=== PATIENT | female | born 1960 | race Caucasian/White ===

== ENCOUNTER 2018-08-29 11:00 | Emergency (ER) | payer MEDICARE, MEDICAID ==
--- NOTE | 2018-08-29 11:44 | CT ---
CT PULMONARY ANGIOGRAM WITH IV CONTRAST AND 3-D POSTPROCESSING: HISTORY:Chest pain, cough FINDINGS: There is good contrast opacification of the pulmonary arterial vasculature without filling defects to suggest pulmonary embolism. The thoracic aorta is without aneurysm. No pleural or pericardial effusions are seen. No pneumothoraces, focal areas of consolidation or lung masses are noted. Emphysematous changes are m ost prominent in the upper lung alex. There is biapical scarring. There are degenerative changes in the spine. There is ascites in the visualized portions of the upper abdominal tomograms, right liver cysts and v arices in the paraesophageal region and in the left upper quadrant. IMPRESSION: No CT evidence of pulmonary embolism.
[2018-08-29] MEDS ORDERED: Nitroglycerin 2% Ointment 1 INCH/1 GM Packet ONE (12:01)
[2018-08-29 12:40] LABS: ALT (SGPT) 107 U/L (8-55); AST (SGOT) 204 U/L (5-34); Alkaline Phosphatase 71 U/L (40-150); Anion Gap 11 mmol/L (10-20); BUN (Urea Nitrogen) 6 mg/dL (9.8-20.1); CK (CPK) 333 U/L (29-168); Calc. Creatinine Clearance 0 mL/min (70-130); Calcium 8.3 mg/dL (7.8-10.44); Carbon Dioxide 22 mmol/L (22-29); Chloride 105 mmol/L (98-107); Estimated GFR-MDRD Greater than 90; Globulin 3.4 g/dL (2.4-3.5); Glucose 105 mg/dL (70-105); Lipase 49 U/L (8-78); Protein, Total 6.4 g/dL (6.0-8.3); Sodium 134 mmol/L (136-145)
[2018-08-29 12:55] LABS: #Basophils 0.1 thou/uL (0.0-0.2); #Monocytes 0.5 thou/uL (0.11-0.59); #Neutrophils 2.8 thou/uL (1.40-6.50); %Basophils 1.3 % (0.0-1.0); %Eosinophils 0.2 % (0.0-10.0); %Lymphocytes 22.4 % (21.0-51.0); %Monocytes 12.6 % (0.0-10.0); %Neutrophils 63.6 % (42.0-75.0); Hemoglobin 15.5 g/dL (12.0-16.0); Mean Corpuscular HGB CONC 34.1 g/dL (32.0-36.0); Mean Corpuscular Hemoglobin 33.9 pg (27.0-31.0); Mean Corpuscular Volume 99.6 fL (78.0-98.0); Mean Platelet Volume 9.2 fL (7.4-10.4); Platelet Count 80 thou/uL (130-400); Red Blood Cell (RBC) Count 4.57 mill/uL (4.20-5.40); White Blood Cell (WBC) Count 4.3 thou/uL (4.8-10.8)
[2018-08-29] MEDS ORDERED: Ketorolac Tromethamine 30 MG/ML VIAL ONE (13:38)
[2018-08-29 14:09] LABS: Troponin I Less than 0.010 ng/mL (< 0.028)
--- NOTE | 2018-08-31 16:21 | EKG ---
Test Reason : Blood Pressure : / mmHG Vent. Rate : 037 BPM Atrial Rate : 037 BPM P-R Int : 170 ms QRS Dur : 058 ms QT Int : 488 ms P-R-T Axes : 057 051 072 degrees QTc Int : 383 ms Marked sinus bradycardia Anteroseptal infarct , age undetermined Abnormal ECG Confirmed by THEODORA ANDERSEN, AFSHAN ([id number]), mapping editor MEGHAN TAYLOR ([id number]) on 08/31/2018 4:21:32 PM Referred By: Confirmed By:AFSHAN YIP MD
== END 2018-08-29 14:20 | disposition home or self-care (01) ==
LOC: ERS 11:00
DX: J44.1 Chronic obstructive pulmonary disease with (acute) exacerbation (principal); R00.1 Bradycardia, unspecified; I10 Essential (primary) hypertension; F17.210 Nicotine dependence, cigarettes, uncomplicated; Z79.899 Other long term (current) drug therapy
CPT/HCPCS: 36415; 71275; 80053; 82550; 83690; 83880; 84484; 85025; 93005; 96361; 96374; J1885

== ENCOUNTER 2019-01-28 17:56 | Inpatient (IN) | payer MEDICARE, MEDICAID ==
[~2019-01-28 17:56] MED LIST: Iopamidol-370 76% 500 ML 1 ML ONE
[2019-01-28 19:59] LABS: #Basophils 0.1 thou/uL (0.0-0.2); #Lymphocytes 1.3 thou/uL (1.20-3.40); #Monocytes 0.8 thou/uL (0.11-0.59); %Basophils 0.9 % (0.0-1.0); %Eosinophils 0.1 % (0.0-10.0); %Lymphocytes 17.7 % (21.0-51.0); %Monocytes 11.4 % (0.0-10.0); %Neutrophils 69.9 % (42.0-75.0); Hemoglobin 12.5 g/dL (12.0-16.0); Mean Corpuscular HGB CONC 33.6 g/dL (32.0-36.0); Mean Corpuscular Hemoglobin 33.1 pg (27.0-31.0); Mean Corpuscular Volume 98.5 fL (78.0-98.0); Mean Platelet Volume 8.3 fL (7.4-10.4); Platelet Count 115 thou/uL (130-400); RBC Distribution Width 13.8 % (11.5-14.5); Red Blood Cell (RBC) Count 3.76 mill/uL (4.20-5.40); White Blood Cell (WBC) Count 7.1 thou/uL (4.8-10.8)
[2019-01-28 20:03] LABS: INR-International Normal Ratio 1.5; PTT 32.5 SEC (22.9-36.1); Prothrombin Time 18.4 SEC (12.0-14.7)
[2019-01-28 20:18] LABS: ALT (SGPT) 35 U/L (8-55); AST (SGOT) 63 U/L (5-34); Albumin 2.3 g/dL (3.5-5.0); Alkaline Phosphatase 66 U/L (40-110); Anion Gap 9 mmol/L (10-20); BUN (Urea Nitrogen) 19 mg/dL (9.8-20.1); Bilirubin, Total 2.5 mg/dL (0.2-1.2); Calc. Creatinine Clearance 0 mL/min (70-130); Calcium 7.9 mg/dL (7.8-10.44); Carbon Dioxide 24 mmol/L (22-29); Chloride 107 mmol/L (98-107); Estimated GFR-MDRD Greater than 90; Globulin 3.8 g/dL (2.4-3.5); Glucose 103 mg/dL (70-105); Lipase 75 U/L (8-78); Protein, Total 6.1 g/dL (6.0-8.3); Sodium 137 mmol/L (136-145)
--- NOTE | 2019-01-28 21:05 | CT ---
CT ABDOMEN AND PELVIS WITH IV CONTRAST: 01/28/19 INDICATION: Cirrhosis. Ascites. Abdominal pain. Comparison made to CT chest with images through upper abdomen 08/29/18. FINDINGS: Lung bases are clear. There is sliding fixed diaphragmatic hernia. 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 Images through the upper abdomen show a small heterogeneous liver with irregular margins consistent w ith diagnosis of cirrhosis. A cystic lesion in the mid liver near the brody hepatis is stable from th e prior exam measuring approximately 2.2 cm. Post cholecystectomy change. Spleen and pancreas unremar kable. Splenic varices. Large volume ascites throughout the abdomen and pelvis. Small bowel loops show mural thickening probably secondary to ascites. Aorta is calcified but normal caliber. Colon also shows mild diffuse mural thickening possibly due to the ascites. Uterus and adnex a unremarkable. IMPRESSION: 1. Large volume ascites in all quadrants. 2. Changes of cirrhosis and portal hypertension as described above. 3. Sliding fixed diaphragmatic hernia. POS: OFF
[2019-01-28] MEDS ORDERED: Magnesium 2 GM/50 ML BAG (IN WATER) ONE (23:37)
[2019-01-28] MEDS ORDERED: Potassium Chloride 40 MEQ in Sodium Chloride 0.9% 250 ML 250 ML IVPB SCH (23:59)
[2019-01-29] MEDS ORDERED: hydrALAZINE 20 MG/ML VIAL SLOW IVP PRN (01:01)
[2019-01-29] MEDS ORDERED: Albumin 25% 25 GM/100 ML BOT IVPB SCH (01:08)
[2019-01-29] MEDS ORDERED: Propranolol 40 MG TAB PO SCH (01:15)
[2019-01-29] MEDS ORDERED: Magnesium 2 GM/50 ML 2 GM in Premix Bag 1 BAG IVPB SCH (01:15)
--- NOTE | 2019-01-29 02:08 | HP ---
PRESENTING COMPLAINT: Weakness and fall. HISTORY OF PRESENT ILLNESS: Ms. Jillian Chaidez is a 58-year-old female with history of hepatitis C, alcoholic liver cirrhosis, who presented today because of progressive weakness and recent fall at home since the last 3 days. The patient has been having continuous weakness. She admits to loose stools. She denies any lactulose use. She does not have home medications. She says she has gone to see a primary care physician to establish care today and was told she looked too weak to go home and was sent to the ED. The patient admits to being at a hospital in [place] 1 week ago where she was treated for similar weakness. She is unable to tell me what else she was treated for or what her home medications are. She states she has had previous paracentesis. She states her last one was over 3 months ago. She admits to worsening abdominal distention with generalized abdominal pain. She denies any nausea or vomiting. She admits to decreased p.o. intake. She denies any dysuria, fever, or chills. In the emergency room, she was noted with low potassium of 3.0 as well as a prolonged QTc interval of 493 on EKG. She denies any chest pain. No shortness of breath. The patient is a very poor historian. The patient states she has not taken any medications since the last 2 weeks after she ran out of her previously prescribed medication. PAST MEDICAL HISTORY: History of hepatitis C, history of alcoholic liver cirrhosis, history of recurrent abdominal ascites. HOME MEDICATIONS: The patient unable to give information about home medications. ALLERGIES: SHE IS ALLERGIC TO CODEINE. FAMILY HISTORY: No history of abdominal cancer or CVA. SOCIAL HISTORY: The patient denies any tobacco use. Admits to previous alcohol use, but none since the last 4 months. Denies any illicit drug use. She states she lives alone and she is fully functional prior to this acute symptoms. REVIEW OF SYSTEMS: All system reviewed x14 negative except as mentioned above as well as positive for myalgia and malaise. PHYSICAL EXAMINATION: CURRENT VITAL SIGNS: Blood pressure of 146/82, pulse of 84, respiratory rate of 20, O2 saturation 100% on room air, temperature afebrile at 98.7. GENERAL: Thin built, chronically ill-looking female, not in any distress. HEENT: Pupils are equal and reactive to light. Slight icterus noted. Dry oral mucosa. NECK: No JVD. No carotid bruit. RESPIRATORY: Good air entry at the bases. No crepitation or wheeze. CARDIOVASCULAR: S1, S2. Not tachycardic. No murmur. GI: Abdomen markedly distended. Mild generalized tenderness on palpation. Extensive ascites as demonstrated by shifting dullness. No area of focal tenderness. No palpable suprapubic fullness or hepatomegaly. BACK: Nontender. No CVA tenderness. EXTREMITIES: No pedal edema. No calf tenderness. NEURO: The patient is alert and conversant. No asterixis. No neurological focal motor deficit. LABORATORY DATA: WBC 7.5, hemoglobin 12, platelet 115, neutrophils 69%. INR 1.5, PTT 32, potassium 3.0, sodium 137, bicarb 24, creatinine 0.6, calcium 7.9, albumin of 2.3, lipase 75. Magnesium 1.6. AST and ALT normal. Total bilirubin of 2.5. CT of the abdomen/pelvis shows extensive ascites demonstrated, also noted changes of cirrhosis, portal hypertension, as well as slightly fixed diaphragmatic hernia. EKG shows normal sinus rhythm with a prolonged QT of 430 and QTc of 493. No U waves noted. IMPRESSION: 1. Alcoholic liver cirrhosis. 2. Symptomatic ascites. 3. Hypomagnesemia. 4. Hypokalemia. 5. Prolonged QT interval due to hypomagnesemia. 6. Weakness. PLAN: We will admit the patient to observation. We will manage the patient for the following. 1. Symptomatic ascites with generalized abdominal pain. We will consult for paracentesis. We will send fluid for cell count and culture. Given elevated blood pressure as well as evidence of portal hypertension on CT, we will start the patient on propranolol. We will also start low-dose lactulose. 2. Hypokalemia. We will replete now. We start gentle hydration. The patient might benefit from p.o. potassium at discharge. 3. Hypomagnesemia. We will replete with 2 g, likely cause of EKG change. Follow repeat EKG in a.m. We will discharge. We will also start the patient on magnesium oxide. 4. DVT prophylaxis, subcutaneous heparin. 5. Advanced directives, the patient is full code. TIME SPENT: Total time spent in review of record, greater than 60 minutes. Job ID: [id number]
[2019-01-29] MEDS: Potassium Chloride 10 MEQ in Dextrose 5%-Lactated Ringers 1,000 ML IV SCH ×2 (02:21→13:01)
[2019-01-29 02:31] VITALS: BMI 19.1
[2019-01-29] MEDS: Heparin 5,000 UNITS/ML VIAL SC SCH ×3 (07:51→20:41)
[2019-01-29 09:23] LABS: #Basophils 0.1 thou/uL (0.0-0.2); #Lymphocytes 1.3 thou/uL (1.20-3.40); #Monocytes 0.8 thou/uL (0.11-0.59); #Neutrophils 4.6 thou/uL (1.40-6.50); %Basophils 0.8 % (0.0-1.0); %Eosinophils 0.2 % (0.0-10.0); %Lymphocytes 19.4 % (21.0-51.0); %Monocytes 12.2 % (0.0-10.0); %Neutrophils 67.4 % (42.0-75.0); Hemoglobin 11.9 g/dL (12.0-16.0); Mean Corpuscular HGB CONC 33.8 g/dL (32.0-36.0); Mean Corpuscular Hemoglobin 33.5 pg (27.0-31.0); Mean Corpuscular Volume 98.9 fL (78.0-98.0); Mean Platelet Volume 8.6 fL (7.4-10.4); Platelet Count 104 thou/uL (130-400); RBC Distribution Width 13.8 % (11.5-14.5); Red Blood Cell (RBC) Count 3.56 mill/uL (4.20-5.40); White Blood Cell (WBC) Count 6.8 thou/uL (4.8-10.8)
[2019-01-29 09:39] LABS: Anion Gap 7 mmol/L (10-20); BUN (Urea Nitrogen) 15 mg/dL (9.8-20.1); Calc. Creatinine Clearance 102 mL/min (70-130); Calcium 7.6 mg/dL (7.8-10.44); Carbon Dioxide 22 mmol/L (22-29); Chloride 110 mmol/L (98-107); Estimated GFR-MDRD Greater than 90; Glucose 121 mg/dL (70-105); Potassium 3.5 mmol/L (3.5-5.1); Sodium 135 mmol/L (136-145)
[2019-01-29] MEDS: Propranolol 40 MG TAB PO SCH ×2 (09:41→20:42)
[2019-01-29] MEDS: Magnesium Oxide 400 MG TAB PO SCH ×2 (09:41→20:42)
[2019-01-29] MEDS: Famotidine 20 MG TAB PO SCH ×2 (09:41→20:42)
[2019-01-29] MEDS: cefTRIAXone\\ROCEPHIN 1 GM in Sodium Chloride 0.9% 100 ML IVPB SCH (10:18)
--- NOTE | 2019-01-29 10:31 | PDOC.HOSPP ---
- Subjective Encounter Date: 01/29/19 Encounter Time: 10:29 Subjective: was seen today in follow-up of cirrhosis, and generalized weakness. She also notes abdominal discomfort. - Objective Vital Signs & Weight: Vital Signs (12 hours) Temp Pulse Ox 01/29/19 08:00 100 01/29/19 07:39 98.2 F 01/29/19 04:00 98.4 F 01/29/19 01:45 98.0 F 100 Weight Weight 133 lb 3 oz Most Recent Monitor Data Heart Rate from ECG 69 NIBP 128/88 NIBP BP-Mean 101 Respiration from ECG 15 SpO2 99 I&O: 01/28/19 01/29/19 01/30/19 06:59 06:59 06:59 Intake Total 930 Balance 930 Result Diagrams: 01/29/19 09:01 01/29/19 09:01 Hospitalist ROS - Medication Medications: Active Medications Generic Name Dose Route Start Last Admin Trade Name Freq PRN Reason Stop Dose Admin Famotidine 20 mg 01/29/19 09:00 01/29/19 09:41 Pepcid PO Not Given BID [facility] Heparin Sodium (Porcine) 5,000 units 01/29/19 09:00 01/29/19 07:51 Heparin SC Not Given TID [facility] Potassium Chloride 10 meq/ 1,005 mls @ 100 mls/hr 01/29/19 01:15 01/29/19 02: 21 Dextrose/Lactated Ringer's IV 1,005 mls .Q10H3M GIOVANNI Administration Ceftriaxone Sodium 1 gm/ 100 mls @ 200 mls/hr 01/29/19 09:00 01/29/19 10:18 Sodium Chloride IVPB 100 mls 0900 GIOVANNI Administration Lactulose 20 gm 01/29/19 09:00 01/29/19 10:18 Lactulose PO 20 gm DAILY GIOVANNI Administration Magnesium Oxide 400 mg 01/29/19 09:00 01/29/19 09:41 Magnesium Oxide PO Not Given BID [facility] Propranolol HCl 40 mg 01/29/19 09:00 01/29/19 09:41 Inderal PO Not Given BID [facility] Sodium Chloride 10 ml 01/29/19 09:00 01/29/19 07:51 Flush - Normal Saline IVF Not Given Q12HR [facility] - Exam Eye: PERRL Heart: RRR, no murmur, no gallops, no rubs, normal peripheral pulses Respiratory: CTAB, no wheezes, no rales, no ronchi, normal chest expansion Gastrointestinal: tender to palpation (+ diffuse tenderness, + fluid wave, and spleen and liver non-palpable) Extremities: no cyanosis, 1+ LE edema (And chronic venous stasis changes) Hosp A/P (1) Weakness generalized Code(s): R53.1 - WEAKNESS Status: Acute (2) Hypokalemia Code(s): E87.6 - HYPOKALEMIA Status: Acute (3) Hypomagnesemia Code(s): E83.42 - HYPOMAGNESEMIA Status: Acute (4) Ascites Code(s): R18.8 - OTHER ASCITES Status: Chronic (5) Liver cirrhosis, alcoholic Code(s): K70.30 - ALCOHOLIC CIRRHOSIS OF LIVER WITHOUT ASCITES Status: Acute (6) Malnutrition of moderate degree Code(s): E44.0 - MODERATE PROTEIN-CALORIE MALNUTRITION Status: Chronic - Plan * Generalized weakness- likely from electrolyte abnormalities, and liver disease * She does not have evidence of encephalopathy at this time- she is oriented, and alertX 3, no asterixis * She has massive ascites however, and will obtain an ultrasound guided paracentesis- and check cell counts * She may need a rn social work consult to see what her needs are at home * Nutrition consult - for malnutrition
--- NOTE | 2019-01-29 15:17 | ULT ---
US Paracentesis with Imaging History: Ascites. Comparison: CT abdomen and pelvis prior day Findings: The exam was performed in the patient's room. The right lower quadrant was prepped and drap ed in normal sterile fashion. Using ultrasound guidance right lower quadrant was accessed with a 5 Swedish catheter after adequate local anesthesia with lidocaine. A total of 3250 mL straw-colored flui d was removed. Patient tolerated the procedure well without complication. Impression: Technically successful ultrasound-guided paracentesis.
[2019-01-29] MEDS ORDERED: FLU VACC QS2019-20(6MOS UP)/PF 60 MCG/0.5 ML SYRINGE IM ONE (21:00)
[2019-01-29] MEDS: Ondansetron PF 4 MG/2 ML Vial IVP PRN (23:11)
--- NOTE | 2019-01-30 03:47 | CON ---
DATE OF CONSULTATION: HISTORY OF PRESENT ILLNESS: Ms. Chaidez is a 58-year-old female with cirrhosis. She is followed by a trauma therapist in [place]. She presented to the [facility] and was transferred here. She really could not tell me why she wanted to be transferred to [place], when she is seen frequently in [place]. In any event, she was transferred here with massive ascites. She subsequently has undergone a large volume paracentesis and is back in her room at this time with no complaints. She says she is feeling better. She admits that she just quit taking her medicine. She said she just did not feel like walking into the room, where she keeps all of her medicines, so she did not take them. She denies running out of her medicine and very quickly told me she just did not take them. PAST MEDICAL HISTORY: Remarkable for, 1. Cirrhosis. She quit drinking in October this year. 2. Hepatitis C. 3. History of frequent large volume paracenteses. MEDICATIONS: It is unclear what medicines she takes at home. ALLERGIES: SHE REPORTS CODEINE ALLERGY. SOCIAL HISTORY: She is a nonsmoker. She has not had a drink since October. REVIEW OF SYSTEMS: Ten-point is otherwise negative. PHYSICAL EXAMINATION: VITAL SIGNS: She is afebrile. Heart rate is 65, respiratory rate is 18, blood pressure 136/87, and oximetry is 99%. HEENT: Pupils are equal. Sclerae are anicteric. NECK: Supple. No lymphadenopathy. LUNGS: Clear. HEART: Regular rhythm. ABDOMEN: Soft and nontender. EXTREMITIES: Without clubbing, cyanosis, or edema. LABORATORY DATA: White count 6.8, hemoglobin 11.9, and platelets 104,000. Sodium 135, potassium 3.5, chloride 110, bicarb 22, BUN 15, and creatinine 0.58. IMPRESSION: 1. Ascites, status post paracentesis. 2. Medical noncompliance. 3. Hepatitis C. 4. Cirrhosis. 5. History of heavy alcohol use, none since October by her history. If her peritoneal fluid cultures are negative, it would not be unreasonable for her to be discharged home. I really do not identify any acute illness at this point. I have encouraged her to pick a trauma therapist and stick with him. If she has medical complications, which she will have in the future related to her liver, she should request transfer to [place], where her trauma therapist is. She is auto-anticoagulated with a pro-time of 18.4. She probably does not need to have subcu heparin on top of that, so I have discontinued that. If she remains stable overnight, it would not be inappropriate to consider discharge tomorrow. Job ID: [id number]
[2019-01-30] MEDS: Potassium Chloride 10 MEQ in Dextrose 5%-Lactated Ringers 1,000 ML IV SCH ×3 (04:02→18:02)
[2019-01-30 04:27] LABS: ALT (SGPT) 27 U/L (8-55); AST (SGOT) 54 U/L (5-34); Albumin 2.1 g/dL (3.5-5.0); Alkaline Phosphatase 54 U/L (40-110); Anion Gap 9 mmol/L (10-20); BUN (Urea Nitrogen) 12 mg/dL (9.8-20.1); Bilirubin, Total 1.7 mg/dL (0.2-1.2); Calc. Creatinine Clearance 104 mL/min (70-130); Calcium 7.4 mg/dL (7.8-10.44); Carbon Dioxide 21 mmol/L (22-29); Chloride 111 mmol/L (98-107); Estimated GFR-MDRD Greater than 90; Globulin 3.2 g/dL (2.4-3.5); Glucose 81 mg/dL (70-105); Potassium 3.2 mmol/L (3.5-5.1); Protein, Total 5.3 g/dL (6.0-8.3); Sodium 138 mmol/L (136-145)
[2019-01-30] MEDS ORDERED: PROVENTIL INHALER 6.7 G (200 INHALATIONS) INH PRN (09:19)
[2019-01-30] MEDS: Magnesium Oxide 400 MG TAB PO SCH ×2 (09:30→20:09)
[2019-01-30] MEDS: Heparin 5,000 UNITS/ML VIAL SC SCH ×3 (09:31→20:09)
[2019-01-30] MEDS: Propranolol 40 MG TAB PO SCH ×2 (09:31→20:09)
[2019-01-30] MEDS: Famotidine 20 MG TAB PO SCH ×2 (09:31→20:09)
[2019-01-30] MEDS: cefTRIAXone\\ROCEPHIN 1 GM in Sodium Chloride 0.9% 100 ML IVPB SCH (09:32)
--- NOTE | 2019-01-30 11:23 | PDOC.HOSPP ---
- Subjective Encounter Date: 01/30/19 Encounter Time: 11:22 Subjective: Ms. Chaidez was seen today in follow-up of cirrhosis, and abdominal pain, generalized weakness. - Objective Vital Signs & Weight: Vital Signs (12 hours) Temp Pulse Ox 01/30/19 08:16 98.8 F 01/30/19 08:00 100 01/30/19 03:57 98.7 F 01/29/19 23:41 98.8 F Weight Admit Weight 133 lb 3 oz Weight 133 lb 3 oz Most Recent Monitor Data Heart Rate from ECG 60 NIBP 113/77 NIBP BP-Mean 89 Respiration from ECG 17 SpO2 100 I&O: 01/29/19 01/30/19 01/31/19 06:59 06:59 06:59 Intake Total 930 1796 Output Total 200 Balance 930 1596 Result Diagrams: 01/29/19 09:01 01/30/19 03:46 Hospitalist ROS - Medication Medications: Active Medications Generic Name Dose Route Start Last Admin Trade Name Freq PRN Reason Stop Dose Admin Famotidine 20 mg 01/29/19 09:00 01/30/19 09:31 Pepcid PO 20 mg BID GIOVANNI Administration Heparin Sodium (Porcine) 5,000 units 01/29/19 09:00 01/30/19 09:31 Heparin SC 5,000 units TID GIOVANNI Administration Potassium Chloride 10 meq/ 1,005 mls @ 100 mls/hr 01/29/19 01:15 01/30/19 09: 30 Dextrose/Lactated Ringer's IV 1,005 mls .Q10H3M GIOVANNI Administration Magnesium Oxide 400 mg 01/29/19 09:00 01/30/19 09:30 Magnesium Oxide PO 400 mg BID GIOVANNI Administration Ondansetron HCl 4 mg 01/29/19 01:01 01/29/19 23:11 Zofran IVP 4 mg Q6H PRN Administration Nausea/Vomiting Propranolol HCl 40 mg 01/29/19 09:00 01/30/19 09:31 Inderal PO Not Given BID [facility]ANNI Sodium Chloride 10 ml 01/29/19 09:00 01/30/19 09:31 Flush - Normal Saline IVF 10 ml Q12HR GIOVANNI Administration - Exam Eye: PERRL Heart: RRR, no murmur, no gallops, no rubs, normal peripheral pulses Respiratory: CTAB, no wheezes, no rales, no ronchi, normal chest expansion Gastrointestinal: normal bowel sounds (+ fluid wave, distended, and diffuse of) , no hepatomegaly, distended Extremities: no cyanosis, no clubbing, 1+ LE edema Psychiatric: normal affect, normal behavior, A&O x 3 Hosp A/P (1) Weakness generalized Code(s): R53.1 - WEAKNESS Status: Acute (2) Hypokalemia Code(s): E87.6 - HYPOKALEMIA Status: Acute (3) Hypomagnesemia Code(s): E83.42 - HYPOMAGNESEMIA Status: Acute (4) Ascites Code(s): R18.8 - OTHER ASCITES Status: Chronic (5) Liver cirrhosis, alcoholic Code(s): K70.30 - ALCOHOLIC CIRRHOSIS OF LIVER WITHOUT ASCITES Status: Acute (6) Malnutrition of moderate degree Code(s): E44.0 - MODERATE PROTEIN-CALORIE MALNUTRITION Status: Chronic - Plan * Generalized weakness- continue PT/OT * Patient had the paracentesis- however the sample was not * She has massive ascites however, and will obtain an ultrasound guided paracentesis- and check cell counts were unfortunately not sent- for cell count and differential- since she had some abdominal pain will treat empirically for SBP. * Cdiff antigen positive and toxin negative- her stool lactoferrin was positive , and she had diarrhea despite being off Lactulose for over 7 days- will treat with a 10 day course of oral Vancomycin * She feels too weak to go home- will consult Case management for nursing home placemen
[2019-01-30] MEDS: Vancomycin HCl 25 MG/ML Oral PO SCH ×3 (13:17→23:32)
[2019-01-30] MEDS: Ciprofloxacin 500 MG TAB PO SCH (20:08)
[2019-01-30] MEDS: Lactulose 10 GM/15 ML Oral Solution PO SCH (21:17)
--- NOTE | 2019-01-30 21:19 | PRG ---
DATE OF SERVICE: 01/30/2019 SUBJECTIVE: Mr. Chaidez has no complaints. She says she feels weak. She does not want to go home. She says she can no longer take care of herself. OBJECTIVE: VITAL SIGNS: She is afebrile. Heart rate is in the 60s, respiratory rate 17, oximetry is 96% on room air, blood pressure 116/71 this evening. Intake and output are positive 1596. IMPRESSION: Ascites with requirement for frequent paracentesis. She should be probably fluid restricted at this point. She can transfer out of the intermediate care unit. She needs to be placed somewhere. She says she is willing to go anywhere besides home. We will sign off on transfer. Job ID: [id number]
[2019-01-31] MEDS: Potassium Chloride 10 MEQ in Dextrose 5%-Lactated Ringers 1,000 ML IV SCH ×2 (01:08→09:36)
[2019-01-31] MEDS: Ciprofloxacin 500 MG TAB PO SCH ×2 (05:02→21:11)
[2019-01-31] MEDS: Vancomycin HCl 25 MG/ML Oral PO SCH ×4 (05:02→23:00)
[2019-01-31 08:31] LABS: #Basophils 0.1 thou/uL (0.0-0.2); #Lymphocytes 1.7 thou/uL (1.20-3.40); #Monocytes 0.8 thou/uL (0.11-0.59); #Neutrophils 4.3 thou/uL (1.40-6.50); %Basophils 0.9 % (0.0-1.0); %Eosinophils 0.5 % (0.0-10.0); %Lymphocytes 24.3 % (21.0-51.0); %Monocytes 11.4 % (0.0-10.0); %Neutrophils 62.9 % (42.0-75.0); Hemoglobin 12.4 g/dL (12.0-16.0); Mean Corpuscular HGB CONC 32.9 g/dL (32.0-36.0); Mean Corpuscular Hemoglobin 33.3 pg (27.0-31.0); Mean Platelet Volume 8.3 fL (7.4-10.4); Platelet Count 98 thou/uL (130-400); RBC Distribution Width 13.7 % (11.5-14.5); Red Blood Cell (RBC) Count 3.72 mill/uL (4.20-5.40); White Blood Cell (WBC) Count 6.8 thou/uL (4.8-10.8)
[2019-01-31 08:37] LABS: ALT (SGPT) 31 U/L (8-55); AST (SGOT) 62 U/L (5-34); Alkaline Phosphatase 52 U/L (40-110); Anion Gap 6 mmol/L (10-20); BUN (Urea Nitrogen) 9 mg/dL (9.8-20.1); Bilirubin, Total 1.9 mg/dL (0.2-1.2); Calc. Creatinine Clearance 108 mL/min (70-130); Calcium 7.5 mg/dL (7.8-10.44); Carbon Dioxide 21 mmol/L (22-29); Chloride 111 mmol/L (98-107); Estimated GFR-MDRD Greater than 90; Globulin 3.3 g/dL (2.4-3.5); Glucose 100 mg/dL (70-105); Potassium 3.3 mmol/L (3.5-5.1); Protein, Total 5.3 g/dL (6.0-8.3); Sodium 135 mmol/L (136-145)
[2019-01-31] MEDS: Spironolactone 100 MG TAB PO SCH (09:28)
[2019-01-31] MEDS: Propranolol 40 MG TAB PO SCH ×2 (09:28→21:11)
[2019-01-31] MEDS: Famotidine 20 MG TAB PO SCH ×2 (09:28→21:11)
[2019-01-31] MEDS: Magnesium Oxide 400 MG TAB PO SCH ×2 (09:28→21:11)
[2019-01-31] MEDS: Lactulose 10 GM/15 ML Oral Solution PO SCH ×2 (09:29→21:12)
[2019-01-31] MEDS: Furosemide 40 MG TAB PO SCH (09:29)
[2019-01-31] MEDS: Heparin 5,000 UNITS/ML VIAL SC SCH (09:30)
[2019-01-31] MEDS: Ondansetron PF 4 MG/2 ML Vial IVP PRN (09:36)
[2019-01-31] MEDS ORDERED: Potassium Chloride 20 MEQ TAB PO SCH (15:00)
--- NOTE | 2019-01-31 15:08 | PDOC.HOSPP ---
- Subjective Encounter Date: 01/31/19 Encounter Time: 15:07 Subjective: Ms. Chaidez was seen today in follow-up of cirrhosis, with C. diff, and generalized weakness. She tells me she is having abdominal pain again today. She believes it may be due to her pancreas. She says she has had this problem before. - Objective Vital Signs & Weight: Vital Signs (12 hours) Temp Pulse Resp BP BP Pulse Ox 01/31/19 12:37 97.9 F 62 20 125/78 95 01/31/19 09:00 97 01/31/19 07:58 97.6 F 60 16 103/66 01/31/19 06:43 64 14 92 L 01/31/19 05:07 98.0 F 63 15 111/71 92 L Weight Admit Weight 133 lb 3 oz Weight 133 lb 3 oz Most Recent Monitor Data Heart Rate from ECG 62 NIBP 113/77 NIBP BP-Mean 123 Respiration from ECG 17 SpO2 99 I&O: 01/30/19 01/31/19 02/01/19 06:59 06:59 06:59 Intake Total 1796 1450 Output Total 200 Balance 1596 1450 Result Diagrams: 01/31/19 07:44 01/31/19 07:44 Hospitalist ROS - Medication Medications: Active Medications Generic Name Dose Route Start Last Admin Trade Name Freq PRN Reason Stop Dose Admin Albuterol/Ipratropium 3 ml 01/30/19 11:00 01/31/19 14:16 Duoneb NEB Not Given QID-RT GIOVANNI Ciprofloxacin 500 mg 01/30/19 20:00 01/31/19 05:02 Cipro PO 02/04/19 06:01 500 mg BID@0600,2000 GIOVANNI Administration Famotidine 20 mg 01/29/19 09:00 01/31/19 09:28 Pepcid PO 20 mg BID GIOVANNI Administration Furosemide 40 mg 01/31/19 09:00 01/31/19 09:29 Lasix PO 40 mg DAILY GIOVANNI Administration Potassium Chloride 10 meq/ 1,005 mls @ 100 mls/hr 01/29/19 01:15 01/31/19 09: 36 Dextrose/Lactated Ringer's IV 1,005 mls .Q10H3M GIOVANNI Administration Lactulose 10 gm 01/30/19 21:00 01/31/19 09:29 Lactulose 10 Gm/15ml Oral Nneka PO 10 gm BID GIOVANNI Administration Magnesium Oxide 400 mg 01/29/19 09:00 01/31/19 09:28 Magnesium Oxide PO 400 mg BID GIOVANNI Administration Ondansetron HCl 4 mg 01/29/19 01:01 01/31/19 09:36 Zofran IVP 4 mg Q6H PRN Administration Nausea/Vomiting Potassium Chloride 20 meq 01/31/19 09:00 01/31/19 09:29 Klor-Con PO 20 meq DAILY GIOVANNI Administration Propranolol HCl 40 mg 01/29/19 09:00 01/31/19 09:28 Inderal PO 40 mg BID GIOVANNI Administration Sertraline HCl 100 mg 01/31/19 09:00 01/31/19 09:28 Zoloft PO 100 mg DAILY GIOVANNI Administration Sodium Chloride 10 ml 01/29/19 09:00 01/31/19 09:29 Flush - Normal Saline IVF Not Given Q12HR GIOVANNI Spironolactone 100 mg 01/31/19 09:00 01/31/19 09:28 Aldactone PO 100 mg DAILY GIOVANNI Administration Vancomycin HCl 125 mg 01/30/19 12:00 01/31/19 12:35 First Vancomycin PO 125 mg Q6HR GIOVANNI Administration - Exam Eye: PERRL Heart: RRR, no murmur, no gallops, no rubs, normal peripheral pulses Respiratory: CTAB, no wheezes, no rales, no ronchi, normal chest expansion Gastrointestinal: tender to palpation (tense abdominal distension, + fluid wave, ), distended Extremities: 1+ LE edema Hosp A/P (1) Weakness generalized Code(s): R53.1 - WEAKNESS Status: Acute (2) Hypokalemia Code(s): E87.6 - HYPOKALEMIA Status: Acute (3) Hypomagnesemia Code(s): E83.42 - HYPOMAGNESEMIA Status: Acute (4) Ascites Code(s): R18.8 - OTHER ASCITES Status: Chronic (5) Liver cirrhosis, alcoholic Code(s): K70.30 - ALCOHOLIC CIRRHOSIS OF LIVER WITHOUT ASCITES Status: Acute (6) Malnutrition of moderate degree Code(s): E44.0 - MODERATE PROTEIN-CALORIE MALNUTRITION Status: Chronic - Plan * Abdominal pain- will check a lipase, but I suspect it I suspect it is due to the massive ascites * Will order another large volume paracentesis * Continue empiric treatment for SBP- day #2 of Cipro for a total of 5 days * Cdiff antigen positive and toxin negative- her stool lactoferrin was positive , she notes a bit firmer stools, but loose ( she is also on lactulose)- continue oral Vancomycin for a 10 day course * Hypokalemia- continue to replace * Malnutrition- continue nutritional supplements * plan is for shelter once stable for discharge
[2019-01-31 16:05] LABS: INR-International Normal Ratio 1.7; Prothrombin Time 20.3 SEC (12.0-14.7)
--- NOTE | 2019-01-31 16:43 | ULT ---
Exam: Ultrasound guided paracentesis HISTORY: Ascites COMPARISON: Prior exam dated January 29, 2019 FINDINGS: Successful ultrasound-guided paracentesis. Total of 5 L of normal appearingascites was aspi rated. TECHNIQUE: Consent obtained reformatory ultrasound-guided paracentesis. Right lower quadrant was deem ed appropriate. Skin was prepped and draped in a sterile fashion. 1% lidocaine, buffered with sodium bicarbonate was used for local anesthesia. Under ultrasound guidance, a 5 Croatian 7 cm Yueh cat heter is advanced in the peritoneal space. A total of 5 L of normal appearingascites was aspirated. No immediate or postprocedural complications IMPRESSION: Successful ultrasound-guided paracentesis.
[2019-01-31] MEDS ORDERED: Albumin 25% 25 GM/100 ML BOT IVPB ONE (17:52)
[2019-01-31] MEDS ORDERED: Albumin 25% 25 GM/100 ML BOT IVPB SCH (19:00)
[2019-01-31] MEDS: Albumin 25% 25 GM/100 ML BOT IVPB SCH (21:11)
[2019-02-01] MEDS: Ciprofloxacin 500 MG TAB PO SCH ×2 (05:39→21:18)
[2019-02-01] MEDS: Vancomycin HCl 25 MG/ML Oral PO SCH ×4 (05:39→23:06)
[2019-02-01] MEDS: Albumin 25% 25 GM/100 ML BOT IVPB SCH ×2 (05:39→13:55)
[2019-02-01 06:22] LABS: #Basophils 0.1 thou/uL (0.0-0.2); #Lymphocytes 1.4 thou/uL (1.20-3.40); #Neutrophils 4.4 thou/uL (1.40-6.50); %Basophils 1.3 % (0.0-1.0); %Eosinophils 0.6 % (0.0-10.0); %Lymphocytes 20.7 % (21.0-51.0); %Monocytes 14.3 % (0.0-10.0); %Neutrophils 63.1 % (42.0-75.0); Hemoglobin 11.2 g/dL (12.0-16.0); Mean Corpuscular HGB CONC 32.9 g/dL (32.0-36.0); Mean Corpuscular Hemoglobin 33.1 pg (27.0-31.0); Mean Platelet Volume 8.7 fL (7.4-10.4); Platelet Count 86 thou/uL (130-400); RBC Distribution Width 13.6 % (11.5-14.5); Red Blood Cell (RBC) Count 3.39 mill/uL (4.20-5.40); White Blood Cell (WBC) Count 6.9 thou/uL (4.8-10.8)
[2019-02-01 06:42] LABS: ALT (SGPT) 29 U/L (8-55); AST (SGOT) 58 U/L (5-34); Albumin 2.2 g/dL (3.5-5.0); Alkaline Phosphatase 48 U/L (40-110); Anion Gap 8 mmol/L (10-20); BUN (Urea Nitrogen) 8 mg/dL (9.8-20.1); Bilirubin, Total 1.7 mg/dL (0.2-1.2); Calc. Creatinine Clearance 102 mL/min (70-130); Calcium 7.3 mg/dL (7.8-10.44); Carbon Dioxide 20 mmol/L (22-29); Chloride 111 mmol/L (98-107); Estimated GFR-MDRD Greater than 90; Globulin 2.7 g/dL (2.4-3.5); Glucose 81 mg/dL (70-105); Potassium 3.8 mmol/L (3.5-5.1); Protein, Total 4.9 g/dL (6.0-8.3); Sodium 135 mmol/L (136-145)
[2019-02-01] MEDS: Furosemide 40 MG TAB PO SCH (08:23)
[2019-02-01] MEDS: Spironolactone 100 MG TAB PO SCH (08:23)
[2019-02-01] MEDS: Propranolol 40 MG TAB PO SCH ×3 (08:24→21:19)
[2019-02-01] MEDS: Magnesium Oxide 400 MG TAB PO SCH (08:24)
[2019-02-01] MEDS: Famotidine 20 MG TAB PO SCH ×2 (08:24→21:18)
[2019-02-01] MEDS ORDERED: Albumin 25% 25 GM/100 ML BOT IVPB ONE (09:00)
--- NOTE | 2019-02-01 14:41 | PDOC.HOSPP ---
- Subjective Encounter Date: 02/01/19 Encounter Time: 09:15 Subjective: has diarrhea, no nausea or abd pain now feels better after 2 nd paracentesis - Objective Vital Signs & Weight: Vital Signs (12 hours) Temp Pulse Resp BP Pulse Ox 02/01/19 10:27 59 L 12 92 L 02/01/19 08:04 97.9 F 61 20 91/55 L 92 L 02/01/19 08:00 97.9 F Weight Admit Weight 133 lb 3 oz Weight 133 lb 3 oz Most Recent Monitor Data Heart Rate from ECG 62 NIBP 113/77 NIBP BP-Mean 123 Respiration from ECG 17 SpO2 99 I&O: 01/31/19 02/01/19 02/02/19 06:59 06:59 06:59 Intake Total 1450 1950 360 Balance 1450 1950 360 Result Diagrams: 02/01/19 05:43 02/01/19 05:43 Additional Labs: Accuchecks 01/31/19 20:02 POC Glucose 109 Hospitalist ROS - Medication Medications: Active Medications Generic Name Dose Route Start Last Admin Trade Name Freq PRN Reason Stop Dose Admin Albuterol/Ipratropium 3 ml 01/30/19 11:00 02/01/19 14:14 Duoneb NEB Not Given QID-RT GIOVANNI Ciprofloxacin 500 mg 01/30/19 20:00 02/01/19 05:39 Cipro PO 02/04/19 06:01 500 mg BID@0600,2000 GIOVANNI Administration Famotidine 20 mg 01/29/19 09:00 02/01/19 08:24 Pepcid PO 20 mg BID GIOVANNI Administration Furosemide 40 mg 01/31/19 09:00 02/01/19 08:23 Lasix PO 40 mg DAILY GIOVANNI Administration Ondansetron HCl 4 mg 01/29/19 01:01 01/31/19 09:36 Zofran IVP 4 mg Q6H PRN Administration Nausea/Vomiting Potassium Chloride 40 meq 02/01/19 08:00 02/01/19 08:21 Klor-Con PO 40 meq QAM-WM GIOVANNI Administration Propranolol HCl 40 mg 01/29/19 09:00 02/01/19 13:55 Inderal PO 40 mg BID GIOVANNI Administration Sertraline HCl 100 mg 01/31/19 09:00 02/01/19 08:24 Zoloft PO 100 mg DAILY GIOVANNI Administration Sodium Chloride 10 ml 01/29/19 09:00 02/01/19 08:32 Flush - Normal Saline IVF 10 ml Q12HR GIOVANNI Administration Spironolactone 100 mg 01/31/19 09:00 02/01/19 08:23 Aldactone PO 100 mg DAILY GIOVANNI Administration Vancomycin HCl 125 mg 01/30/19 12:00 02/01/19 12:32 First Vancomycin PO 125 mg Q6HR GIOVANNI Administration - Exam General Appearance: NAD, awake alert Eye: PERRL, anicteric sclera ENT: no oropharyngeal lesions, moist mucosa Neck: symmetric, no JVD Heart: RRR, no murmur Respiratory: no wheezes, no rales Gastrointestinal: soft, normal bowel sounds, no guarding, no rigidity, distended Extremities: no cyanosis, no edema Neurological: cranial nerve grossly intact, no focal deficits Psychiatric: normal affect, A&O x 3 Hosp A/P (1) Chronic anemia Code(s): D64.9 - ANEMIA, UNSPECIFIED Status: Chronic (2) coagulopathy due to liver disease Status: Chronic (3) Liver cirrhosis, alcoholic Code(s): K70.30 - ALCOHOLIC CIRRHOSIS OF LIVER WITHOUT ASCITES Status: Chronic Qualifiers: Ascites presence: with ascites Qualified Code(s): K70.31 - Alcoholic cirrhosis of liver with ascites (4) Weakness generalized Code(s): R53.1 - WEAKNESS Status: Acute (5) Ascites Code(s): R18.8 - OTHER ASCITES Status: Chronic Qualifiers: Ascites type: due to alcoholic cirrhosis Qualified Code(s): K70.31 - Alcoholic cirrhosis of liver with ascites (6) Malnutrition of moderate degree Code(s): E44.0 - MODERATE PROTEIN-CALORIE MALNUTRITION Status: Chronic - Plan dc lactulose and mgo to make maxim her diarrhea is not related to meds may dc vanc in am if diarrhea resolves with above, cdiff toxin is -ve by pcr, unlikely to have c.diff is on cipro for empiric sbp pt had paracentesis with removal of 8250mls (5 lts on 01/31 and 3250mls on 01/29 ) hemostable Has a meld score of 14. dc plan when diarrhea resolves, to amb in hallway as tolerated
[2019-02-01 17:56] LABS: Medtox Reader # READER 1; THC/Cannabinoid Screen Detected (NotDetected)
[2019-02-01 17:57] LABS: Amphetamine Not Detected (NotDetected); Barbiturates Screen Not Detected (NotDetected); Benzodiazepine Screen Not Detected (NotDetected); Cocaine Metabolite Screen Not Detected (NotDetected); Medtox Control Line Valid? VALID (VALID); Methadone Not Detected (NotDetected); Methamphetamine Not Detected (NotDetected); Opiate Screen Not Detected (NotDetected); Oxycodone Screen Not Detected (NotDetected); Phencyclidine (PCP) Not Detected (NotDetected); Tricyclic Screen Not Detected (NotDetected)
[2019-02-01] MEDS: Ondansetron PF 4 MG/2 ML Vial IVP PRN (21:19)
[2019-02-02] MEDS: Vancomycin HCl 25 MG/ML Oral PO SCH ×4 (05:27→23:47)
[2019-02-02] MEDS: Ciprofloxacin 500 MG TAB PO SCH (05:27)
[2019-02-02] MEDS: Spironolactone 100 MG TAB PO SCH (08:28)
[2019-02-02] MEDS: Furosemide 40 MG TAB PO SCH (08:28)
[2019-02-02] MEDS: Famotidine 20 MG TAB PO SCH ×2 (08:28→20:41)
[2019-02-02] MEDS: Propranolol HCl 20 MG TAB PO SCH ×2 (08:35→20:39)
--- NOTE | 2019-02-02 13:28 | PDOC.HOSPP ---
- Subjective Encounter Date: 02/02/19 Encounter Time: 08:30 Subjective: awake, oriented well no sob - Objective Vital Signs & Weight: Vital Signs (12 hours) Temp Pulse Resp BP BP Pulse Ox 02/02/19 08:00 98.3 F 58 L 20 92/57 L 91 L 02/02/19 04:00 98.1 F 63 16 109/68 92 L Weight Admit Weight 133 lb 3 oz Weight 133 lb 3 oz Most Recent Monitor Data Heart Rate from ECG 62 NIBP 113/77 NIBP BP-Mean 123 Respiration from ECG 17 SpO2 99 I&O: 02/01/19 02/02/19 02/03/19 06:59 06:59 06:59 Intake Total 1950 1380 240 Output Total 900 Balance 1950 480 240 Result Diagrams: 02/01/19 05:43 02/01/19 05:43 Hospitalist ROS - Medication Medications: Active Medications Generic Name Dose Route Start Last Admin Trade Name Freq PRN Reason Stop Dose Admin Albuterol/Ipratropium 3 ml 01/30/19 11:00 02/02/19 10:06 Duoneb NEB Not Given QID-RT GIOVANNI Famotidine 20 mg 01/29/19 09:00 02/02/19 08:28 Pepcid PO 20 mg BID GIOVANNI Administration Furosemide 40 mg 01/31/19 09:00 02/02/19 08:28 Lasix PO 40 mg DAILY GIOVANNI Administration Ondansetron HCl 4 mg 01/29/19 01:01 02/01/19 21:19 Zofran IVP 4 mg Q6H PRN Administration Nausea/Vomiting Potassium Chloride 40 meq 02/01/19 08:00 02/02/19 08:27 Klor-Con PO 40 meq QAM-WM GIOVANNI Administration Propranolol HCl 20 mg 02/02/19 09:00 02/02/19 08:35 Inderal PO 20 mg BID GIOVANNI Administration Sertraline HCl 100 mg 01/31/19 09:00 02/02/19 08:28 Zoloft PO 100 mg DAILY GIOVANNI Administration Sodium Chloride 10 ml 01/29/19 09:00 02/02/19 08:28 Flush - Normal Saline IVF 10 ml Q12HR GIOVANNI Administration Spironolactone 100 mg 01/31/19 09:00 02/02/19 08:28 Aldactone PO 100 mg DAILY GIOVANNI Administration Vancomycin HCl 125 mg 01/30/19 12:00 02/02/19 11:37 First Vancomycin PO 125 mg Q6HR GIOVANNI Administration - Exam General Appearance: awake alert Eye: PERRL, anicteric sclera ENT: no oropharyngeal lesions, moist mucosa Neck: supple, no JVD Heart: RRR, no murmur Respiratory: no wheezes, no rales Gastrointestinal: soft, normal bowel sounds, distended Extremities: no cyanosis, no edema Neurological: cranial nerve grossly intact, no focal deficits Psychiatric: normal affect, A&O x 3 Hosp A/P (1) Ascites Code(s): R18.8 - OTHER ASCITES Status: Chronic Qualifiers: Ascites type: due to alcoholic cirrhosis Qualified Code(s): K70.31 - Alcoholic cirrhosis of liver with ascites (2) Liver cirrhosis, alcoholic Code(s): K70.30 - ALCOHOLIC CIRRHOSIS OF LIVER WITHOUT ASCITES Status: Chronic Qualifiers: Ascites presence: with ascites Qualified Code(s): K70.31 - Alcoholic cirrhosis of liver with ascites (3) Chronic anemia Code(s): D64.9 - ANEMIA, UNSPECIFIED Status: Chronic (4) coagulopathy due to liver disease Status: Chronic (5) Weakness generalized Code(s): R53.1 - WEAKNESS Status: Acute (6) Malnutrition of moderate degree Code(s): E44.0 - MODERATE PROTEIN-CALORIE MALNUTRITION Status: Chronic - Plan off lactulose and mgo to make sure her diarrhea is not related to meds may dc vanc in am if diarrhea resolves with above, cdiff toxin is -ve by pcr, unlikely to have c.diff pt had paracentesis with removal of 8250mls (5 lts on 01/31 and 3250mls on 01/29 ) hemostable Has a meld score of 14. dc plan when diarrhea resolves, to amb in hallway as tolerated d/w son and daughter in law at bedside extensively
[2019-02-02] MEDS: Ondansetron ODT 4 MG TAB PO PRN (20:41)
[2019-02-03] MEDS: Vancomycin HCl 25 MG/ML Oral PO SCH ×4 (05:26→23:35)
[2019-02-03] MEDS: Pantoprazole 40 MG GRANULES PACKET PO SCH ×2 (08:08→21:58)
[2019-02-03] MEDS: Furosemide 40 MG TAB PO SCH (08:08)
[2019-02-03] MEDS: Spironolactone 100 MG TAB PO SCH (08:08)
[2019-02-03] MEDS ORDERED: Propranolol 10 MG TAB PO SCH (08:30)
[2019-02-03 09:24] LABS: #Basophils 0.1 thou/uL (0.0-0.2); #Eosinphils 0.1 thou/uL (0.0-0.7); #Lymphocytes 1.9 thou/uL (1.20-3.40); #Monocytes 1.3 thou/uL (0.11-0.59); %Eosinophils 0.8 % (0.0-10.0); %Monocytes 13.9 % (0.0-10.0); %Neutrophils 64.3 % (42.0-75.0); Mean Corpuscular HGB CONC 32.8 g/dL (32.0-36.0); Mean Corpuscular Hemoglobin 33.3 pg (27.0-31.0); Platelet Count 107 thou/uL (130-400); RBC Distribution Width 13.8 % (11.5-14.5); Red Blood Cell (RBC) Count 3.91 mill/uL (4.20-5.40); White Blood Cell (WBC) Count 9.3 thou/uL (4.8-10.8)
[2019-02-03 09:33] LABS: ALT (SGPT) 30 U/L (8-55); AST (SGOT) 61 U/L (5-34); Albumin 2.7 g/dL (3.5-5.0); Alkaline Phosphatase 47 U/L (40-110); Anion Gap 10 mmol/L (10-20); BUN (Urea Nitrogen) 7 mg/dL (9.8-20.1); Bilirubin, Total 2.3 mg/dL (0.2-1.2); Calc. Creatinine Clearance 99 mL/min (70-130); Calcium 8.3 mg/dL (7.8-10.44); Carbon Dioxide 15 mmol/L (22-29); Chloride 114 mmol/L (98-107); Estimated GFR-MDRD Greater than 90; Glucose 88 mg/dL (70-105); Potassium 4.3 mmol/L (3.5-5.1); Protein, Total 5.7 g/dL (6.0-8.3); Sodium 135 mmol/L (136-145)
--- NOTE | 2019-02-03 11:43 | PDOC.HOSPP ---
- Subjective Encounter Date: 02/03/19 Encounter Time: 08:25 Subjective: ate her breakfast, still has loose stool but its getting more formed per patient had 3 episode last night no nausea or abd pain - Objective Vital Signs & Weight: Vital Signs (12 hours) Temp Pulse Resp BP Pulse Ox 02/03/19 08:00 97.7 F 55 L 16 111/68 93 L Weight Admit Weight 133 lb 3 oz Weight 133 lb 3 oz Most Recent Monitor Data Heart Rate from ECG 62 NIBP 113/77 NIBP BP-Mean 123 Respiration from ECG 17 SpO2 99 I&O: 02/02/19 02/03/19 02/04/19 06:59 06:59 06:59 Intake Total 1380 1700 Output Total 900 1100 Balance 480 600 Result Diagrams: 02/03/19 08:23 02/03/19 08:23 Hospitalist ROS - Medication Medications: Active Medications Generic Name Dose Route Start Last Admin Trade Name Freq PRN Reason Stop Dose Admin Furosemide 40 mg 01/31/19 09:00 02/03/19 08:08 Lasix PO 40 mg DAILY GIOVANNI Administration Ondansetron HCl 4 mg 01/29/19 01:01 02/01/19 21:19 Zofran IVP 4 mg Q6H PRN Administration Nausea/Vomiting Ondansetron HCl 4 mg 02/02/19 19:30 02/02/19 20:41 Zofran Odt PO 4 mg Q6H PRN Administration Nausea/Vomiting Pantoprazole Sodium 40 mg 02/03/19 09:00 02/03/19 08:08 Protonix PO 40 mg BID GIOVANNI Administration Potassium Chloride 40 meq 02/01/19 08:00 02/03/19 08:08 Klor-Con PO 40 meq QAM-WM GIOVANNI Administration Sertraline HCl 100 mg 01/31/19 09:00 02/03/19 08:08 Zoloft PO 100 mg DAILY GIOVANNI Administration Sodium Chloride 10 ml 01/29/19 09:00 02/03/19 08:08 Flush - Normal Saline IVF Not Given Q12HR GIOVANNI Spironolactone 100 mg 01/31/19 09:00 02/03/19 08:08 Aldactone PO 100 mg DAILY GIOVANNI Administration Vancomycin HCl 125 mg 01/30/19 12:00 02/03/19 11:06 First Vancomycin PO 125 mg Q6HR GIOVANNI Administration - Exam General Appearance: awake alert Eye: PERRL, anicteric sclera ENT: no oropharyngeal lesions, moist mucosa Neck: supple, no JVD Heart: RRR, no murmur Respiratory: no wheezes, no rales Gastrointestinal: soft, non-tender, normal bowel sounds, distended Extremities: no cyanosis, no edema Neurological: cranial nerve grossly intact, no focal deficits Psychiatric: normal affect, A&O x 3 Hosp A/P (1) Ascites Code(s): R18.8 - OTHER ASCITES Status: Chronic Qualifiers: Ascites type: due to alcoholic cirrhosis Qualified Code(s): K70.31 - Alcoholic cirrhosis of liver with ascites (2) Liver cirrhosis, alcoholic Code(s): K70.30 - ALCOHOLIC CIRRHOSIS OF LIVER WITHOUT ASCITES Status: Chronic Qualifiers: Ascites presence: with ascites Qualified Code(s): K70.31 - Alcoholic cirrhosis of liver with ascites (3) Chronic anemia Code(s): D64.9 - ANEMIA, UNSPECIFIED Status: Chronic (4) coagulopathy due to liver disease Status: Chronic (5) Weakness generalized Code(s): R53.1 - WEAKNESS Status: Acute (6) Malnutrition of moderate degree Code(s): E44.0 - MODERATE PROTEIN-CALORIE MALNUTRITION Status: Chronic - Plan off lactulose and mgo due to diarrhea continue vanc as patient still has diarrhea pt had paracentesis with removal of 8250mls (5 lts on 01/31 and 3250mls on 01/29 ) hemostable Has a meld score of 14. dc plan when diarrhea resolves, to amb in [facility] as tolerated d/w son and daughter in law at bedside extensively (02/02/2019) counselled to amb with PT
[2019-02-03] MEDS: Ondansetron ODT 4 MG TAB PO PRN ×2 (17:15→22:04)
[2019-02-03] MEDS: Propranolol 10 MG TAB PO SCH (22:04)
[2019-02-04] MEDS: Vancomycin HCl 25 MG/ML Oral PO SCH ×3 (05:33→17:39)
[2019-02-04] MEDS: Spironolactone 100 MG TAB PO SCH (09:08)
[2019-02-04] MEDS: Furosemide 40 MG TAB PO SCH (09:09)
[2019-02-04] MEDS: Propranolol 10 MG TAB PO SCH ×2 (09:09→21:35)
[2019-02-04] MEDS: Pantoprazole 40 MG GRANULES PACKET PO SCH ×2 (09:11→20:32)
[2019-02-04] MEDS: Ondansetron ODT 4 MG TAB PO PRN (09:14)
--- NOTE | 2019-02-04 12:35 | PDOC.HOSPP ---
- Subjective Encounter Date: 02/04/19 Encounter Time: 09:20 Subjective: has 3 episodes of semisolid stool, no nausea is eating well has amb around 70ft with PT - Objective Vital Signs & Weight: Vital Signs (12 hours) Temp Pulse Resp BP BP Pulse Ox 02/04/19 10:48 54 L 14 95 02/04/19 08:00 98.0 F 52 L 16 109/71 95 02/04/19 05:36 97.9 F 56 L 109/61 95 02/04/19 03:43 98.2 F 51 L 20 92/52 L 96 Weight Admit Weight 133 lb 3 oz Weight 133 lb 3 oz Most Recent Monitor Data Heart Rate from ECG 62 NIBP 113/77 NIBP BP-Mean 123 Respiration from ECG 17 SpO2 99 I&O: 02/03/19 02/04/19 02/05/19 06:59 06:59 06:59 Intake Total 1700 480 Output Total 1100 Balance 600 480 Result Diagrams: 02/03/19 08:23 02/03/19 08:23 Hospitalist ROS - Medication Medications: Active Medications Generic Name Dose Route Start Last Admin Trade Name Freq PRN Reason Stop Dose Admin Albuterol/Ipratropium 3 ml 02/02/19 15:07 02/04/19 10:48 Duoneb NEB 3 ml QIDPRN PRN Administration SOB &/or Wheezing Furosemide 40 mg 01/31/19 09:00 02/04/19 09:09 Lasix PO 40 mg DAILY GIOVANNI Administration Ondansetron HCl 4 mg 01/29/19 01:01 02/01/19 21:19 Zofran IVP 4 mg Q6H PRN Administration Nausea/Vomiting Ondansetron HCl 4 mg 02/02/19 19:30 02/04/19 09:14 Zofran Odt PO 4 mg Q6H PRN Administration Nausea/Vomiting Pantoprazole Sodium 40 mg 02/03/19 09:00 02/04/19 09:11 Protonix PO 40 mg BID GIOVANNI Administration Potassium Chloride 40 meq 02/01/19 08:00 02/04/19 09:09 Klor-Con PO 40 meq QAM-WM GIOVANNI Administration Propranolol HCl 10 mg 02/03/19 21:00 02/04/19 09:09 Inderal PO 10 mg BID GIOVANNI Administration Sertraline HCl 100 mg 01/31/19 09:00 02/04/19 09:08 Zoloft PO 100 mg DAILY GIOVANNI Administration Sodium Chloride 10 ml 01/29/19 09:00 02/04/19 09:11 Flush - Normal Saline IVF Not Given Q12HR GIOVANNI Spironolactone 100 mg 01/31/19 09:00 02/04/19 09:08 Aldactone PO 100 mg DAILY GIOVANNI Administration Vancomycin HCl 125 mg 01/30/19 12:00 02/04/19 12:26 First Vancomycin PO 125 mg Q6HR GIOVANNI Administration - Exam General Appearance: awake alert Eye: PERRL, anicteric sclera ENT: no oropharyngeal lesions, moist mucosa Neck: supple, no JVD Heart: RRR, no murmur Respiratory: no wheezes, no rales Gastrointestinal: soft, non-tender, non-distended, normal bowel sounds Extremities: no cyanosis, no edema Neurological: cranial nerve grossly intact, no focal deficits Psychiatric: normal affect, A&O x 3 Hosp A/P (1) Ascites Code(s): R18.8 - OTHER ASCITES Status: Chronic Qualifiers: Ascites type: due to alcoholic cirrhosis Qualified Code(s): K70.31 - Alcoholic cirrhosis of liver with ascites (2) Liver cirrhosis, alcoholic Code(s): K70.30 - ALCOHOLIC CIRRHOSIS OF LIVER WITHOUT ASCITES Status: Chronic Qualifiers: Ascites presence: with ascites Qualified Code(s): K70.31 - Alcoholic cirrhosis of liver with ascites (3) Chronic anemia Code(s): D64.9 - ANEMIA, UNSPECIFIED Status: Chronic (4) coagulopathy due to liver disease Status: Chronic (5) Weakness generalized Code(s): R53.1 - WEAKNESS Status: Acute (6) Malnutrition of moderate degree Code(s): E44.0 - MODERATE PROTEIN-CALORIE MALNUTRITION Status: Chronic (7) C. difficile colitis Code(s): A04.72 - ENTEROCOLITIS D/T CLOSTRIDIUM DIFFICILE, NOT SPCF RECUR Status: Acute - Plan off lactulose and mgo due to diarrhea continue vanc x 7 days pt had paracentesis with removal of 8250mls (5 lts on 01/31 and 3250mls on 01/29 ) hemostable Has a meld score of 14. dc plan is to swing bed prior to home d/w son and daughter in law at bedside extensively (02/02/2019) counselled to amb with PT
[2019-02-04] MEDS ORDERED: Preparation H Ointment 57 gram tube TOP PRN (18:06)
[2019-02-05] MEDS: Vancomycin HCl 25 MG/ML Oral PO SCH ×4 (00:05→17:37)
[2019-02-05] MEDS: Ondansetron ODT 4 MG TAB PO PRN ×2 (04:28→19:37)
[2019-02-05] MEDS: Spironolactone 100 MG TAB PO SCH (10:44)
[2019-02-05] MEDS: Furosemide 40 MG TAB PO SCH (10:44)
[2019-02-05] MEDS: Propranolol 10 MG TAB PO SCH ×2 (10:47→19:50)
--- NOTE | 2019-02-05 13:42 | PDOC.HOSPP ---
- Subjective Encounter Date: 02/05/19 Encounter Time: 08:30 Subjective: no abd pain or nausea diarrhea is getting better with more formed stools now was nauseous last night not now - Objective Vital Signs & Weight: Vital Signs (12 hours) Temp Pulse Resp BP Pulse Ox 02/05/19 08:00 98.3 F 57 L 16 101/61 92 L Weight Admit Weight 133 lb 3 oz Weight 133 lb 3 oz Most Recent Monitor Data Heart Rate from ECG 62 NIBP 113/77 NIBP BP-Mean 123 Respiration from ECG 17 SpO2 99 I&O: 02/04/19 02/05/19 02/06/19 06:59 06:59 06:59 Intake Total 480 300 Balance 480 300 Result Diagrams: 02/03/19 08:23 02/03/19 08:23 Hospitalist ROS - Medication Medications: Active Medications Generic Name Dose Route Start Last Admin Trade Name Freq PRN Reason Stop Dose Admin Albuterol/Ipratropium 3 ml 02/02/19 15:07 02/04/19 10:48 Duoneb NEB 3 ml QIDPRN PRN Administration SOB &/or Wheezing Furosemide 40 mg 01/31/19 09:00 02/05/19 10:44 Lasix PO 40 mg DAILY GIOVANNI Administration Miscellaneous Medication 0 gm 02/04/19 18:06 02/04/19 20:42 Preparation H Ointment TOP 1 applic Q12H PRN Administration Hemorrhoids Ondansetron HCl 4 mg 01/29/19 01:01 02/01/19 21:19 Zofran IVP 4 mg Q6H PRN Administration Nausea/Vomiting Ondansetron HCl 4 mg 02/02/19 19:30 02/05/19 04:28 Zofran Odt PO 4 mg Q6H PRN Administration Nausea/Vomiting Pantoprazole Sodium 40 mg 02/05/19 09:00 02/05/19 10:44 Protonix PO 40 mg BID GIOVANNI Administration Potassium Chloride 40 meq 02/01/19 08:00 02/05/19 10:44 Klor-Con PO 40 meq QAM-WM GIOVANNI Administration Propranolol HCl 10 mg 02/03/19 21:00 02/05/19 10:47 Inderal PO Not Given BID GIOVANNI Sertraline HCl 100 mg 01/31/19 09:00 02/05/19 10:44 Zoloft PO 100 mg DAILY GIOVANNI Administration Sodium Chloride 10 ml 01/29/19 09:00 02/05/19 10:45 Flush - Normal Saline IVF Not Given Q12HR GIOVANNI Spironolactone 100 mg 01/31/19 09:00 02/05/19 10:44 Aldactone PO 100 mg DAILY GIOVANNI Administration Vancomycin HCl 125 mg 01/30/19 12:00 02/05/19 12:32 First Vancomycin PO 125 mg Q6HR GIOVANNI Administration - Exam General Appearance: awake alert Eye: PERRL, anicteric sclera ENT: no oropharyngeal lesions, moist mucosa Neck: supple, no JVD Heart: RRR, no murmur Respiratory: no wheezes, no rales Gastrointestinal: soft, non-tender, non-distended, normal bowel sounds Extremities: no cyanosis, no edema Neurological: cranial nerve grossly intact, no focal deficits Psychiatric: normal affect, A&O x 3 Hosp A/P (1) Ascites Code(s): R18.8 - OTHER ASCITES Status: Chronic Qualifiers: Ascites type: due to alcoholic cirrhosis Qualified Code(s): K70.31 - Alcoholic cirrhosis of liver with ascites (2) Liver cirrhosis, alcoholic Code(s): K70.30 - ALCOHOLIC CIRRHOSIS OF LIVER WITHOUT ASCITES Status: Chronic Qualifiers: Ascites presence: with ascites Qualified Code(s): K70.31 - Alcoholic cirrhosis of liver with ascites (3) Chronic anemia Code(s): D64.9 - ANEMIA, UNSPECIFIED Status: Chronic (4) coagulopathy due to liver disease Status: Chronic (5) Weakness generalized Code(s): R53.1 - WEAKNESS Status: Acute (6) Malnutrition of moderate degree Code(s): E44.0 - MODERATE PROTEIN-CALORIE MALNUTRITION Status: Chronic (7) C. difficile colitis Code(s): A04.72 - ENTEROCOLITIS D/T CLOSTRIDIUM DIFFICILE, NOT SPCF RECUR Status: Acute - Plan off lactulose and mgo due to diarrhea continue vanc x 5 days pt had paracentesis with removal of 8250mls (5 lts on 01/31 and 3250mls on 01/29 ) hemostable Has a meld score of 14. dc plan is to swing bed prior to home d/w son and daughter in law at bedside extensively (02/02/2019) counselled to amb with PT awaiting placement
[2019-02-06] MEDS: Vancomycin HCl 25 MG/ML Oral PO SCH ×3 (00:01→11:30)
[2019-02-06] MEDS: Spironolactone 100 MG TAB PO SCH (07:54)
[2019-02-06] MEDS: Propranolol 10 MG TAB PO SCH (07:54)
[2019-02-06] MEDS: Furosemide 40 MG TAB PO SCH (07:54)
[2019-02-06 08:26] VITALS: BP 112/72; TEMP 97.7
[2019-02-06] MEDS: Ondansetron ODT 4 MG TAB PO PRN (09:04)
--- NOTE | 2019-02-06 12:58 | PDOC.HOSPP ---
- Subjective Encounter Date: 02/06/19 Encounter Time: 08:00 Subjective: stool is more formed, no stool last night, 1 this am no nausea or vomiting, tolerating oral diet - Objective Vital Signs & Weight: Vital Signs (12 hours) Temp Pulse Resp BP Pulse Ox 02/06/19 08:00 97.7 F 65 16 112/72 94 L Weight Admit Weight 133 lb 3 oz Weight 133 lb 3 oz Most Recent Monitor Data Heart Rate from ECG 62 NIBP 113/77 NIBP BP-Mean 123 Respiration from ECG 17 SpO2 99 I&O: 02/05/19 02/06/19 02/07/19 06:59 06:59 06:59 Intake Total 300 360 Balance 300 360 Result Diagrams: 02/03/19 08:23 02/03/19 08:23 Hospitalist ROS - Medication Medications: Active Medications Generic Name Dose Route Start Last Admin Trade Name Freq PRN Reason Stop Dose Admin Albuterol/Ipratropium 3 ml 02/02/19 15:07 02/04/19 10:48 Duoneb NEB 3 ml QIDPRN PRN Administration SOB &/or Wheezing Furosemide 40 mg 01/31/19 09:00 02/06/19 07:54 Lasix PO 40 mg DAILY GIOVANNI Administration Miscellaneous Medication 0 gm 02/04/19 18:06 02/04/19 20:42 Preparation H Ointment TOP 1 applic Q12H PRN Administration Hemorrhoids Ondansetron HCl 4 mg 01/29/19 01:01 02/01/19 21:19 Zofran IVP 4 mg Q6H PRN Administration Nausea/Vomiting Ondansetron HCl 4 mg 02/02/19 19:30 02/06/19 09:04 Zofran Odt PO 4 mg Q6H PRN Administration Nausea/Vomiting Pantoprazole Sodium 40 mg 02/05/19 09:00 02/06/19 07:54 Protonix PO 40 mg BID GIOVANNI Administration Potassium Chloride 40 meq 02/01/19 08:00 02/06/19 07:53 Klor-Con PO 40 meq QAM-WM GIOVANIN Administration Propranolol HCl 10 mg 02/03/19 21:00 02/06/19 07:54 Inderal PO 10 mg BID GIOVANNI Administration Sertraline HCl 100 mg 01/31/19 09:00 02/06/19 07:54 Zoloft PO 100 mg DAILY GIOVANNI Administration Sodium Chloride 10 ml 01/29/19 09:00 02/06/19 07:55 Flush - Normal Saline IVF 10 ml Q12HR GIOVANNI Administration Spironolactone 100 mg 01/31/19 09:00 02/06/19 07:54 Aldactone PO 100 mg DAILY GIOVANNI Administration Vancomycin HCl 125 mg 01/30/19 12:00 02/06/19 11:30 First Vancomycin PO 125 mg Q6HR GIOVANNI Administration - Exam General Appearance: awake alert Eye: PERRL, anicteric sclera ENT: no oropharyngeal lesions, moist mucosa Neck: supple, no JVD Heart: RRR, no murmur Respiratory: no wheezes, no rales Gastrointestinal: soft, non-tender, non-distended, normal bowel sounds Extremities: no cyanosis, no edema Neurological: cranial nerve grossly intact, no focal deficits Psychiatric: normal affect, A&O x 3 Hosp A/P (1) Ascites Code(s): R18.8 - OTHER ASCITES Status: Chronic Qualifiers: Ascites type: due to alcoholic cirrhosis Qualified Code(s): K70.31 - Alcoholic cirrhosis of liver with ascites (2) Liver cirrhosis, alcoholic Code(s): K70.30 - ALCOHOLIC CIRRHOSIS OF LIVER WITHOUT ASCITES Status: Chronic Qualifiers: Ascites presence: with ascites Qualified Code(s): K70.31 - Alcoholic cirrhosis of liver with ascites (3) Chronic anemia Code(s): D64.9 - ANEMIA, UNSPECIFIED Status: Chronic (4) coagulopathy due to liver disease Status: Chronic (5) Weakness generalized Code(s): R53.1 - WEAKNESS Status: Acute (6) Malnutrition of moderate degree Code(s): E44.0 - MODERATE PROTEIN-CALORIE MALNUTRITION Status: Chronic (7) C. difficile colitis Code(s): A04.72 - ENTEROCOLITIS D/T CLOSTRIDIUM DIFFICILE, NOT SPCF RECUR Status: Acute - Plan off lactulose and mgo due to diarrhea continue vanc x 4 days pt had paracentesis with removal of 8250mls (5 lts on 01/31 and 3250mls on 01/29 ) hemostable Has a meld score of 14. dc plan is to swing bed prior to home d/w son and daughter in law at bedside extensively (02/02/2019) counselled to amb with PT May dc anytime if placement is ready
--- NOTE | 2019-02-06 19:24 | DIS ---
DATE OF ADMISSION: 01/29/2019 DATE OF DISCHARGE: 02/06/2019 DISCHARGE DISPOSITION: Home with [facility]. PRIMARY DISCHARGE DIAGNOSES: Alcoholic cirrhosis with severe ascites status post paracentesis of 8250 mL (5 L on 01/31 and 3250 mL on 01/29/2019), Clostridium difficile colitis, chronic anemia, coagulopathy due to liver disease, generalized weakness, malnutrition, moderate protein malnutrition. PROCEDURES DONE DURING HOSPITALIZATION: The patient has had paracentesis x2 as described above. CT of the abdomen and pelvis done on the day of admission showed large volume ascites in all quadrants, changes of cirrhosis and portal hypertension, sliding fixed diaphragmatic hernia. Stool for C. diff was positive for antigen, negative for toxin. Hemoglobin and hematocrit 13 and 39, platelet count 107, MCV 101. INR 1.7, PT 20, PTT 32. BUN 7, creatinine 0.6, total bilirubin 2.3, AST 61, ALT 30, alkaline phosphatase 47, albumin is 2.7, lipase 76. Urine drug screen was positive for cannabinoids. DISCHARGE MEDICATIONS: 1. Vancomycin 125 mg p.o. 4 times daily for another 4 days. 2. Propranolol 10 mg p.o. twice daily. 3. Protonix 40 mg p.o. daily. 4. Spironolactone 100 mg p.o. daily. 5. Sertraline 100 mg p.o. daily. 6. Potassium chloride 20 mEq p.o. daily. 7. DuoNeb 4 times daily. 8. Lasix 40 mg p.o. daily. 9. Albuterol inhaler q.4 hourly p.r.n. ALLERGIES: ALLERGIC TO CODEINE. DISCHARGE PLAN: The patient to follow up with her primary care physician and nurse practitioner, Ms. Urbina in 1 week. BRIEF COURSE DURING HOSPITALIZATION: The patient initially got admitted on the with complaints of weakness, falls at home, and abdominal distention. The patient was admitted to medical floor and has had paracentesis x2 with removal of nearly 8 L of ascitic fluid. She has known history of alcohol abuse with cirrhosis. The patient also had diarrhea and her lactulose and magnesium oxide were held. As the patient's diarrhea continued stool for C. diff was done, which was positive for antigen, but negative for toxin via PCR method. As the patient had profuse diarrhea, she was treated with vancomycin. At the time of discharge, the patient's stool was thickening up and her frequency is almost two per day. She needs to continue vancomycin for another 4 more days. She was counseled with regard to complete cessation of alcohol use. The patient also needs to follow up with her primary care physician in 1 week. Her medications were optimized for cirrhosis. Prior to discharge, she is ambulating and eating well. Please see a [id number] documentation for the day of discharge on [employer]. Homehealth has been set upt with PT and nursing via case mgmt consultation. Job ID: [id number] MTDD
== END 2019-02-06 14:38 | disposition home health service (06) | DRG 433 ==
LOC: ERS 17:56 → IMCU/EMU 01-29 01:45 → T4-B 01-30 16:17
PROVIDERS: ADMIT Internal Medicine; ATTEND Internal Medicine
PROC: 0W9G3ZZ Drainage of Peritoneal Cavity, Percutaneous Approach (ICD-10-PCS; principal; 2019-01-29)
PROC: 0W9G3ZZ Drainage of Peritoneal Cavity, Percutaneous Approach (ICD-10-PCS; 2019-01-31)
DX: K70.31 Alcoholic cirrhosis of liver with ascites (principal); A04.72 Enterocolitis due to Clostridium difficile, not specified as recurrent; D68.4 Acquired coagulation factor deficiency; E44.0 Moderate protein-calorie malnutrition; Z68.1 Body mass index [BMI] 19.9 or less, adult; F10.180 Alcohol abuse with alcohol-induced anxiety disorder; K44.9 Diaphragmatic hernia without obstruction or gangrene; E83.42 Hypomagnesemia; E87.6 Hypokalemia; I45.81 Long QT syndrome; D64.9 Anemia, unspecified; B19.20 Unspecified viral hepatitis C without hepatic coma; Z79.899 Other long term (current) drug therapy; Z88.5 Allergy status to narcotic agent; Z91.19 Patient's noncompliance with other medical treatment and regimen
CPT/HCPCS: 36415; 36416; 49083; 74177; 80048; 80053; 80306; 83630; 83690; 83735; 85025; 85610; 85730; 87324; 87449; 87493; 93005; 93010; 94640; 96365; 96366; 96368; J0696; J1644; J2405; J3475; J3480; J3490; J7050; J7121; J7620; P9047; Q0162; Q9967

== ENCOUNTER 2019-02-17 16:03 | Inpatient (IN) | payer MEDICARE, MEDICAID ==
[2019-02-17 16:48] LABS: #Basophils 0.1 thou/uL (0.0-0.2); #Lymphocytes 1.1 thou/uL (1.20-3.40); #Monocytes 0.6 thou/uL (0.11-0.59); #Neutrophils 3.8 thou/uL (1.40-6.50); %Eosinophils 0.2 % (0.0-10.0); %Lymphocytes 20.1 % (21.0-51.0); %Monocytes 10.1 % (0.0-10.0); %Neutrophils 68.6 % (42.0-75.0); Hemoglobin 13.3 g/dL (12.0-16.0); Mean Corpuscular Hemoglobin 32.5 pg (27.0-31.0); Mean Platelet Volume 9.5 fL (7.4-10.4); Platelet Count 107 thou/uL (130-400); RBC Distribution Width 15.5 % (11.5-14.5); Red Blood Cell (RBC) Count 4.09 mill/uL (4.20-5.40); White Blood Cell (WBC) Count 5.6 thou/uL (4.8-10.8)
[2019-02-17 17:07] LABS: ALT (SGPT) 42 U/L (8-55); AST (SGOT) 63 U/L (5-34); Albumin 2.9 g/dL (3.5-5.0); Alkaline Phosphatase 83 U/L (40-110); Anion Gap 13 mmol/L (10-20); BUN (Urea Nitrogen) 21 mg/dL (9.8-20.1); Bilirubin, Total 2.1 mg/dL (0.2-1.2); CK (CPK) 134 U/L (29-168); Calc. Creatinine Clearance 0 mL/min (70-130); Calcium 8.4 mg/dL (7.8-10.44); Carbon Dioxide 19 mmol/L (22-29); Chloride 111 mmol/L (98-107); Estimated GFR-MDRD 58; Glucose 129 mg/dL (70-105); Potassium 3.6 mmol/L (3.5-5.1); Protein, Total 6.9 g/dL (6.0-8.3); Sodium 139 mmol/L (136-145)
[2019-02-17 17:46] LABS: Bilirubin Negative (Negative); Blood, Urine Negative (Negative); Clarity Clear (Clear); Glucose, Urine (Dipstick) Normal (Negative); Leukocyte Negative Leu/uL (Negative); Nitrite Negative (Negative); Protein, Urine (Dipstick) 10 mg/dL (Neg-Trace); Urobilinogen Normal mg/dL (Less than 2)
[2019-02-17] MEDS ORDERED: Ondansetron PF 4 MG/2 ML Vial IVP PRN (21:07)
[2019-02-17] MEDS ORDERED: Guaifenesin DM 100-10/5 ML UDCUP PO PRN (21:07)
[2019-02-17] MEDS ORDERED: PROVENTIL INHALER 6.7 G (200 INHALATIONS) INH PRN (21:07)
[2019-02-17] MEDS ORDERED: Ondansetron ODT 4 MG TAB PO PRN (21:07)
[2019-02-17] MEDS: Propranolol 10 MG TAB PO SCH (21:40)
[2019-02-17] MEDS ORDERED: Acetaminophen 500 MG TAB PO PRN (23:01)
[2019-02-17 23:18] LABS: Troponin I 0.022 ng/mL (< 0.028)
[2019-02-18 04:40] LABS: #Basophils 0.1 thou/uL (0.0-0.2); #Lymphocytes 1.1 thou/uL (1.20-3.40); #Monocytes 0.7 thou/uL (0.11-0.59); %Basophils 0.9 % (0.0-1.0); %Eosinophils 0.5 % (0.0-10.0); %Lymphocytes 18.8 % (21.0-51.0); %Monocytes 12.3 % (0.0-10.0); %Neutrophils 67.5 % (42.0-75.0); Hemoglobin 10.8 g/dL (12.0-16.0); Mean Corpuscular HGB CONC 32.7 g/dL (32.0-36.0); Platelet Count 103 thou/uL (130-400); RBC Distribution Width 15.5 % (11.5-14.5); Red Blood Cell (RBC) Count 3.26 mill/uL (4.20-5.40); White Blood Cell (WBC) Count 5.9 thou/uL (4.8-10.8)
[2019-02-18 05:06] LABS: Anion Gap 10 mmol/L (10-20); BUN (Urea Nitrogen) 17 mg/dL (9.8-20.1); Calc. Creatinine Clearance 69 mL/min (70-130); Carbon Dioxide 21 mmol/L (22-29); Chloride 116 mmol/L (98-107); Estimated GFR-MDRD 81; Glucose 111 mg/dL (70-105); Potassium 3.2 mmol/L (3.5-5.1); Sodium 144 mmol/L (136-145)
--- NOTE | 2019-02-18 07:17 | HP ---
PRIMARY CARE PHYSICIAN: Ciara Mcdonald, DNP, STAFF ANESTHESIOLOGIST- CHIEF COMPLAINT: Weakness and feeling bad. HISTORY OF PRESENT ILLNESS: This is a 58-year-old white female with a known history of alcoholic liver cirrhosis with hepatitis C, who was recently hospitalized from January 29 through February 06. She had paracentesis of large amount of fluid at that time, also had some diarrhea, so her lactulose is stopped. There was a possibility of some C diff involvement, so she was put on vancomycin and finished a course outpatient. The patient was reportedly admitted to the hospital in [place] a week before that and treated for similar weakness. She was discharged home and was supposed to follow up with primary care physician this morning, but states she just did not feel like going because she was too tired and then rescheduled her appointment for tomorrow and then she came into the emergency room tonight. No other specific complaints. On further questioning, she cannot really specify if anything is worse than when she was in the hospital last time or if anything has gotten worse over the last couple of weeks when she has been out. She denies any falls since getting out, has a friend who helps her at home and she also has had Home Health coming in. She denies any alcohol intake in that time. She does continue to smoke, has not had any problems with her COPD. In the emergency room, the patient was noted to have an elevated ammonia level of 150, uncertain her baseline. We have not checked it before, uncertain if this is worse than normal or if this is her baseline. Of note, the patient does not report any confusion and she is oriented. PAST MEDICAL HISTORY: 1. Alcoholic liver cirrhosis. 2. Hepatitis C. 3. Recurrent abdominal ascites. 4. Coagulopathy due to liver disease. 5. Chronic anemia of chronic disease. 6. Recent Clostridium difficile diarrhea. 7. Moderate protein calorie malnutrition. 8. COPD. 9. Gastroesophageal reflux disease. 10. Hypertension. 11. Previous bradycardia. PAST SURGICAL HISTORY: 1. Tubal ligation. 2. Cholecystectomy. 3. Bands to veins in esophagus. PAST PSYCHIATRIC HISTORY: None. SOCIAL HISTORY: The patient lives with a friend at home. No alcohol since October. Currently smokes about 1 pack of cigarettes per week. No illicit drugs. The patient reports that her medical decision maker would be her son, Kenyon Ludwig, however, she does not have any contact information for him. I uncertain if she even still has contact with him. On the computer system, her brother is listed as her next of kin, Cj Chaidez, is listed as the same address as her. FAMILY HISTORY: No history of abdominal cancer or CVA. ALLERGIES: CODEINE. CURRENT MEDICATIONS: The patient reports she is on the same medications as on discharge from the hospital. 1. Propranolol 10 mg twice a day. 2. Protonix 40 mg daily. 3. Spironolactone 100 mg daily. 4. Sertraline 100 mg daily. 5. Potassium chloride 20 mEq daily. 6. Lasix 40 mg daily. 7. DuoNeb 4 times a day. 8. Albuterol as needed. REVIEW OF SYSTEMS: CONSTITUTIONAL: No fevers. No chills. Just generalized weakness that is chronic for her. EYES: No double vision or blurred vision. ENT: No congestion, drainage, or sore throat. CARDIOVASCULAR: No chest pain. No palpitations. PULMONARY: She has a chronic intermittent cough from her COPD. No shortness of breath. GASTROINTESTINAL: No abdominal pain. No nausea or vomiting. She has intermittent loose and normal stools, but no significant diarrhea since her discharge from the hospital. GENITOURINARY: No dysuria or hematuria. MUSCULOSKELETAL: No muscle aches or joint pains. SKIN: No rashes or lesions she has noted. NEUROLOGIC: No focal numbness, tingling, or weakness that she has noticed. PHYSICAL EXAMINATION: VITAL SIGNS: Blood pressure 116/77, pulse 72, respirations 18, temperature 98.0, O2 saturation 96% on room air. GENERAL: This is a well-developed, well-nourished white female, in no acute distress. HEENT: Pupils are equal, round, and reactive to light. Oropharynx clear without lesions, erythema, or exudate. NECK: Supple. No lymphadenopathy. No thyroid nodules or enlargement. HEART: Regular rate and rhythm. No murmurs, rubs, or gallops. LUNGS: Clear to auscultation bilaterally. No wheezes, crackles, or rhonchi. ABDOMEN: Soft, nontender to palpation. Normoactive bowel sounds. No hepatosplenomegaly or other masses. No significant tense ascites at this time. EXTREMITIES: No clubbing, cyanosis, or edema. SKIN: No rashes or lesions noted. NEUROLOGIC: She has intact strength and sensation in all extremities. No facial droop. PSYCHIATRIC: The patient has slow responses, but she is alert and oriented to person, place, situation, and time. LABORATORY DATA: CBC with normal white blood cell count, normal hemoglobin and hematocrit, platelet count is little low at 107, which is chronic for her. Complete metabolic panel is notable for chloride of 111, carbon dioxide of 19, BUN of 21, normal creatinine, glucose of 129, total bilirubin of 2.1 which is normal for her, AST of 63, and albumin of 2.9 which is chronic for her as well. The rest of the CMP was normal. Troponin was negative x1. Ammonia was 149. We did not have a baseline to compare this to. Urinalysis was negative for infection. ASSESSMENT: 1. Alcoholic cirrhosis and hepatitis C with hyperammonemia. The patient does have an elevated ammonia level. She does need to be back on her lactulose now that her diarrhea has calmed down. I do not see significant symptoms of hepatic encephalopathy at this time, so we will just put her in observation overnight and see how she tolerates restarting the lactulose. 2. Generalized weakness with moderate protein-calorie malnutrition. We will have Physical Therapy to evaluate the patient and make sure she is safe to go home. If not, she may benefit from rehab if that is possible to get. 3. Gastrointestinal prophylaxis. We will continue the patient's proton pump inhibitor. 4. History of esophageal varices. We will continue the patient's propranolol. 5. Ascites. We will continue the patient's diuretics and monitor potassium and creatinine levels. 6. Deep venous thrombosis prophylaxis. The patient has already hypocoagulable from her liver disease, so she does not need any injectable anticoagulants. 7. Code status. I did discuss this with the patient. She stated she is a full code. She states she would like her son to be her medical decision maker, she is incapacitated, his name is Kenyon Ludwig, but she was not able to give any contact information for him. Job ID: [id number]
[2019-02-18] MEDS: Furosemide 40 MG TAB PO SCH (09:11)
[2019-02-18] MEDS: Spironolactone 100 MG TAB PO SCH (09:11)
[2019-02-18] MEDS: Propranolol 10 MG TAB PO SCH ×2 (09:11→21:00)
--- NOTE | 2019-02-18 09:35 | PDOC.HOSPP ---
- Subjective Encounter Date: 02/18/19 Encounter Time: 12:00 Subjective: Patient reported some chest pain overnight, since resolved. She states this is chronic, comes and goes. EKG and troponin negative. No complaints this AM. Has had some increased bowel movements with resuming lactulose. - Objective Vital Signs & Weight: Vital Signs (12 hours) Temp Pulse Resp BP Pulse Ox 02/18/19 09:00 98.3 F 64 18 127/72 93 L 02/18/19 07:00 65 18 93 L 02/18/19 04:53 98.6 F 65 16 104/60 92 L 02/18/19 00:09 98.4 F 70 16 107/58 L 92 L 02/17/19 23:02 20 92 L Weight Weight 115 lb I&O: 02/17/19 02/18/19 02/19/19 06:59 06:59 06:59 Intake Total 300 Output Total 300 Balance 0 Result Diagrams: 02/18/19 04:12 02/18/19 04:12 Hospitalist ROS - Review of Systems Constitutional: denies: fever, chills Respiratory: denies: cough, shortness of breath Cardiovascular: denies: chest pain, palpitations, orthopnea Gastrointestinal: denies: nausea, vomiting, abdominal pain - Medication Medications: Active Medications Generic Name Dose Route Start Last Admin Trade Name Freq PRN Reason Stop Dose Admin Albuterol/Ipratropium 3 ml 02/18/19 07:00 02/18/19 07:00 Duoneb NEB 3 ml QID-RT GIOVANNI Administration Furosemide 40 mg 02/18/19 09:00 02/18/19 09:11 Lasix PO 40 mg DAILY GIOVANNI Administration Lactulose 20 gm 02/18/19 09:00 02/18/19 09:09 Lactulose PO 20 gm BID GIOVANNI Administration Pantoprazole Sodium 40 mg 02/18/19 09:00 02/18/19 09:11 Protonix PO 40 mg DAILY GIOVANNI Administration Potassium Chloride 20 meq 02/18/19 09:00 02/18/19 09:11 Klor-Con PO 20 meq DAILY GIOVANNI Administration Propranolol HCl 10 mg 02/17/19 21:00 02/18/19 09:11 Inderal PO 10 mg BID GIOVANNI Administration Sertraline HCl 100 mg 02/18/19 09:00 02/18/19 09:11 Zoloft PO 100 mg DAILY GIOVANNI Administration Spironolactone 100 mg 02/18/19 09:00 02/18/19 09:11 Aldactone PO 100 mg DAILY GIOVANNI Administration - Exam General Appearance: NAD, awake alert Heart: RRR, no murmur, no gallops, no rubs Respiratory: CTAB, no wheezes, no rales, no ronchi Gastrointestinal: soft, non-tender, non-distended, normal bowel sounds Neurological: cranial nerve grossly intact, no focal deficits Psychiatric: A&O x 3, flat affect Hosp A/P (1) Liver cirrhosis, alcoholic Code(s): K70.30 - ALCOHOLIC CIRRHOSIS OF LIVER WITHOUT ASCITES Status: Chronic Qualifiers: (2) Hyperammonemia Code(s): E72.20 - DISORDER OF UREA CYCLE METABOLISM, UNSPECIFIED Status: Chronic (3) Weakness generalized Code(s): R53.1 - WEAKNESS Status: Chronic (4) Ascites Code(s): R18.8 - OTHER ASCITES Status: Chronic Qualifiers: (5) Hypokalemia Code(s): E87.6 - HYPOKALEMIA Status: Acute Plan: replacing (6) Chronic anemia Code(s): D64.9 - ANEMIA, UNSPECIFIED Status: Chronic (7) Malnutrition of moderate degree Code(s): E44.0 - MODERATE PROTEIN-CALORIE MALNUTRITION Status: Chronic (8) coagulopathy due to liver disease Status: Chronic - Plan make sure patient can ambulate today then will d/c home in the afternoon, tolerating restart of Lactulose, would like 3-4 soft BM per day in order to clear the ammonia from her system
[2019-02-18] MEDS ORDERED: Potassium Chloride 20 MEQ TAB PO SCH (09:45)
[2019-02-18 16:31] VITALS: BMI 16.5
[2019-02-19] MEDS: Propranolol 10 MG TAB PO SCH ×2 (08:37→20:31)
[2019-02-19] MEDS: Spironolactone 100 MG TAB PO SCH (08:37)
[2019-02-19] MEDS: Furosemide 40 MG TAB PO SCH (08:37)
--- NOTE | 2019-02-19 09:09 | PDOC.HOSPP ---
- Subjective Encounter Date: 02/19/19 Encounter Time: 12:20 Subjective: Patient a bit more interactive and clear this morning. Complaining of some lower abdominal pain. No fever. No other complaints. - Objective Vital Signs & Weight: Vital Signs (12 hours) Temp Pulse Resp BP Pulse Ox 02/19/19 08:27 60 20 02/19/19 08:25 97.9 F 67 16 127/72 93 L Weight Admit Weight 115 lb Weight 115 lb I&O: 02/18/19 02/19/19 02/20/19 06:59 06:59 06:59 Intake Total 300 1380 350 Output Total 300 550 Balance 0 830 350 Result Diagrams: 02/18/19 04:12 02/18/19 04:12 Hospitalist ROS - Review of Systems Constitutional: denies: fever, chills Respiratory: denies: cough, shortness of breath Cardiovascular: denies: chest pain, palpitations, orthopnea Gastrointestinal: reports: abdominal pain. denies: nausea, vomiting, diarrhea ( 2 soft BM so far today), constipation - Medication Medications: Active Medications Generic Name Dose Route Start Last Admin Trade Name Freq PRN Reason Stop Dose Admin Albuterol/Ipratropium 3 ml 02/18/19 07:00 02/19/19 08:27 Duoneb NEB 3 ml QID-RT GIOVANNI Administration Furosemide 40 mg 02/18/19 09:00 02/19/19 08:37 Lasix PO 40 mg DAILY GIOVANNI Administration Lactulose 20 gm 02/18/19 09:00 02/19/19 08:37 Lactulose PO 20 gm BID GIOVANNI Administration Pantoprazole Sodium 40 mg 02/18/19 09:00 02/19/19 08:37 Protonix PO 40 mg DAILY GIOVANNI Administration Potassium Chloride 20 meq 02/18/19 09:00 02/19/19 08:37 Klor-Con PO 20 meq DAILY GIOVANNI Administration Propranolol HCl 10 mg 02/17/19 21:00 02/19/19 08:37 Inderal PO 10 mg BID GIOVANNI Administration Sertraline HCl 100 mg 02/18/19 09:00 02/19/19 08:37 Zoloft PO 100 mg DAILY GIOVANNI Administration Spironolactone 100 mg 02/18/19 09:00 02/19/19 08:37 Aldactone PO 100 mg DAILY GIOVANNI Administration - Exam General Appearance: NAD, awake alert ENT: moist mucosa Heart: RRR, no murmur, no gallops, no rubs Respiratory: CTAB, no wheezes, no rales, no ronchi Gastrointestinal: soft, non-tender, normal bowel sounds Gastrointestinal - other findings: mild fluid distension, still very soft Extremities: no edema Psychiatric: normal affect, A&O x 3 Hosp A/P (1) Hepatic encephalopathy Code(s): K72.90 - HEPATIC FAILURE, UNSPECIFIED WITHOUT COMA Status: Acute (2) Liver cirrhosis, alcoholic Code(s): K70.30 - ALCOHOLIC CIRRHOSIS OF LIVER WITHOUT ASCITES Status: Chronic Qualifiers: (3) Weakness generalized Code(s): R53.1 - WEAKNESS Status: Chronic (4) Ascites Code(s): R18.8 - OTHER ASCITES Status: Chronic Qualifiers: (5) Hypokalemia Code(s): E87.6 - HYPOKALEMIA Status: Acute (6) Chronic anemia Code(s): D64.9 - ANEMIA, UNSPECIFIED Status: Chronic (7) Malnutrition of moderate degree Code(s): E44.0 - MODERATE PROTEIN-CALORIE MALNUTRITION Status: Chronic (8) coagulopathy due to liver disease Status: Chronic - Plan Patient with worse confusion yesterday from hepatic encephalopathy, not steady on feet. Converted to inpatient. Continue Lactulose and daily PT. Recheck labs in AM. Either home or SNF if steadiness doesn't improve with Lactulose treatments.
[2019-02-20 05:09] LABS: #Basophils 0.1 thou/uL (0.0-0.2); #Eosinphils 0.1 thou/uL (0.0-0.7); #Lymphocytes 1.4 thou/uL (1.20-3.40); #Monocytes 0.7 thou/uL (0.11-0.59); #Neutrophils 4.3 thou/uL (1.40-6.50); %Basophils 0.8 % (0.0-1.0); %Eosinophils 0.9 % (0.0-10.0); %Monocytes 10.1 % (0.0-10.0); %Neutrophils 67.1 % (42.0-75.0); Mean Corpuscular HGB CONC 33.1 g/dL (32.0-36.0); Mean Corpuscular Hemoglobin 33.7 pg (27.0-31.0); Mean Platelet Volume 9.2 fL (7.4-10.4); Platelet Count 102 thou/uL (130-400); RBC Distribution Width 15.3 % (11.5-14.5); Red Blood Cell (RBC) Count 3.55 mill/uL (4.20-5.40); White Blood Cell (WBC) Count 6.5 thou/uL (4.8-10.8)
[2019-02-20 05:26] LABS: Anion Gap 9 mmol/L (10-20); BUN (Urea Nitrogen) 11 mg/dL (9.8-20.1); Calc. Creatinine Clearance 73 mL/min (70-130); Calcium 7.8 mg/dL (7.8-10.44); Carbon Dioxide 23 mmol/L (22-29); Chloride 110 mmol/L (98-107); Estimated GFR-MDRD 86; Glucose 109 mg/dL (70-105); Potassium 3.1 mmol/L (3.5-5.1); Sodium 139 mmol/L (136-145)
--- NOTE | 2019-02-20 08:00 | PDOC.HOSPP ---
- Subjective Encounter Date: 02/20/19 Encounter Time: 10:00 Subjective: Patient clearer today, A&Ox4, but still quite unsteady on her feet. She felt backward onto the bed right as I came into the room after trying to get up by herself to the bedside commode in the dark. No injury. No complaints today. Only 2 BM in past 24 hours. - Objective Vital Signs & Weight: Vital Signs (12 hours) Temp Pulse Resp BP Pulse Ox 02/20/19 06:41 70 16 02/19/19 20:00 98.3 F 65 18 109/71 94 L Weight Admit Weight 115 lb Weight 115 lb I&O: 02/19/19 02/20/19 02/21/19 06:59 06:59 06:59 Intake Total 1380 1790 Output Total 550 2300 Balance 830 -510 Result Diagrams: 02/20/19 04:43 02/20/19 04:43 Hospitalist ROS - Review of Systems Constitutional: denies: fever, chills Respiratory: denies: cough, shortness of breath Cardiovascular: denies: chest pain, palpitations, orthopnea Gastrointestinal: denies: nausea, vomiting, abdominal pain, diarrhea, constipation - Medication Medications: Active Medications Generic Name Dose Route Start Last Admin Trade Name Freq PRN Reason Stop Dose Admin Albuterol/Ipratropium 3 ml 02/18/19 07:00 02/20/19 06:41 Duoneb NEB 3 ml QID-RT GIOVANNI Administration Furosemide 40 mg 02/18/19 09:00 02/19/19 08:37 Lasix PO 40 mg DAILY GIOVANNI Administration Lactulose 20 gm 02/18/19 09:00 02/19/19 20:31 Lactulose PO 20 gm BID GIOVANNI Administration Pantoprazole Sodium 40 mg 02/18/19 09:00 02/19/19 08:37 Protonix PO 40 mg DAILY GIOVANNI Administration Potassium Chloride 20 meq 02/18/19 09:00 02/19/19 08:37 Klor-Con PO 20 meq DAILY GIOVANNI Administration Propranolol HCl 10 mg 02/17/19 21:00 02/19/19 20:31 Inderal PO 10 mg BID GIOVANNI Administration Sertraline HCl 100 mg 02/18/19 09:00 02/19/19 08:37 Zoloft PO 100 mg DAILY GIOVANNI Administration Spironolactone 100 mg 02/18/19 09:00 02/19/19 08:37 Aldactone PO 100 mg DAILY GIOVANNI Administration - Exam General Appearance: NAD, awake alert ENT: moist mucosa Heart: RRR, no murmur, no gallops, no rubs Respiratory: CTAB, no wheezes, no rales, no ronchi Gastrointestinal: soft, non-tender, non-distended Extremities: no edema Psychiatric: normal affect, normal behavior, A&O x 3 Hosp A/P (1) Hepatic encephalopathy Code(s): K72.90 - HEPATIC FAILURE, UNSPECIFIED WITHOUT COMA Status: Acute (2) Liver cirrhosis, alcoholic Code(s): K70.30 - ALCOHOLIC CIRRHOSIS OF LIVER WITHOUT ASCITES Status: Chronic Qualifiers: (3) Weakness generalized Code(s): R53.1 - WEAKNESS Status: Chronic (4) Ascites Code(s): R18.8 - OTHER ASCITES Status: Chronic Qualifiers: (5) Hypokalemia Code(s): E87.6 - HYPOKALEMIA Status: Acute (6) Chronic anemia Code(s): D64.9 - ANEMIA, UNSPECIFIED Status: Chronic (7) Malnutrition of moderate degree Code(s): E44.0 - MODERATE PROTEIN-CALORIE MALNUTRITION Status: Chronic (8) coagulopathy due to liver disease Status: Chronic - Plan Hepatic encephalopathy seems to be clearing some. Will increase Lactulose as not enough bowel movements. Continue Lactulose and daily PT. Either home or SNF if steadiness doesn't improve with Lactulose treatments.
[2019-02-20] MEDS ORDERED: Potassium Chloride 20 MEQ TAB PO SCH (08:15)
[2019-02-20] MEDS: Spironolactone 100 MG TAB PO SCH (08:28)
[2019-02-20] MEDS: Furosemide 40 MG TAB PO SCH (08:30)
[2019-02-20] MEDS: Propranolol 10 MG TAB PO SCH ×2 (08:30→20:04)
[2019-02-20] MEDS: Melatonin 3 MG TAB PO PRN (20:04)
[2019-02-21 08:08] LABS: #Basophils 0.1 thou/uL (0.0-0.2); #Lymphocytes 1.3 thou/uL (1.20-3.40); #Monocytes 0.8 thou/uL (0.11-0.59); #Neutrophils 5.1 thou/uL (1.40-6.50); %Basophils 0.8 % (0.0-1.0); %Eosinophils 0.6 % (0.0-10.0); %Lymphocytes 17.2 % (21.0-51.0); %Monocytes 10.8 % (0.0-10.0); %Neutrophils 70.6 % (42.0-75.0); Anion Gap 13 mmol/L (10-20); BUN (Urea Nitrogen) 9 mg/dL (9.8-20.1); Calc. Creatinine Clearance 74 mL/min (70-130); Carbon Dioxide 17 mmol/L (22-29); Chloride 110 mmol/L (98-107); Estimated GFR-MDRD 88; Glucose 99 mg/dL (70-105); Hemoglobin 11.8 g/dL (12.0-16.0); Mean Corpuscular HGB CONC 33.7 g/dL (32.0-36.0); Mean Corpuscular Hemoglobin 34.2 pg (27.0-31.0); Mean Platelet Volume 9.4 fL (7.4-10.4); Platelet Count 108 thou/uL (130-400); Potassium 3.5 mmol/L (3.5-5.1); RBC Distribution Width 15.3 % (11.5-14.5); Red Blood Cell (RBC) Count 3.46 mill/uL (4.20-5.40); Sodium 136 mmol/L (136-145); White Blood Cell (WBC) Count 7.3 thou/uL (4.8-10.8)
[2019-02-21] MEDS: Propranolol 10 MG TAB PO SCH (08:56)
[2019-02-21] MEDS: Spironolactone 100 MG TAB PO SCH (08:56)
[2019-02-21] MEDS: Furosemide 40 MG TAB PO SCH (08:56)
--- NOTE | 2019-02-21 09:30 | PDOC.HOSPP ---
- Subjective Encounter Date: 02/21/19 (f/u encephalopathy) Encounter Time: 09:28 Subjective: Pt denies any pain. Reports she needs to void. FEels unstead with walking, and occasionally dizzy. - Objective Vital Signs & Weight: Vital Signs (12 hours) Temp Pulse Resp BP Pulse Ox 02/21/19 08:00 98.3 F 58 L 16 101/64 92 L 02/21/19 07:20 72 15 Weight Admit Weight 115 lb Weight 115 lb I&O: 02/20/19 02/21/19 02/22/19 06:59 06:59 06:59 Intake Total 1790 1150 Output Total 2300 1800 Balance -510 -650 Result Diagrams: 02/21/19 07:37 02/21/19 07:37 Hospitalist ROS - Medication Medications: Active Medications Generic Name Dose Route Start Last Admin Trade Name Freq PRN Reason Stop Dose Admin Albuterol/Ipratropium 3 ml 02/18/19 07:00 02/21/19 07:20 Duoneb NEB 3 ml QID-RT GIOVANNI Administration Melatonin 3 mg 02/20/19 03:36 02/20/19 20:04 Melatonin PO 3 mg HS PRN Administration Insomnia Pantoprazole Sodium 40 mg 02/18/19 09:00 02/21/19 08:29 Protonix PO 40 mg DAILY GIOVANNI Administration Potassium Chloride 20 meq 02/18/19 09:00 02/21/19 08:30 Klor-Con PO 20 meq DAILY GIOVANNI Administration Sertraline HCl 100 mg 02/18/19 09:00 02/21/19 08:31 Zoloft PO 100 mg DAILY GIOVANNI Administration - Exam General Appearance: NAD Heart: RRR, no murmur Respiratory: no wheezes, no rales, no ronchi Respiratory - other findings: decreased breath sounds at bases, no audible wheezing Gastrointestinal: soft, non-tender, non-distended, normal bowel sounds Extremities: no cyanosis, no clubbing, no edema Psychiatric: normal affect Psychiatric - other findings: oriented to person, place, time and situation Hosp A/P (1) Hepatic encephalopathy Code(s): K72.90 - HEPATIC FAILURE, UNSPECIFIED WITHOUT COMA Status: Acute (2) Hyperammonemia Code(s): E72.20 - DISORDER OF UREA CYCLE METABOLISM, UNSPECIFIED Status: Chronic (3) Chronic anemia Code(s): D64.9 - ANEMIA, UNSPECIFIED Status: Chronic (4) Liver cirrhosis, alcoholic Code(s): K70.30 - ALCOHOLIC CIRRHOSIS OF LIVER WITHOUT ASCITES Status: Chronic Qualifiers: (5) Malnutrition of moderate degree Code(s): E44.0 - MODERATE PROTEIN-CALORIE MALNUTRITION Status: Chronic (6) Weakness generalized Code(s): R53.1 - WEAKNESS Status: Chronic (7) coagulopathy due to liver disease Status: Chronic - Plan Pt A&O x 4 - on lactulose and encephalopathy appears resolved. 5 bm's noted in past 24 hours - will change lactulose back to BID add hold parameters to home meds including propranolol - and decrease both spinolactone and lasix to half dose - continue pt/ot pt appears ready for SNF or IP rehab when this can be arranged. dvt prophy - scd's gi prophy - not indicated, on ppi at home code status full reviewed plan of care with patient, no questions or further needs at end of eval
--- NOTE | 2019-02-21 15:14 | EKG ---
Test Reason : STAT Blood Pressure : / mmHG Vent. Rate : 071 BPM Atrial Rate : 071 BPM P-R Int : 142 ms QRS Dur : 064 ms QT Int : 474 ms P-R-T Axes : 026 -09 047 degrees QTc Int : 515 ms Sinus rhythm with PVC Low voltage QRS Septal infarct (cited on or before 17-FEB-2019) Prolonged QT Abnormal ECG Confirmed by DR. Bob RUSSELL ([id number]) on 02/21/2019 3:14:43 PM Referred By: Confirmed By:DR. Bob RUSSELL
[2019-02-21] MEDS: Melatonin 3 MG TAB PO PRN (20:42)
[2019-02-21] MEDS ORDERED: Propranolol 10 MG TAB PO SCH ×2 (21:00)
[2019-02-22] MEDS ORDERED: Spironolactone 25 MG TAB PO SCH (09:00)
[2019-02-22] MEDS ORDERED: Furosemide 20 MG TAB PO SCH (09:00)
[2019-02-22] MEDS ORDERED: Furosemide 40 MG TAB PO SCH (09:00)
[2019-02-22] MEDS ORDERED: Spironolactone 100 MG TAB PO SCH ×2 (09:00)
[2019-02-22] MEDS: Propranolol 10 MG TAB PO SCH ×2 (09:54→20:18)
[2019-02-22 10:18] LABS: Anion Gap 11 mmol/L (10-20); BUN (Urea Nitrogen) 9 mg/dL (9.8-20.1); Calc. Creatinine Clearance 79 mL/min (70-130); Calcium 8.1 mg/dL (7.8-10.44); Carbon Dioxide 17 mmol/L (22-29); Chloride 111 mmol/L (98-107); Estimated GFR-MDRD Greater than 90; Glucose 121 mg/dL (70-105); Potassium 3.7 mmol/L (3.5-5.1); Sodium 135 mmol/L (136-145)
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
[2019-02-22] MEDS: Melatonin 3 MG TAB PO PRN (20:20)
[2019-02-23 06:12] LABS: Anion Gap 9 mmol/L (10-20); BUN (Urea Nitrogen) 10 mg/dL (9.8-20.1); Calc. Creatinine Clearance 84 mL/min (70-130); Calcium 7.8 mg/dL (7.8-10.44); Carbon Dioxide 19 mmol/L (22-29); Chloride 112 mmol/L (98-107); Estimated GFR-MDRD Greater than 90; Glucose 100 mg/dL (70-105); Potassium 3.7 mmol/L (3.5-5.1); Sodium 136 mmol/L (136-145)
[2019-02-23] MEDS: Spironolactone 25 MG TAB PO SCH (10:01)
[2019-02-23] MEDS: Propranolol 10 MG TAB PO SCH ×2 (10:01→20:49)
[2019-02-23] MEDS: Furosemide 20 MG TAB PO SCH (10:04)
--- NOTE | 2019-02-23 15:53 | PDOC.HOSPP ---
- Subjective Encounter Date: 02/23/19 (f/u encephalopathy) Encounter Time: 15:52 Subjective: 58 y/o female admitted on 18 Feb 2019 for encephalopathy and ammonia level of 150. She's been treated with lactulose, tolerating this well and over the past 3 days has been waiting for placement at SNF due to weakness. Today - pt reports some intermittent dizziness, none currently. she denies any cp/sob/n/v/abd pain or any other concerns. Reports she was choking on a pea earlier and had stool incontinence with this - reports soft stool. - Objective Vital Signs & Weight: Vital Signs (12 hours) Temp Pulse Resp BP Pulse Ox 02/23/19 08:00 96.9 F L 76 16 126/76 93 L Weight Admit Weight 115 lb Weight 115 lb I&O: 02/22/19 02/23/19 02/24/19 06:59 06:59 06:59 Intake Total 1440 1756 Output Total 1220 1050 Balance 220 706 Result Diagrams: 02/21/19 07:37 02/23/19 05:44 Hospitalist ROS - Medication Medications: Active Medications Generic Name Dose Route Start Last Admin Trade Name Freq PRN Reason Stop Dose Admin Furosemide 20 mg 02/23/19 09:00 02/23/19 10:04 Lasix PO 20 mg DAILY GIOVANNI Administration Lactulose 20 gm 02/21/19 21:00 02/23/19 10:00 Lactulose PO 20 gm BID GIOVANNI Administration Melatonin 3 mg 02/20/19 03:36 02/22/19 20:20 Melatonin PO 3 mg HS PRN Administration Insomnia Ondansetron HCl 4 mg 02/17/19 21:07 02/23/19 10:12 Zofran Odt PO 4 mg Q6H PRN Administration Nausea/Vomiting Pantoprazole Sodium 40 mg 02/18/19 09:00 02/23/19 10:02 Protonix PO 40 mg DAILY GIOVANNI Administration Potassium Chloride 20 meq 02/18/19 09:00 02/23/19 10:00 Klor-Con PO 20 meq DAILY GIOVANNI Administration Propranolol HCl 10 mg 02/22/19 09:00 02/23/19 10:01 Inderal PO 10 mg BID GIOVANNI Administration Sertraline HCl 100 mg 02/18/19 09:00 02/23/19 10:02 Zoloft PO 100 mg DAILY GIOVANNI Administration Spironolactone 50 mg 02/23/19 09:00 02/23/19 10:01 Aldactone PO 50 mg DAILY GIOVANNI Administration - Exam General Appearance: NAD Heart: RRR, no murmur Respiratory: CTAB, no wheezes, no rales, no ronchi Gastrointestinal: soft, non-tender, non-distended, normal bowel sounds Extremities: no cyanosis, no clubbing, no edema Psychiatric: normal affect Hosp A/P (1) Hepatic encephalopathy Code(s): K72.90 - HEPATIC FAILURE, UNSPECIFIED WITHOUT COMA Status: Resolved (2) Hyperammonemia Code(s): E72.20 - DISORDER OF UREA CYCLE METABOLISM, UNSPECIFIED Status: Chronic (3) Chronic anemia Code(s): D64.9 - ANEMIA, UNSPECIFIED Status: Chronic (4) Liver cirrhosis, alcoholic Code(s): K70.30 - ALCOHOLIC CIRRHOSIS OF LIVER WITHOUT ASCITES Status: Chronic Qualifiers: (5) Malnutrition of moderate degree Code(s): E44.0 - MODERATE PROTEIN-CALORIE MALNUTRITION Status: Chronic (6) Weakness generalized Code(s): R53.1 - WEAKNESS Status: Chronic (7) coagulopathy due to liver disease Status: Chronic - Plan Pt A&O x 4 - on lactulose, will continue at current dose. BP higher today - meds lowered and hold parameters on propranolol, spironolactone and furosemide. pt ready for SNF when arranged. dvt prophy - scd's and ambulatory gi prophy - not indicated, on ppi at home code status full reviewed plan of care with patient, no questions or further needs at end of eval
[2019-02-23] MEDS: Melatonin 3 MG TAB PO PRN (20:49)
[2019-02-24 05:53] LABS: Anion Gap 8 mmol/L (10-20); BUN (Urea Nitrogen) 12 mg/dL (9.8-20.1); Calc. Creatinine Clearance 84 mL/min (70-130); Calcium 7.9 mg/dL (7.8-10.44); Carbon Dioxide 21 mmol/L (22-29); Chloride 110 mmol/L (98-107); Estimated GFR-MDRD Greater than 90; Glucose 99 mg/dL (70-105); Potassium 3.6 mmol/L (3.5-5.1); Sodium 135 mmol/L (136-145)
--- NOTE | 2019-02-24 07:33 | PDOC.HOSPP ---
- Subjective Encounter Date: 02/24/19 Encounter Time: 09:00 Subjective: Patient a bit stronger. Aching all over on and off but not bad. Eating ok today. 3 soft BM yesterday. - Objective Vital Signs & Weight: Vital Signs (12 hours) Temp Pulse Resp BP Pulse Ox 02/23/19 20:00 98.0 F 65 20 125/68 97 Weight Admit Weight 115 lb Weight 115 lb I&O: 02/23/19 02/24/19 02/25/19 06:59 06:59 06:59 Intake Total 1756 1470 Output Total 1050 1350 Balance 706 120 Result Diagrams: 02/21/19 07:37 02/24/19 04:54 Hospitalist ROS - Review of Systems Constitutional: denies: fever, chills Respiratory: denies: cough, shortness of breath Cardiovascular: denies: chest pain, palpitations, orthopnea Gastrointestinal: denies: nausea, vomiting, abdominal pain, diarrhea, constipation Genitourinary: denies: dysuria, hematuria - Medication Medications: Active Medications Generic Name Dose Route Start Last Admin Trade Name Freq PRN Reason Stop Dose Admin Furosemide 20 mg 02/23/19 09:00 02/23/19 10:04 Lasix PO 20 mg DAILY GIOVANNI Administration Lactulose 20 gm 02/21/19 21:00 02/23/19 20:49 Lactulose PO 20 gm BID GIOVANNI Administration Melatonin 3 mg 02/20/19 03:36 02/23/19 20:49 Melatonin PO 3 mg HS PRN Administration Insomnia Ondansetron HCl 4 mg 02/17/19 21:07 02/23/19 10:12 Zofran Odt PO 4 mg Q6H PRN Administration Nausea/Vomiting Pantoprazole Sodium 40 mg 02/18/19 09:00 02/23/19 10:02 Protonix PO 40 mg DAILY GIOVANNI Administration Potassium Chloride 20 meq 02/18/19 09:00 02/23/19 10:00 Klor-Con PO 20 meq DAILY GIOVANNI Administration Propranolol HCl 10 mg 02/22/19 09:00 02/23/19 20:49 Inderal PO 10 mg BID GIOVANNI Administration Sertraline HCl 100 mg 02/18/19 09:00 02/23/19 10:02 Zoloft PO 100 mg DAILY GIOVANNI Administration Spironolactone 50 mg 02/23/19 09:00 02/23/19 10:01 Aldactone PO 50 mg DAILY GIOVANNI Administration - Exam General Appearance: NAD, awake alert Eye: anicteric sclera ENT: moist mucosa Heart: RRR, no murmur, no gallops, no rubs Respiratory: CTAB, no wheezes, no rales, no ronchi Gastrointestinal: soft, non-tender, normal bowel sounds Gastrointestinal - other findings: mild soft distension with fluid wave Extremities: no edema Psychiatric: normal affect, normal behavior, A&O x 3 Hosp A/P (1) Hepatic encephalopathy Code(s): K72.90 - HEPATIC FAILURE, UNSPECIFIED WITHOUT COMA Status: Resolved (2) Liver cirrhosis, alcoholic Code(s): K70.30 - ALCOHOLIC CIRRHOSIS OF LIVER WITHOUT ASCITES Status: Chronic Qualifiers: (3) Weakness generalized Code(s): R53.1 - WEAKNESS Status: Chronic (4) Ascites Code(s): R18.8 - OTHER ASCITES Status: Chronic Qualifiers: (5) Hypokalemia Code(s): E87.6 - HYPOKALEMIA Status: Resolved (6) Chronic anemia Code(s): D64.9 - ANEMIA, UNSPECIFIED Status: Chronic (7) Malnutrition of moderate degree Code(s): E44.0 - MODERATE PROTEIN-CALORIE MALNUTRITION Status: Chronic (8) coagulopathy due to liver disease Status: Chronic - Plan Hepatic encephalopathy improved. Soft BM with Lactulose. Discharge to [facility] today when arranged.
[2019-02-24 08:48] VITALS: BP 115/70; TEMP 98.5
[2019-02-24] MEDS: Spironolactone 25 MG TAB PO SCH (09:40)
[2019-02-24] MEDS: Furosemide 20 MG TAB PO SCH (09:41)
[2019-02-24] MEDS: Propranolol 10 MG TAB PO SCH (09:41)
--- NOTE | 2019-02-24 14:09 | DIS ---
DATE OF ADMISSION: 02/18/2019 DATE OF DISCHARGE: 02/24/2019 PRIMARY CARE PHYSICIAN: Ciara Mcdonald. REASON FOR ADMISSION: Weakness and altered mental status. DIAGNOSES AT DISCHARGE: 1. Hepatic encephalopathy, improved. 2. Alcoholic cirrhosis of the liver. 3. Hepatitis C. 4. Ascites. 5. Generalized weakness. 6. Hypokalemia. 7. Chronic anemia. 8. Moderate protein-calorie malnutrition. 9. Coagulopathy due to liver disease. 10. Previous Clostridium difficile colitis, resolved. Now 30 days out. No longer needing contact precautions. PROCEDURES: None. CONSULTATIONS: None. SUMMARY OF HOSPITAL COURSE: This is a 58-year-old white female with a known history of alcoholic cirrhosis of the liver, recently hospitalized with severe ascites after having just gotten out of an outside hospital. She had 8 L of ascitic fluid removed. She was also having a good amount of diarrhea with her lactulose. This was held and her stool tested positive for C. diff antigen, but negative for toxin. She was treated with oral vancomycin in spite of this, and her lactulose was held and she was eventually discharged home to complete her course. She had resolution of all of her diarrhea. However, after a couple weeks at home, she started to get more weak and a little confused and so she came into the hospital. She had an elevated ammonia level, so she was admitted to the hospital. She was treated with lactulose until she has had 3-4 soft bowel movements per day and she had improvement in her mental status. She was still unstable on her feet and prone to falling and so she is being sent to a [facility] facility for further physical therapy. DISCHARGE MANAGEMENT: Discharged to [facility] for [facility] placement. ACTIVITY: As tolerated. DIET: Low-sodium fluid-restricted diet. FOLLOWUP: Follow up with Ciara Mcdonald after out of the [facility] facility. DISCHARGE MEDICATIONS: 1. Lactulose 20 g p.o. twice a day. 2. Albuterol as needed. 3. Furosemide 40 mg daily. 4. DuoNeb 4 times a day. 5. Protonix 40 mg daily. 6. Potassium chloride 20 mEq daily. 7. Propranolol 10 mg twice a day. 8. Sertraline 100 mg daily. 9. Spironolactone 100 mg daily. Arranging the details of this discharge took 35 minutes. Job ID: [id number]
--- NOTE | 2019-02-26 20:46 | PQF ---
ARNIE LANCASTER RYAN ANDREW MD [id number] CLINICAL DOCUMENTATION CLARIFICATION FORM: POST DISCHARGE Addendum to original discharge summary date: ____ Late entry note date: __ DATE: 02/26/2019 ATTN: Jc Mejia Please exercise your independent, professional judgment in responding to the clarification form. Clinical indicators are provided on the bottom of this form for your review Please check appropriate box(s): [ ] Acute Alcoholic Hepatic Encephalopathy [ X ] Acute Hepatic Encephalopathy [ ] Other diagnosis [ ] Unable to determine In addition, please specify: Present on Admission (POA): [ X ] Yes [ ] No [ ] Unable to determine For continuity of documentation, please document condition throughout progress notes and discharge summary. Thank You. CLINICAL INDICATORS - SIGNS / SYMPTOMS / LABS Laboratory Chemistry 02/17 Ammonia 149 Hospitalist PN p1 02/18 Dr Glaser Pt mental status very delayed today. Now unable to get more out of her besides her name. Ammonia level quite high on admission Hospitalist PN p4 02/19 Dr Glaser Pt with worse confusion yesterday from hepatic encephalopathy, not steady on feet RISK FACTORS Hospitalist PN p4 02/18 Alcoholic Liver Cirrhosis Hospitalist PN p4 02/18 Hyperammonemia Hospitalist PN p4 02/18 Coagulopathy due to liver disease Hospitalist PN p3 02/19 Hepatic Encephalopathy TREATMENTS: APR 12 Lactulose Hospitalist PN p4 02/19 Daily PT Hospitalist PN p4 02/19 Recheck Labs (This form is maintained as a part of the permanent medical record) 2014 [employer]. All Rights Reserved [email or web address] [not provided] MTDD
--- NOTE | 2019-03-01 10:43 | EKG ---
Test Reason : Blood Pressure : / mmHG Vent. Rate : 073 BPM Atrial Rate : 073 BPM P-R Int : 146 ms QRS Dur : 064 ms QT Int : 428 ms P-R-T Axes : 076 -16 049 degrees QTc Int : 471 ms Normal sinus rhythm Low voltage QRS Septal infarct , age undetermined Abnormal ECG Confirmed by BARBI ANDERESN, MARY Yang ([id number]), editor magazine MEGHAN TAYOLR ([id number]) on 03/01/2019 10:43:07 AM Referred By: Confirmed By:MARY LANDON MD
== END 2019-02-24 15:00 | DRG 442 ==
LOC: ERS 16:03 → ONC 19:35 → OBSVTOIN 02-18 14:36
PROVIDERS: ADMIT Family Medicine; ATTEND Family Medicine
DX: K72.00 Acute and subacute hepatic failure without coma (principal); E44.0 Moderate protein-calorie malnutrition; Z68.1 Body mass index [BMI] 19.9 or less, adult; D68.4 Acquired coagulation factor deficiency; I85.10 Secondary esophageal varices without bleeding; K70.31 Alcoholic cirrhosis of liver with ascites; B19.20 Unspecified viral hepatitis C without hepatic coma; E87.6 Hypokalemia; J44.9 Chronic obstructive pulmonary disease, unspecified; K21.9 Gastro-esophageal reflux disease without esophagitis; F17.210 Nicotine dependence, cigarettes, uncomplicated; Z90.49 Acquired absence of other specified parts of digestive tract; Z79.899 Other long term (current) drug therapy; Z88.5 Allergy status to narcotic agent
CPT/HCPCS: 36415; 36416; 80048; 80053; 81003; 82140; 82550; 84484; 85025; 93005; 93010; 94640; J7620; Q0162

== ENCOUNTER 2019-04-11 20:18 | Emergency (ER) | payer MEDICARE, OTHER ==
--- NOTE | 2019-04-11 21:01 | CT ---
Exam: CT brain PROVIDED CLINICAL HISTORY: Slurred speech COMPARISON: None FINDINGS: The ventricular system is normal in size and morphology. No evidence for intracranial hemorrhage or mass effect. The extracranial soft tissues and osseous structures demonstrate no evidence for an acute abnormality. IMPRESSION: No evidence for intracranial hemorrhage or mass effect.
[2019-04-11 21:10] LABS: Hemoglobin 13.8 g/dL (12.0-16.0); Mean Corpuscular HGB CONC 33.2 g/dL (32.0-36.0); Mean Corpuscular Hemoglobin 33.3 pg (27.0-31.0); RBC Distribution Width 14.6 % (11.5-14.5); Red Blood Cell (RBC) Count 4.15 mill/uL (4.20-5.40)
[2019-04-11 21:14] LABS: #Basophils 0.1 thou/uL (0.0-0.2); #Lymphocytes 1.5 thou/uL (1.20-3.40); #Neutrophils 4.6 thou/uL (1.40-6.50); %Basophils 1.2 % (0.0-1.0); %Eosinophils 0.2 % (0.0-10.0); %Monocytes 13.3 % (0.0-10.0); %Neutrophils 64.2 % (42.0-75.0); Mean Platelet Volume 9.9 fL (7.4-10.4); Platelet Count 101 thou/uL (130-400); Platelet Morphology Comment Appears Decreased; White Blood Cell (WBC) Count 7.1 thou/uL (4.8-10.8)
[2019-04-11 21:18] LABS: ALT (SGPT) 57 U/L (8-55); AST (SGOT) 71 U/L (5-34); Albumin 2.7 g/dL (3.5-5.0); Alkaline Phosphatase 102 U/L (40-110); Anion Gap 11 mmol/L (10-20); BUN (Urea Nitrogen) 9 mg/dL (9.8-20.1); Bilirubin, Total 1.9 mg/dL (0.2-1.2); Calc. Creatinine Clearance 0 mL/min (70-130); Calcium 8.5 mg/dL (7.8-10.44); Carbon Dioxide 22 mmol/L (22-29); Chloride 112 mmol/L (98-107); Estimated GFR-MDRD 88; Globulin 4.7 g/dL (2.4-3.5); Glucose 88 mg/dL (70-105); Potassium 3.9 mmol/L (3.5-5.1); Protein, Total 7.4 g/dL (6.0-8.3); Sodium 141 mmol/L (136-145)
== END 2019-04-11 22:47 | disposition home or self-care (01) ==
LOC: ERS 20:18
DX: K72.90 Hepatic failure, unspecified without coma (principal); I10 Essential (primary) hypertension; J20.9 Acute bronchitis, unspecified; F17.210 Nicotine dependence, cigarettes, uncomplicated; Z91.19 Patient's noncompliance with other medical treatment and regimen; Z79.899 Other long term (current) drug therapy
CPT/HCPCS: 70450; 80053; 82140; 83605; 84484; 85025; 93005; 96360

== ENCOUNTER 2019-04-23 13:56 | Inpatient (IN) | payer MEDICARE, MEDICAID ==
[2019-04-23 14:45] LABS: Prothrombin Time 16.2 SEC (12.0-14.7)
[2019-04-23 14:46] LABS: #Lymphocytes 1.5 thou/uL (1.20-3.40); #Monocytes 0.9 thou/uL (0.11-0.59); #Neutrophils 4.6 thou/uL (1.40-6.50); %Basophils 0.4 % (0.0-1.0); %Eosinophils 0.6 % (0.0-10.0); %Lymphocytes 21.4 % (21.0-51.0); %Monocytes 12.7 % (0.0-10.0); %Neutrophils 64.9 % (42.0-75.0); Hemoglobin 13.3 g/dL (12.0-16.0); Mean Corpuscular HGB CONC 32.6 g/dL (32.0-36.0); Mean Corpuscular Hemoglobin 32.5 pg (27.0-31.0); Mean Corpuscular Volume 99.8 fL (78.0-98.0); Mean Platelet Volume 10.4 fL (7.4-10.4); PTT 33.7 SEC (22.9-36.1); Platelet Count 107 thou/uL (130-400); RBC Distribution Width 14.9 % (11.5-14.5); White Blood Cell (WBC) Count 7.1 thou/uL (4.8-10.8)
[2019-04-23 14:47] LABS: INR-International Normal Ratio 1.3
[2019-04-23 14:56] LABS: ALT (SGPT) 43 U/L (8-55); AST (SGOT) 60 U/L (5-34); Albumin 2.9 g/dL (3.5-5.0); Alkaline Phosphatase 103 U/L (40-110); Anion Gap 10 mmol/L (10-20); BUN (Urea Nitrogen) 13 mg/dL (9.8-20.1); Bilirubin, Total 1.9 mg/dL (0.2-1.2); CK (CPK) 110 U/L (29-168); Calc. Creatinine Clearance 0 mL/min (70-130); Calcium 9.6 mg/dL (7.8-10.44); Carbon Dioxide 25 mmol/L (22-29); Chloride 106 mmol/L (98-107); Estimated GFR-MDRD 65; Globulin 4.9 g/dL (2.4-3.5); Glucose 98 mg/dL (70-105); Potassium 4.7 mmol/L (3.5-5.1); Protein, Total 7.8 g/dL (6.0-8.3); Sodium 136 mmol/L (136-145)
--- NOTE | 2019-04-23 14:58 | CT ---
Exam: Head CT without contrast HISTORY: Slurred speech. History of stroke COMPARISON: 04/11/2019 FINDINGS: Hemorrhage: No intraparenchymal hemorrhage or extra-axial hematoma. Brain parenchyma: Cortical garay-white matter differentiation is preserved. No mass effect or midline shift. Basilar cisterns are patent.Stable loss of garay-white matter differentiation in the right frontal lobe. Ventricular system: Ventricles and sulci are patent and symmetric. Calvarium: Intact. Sinuses and mastoid air cells: Adequate aeration. IMPRESSION: No acute intracranial process. Stable loss of garay-white matter differentiation the right frontal lob e. No significant interval change.
[2019-04-23] MEDS ORDERED: Iopamidol-370 76% 500 ML 1 ML ONE (15:29)
--- NOTE | 2019-04-23 16:09 | RAD ---
Chest one view HISTORY: Dyspnea. FINDINGS: Cardiac silhouette and pulmonary vasculature are unremarkable. Mediastinum is midline. No l obar consolidation or evidence of pneumothorax. Calcification in the aorta. Old healed fractures of the posterolateral aspect of left ribs 4 and 5. IMPRESSION: Atherosclerosis. No active cardiopulmonary abnormalities are otherwise demonstrated.
[2019-04-23 16:11] LABS: Acetaminophen Less than 6.0 mcg/mL (10.0-30.0); Alcohol Less than 10 mg/dL (Less than 10); Salicylate Less than 8.0 mg/dL (15.0-30.0)
[2019-04-23] MEDS ORDERED: Aspirin 300 MG Suppository ONE (16:44)
[2019-04-23 16:49] LABS: Actual Bicarbonate (HCO3v) 24 mEq/L (22-28); Analyzer IN Cardio ER; Base Excess -0.7 mEq/L (-2.0 to +3.0); Calcium, Ionized 1.21 mmol/L (1.16-1.32); Chloride (ABG LAB) 107 mmol/L (98-106); Hemoglobin (Hb) 13.7 g/dL (11.7-16.0); Sodium 138.6 mmol/L (133-146); pH (venous) 7.39 (7.32-7.43)
[2019-04-23 16:50] LABS: Bilirubin Negative (Negative); Blood, Urine Negative (Negative); Clarity Clear (Clear); Glucose, Urine (Dipstick) Normal (Negative); Leukocyte Negative Leu/uL (Negative); Nitrite Negative (Negative); Protein, Urine (Dipstick) Negative (Neg-Trace); Urobilinogen Normal mg/dL (Less than 2)
[2019-04-23] MEDS ORDERED: cefTRIAXone\\ROCEPHIN 2 GM VIAL ONE (16:58)
[2019-04-23 17:00] LABS: Amphetamine Not Detected (NotDetected); Barbiturates Screen Not Detected (NotDetected); Benzodiazepine Screen Not Detected (NotDetected); Cocaine Metabolite Screen Not Detected (NotDetected); Medtox Control Line Valid? VALID (VALID); Medtox Reader # READER 1; Methadone Not Detected (NotDetected); Methamphetamine Not Detected (NotDetected); Opiate Screen Not Detected (NotDetected); Oxycodone Screen Not Detected (NotDetected); Phencyclidine (PCP) Not Detected (NotDetected); THC/Cannabinoid Screen Not Detected (NotDetected); Tricyclic Screen Not Detected (NotDetected)
--- NOTE | 2019-04-23 18:42 | CT ---
CT ANGIO OF HEAD AND NECK PERFORMED WITH INTRAVENOUS CONTRAST ENHANCEMENT WITH 3D RECONSTRUCTIONS: 04/23/19 HISTORY: Confusion, slurred speech. COMPARISON: A CT angio of the chest dated 08/29/18. Lung apices show changes of central lobular emphysema. The apical pleural and parenchymal scarring is similar to the previous exam. The thyroid is normal in appearance. Focal cord region is unremarkable . Parapharyngeal spaces are clear. No significant jugular chain adenopathy. Parotid and submandibular glands appear unremarkable. Angiographic portion of this study shows a separate origin of the left common carotid artery from aor tic arch. The right innominate artery origin is difficult to assess due to artifact related to contra st within the superior vena cava. The vertebral arteries show a dominant left vertebral. The right ve rtebral artery is small but does make some contribution to the basilar artery. On the right side, the right common carotid, internal and external carotid arteries show no significa nt stenosis by NASCET criteria. No evidence of any plaque formation at the origin of the internal car otid artery. On the left side, left common internal and external carotid arteries show no significant stenosis by NASCET criteria. Incidental note is made of some calcified plaque at the origin of the left subclavian. CT ANGIO OF HEAD PERFORMED WITH INTRAVENOUS CONTRAST ENHANCEMENT WITH 3D RECONSTRUCTION: The anterior and middle cerebral arteries show a somewhat small A1 segment of the left anterior cereb ral which is felt just to be developmental. I see no signs of any intraluminal filling defects. The S ylvian branches are felt to be fairly symmetric given the rotation. IMPRESSION: Essentially unremarkable CT angio of head and neck. POS: [facility]
[2019-04-23 22:15] LABS: Troponin I 0.022 ng/mL (< 0.028)
[2019-04-23] MEDS ORDERED: Azithromycin 500 MG in Sodium Chloride 0.9% 250 ML 250 ML IVPB SCH (23:00)
[2019-04-24 01:06] VITALS: BMI 15.8
[2019-04-24] MEDS ORDERED: PROVENTIL INHALER 6.7 G (200 INHALATIONS) INH PRN (09:20)
[2019-04-24] MEDS ORDERED: Acetaminophen 325 MG TAB PO PRN (09:24)
[2019-04-24] MEDS ORDERED: Rifaximin 550 MG TAB PO SCH (09:30)
[2019-04-24] MEDS ORDERED: Potassium Chloride 20 MEQ TAB PO SCH (09:30)
[2019-04-24] MEDS ORDERED: Furosemide 40 MG TAB PO SCH (09:30)
[2019-04-24] MEDS ORDERED: Spironolactone 100 MG TAB PO SCH (09:30)
--- NOTE | 2019-04-24 10:20 | HP ---
CHIEF COMPLAINT: Altered mental status. HISTORY OF PRESENT ILLNESS: This patient is a 58-year-old female with a known history of cirrhosis secondary to hepatitis C and alcohol abuse. The patient quit drinking in October. She was admitted here previously, most recently in February with a similar presentation with hepatic encephalopathy. At that time, the patient had run out of her lactulose. Her family indicates that she has been taking the lactulose regularly and has not missed dosing. However, the patient became increasingly confused and given her prior issues, the patient was brought to the emergency department. The patient does not have full recollection of the events. The family member indicates that she was the same as the prior episode, but seemed to progress a little faster. The patient herself says she feels completely fine at this moment. Denies any specific problems. REVIEW OF SYSTEMS: The patient has been having bowel movements with the lactulose, but it is unclear that they are significant in number. She denies fevers or chills. All other systems reviewed and were negative. PAST MEDICAL HISTORY: 1. Alcoholic cirrhosis. 2. Hepatitis C. 3. Chronic coagulopathy secondary to end-stage liver disease. 4. Recurrent abdominal ascites, currently well controlled. 5. Chronic anemia. 6. History of C difficile infection. 7. COPD. 8. Reflux. 9. Hypertension. 10. History of prior episode of bradycardia. PAST SURGICAL HISTORY: Tubal ligation, cholecystectomy, and banding of esophageal varices. FAMILY HISTORY: Reviewed with the patient. Negative for anything related to this admission. SOCIAL HISTORY: The patient lives at home. She has a friend, who is living there and helping care for her. The patient smokes a pack of cigarettes per day. She denies alcohol use in October. Denies drugs. She is full code. She says either of her sons would be her surrogate decision maker should that become necessary. ALLERGIES: CODEINE. MEDICATIONS: 1. Lactulose 20 g p.o. b.i.d. 2. Albuterol 2 puffs q.4 hours p.r.n. 3. Lasix 40 mg daily. 4. DuoNeb q.i.d. p.r.n. 5. Protonix 40 mg daily. 6. Potassium 20 mEq daily. 7. Propranolol 10 mg b.i.d. 8. Sertraline 100 mg daily. 9. Aldactone 100 mg p.o. daily. PHYSICAL EXAMINATION: VITAL SIGNS: Most recent vital signs; temperature is 98.4, pulse 70, respirations 16, O2 saturation 96% on room air, and blood pressure 97/59. GENERAL APPEARANCE: Age-appropriate female, very slightly jaundiced. She is awake and conversant, sitting up in bed, eating breakfast. HEENT: PERRL. No OP lesions. NECK: Supple and symmetric. HEART: Regular without murmurs, gallops, or rubs. LUNGS: Clear to auscultation bilaterally. No wheezes, rales, or rhonchi. Good chest wall expansion. ABDOMEN: Soft, nontender, and nondistended. Positive bowel sounds. No masses. No organomegaly. EXTREMITIES: No cyanosis, clubbing, or edema. NEURO: The patient is awake and alert. She is oriented x3. Appears to be moving all extremities with no evidence of any focal deficits. PSYCH: Normal affect and behavior. LABORATORY DATA: White count 7.1, hemoglobin 13.3, and platelets 107. INR is 1.3. Sodium 136, potassium 4.7, chloride 106, CO2 is 25, BUN 13, creatinine 0.9, glucose 98, lactic acid is 1.2, and calcium 9.6. Total bilirubin 1.9, AST 60, ALT is 43, and alkaline phosphatase 103. Ammonia is 127. CK 111, troponin . BNP 114.5. Albumin 2.9. TSH is 6.19. Free T4 is 0.78. Urinalysis negative. Drug screen negative. Flu screen negative. IMAGING DATA: CT brain, no acute changes. There is some loss of garay-white matter differentiation in the right frontal lobe. CT angio is unremarkable. Chest x-ray is negative. IMPRESSION AND PLAN: 1. Hepatic encephalopathy secondary to elevated ammonia level. The patient will be placed on a higher dose of lactulose and started on some Xifaxan today. Overall appears to be already somewhat improved and likely will be waxing and waning a bit. We will go ahead and try to aggressively get that number down, but if she can maintain her current mental status, hopefully we will be able to have a relatively short hospitalization. We will need to confirm improvement. 2. History of end-stage liver disease with ascites. Continue with her home diuretic regimen including Aldactone and Lasix. We will also continue propranolol. 3. History of reflux. Continue pantoprazole. 4. History of chronic obstructive pulmonary disease and continued tobacco abuse. We will continue with the bronchodilators. Job ID: [id number]
[2019-04-24] MEDS: Propranolol 10 MG TAB PO SCH ×2 (10:41→21:49)
[2019-04-24] MEDS: Rifaximin 550 MG TAB PO SCH (21:49)
[2019-04-25 04:46] LABS: Band 4 % (5-11); Lymphocytes 27 % (21-51); MDiff Complete? YES; Mean Corpuscular HGB CONC 32.6 g/dL (32.0-36.0); Mean Corpuscular Hemoglobin 32.7 pg (27.0-31.0); Monocytes 11 % (0-10); Neutrophil 58 % (42-75); Platelet Count 87 thou/uL (130-400); Platelet Morphology Comment Appears Decreased; Red Blood Cell (RBC) Count 3.68 mill/uL (4.20-5.40); White Blood Cell (WBC) Count 6.9 thou/uL (4.8-10.8)
[2019-04-25 07:52] VITALS: BP 113/63; TEMP 98.3
[2019-04-25] MEDS: Rifaximin 550 MG TAB PO SCH (08:25)
[2019-04-25] MEDS: Propranolol 10 MG TAB PO SCH ×2 (08:25)
[2019-04-25] MEDS ORDERED: Spironolactone 100 MG TAB PO SCH (09:00)
[2019-04-25] MEDS ORDERED: Furosemide 40 MG TAB PO SCH (09:00)
--- NOTE | 2019-04-25 12:14 | PQF ---
CLINICAL DOCUMENTATION IMPROVEMENT CLARIFICATION FORM: ICD-10 Updated PLEASE DO AN ADDENDUM TO THE PROGRESS NOTE WITH ANY DOCUMENTATION UPDATES OR ADDITIONS AND CARRY THROUGH TO DC SUMMARY. THANK YOU. Date: 04/25/19 ATTN: DR. SANTILLAN Please exercise your independent, professional judgment in responding to the clarification form. Clinical indicators are provided on the bottom of this form for your review Please check appropriate box(s): [ ] Protein Calorie Malnutrition: [ ] Mild [ ] Moderate [ ] Severe [ ] Other Malnutrition (please specify) __ [ ] Underweight without malnutrition [ ] Cachexia [ ] Other diagnosis [ x ] Unable to determine In addition, please specify: Present on Admission (POA): [ ] Yes [ ] No [ ] Unable to determine CLINICAL INDICATORS - SIGNS / SYMPTOMS / LABS / RESULTS AND LOCATION IN MR DIETARY ASSESSMENT 04/23: "MODERATE TRAPEZIUS WASTING, SEVERE ORBITAL FAT PAD, SEVERE BUCCAL FAT PAD, AND SEVERE TEMPORALIS MUSCLE WASTING" "SHE REPORTED WEIGHING 117# ON February, AND 133# ON SATURDAY 04/15..." BMI 15.8 RISKS: H/O ALCOHOL ABUSE (H&P 04/24) H/O COPD HEPATIC ENCEPHALOPATHY (H&P TREATMENT: DIETARY CONSULT RECOMMENDATION OF NUTRITIONAL SUPPLEMENTS (DIETARY NOTE 04/23) RECOMMENDATION OF ANTI-DIARRHEAL (DIETARY NOTE 04/23) Moderate Malnutrition (in acute illness) Energy Intake: <75% of estimated energy requirement for > 7 days Weight Loss: 1-2%/1 week; 5%/ 1 month; 7.5%/3 months Other: mild body fat loss; mild muscle mass loss; mild fluid accumulation; Severe Malnutrition (in acute illness) Energy Intake: < 50% of estimated energy requirement for > 5 days Weight Loss: >1-2%/1 week; >5%/1 month; >7.5%/3 months Other: moderate body fat loss; moderate muscle mass loss; moderate- severe fluid accumulation; 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 Moderate Malnutrition (in chronic illness) Energy Intake: <75% of estimated energy requirement for >1 month Weight Loss: 5%/1 month; 7.5%/3 months; 10%/6 months; 20%/1 year Other: mild body fat loss; mild muscle mass loss; mild fluid accumulation Severe Malnutrition (in chronic illness) Energy Intake: <75% of estimated energy requirement for >1 month Weight Loss: >5%/1 month; >7.5%/3 months; >10%/6 months; >20%/1 year Other: severe body fat loss; severe muscle mass loss; severe fluid accumulation ; 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 All Rights Reserved [email or web address] Office: [phone] [facility]ITALTom
--- NOTE | 2019-04-26 16:15 | EKG ---
Test Reason : Blood Pressure : / mmHG Vent. Rate : 060 BPM Atrial Rate : 060 BPM P-R Int : 138 ms QRS Dur : 074 ms QT Int : 464 ms P-R-T Axes : 049 -03 067 degrees QTc Int : 464 ms Normal sinus rhythm Normal ECG Confirmed by COURTNEY MCGUIRE M.D. ([id number]), editorial director MEGHAN TAYLOR ([id number]) on 04/26/2019 4:15:10 PM Referred By: Confirmed By:COURTNEY MCGUIRE M.D.
--- NOTE | 2019-04-27 06:04 | DIS ---
DATE OF ADMISSION: 04/23/2019 DATE OF DISCHARGE: 04/25/2019 DISCHARGE DIAGNOSES: 1. Hepatic encephalopathy. 2. Hyperammonemia. 3. Alcoholic cirrhosis. 4. End-stage liver disease. 5. Coagulopathy secondary to liver disease. 6. Chronic anemia. 7. Gastroesophageal reflux disease. 8. Hypertension. HISTORY OF PRESENT ILLNESS: The patient is a 58-year-old female with a history of alcohol abuse and end-stage liver disease secondary to cirrhosis. She has a history of prior hepatic encephalopathies. She presented to the hospital through the emergency department in the care of her family with encephalopathy. The family recognizes secondary to her prior episodes of encephalopathy. She had progressed on this occasion faster than she had in the past. Her initial workup was notable for an ammonia level of 127. The patient and her family indicated that she had been taking her medications regularly, although it was not clear that she was having adequate number of stools associated with the medication. HOSPITAL COURSE: The patient was admitted to the hospital. She was started on Xifaxan with an increased dose of p.o. lactulose. She received some gentle hydration and she actually improved much faster than anticipated. By the following day, her ammonia level was down to 46. The patient and her family felt that she was at her baseline mentation and she was adamant that she was going to be discharged. The patient spent the majority of her hospital stay outside smoking and made it clear that she had no intentions of discontinuing that behavior. With her improvement and her insistence on being discharged, the patient was subsequently discharged. PHYSICAL EXAMINATION: VITAL SIGNS: On the day of discharge, temperature is 98.3, pulse , respirations 20, O2 saturation 95% on room air, BP is 113/63. GENERAL: She is awake and alert, pleasant. She is awake and alert. HEART: Regular rate and rhythm without murmurs. LUNGS: Diminished, but clear otherwise. ABDOMEN: Soft, nontender, and nondistended with positive bowel sounds. EXTREMITIES: Had no cyanosis, clubbing, or edema. DISPOSITION: The patient is discharged to home. She will be on an increased dose of lactulose at 20 g t.i.d. I talked to the patient and her family regarding the fact that she needs to have 3-4 loose bowel movements per day and can titrate her dosing to accomplish that. MEDICATIONS: Otherwise, she will continue with her: 1. Sertraline 100 mg p.o. daily. 2. Albuterol 2 puffs q.4 hours p.r.n. 3. Potassium 20 mEq p.o. daily. 4. DuoNeb p.r.n. 5. Lasix 40 mg p.o. daily. 6. Aldactone 100 mg p.o. daily. 7. Pantoprazole 40 mg daily. 8. Propranolol 10 mg p.o. b.i.d. DISCHARGE INSTRUCTIONS: Diet: She will be on a regular diet her. Activity: As tolerated. Followup: She will follow up with Dr. Janak Astudillo and she can return to the hospital at anytime should she have the need to do so. TIME SPENT: Total time in discharge activities was 31 minutes. Job ID: [id number]
== END 2019-04-25 11:25 | disposition home or self-care (01) | DRG 442 ==
LOC: ERS 13:56 → ERHOLD 17:57 → 2SE 22:17
PROVIDERS: ADMIT Emergency Medicine; ATTEND Internal Medicine
DX: K72.90 Hepatic failure, unspecified without coma (principal); D68.4 Acquired coagulation factor deficiency; K70.30 Alcoholic cirrhosis of liver without ascites; J44.9 Chronic obstructive pulmonary disease, unspecified; K21.9 Gastro-esophageal reflux disease without esophagitis; I10 Essential (primary) hypertension; D64.9 Anemia, unspecified; B19.20 Unspecified viral hepatitis C without hepatic coma; F17.210 Nicotine dependence, cigarettes, uncomplicated; Z90.49 Acquired absence of other specified parts of digestive tract; Z79.899 Other long term (current) drug therapy
CPT/HCPCS: 36415; 36416; 70450; 70496; 70498; 71045; 80053; 80306; 80307; 81003; 82140; 82550; 82805; 83605; 83690; 83880; 84439; 84443; 84484; 85007; 85025; 85027; 85610; 85730; 87040; 87086; 87804; 93005; 94640; 96361; 96374; J0456; J0696; J7050; J7620; Q9967

== ENCOUNTER 2019-06-16 13:57 | Inpatient (IN) | payer MEDICARE, MEDICAID ==
[2019-06-16 15:10] LABS: Hemoglobin 13.8 g/dL (12.0-16.0); Mean Corpuscular Hemoglobin 33.3 pg (27.0-31.0); Mean Platelet Volume 10.3 fL (7.4-10.4); Platelet Count 88 thou/uL (130-400); RBC Distribution Width 14.9 % (11.5-14.5); Red Blood Cell (RBC) Count 4.15 mill/uL (4.20-5.40); White Blood Cell (WBC) Count 6.5 thou/uL (4.8-10.8)
[2019-06-16 15:30] LABS: ALT (SGPT) 116 U/L (8-55); AST (SGOT) 178 U/L (5-34); Acetaminophen Less than 6.0 mcg/mL (10.0-30.0); Alcohol Less than 10 mg/dL (Less than 10); Alkaline Phosphatase 69 U/L (40-110); Anion Gap 12 mmol/L (10-20); BUN (Urea Nitrogen) 17 mg/dL (9.8-20.1); Bilirubin, Total 2.7 mg/dL (0.2-1.2); CK (CPK) 777 U/L (29-168); Calc. Creatinine Clearance 0 mL/min (70-130); Calcium 8.9 mg/dL (7.8-10.44); Carbon Dioxide 19 mmol/L (22-29); Chloride 111 mmol/L (98-107); Estimated GFR-MDRD 74; Globulin 4.2 g/dL (2.4-3.5); Glucose 96 mg/dL (70-105); Potassium 4.3 mmol/L (3.5-5.1); Protein, Total 7.2 g/dL (6.0-8.3); Salicylate Less than 8.0 mg/dL (15.0-30.0); Sodium 138 mmol/L (136-145)
[2019-06-16 15:30] LABS: INR-International Normal Ratio 1.2; PTT 26.1 SEC (22.9-36.1); Prothrombin Time 14.9 SEC (12.0-14.7)
[2019-06-16 15:32] LABS: Bacteria/HPF 3+ HPF (None Seen); Bilirubin Negative (Negative); Blood, Urine Trace (Negative); Clarity Turbid (Clear); Glucose, Urine (Dipstick) Normal (Negative); Leukocyte 500 Leu/uL (Negative); Nitrite 2+ (Negative); Protein, Urine (Dipstick) Negative (Neg-Trace); Squamous Epithelial None Seen HPF (0-3); Urobilinogen 3 mg/dL (Less than 2); WBC/HPF Greater than 50 HPF (0-3)
[2019-06-16 15:34] LABS: Amphetamine Not Detected (NotDetected); Barbiturates Screen Not Detected (NotDetected); Benzodiazepine Screen Not Detected (NotDetected); Cocaine Metabolite Screen Not Detected (NotDetected); Medtox Control Line Valid? VALID (VALID); Medtox Reader # READER 4; Methadone Not Detected (NotDetected); Methamphetamine Not Detected (NotDetected); Opiate Screen Not Detected (NotDetected); Oxycodone Screen Not Detected (NotDetected); Phencyclidine (PCP) Not Detected (NotDetected); THC/Cannabinoid Screen Not Detected (NotDetected); Tricyclic Screen Not Detected (NotDetected)
--- NOTE | 2019-06-16 16:15 | CT ---
CT BRAIN PERFORMED WITHOUT CONTRAST ENHANCEMENT: History: Altered mental status. FINDINGS: Generalized ventricular and sulcal prominence with dilated appearance to the lateral ventricles, part icularly the frontal horn regions, stable finding. There are no signs of intracerebral hemorrhage or extraaxial fluid collections. Mastoid air cells and visualized sinuses are clear. IMPRESSION: No acute intracranial abnormalities. POS: [facility]
[2019-06-16] MEDS ORDERED: Acetaminophen 325 MG TAB PO PRN (17:47)
[2019-06-16] MEDS ORDERED: Ondansetron PF 4 MG/2 ML Vial IVP PRN (17:47)
[2019-06-16] MEDS ORDERED: cefTRIAXone\\ROCEPHIN 2 GM VIAL ONE (17:50)
[2019-06-16] MEDS ORDERED: Albuterol 200 PUFF (6.7GM INHALER) INH PRN (17:51)
--- NOTE | 2019-06-16 18:37 | HP ---
CHIEF COMPLAINT: Altered mentation. HISTORY OF PRESENT ILLNESS: A 59-year-old female with a history of alcoholic cirrhosis, end-stage liver disease, Coagulopathy, chronic anemia, GERD, hypertension, prior history of hepatic encephalopathy, last hospitalization on April 22, presenting with similar symptoms. She was not able to verbalize anything, she was quite lethargic responding to painful stimuli and verbal stimulation with her name being called. Otherwise, she is not oriented at all. Her CPK level was 777, ammonia level was 122 during the initial evaluation. REVIEW OF SYSTEMS: Not obtainable. ALLERGIES: SHE IS ALLERGIC TO CODEINE. PAST MEDICAL HISTORY: 1. Hepatitis C. 2. End-stage liver disease due to alcoholic cirrhosis and hepatitis C. 3. Recurrent abdominal ascites. 4. Anemia of chronic disease. 5. COPD. 6. Hypertension. 7. History of C diff infection in the past. PAST SURGICAL HISTORY: 1. Cholecystectomy. 2. Esophageal varices. FAMILY HISTORY: Not obtainable. SOCIAL HISTORY: Not obtainable. PHYSICAL EXAMINATION: GENERAL: She is alert, oriented x0, responses for verbal stimuli as well as noxious stimuli. She is altered but she is moving her extremities spontaneously. SKIN: I did not appreciate any rash in her skin in the torso or extremities. HEENT: She is slightly icteric. Mucous membranes are quite dry. CARDIOVASCULAR: Regular rate and rhythm without murmurs, rubs, or gallops. LUNGS: Clear to auscultation bilaterally without wheezing, rales, or rhonchi. ABDOMEN: Soft. No fluid waves, but mildly distended. Deep palpation did not elicit any facial sign of any pain. No guarding or rigidity. EXTREMITIES: Again, no rash appreciated. NEURO: Though she is moving her extremities spontaneously, she is alert, oriented x0. MEDICATIONS: 1. Lactulose 20 g p.o. twice a day. 2. Albuterol 2 puffs q.4 hours p.r.n. 3. Lasix 40 mg daily. 4. Protonix 40 mg daily. 5. Potassium 20 mEq daily. 6. Propranolol 10 mg twice a day. 7. Sertraline 100 mg daily. 8. Aldactone 100 mg daily. LABORATORY DATA: Current labs: Her total bilirubin is 2.7, AST 178, ALT 116, creatine kinase 777, ammonia 122. Her creatinine 0.8. INR is 1.2. WBC 6.5, hemoglobin 13.8, platelets are 88,000. CT of the head did not show any acute intracranial abnormality. UA showed it is turbid with a urobilinogen, trace hematuria, nitrite and leukocyte esterase positive, as well as bacteria and pyuria. IMPRESSION AND PLAN: A 59-year-old female with a history of alcohol as well as hepatitis C cirrhosis, end-stage liver disease, presenting with the following. 1. Recurrent hepatic encephalopathy. 2. Urinary tract infection. 3. Coagulopathy. 4. Mild rhabdomyolysis. The patient is admitted to the medical floor. Supportive measures for now. Keep her n.p.o. until her mentation is cleared. Urinary tract infection; blood culture and urine cultures were scheduled already. We will continue with ceftriaxone and adjust antibiotics once the sensitivity is back. Holding Lasix, spironolactone until she is clinically improved, then we will start her on diuretics. Physical exam did not reveal any significant ascites for paracentesis at this time. Follow the clinical course. She is full code. Job ID: [id number] [facility]
[2019-06-16 20:47] VITALS: BMI 22.7
[2019-06-16] MEDS: Propranolol 10 MG TAB PO SCH (21:26)
[2019-06-17 05:22] LABS: #Basophils 0.1 thou/uL (0.0-0.2); #Lymphocytes 1.5 thou/uL (1.20-3.40); #Monocytes 0.8 thou/uL (0.11-0.59); #Neutrophils 5.6 thou/uL (1.40-6.50); %Basophils 0.6 % (0.0-1.0); %Eosinophils 0.3 % (0.0-10.0); %Lymphocytes 19.2 % (21.0-51.0); %Monocytes 10.5 % (0.0-10.0); %Neutrophils 69.4 % (42.0-75.0); Mean Corpuscular HGB CONC 31.9 g/dL (32.0-36.0); Mean Corpuscular Hemoglobin 32.6 pg (27.0-31.0); Mean Platelet Volume 10.2 fL (7.4-10.4); Platelet Count 77 thou/uL (130-400); Red Blood Cell (RBC) Count 4.28 mill/uL (4.20-5.40)
[2019-06-17 05:34] LABS: ALT (SGPT) 112 U/L (8-55); AST (SGOT) 253 U/L (5-34); Albumin 2.7 g/dL (3.5-5.0); Alkaline Phosphatase 66 U/L (40-110); Anion Gap 13 mmol/L (10-20); BUN (Urea Nitrogen) 17 mg/dL (9.8-20.1); Bilirubin, Total 2.6 mg/dL (0.2-1.2); Calc. Creatinine Clearance 77 mL/min (70-130); Carbon Dioxide 17 mmol/L (22-29); Chloride 113 mmol/L (98-107); Estimated GFR-MDRD 85; Globulin 3.9 g/dL (2.4-3.5); Glucose 77 mg/dL (70-105); Lipase 51 U/L (8-78); Potassium 3.9 mmol/L (3.5-5.1); Protein, Total 6.6 g/dL (6.0-8.3); Sodium 139 mmol/L (136-145)
[2019-06-17] MEDS ORDERED: Furosemide 40 MG TAB PO SCH (09:00)
[2019-06-17] MEDS: Spironolactone 100 MG TAB PO SCH (09:54)
[2019-06-17] MEDS: Propranolol 10 MG TAB PO SCH ×2 (09:54→20:41)
[2019-06-17] MEDS ORDERED: Acetaminophen 650 MG Suppository PR PRN (11:35)
--- NOTE | 2019-06-17 11:41 | PDOC.HOSPP ---
- Subjective Encounter Date: 06/17/19 Encounter Time: 09:40 Subjective: Nose bleed, still confused.taolk to RN. will try lactulose WI. - Objective Vital Signs & Weight: Vital Signs (12 hours) Temp Pulse Resp BP Pulse Ox 06/17/19 11:12 58 L 18 99 06/17/19 08:32 59 L 16 99 06/17/19 07:25 98.3 F 60 20 111/64 94 L 06/17/19 05:13 98.2 F 57 L 18 113/67 99 06/17/19 00:00 98.2 F 61 22 H 123/82 100 Weight Weight 124 lb 6.4 oz Result Diagrams: 06/17/19 04:52 06/17/19 04:52 Hospitalist ROS - Medication Medications: Active Medications Generic Name Dose Route Start Last Admin Trade Name Freq PRN Reason Stop Dose Admin Albuterol/Ipratropium 3 ml 06/16/19 19:00 06/17/19 11:12 Duoneb NEB 3 ml QID-RT GIOVANNI Administration Lactulose 20 gm 06/16/19 21:00 06/17/19 10:46 Lactulose PO 20 gm TID GIOVANNI Administration Potassium Chloride 20 meq 06/17/19 09:00 06/17/19 09:54 Klor-Con PO Not Given DAILY GIOVANNI Propranolol HCl 10 mg 06/16/19 21:00 06/17/19 09:54 Inderal PO Not Given BID GIOVANNI Sertraline HCl 100 mg 06/17/19 09:00 06/17/19 09:54 Zoloft PO Not Given DAILY GIOVANNI Spironolactone 100 mg 06/17/19 09:00 06/17/19 09:54 Aldactone PO Not Given DAILY GIOVANNI - Exam General Appearance: ill appearing General - other findings: AOx1 Eye: PERRL, scleral icterus ENT: normocephalic atraumatic Neck: supple Heart: RRR Respiratory: CTAB, normal chest expansion Gastrointestinal: soft, normal bowel sounds, no palpable masses, no guarding Neurological: no focal deficits Hosp A/P - Plan Hepatic encephalopathy Hep C cirrhosis End stage Liver disease Coagulopathy --supportive care --lasix, protonix as IV - lacutlose [place] - hold spironolactone until mentation better. -try soft diet if she is able to. -Ammonia trending down -- does not correlate w.. clinical progress as she is still disoriented. E.coli UTI sens pending on CTX Full code
[2019-06-17] MEDS: cefTRIAXone\\ROCEPHIN 1 GM in Sodium Chloride 0.9% 100 ML IVPB SCH (17:28)
[2019-06-18 04:24] LABS: ALT (SGPT) 114 U/L (8-55); AST (SGOT) 315 U/L (5-34); Albumin 2.6 g/dL (3.5-5.0); Alkaline Phosphatase 72 U/L (40-110); Anion Gap 12 mmol/L (10-20); BUN (Urea Nitrogen) 20 mg/dL (9.8-20.1); Bilirubin, Total 1.9 mg/dL (0.2-1.2); Calc. Creatinine Clearance 75 mL/min (70-130); Carbon Dioxide 17 mmol/L (22-29); Chloride 114 mmol/L (98-107); Estimated GFR-MDRD 82; Globulin 3.7 g/dL (2.4-3.5); Glucose 112 mg/dL (70-105); Potassium 3.7 mmol/L (3.5-5.1); Protein, Total 6.3 g/dL (6.0-8.3); Sodium 139 mmol/L (136-145)
[2019-06-18] MEDS: Propranolol 10 MG TAB PO SCH ×2 (09:13→21:27)
[2019-06-18] MEDS: Spironolactone 100 MG TAB PO SCH (09:17)
[2019-06-18] MEDS: Furosemide 40 MG/4 ML VIAL SLOW IVP SCH (09:17)
[2019-06-18] MEDS: Pantoprazole 40 MG VIAL IVP SCH (09:18)
--- NOTE | 2019-06-18 10:03 | PDOC.HOSPP ---
- Subjective Encounter Date: 06/18/19 Encounter Time: 07:00 Subjective: this morning pt is doing well, she is more alert but very weak, no fever. - Objective Vital Signs & Weight: Vital Signs (12 hours) Temp Pulse Resp BP Pulse Ox 06/18/19 07:35 70 14 06/18/19 07:27 98.3 F 65 16 128/79 94 L 06/18/19 04:13 98.6 F 68 14 113/61 93 L 06/18/19 00:30 97.8 F 66 14 113/57 L 95 Weight Weight 124 lb 6.4 oz I&O: 06/17/19 06/18/19 06/19/19 06:59 06:59 06:59 Intake Total 420 Balance 420 Result Diagrams: 06/17/19 04:52 06/18/19 04:00 Radiology Reviewed by me: Yes EKG Reviewed by me: Yes Hospitalist ROS - Review of Systems Constitutional: denies: fever, chills, sweats, weakness, malaise, other Eyes: denies: pain, vision change, conjunctivae inflammation, eyelid inflammation, redness, other ENT: denies: ear pain, ear discharge, nose pain, nose discharge, nose congestion , mouth pain, mouth swelling, throat pain, throat swelling, other Respiratory: denies: cough, dry, shortness of breath, hemoptysis, SOB with excertion, pleuritic pain, sputum, wheezing, other Cardiovascular: denies: chest pain, palpitations, orthopnea, paroxysmal noc. dyspnea, edema, light headedness, other Gastrointestinal: denies: nausea, vomiting, abdominal pain, diarrhea, constipation, melena, hematochezia, other Genitourinary: denies: dysuria, frequency, incontinence, hematuria, retention, other Musculoskeletal: denies: neck pain, shoulder pain, arm pain, back pain, hand pain, leg pain, foot pain, other Skin: denies: rash, lesions, lars, bruising, other - Medication Medications: Active Medications Generic Name Dose Route Start Last Admin Trade Name Freq PRN Reason Stop Dose Admin Albuterol/Ipratropium 3 ml 06/16/19 19:00 06/18/19 07:35 Duoneb NEB 3 ml QID-RT GIOVANNI Administration Furosemide 40 mg 06/18/19 09:00 06/18/19 09:17 Lasix SLOW IVP 40 mg DAILY GIOVANNI Administration Ceftriaxone Sodium 1 gm/ 100 mls @ 200 mls/hr 06/17/19 18:00 06/17/19 17:28 Sodium Chloride IVPB 100 mls Q24HR GIOVANNI Administration Lactulose 20 gm 06/16/19 21:00 06/18/19 09:21 Lactulose PO 20 gm TID GIOVANNI Administration Pantoprazole Sodium 40 mg 06/18/19 09:00 06/18/19 09:18 Protonix IVP 40 mg DAILY GIOVANNI Administration Potassium Chloride 20 meq 06/17/19 09:00 06/18/19 09:16 Klor-Con PO 20 meq DAILY GIOVANNI Administration Propranolol HCl 10 mg 06/16/19 21:00 06/18/19 09:13 Inderal PO 10 mg BID GIOVANNI Administration Sertraline HCl 100 mg 06/17/19 09:00 06/18/19 09:17 Zoloft PO 100 mg DAILY GIOVANNI Administration Spironolactone 100 mg 06/17/19 09:00 06/18/19 09:17 Aldactone PO 100 mg DAILY GIOVANNI Administration - Exam General Appearance: NAD, awake alert Eye: PERRL ENT: normocephalic atraumatic, no oropharyngeal lesions Neck: supple, symmetric, no JVD, no thyromegaly Heart: RRR, no murmur, no gallops, no rubs Respiratory: CTAB, no wheezes, no rales, no ronchi Gastrointestinal: soft, non-tender, non-distended Extremities: no cyanosis, no clubbing Skin: normal turgor, no lesions Neurological: no focal deficits Musculoskeletal: normal tone, normal strength, diffuse muscle atrophy Psychiatric: normal affect, normal behavior Hosp A/P (1) UTI (urinary tract infection) Status: Acute Qualifiers: Urinary tract infection type: acute cystitis Hematuria presence: without hematuria Qualified Code(s): N30.00 - Acute cystitis without hematuria (2) Hepatic encephalopathy Code(s): K72.90 - HEPATIC FAILURE, UNSPECIFIED WITHOUT COMA Status: Acute Plan: improving (3) Liver cirrhosis, alcoholic Code(s): K70.30 - ALCOHOLIC CIRRHOSIS OF LIVER WITHOUT ASCITES Status: Chronic Qualifiers: (4) Malnutrition of moderate degree Code(s): E44.0 - MODERATE PROTEIN-CALORIE MALNUTRITION Status: Chronic (5) Macrocytosis Code(s): D75.89 - OTHER SPECIFIED DISEASES OF BLOOD AND BLOOD-FORMING ORGANS Status: Chronic (6) Thrombocytopenia Code(s): D69.6 - THROMBOCYTOPENIA, UNSPECIFIED Status: Chronic (7) Hyperchloremic acidosis Code(s): E87.2 - ACIDOSIS Status: Chronic (8) Abnormal LFTs Code(s): R94.5 - ABNORMAL RESULTS OF LIVER FUNCTION STUDIES Status: Chronic - Plan old records reviewed/req, PT/OT add folic acid, thiamin, B12 continue rocephin today PT and speech evaluation expecting discharge soon ammonia level improving i tried to reach family member but unable to contact them on phone, will try later will repeat labs tomorrow
[2019-06-18] MEDS ORDERED: hydrALAZINE 20 MG/ML VIAL SLOW IVP PRN (11:43)
[2019-06-18] MEDS ORDERED: Cepastat Lozenges 1 LOZ PO PRN (11:43)
[2019-06-18] MEDS ORDERED: Artificial Tears 18 DROP/0.9 ML EA EYE PRN (11:43)
[2019-06-18] MEDS ORDERED: Sodium Chloride 0.65% Nasal 44 ML BOT EA NARE PRN (11:43)
[2019-06-18] MEDS ORDERED: Ondansetron ODT 4 MG TAB PO PRN (11:43)
[2019-06-18] MEDS ORDERED: Calcium Carbonate 500 MG ChewTAB PO PRN (11:43)
[2019-06-18] MEDS ORDERED: Diabetic Tussin 200 MG/10 ML UDCUP PO PRN (11:43)
[2019-06-18] MEDS: cefTRIAXone\\ROCEPHIN 1 GM in Sodium Chloride 0.9% 100 ML IVPB SCH (18:15)
[2019-06-19 05:13] LABS: ALT (SGPT) 131 U/L (8-55); AST (SGOT) 335 U/L (5-34); Albumin 2.7 g/dL (3.5-5.0); Alkaline Phosphatase 68 U/L (40-110); Anion Gap 12 mmol/L (10-20); BUN (Urea Nitrogen) 15 mg/dL (9.8-20.1); Bilirubin, Total 2.1 mg/dL (0.2-1.2); Calc. Creatinine Clearance 76 mL/min (70-130); Calcium 8.2 mg/dL (7.8-10.44); Carbon Dioxide 18 mmol/L (22-29); Chloride 107 mmol/L (98-107); Estimated GFR-MDRD 83; Glucose 121 mg/dL (70-105); Potassium 3.8 mmol/L (3.5-5.1); Protein, Total 6.7 g/dL (6.0-8.3); Sodium 133 mmol/L (136-145)
[2019-06-19 07:55] VITALS: TEMP 97.2
[2019-06-19] MEDS: Spironolactone 100 MG TAB PO SCH (08:50)
[2019-06-19] MEDS: Furosemide 40 MG/4 ML VIAL SLOW IVP SCH (08:53)
[2019-06-19] MEDS: Propranolol 10 MG TAB PO SCH (08:53)
[2019-06-19] MEDS: Pantoprazole 40 MG VIAL IVP SCH (08:53)
[2019-06-19] MEDS ORDERED: Folic Acid 1 MG TAB PO SCH (09:00)
[2019-06-19] MEDS ORDERED: Cyanocobalamin (Vitamin B-12) 1,000 MCG TAB PO SCH (09:00)
[2019-06-19] MEDS ORDERED: Thiamine 100 MG TAB PO SCH (09:00)
--- NOTE | 2019-06-19 09:43 | PDOC.HOSPP ---
- Subjective Encounter Date: 06/19/19 Encounter Time: 07:15 Subjective: Patient seen and examined. No new complaints. No overnight events - Objective Vital Signs & Weight: Vital Signs (12 hours) Temp Pulse Resp BP BP Pulse Ox 06/19/19 08:45 64 101/56 L 06/19/19 07:38 97.2 F L 62 16 99/54 L 95 06/19/19 07:22 86 16 90 L 06/19/19 04:42 97.8 F 68 20 103/61 98 06/19/19 04:00 97.8 F 06/19/19 00:00 97.7 F 95 20 150/95 H 96 Weight Weight 124 lb 6.4 oz I&O: 06/18/19 06/19/19 06/20/19 06:59 06:59 06:59 Intake Total 420 2466 Balance 420 2466 Result Diagrams: 06/17/19 04:52 06/19/19 04:35 EKG Reviewed by me: Yes Hospitalist ROS - Review of Systems ENT: denies: ear pain, ear discharge, nose pain, nose discharge, nose congestion , mouth pain, mouth swelling, throat pain, throat swelling, other Respiratory: denies: cough, dry, shortness of breath, hemoptysis, SOB with excertion, pleuritic pain, sputum, wheezing, other Cardiovascular: denies: chest pain, palpitations, orthopnea, paroxysmal noc. dyspnea, edema, light headedness, other Gastrointestinal: denies: nausea, vomiting, abdominal pain, diarrhea, constipation, melena, hematochezia, other Genitourinary: denies: dysuria, frequency, incontinence, hematuria, retention, other Musculoskeletal: denies: neck pain, shoulder pain, arm pain, back pain, hand pain, leg pain, foot pain, other Skin: denies: rash, lesions, lars, bruising, other - Medication Medications: Active Medications Generic Name Dose Route Start Last Admin Trade Name Freq PRN Reason Stop Dose Admin Albuterol/Ipratropium 3 ml 06/16/19 19:00 06/19/19 07:22 Duoneb NEB 3 ml QID-RT GIOVANNI Administration Cyanocobalamin 1,000 mcg 06/19/19 09:00 06/19/19 08:49 Vitamin B-12 PO 1,000 mcg DAILY GIOVANNI Administration Folic Acid 1 mg 06/19/19 09:00 06/19/19 08:49 Folvite PO 1 mg DAILY GIOVANNI Administration Furosemide 40 mg 06/18/19 09:00 06/19/19 08:53 Lasix SLOW IVP 40 mg DAILY GIOVANNI Administration Ceftriaxone Sodium 1 gm/ 100 mls @ 200 mls/hr 06/17/19 18:00 06/18/19 18:15 Sodium Chloride IVPB 100 mls Q24HR GIOVANNI Administration Lactulose 20 gm 06/16/19 21:00 06/19/19 08:49 Lactulose PO 20 gm TID GIOVANNI Administration Pantoprazole Sodium 40 mg 06/18/19 09:00 06/19/19 08:53 Protonix IVP 40 mg DAILY GIOVANNI Administration Potassium Chloride 20 meq 06/17/19 09:00 06/19/19 08:51 Klor-Con PO 20 meq DAILY GIOVANNI Administration Propranolol HCl 10 mg 06/16/19 21:00 06/19/19 08:53 Inderal PO 10 mg BID GIOVANNI Administration Sertraline HCl 100 mg 06/17/19 09:00 06/19/19 08:50 Zoloft PO 100 mg DAILY GIOVANNI Administration Sodium Chloride 10 ml 06/18/19 21:00 06/19/19 08:54 Flush - Normal Saline IVF 10 ml Q12HR GIOVANNI Administration Spironolactone 100 mg 06/17/19 09:00 06/19/19 08:50 Aldactone PO 100 mg DAILY GIOVANNI Administration Thiamine HCl 100 mg 06/19/19 09:00 06/19/19 08:51 Thiamine PO 100 mg DAILY GIOVANNI Administration - Exam General Appearance: NAD, awake alert Eye: PERRL, anicteric sclera ENT: normocephalic atraumatic, no oropharyngeal lesions Neck: supple, symmetric, no JVD, no thyromegaly Heart: RRR, no murmur, no gallops, no rubs Respiratory: CTAB, no wheezes, no rales, no ronchi Gastrointestinal: soft, non-tender, non-distended, normal bowel sounds Extremities: no cyanosis, no clubbing, no edema Skin: normal turgor, no lesions Neurological: no focal deficits Musculoskeletal: normal tone, normal strength Psychiatric: normal affect, normal behavior Hosp A/P (1) UTI (urinary tract infection) Status: Acute Qualifiers: Urinary tract infection type: acute cystitis Hematuria presence: without hematuria Qualified Code(s): N30.00 - Acute cystitis without hematuria (2) Hepatic encephalopathy Code(s): K72.90 - HEPATIC FAILURE, UNSPECIFIED WITHOUT COMA Status: Acute (3) Liver cirrhosis, alcoholic Code(s): K70.30 - ALCOHOLIC CIRRHOSIS OF LIVER WITHOUT ASCITES Status: Chronic Qualifiers: (4) Malnutrition of moderate degree Code(s): E44.0 - MODERATE PROTEIN-CALORIE MALNUTRITION Status: Chronic (5) Macrocytosis Code(s): D75.89 - OTHER SPECIFIED DISEASES OF BLOOD AND BLOOD-FORMING ORGANS Status: Chronic (6) Thrombocytopenia Code(s): D69.6 - THROMBOCYTOPENIA, UNSPECIFIED Status: Chronic (7) Hyperchloremic acidosis Code(s): E87.2 - ACIDOSIS Status: Chronic (8) Abnormal LFTs Code(s): R94.5 - ABNORMAL RESULTS OF LIVER FUNCTION STUDIES Status: Chronic - Plan old records reviewed/req, continue antibiotics add folic acid, thiamin, B12 continue rocephin today PT and speech evaluation expecting discharge soon ammonia level improving i tried to reach family member but unable to contact them on phone, will try later will repeat labs tomorrow 06/19/19 DC to home with home health cipro for 5 days
--- NOTE | 2019-06-19 10:45 | DIS ---
DATE OF ADMISSION: 06/16/2019 DATE OF DISCHARGE: 06/19/2019 PRIMARY CARE PHYSICIAN: Harry Urbina, nurse practitioner. DISCHARGE DISPOSITION: Home with home health. PRIMARY DISCHARGE DIAGNOSES: 1. Hepatic encephalopathy. 2. Urinary tract infection. 3. Mild rhabdomyolysis. SECONDARY DISCHARGE DIAGNOSIS: Alcoholic cirrhosis, portal hypertension, hepatitis C, chronic macrocytic anemia, chronic obstructive pulmonary disease, hypertension, and esophageal varices. PRIMARY PROCEDURE/OPERATION: None. RADIOLOGICAL INVESTIGATION: CT brain normal. LABORATORY DATA: Significant labs; WBC 8.0, hemoglobin 14.0, and platelets 77. INR 1.2. Sodium 133, creatinine 0.72, bilirubin 2.1, AST 335, ALT 131, and albumin 2.7. Urinalysis suggestive of UTI. Urine drug screen negative. Serum drug screen negative. Blood culture negative. Urine culture grew E coli. DISCHARGE MEDICATIONS: 1. Proventil HFA 2 puffs q.4 hourly p.r.n. 2. Lasix 40 mg p.o. daily. 3. DuoNeb twice daily. 4. Potassium chloride 20 mEq p.o. daily. 5. Zoloft 100 mg p.o. daily. 6. Aldactone 100 mg p.o. daily. 7. Cipro 500 mg p.o. twice daily for 5 days. 8. Vitamin B12 1000 mcg p.o. daily. 9. Folic acid 1 mg p.o. daily. 10. Lactulose 20 g p.o. t.i.d. 11. Protonix 40 mg daily. 12. Inderal 10 mg b.i.d. 13. Thiamine 100 mg p.o. daily. CONTRAINDICATION: None. CODE STATUS: Full code. INPATIENT FLOATER OPERATOR: None. ALLERGIES: CODEINE. DISCHARGE PLAN: Posthospital, the patient will follow up with primary care physician on June 24, 2019. HOSPITAL COURSE: This is a 59-year-old female, who was admitted by Dr. Hickman. Please see her H and P for further details. The patient was admitted for altered mental status. The patient had elevated ammonia level and her presentation was consistent with hepatitic encephalopathy as well as she was also found with urinary tract infection. The patient was treated with Rocephin while in the hospital. Her urine culture grew E coli, and based on culture and sensitivity result, we changed to Cipro on discharge. The patient's ammonia level improved. The patient was doing PT/OT while in the hospital and Physical Therapy recommended home health that was arranged before discharge. Now, the patient is up to her baseline level. The patient is medically stable for discharge. Please see my progress note from today for more detail. Job ID: [id number]
[2019-06-19 11:52] VITALS: BP 119/78
--- NOTE | 2019-06-21 02:29 | PQF ---
ARNIE LANCASTER SALIM NOORJIBHAI MD [id number] [facility] [place] [id number] CLINICAL DOCUMENTATION CLARIFICATION FORM: POST DISCHARGE Addendum to original discharge summary date: ____ Late entry note date: __ DATE: 06/21/2019 ATTN: NAE IRWIN MD Please exercise your independent, professional judgment in responding to the clarification form. Clinical indicators are provided on the bottom of this form for your review Please check appropriate box(s): [ x ] Hepatic Encephalopathy: Type: [x ] Acute [ ] Subacute [ ] Chronic [ ] Alcoholic hepatic encephalopathy [ ] Transient Alteration of Awareness [ ] Other diagnosis [ ] Unable to determine For continuity of documentation, please document condition throughout progress notes and discharge summary. Thank You. CLINICAL INDICATORS - SIGNS / SYMPTOMS / LABS - Hepatic encephalopathy- DS, 06/18, NAE IRWIN MD - elevated ammonia level and her presentation was consistent with hepatic encephalopathy-DS, 06/18, NAE IRWIN MD - Severe hepatic encephalopathy- ED record, 06/15, Lia Morgan MD - Ammonia: 122H on 06/15, 146H on 06/15, 86H on 06/16, 48 on 06/17- Laboratory report - End stage liver disease- Progress note, 06/16, Marylou Massey MD - PMH: End stage liver disease due to alcoholic cirrhosis and hepatitis C- H&P, 06/15, Marylou Massey MD - Recurrent hepatic encephalopathy-H&P, 06/16, Marylou Massey MD RISK FACTORS - Alcoholic cirrhosis-DS, 06/18, NAE IRWIN MD - Hepatitis C- DS.06/18DC SALIM NOORJIBHAI MD - Esophageal varices-DS, 06/18, NAE IRWIN MD TREATMENTS: - Lactulose.20mg.PO APR, 06/15 - Sodium chloride.IV- APR, 06/17 (This form is maintained as a part of the permanent medical record) [id number] , [employer]. All Rights Reserved [email or web address]
== END 2019-06-19 12:08 | disposition home health service (06) | DRG 689 ==
LOC: ERS 13:57 → 2SE 18:27
PROVIDERS: ADMIT Internal Medicine; ATTEND Internal Medicine
DX: N39.0 Urinary tract infection, site not specified (principal); K72.00 Acute and subacute hepatic failure without coma; K76.6 Portal hypertension; I85.00 Esophageal varices without bleeding; M62.82 Rhabdomyolysis; D68.9 Coagulation defect, unspecified; E44.0 Moderate protein-calorie malnutrition; E87.2 Acidosis; K70.30 Alcoholic cirrhosis of liver without ascites; B18.2 Chronic viral hepatitis C; J44.9 Chronic obstructive pulmonary disease, unspecified; D69.6 Thrombocytopenia, unspecified; R94.5 Abnormal results of liver function studies; I10 Essential (primary) hypertension; B96.20 Unspecified Escherichia coli [E. coli] as the cause of diseases classified elsewhere; D63.8 Anemia in other chronic diseases classified elsewhere; K21.9 Gastro-esophageal reflux disease without esophagitis; Z90.49 Acquired absence of other specified parts of digestive tract; Z68.22 Body mass index [BMI] 22.0-22.9, adult
CPT/HCPCS: 36415; 70450; 80053; 80306; 80307; 81003; 81015; 82140; 82550; 83605; 83690; 84443; 85025; 85610; 85730; 87040; 87077; 87086; 87186; 93005; 94640; 94760; 96365; A4353; C9113; J0696; J1940; J3490; J7620

== ENCOUNTER 2020-01-31 00:03 | Inpatient (IN) | payer MEDICARE, MEDICAID ==
[2020-01-31] MEDS ORDERED: Albuterol 200 PUFF (6.7GM INHALER) ONE (00:50)
[2020-01-31 01:04] LABS: Bilirubin Negative (Negative); Blood, Urine Negative (Negative); Clarity Clear (Clear); Glucose, Urine (Dipstick) Normal (Negative); Ketone, Urine Negative (Negative); Leukocyte Negative Leu/uL (Negative); Nitrite Negative (Negative); Protein, Urine (Dipstick) Negative (Neg-Trace); Specific Gravity, Urine 1.025 (1.002-1.036)
[2020-01-31 01:08] LABS: Hemoglobin 12.9 g/dL (12.0-16.0); Mean Corpuscular HGB CONC 33.1 g/dL (32.0-36.0); Mean Corpuscular Hemoglobin 32.4 pg (27.0-31.0); RBC Distribution Width 14.9 % (11.5-14.5); Red Blood Cell (RBC) Count 3.98 mill/uL (4.20-5.40); White Blood Cell (WBC) Count 8.7 thou/uL (4.8-10.8)
[2020-01-31 01:14] LABS: Amphetamine Detected (NotDetected); Barbiturates Screen Not Detected (NotDetected); Benzodiazepine Screen Detected (NotDetected); Cocaine Metabolite Screen Not Detected (NotDetected); Medtox Control Line Valid? VALID (VALID); Medtox Reader # READER 4; Methadone Not Detected (NotDetected); Methamphetamine Detected (NotDetected); Opiate Screen Not Detected (NotDetected); Oxycodone Screen Not Detected (NotDetected); Phencyclidine (PCP) Not Detected (NotDetected); THC/Cannabinoid Screen Detected (NotDetected); Tricyclic Screen Not Detected (NotDetected)
[2020-01-31 01:25] LABS: ALT (SGPT) 61 U/L (8-55); AST (SGOT) 193 U/L (5-34); Albumin 2.3 g/dL (3.5-5.0); Alkaline Phosphatase 79 U/L (40-110); Anion Gap 11 mmol/L (10-20); BUN (Urea Nitrogen) 19 mg/dL (9.8-20.1); Bilirubin, Total 3.3 mg/dL (0.2-1.2); Calc. Creatinine Clearance 0 mL/min (70-130); Calcium 8.5 mg/dL (7.8-10.44); Carbon Dioxide 23 mmol/L (22-29); Chloride 115 mmol/L (98-107); Globulin 3.5 g/dL (2.4-3.5); Glucose 83 mg/dL (70-105); Potassium 4.1 mmol/L (3.5-5.1); Protein, Total 5.8 g/dL (6.0-8.3); Sodium 145 mmol/L (136-145)
[2020-01-31 01:33] LABS: #Basophils 0.1 thou/uL (0.0-0.2); #Eosinphils 0.1 thou/uL (0.0-0.7); #Lymphocytes 2.2 thou/uL (1.20-3.40); #Neutrophils 5.3 thou/uL (1.40-6.50); %Eosinophils 1.7 % (0.0-10.0); %Lymphocytes 25.1 % (21.0-51.0); %Monocytes 11.9 % (0.0-10.0); %Neutrophils 60.4 % (42.0-75.0); Mean Platelet Volume 9.7 fL (7.4-10.4); Platelet Count 98 thou/uL (130-400); Platelet Morphology Comment Appears Decreased
[2020-01-31 05:15] LABS: Actual Bicarbonate (HCO3a) 22.3 mEq/L (22-28); Analyzer IN Cardio ER; Base Excess (BEa) -1.1 mEq/L (-2.0 to +3.0); CO2 Tension 33.2 mmHg (35.0-45.0); Calcium, Ionized (arterial) 1.24 mmol/L (1.12-1.30); Carboxyhemoglobin (COHb) 0.2 gm% (0.0-3.0); Hemoglobin (Hb) 12.1 g/dL (12.0-16.0); O2 Tension (PaO2), arterial 71.4 mmHg (80.0-100.0); Potassium - ABG Lab 3.74 mmol/L (3.70-5.30); pH, Arterial 7.45 (7.35-7.45)
[2020-01-31 05:18] LABS: Puncture Site RRA
--- NOTE | 2020-01-31 08:13 | CT ---
PRELIMINARY REPORT/[facility]/EMERGENCY AFTER HOURS PROCEDURE: EXAM: CT Head Without Intravenous Contrast. CLINICAL HISTORY: Patient brought to the ER by EMS after family noted that she was confused. TECHNIQUE: Axial computed tomography images of the head/brain without intravenous contrast. COMPARISON: CT\SR - CT BRAIN WO CON - 06/16/2019 03:58 PM CDT FINDINGS: BRAIN: No acute intraparenchymal hemorrhage. No mass lesion. No CT evidence for acute territorial inf arct. No midline shift or extra-axial collection. VENTRICLES: Stable predominantly right-sided ventriculomegaly. ORBITS: The orbits are unremarkable. SINUSES AND MASTOIDS: The paranasal sinuses and mastoid air cells are clear. SOFT TISSUES: No significant facial or scalp soft tissue swelling evident. No radiopaque foreign body is seen. BONES: No acute skull fracture. IMPRESSION: No acute intracranial abnormality. Stable appearance of the brain compared to 06/16/2019. ELECTRONICALLY SIGNED BY: Demetris Huffman MD Jan 31, 2020 6:50:47 AM J[facility] BOSS FINAL REPORT CT BRAIN PERFORMED WITHOUT CONTRAST ENHANCEMENT: HISTORY: Altered mental status. COMPARISON: A 06/16/2019 exam. FINDINGS: There is generalized ventricular and sulcal prominence. There are no signs of intracerebral hemorrha ge or extraaxial fluid collections. Mastoid air cells and visualized sinuses are clear. IMPRESSION: 1. No acute intracranial abnormalities. 2. This report is in agreement with the temporary report issued by [facility]. [place] [facility] [place]
[2020-01-31] MEDS ORDERED: Albuterol Sulfate 2.5 mg/3 ml Neb NEB PRN (09:01)
[2020-01-31] MEDS ORDERED: Albuterol 200 PUFF (6.7GM INHALER) INH PRN (09:09)
--- NOTE | 2020-01-31 09:12 | PDOC.HHP ---
Hospitalist HPI - History of Present Illness History of Present Illness: ADMISSION DATE: 01/31/2020 TIME OF ASSESSMENT: 0800 PRIMARY CARE PHYSICIAN: Dr. Garcia CHIEF COMPLAINT: AMS HPI: This is a 59-year-old woman with a known history of cirrhosis who presents to the emergency department due to changes in her mental status. She apparently takes lactulose and has had issues with altered mental status associated with ammonia buildup in the past. Her last dose of lactulose was yesterday afternoon. She was brought in by EMS and on their evaluation was noted to be disoriented and unable to follow commands. Her blood glucose was 101 and she was afebrile. Blood pressure was 124/78 and heart rate was 59. Sats are 94% on room air with a respirate of 20. Patient unable to provide any history or communicate. ED COURSE: In the emergency department she had an EKG done which showed a normal sinus rhythm with a heart rate of 65. T waves appeared flattened in leads II, aVL, I, and V1. Otherwise no ST segment changes or other abnormalities. CT of the head was done showing no acute intracranial abnormalities. ABG showed a pH of 7.45, CO2 33.2, bicarb 22.3, O2 93.2. Labs demonstrated a white cell count of 8.7, hemoglobin 12.9, hematocrit 39, platelets 98, neutrophils 60.4%. Potassium 4.1, BUN 19, creatinine 0.70, GFR 86, total bilirubin 3.3, total protein 5.8, AST 193, ALT 61, alk phos 79. Ammonia was 51. Troponin negative. Plasma alcohol level was less than 10. Urine drug screen was positive for cannabis, methamphetamines, amphetamines and benzos. Urinalysis was unremarkable except for urobilinogen of 8. Due to reason she received 2 puffs of albuterol via inhaler in the emergency department. PAST MEDICAL HISTORY: 1. Bradycardia 2. Hypertension 3. Hepatitis C related cirrhosis 4. Recurrent abdominal ascites 5. COPD 6. History of C. difficile infection in the past PAST SURGICAL HISTORY: 1. Tubal ligation 2. Cholecystectomy 3. Banding of esophageal varices SOCIAL HISTORY: Patient lives at home alone. She is a non-smoker. Difficulty obtaining further information FAMILY HISTORY: Not obtainable ALLERGIES: Codeine sulfate CURRENT MEDICATIONS: 1. Propanolol 10 mg p.o. twice daily 2. Furosemide 40 mg p.o. daily 3. Spironolactone 100 mg p.o. daily 4. Potassium chloride 20 mEq 5. Pantoprazole 40 mg p.o. daily 6. Folic acid 20 mg p.o. daily 7. Sertraline 100 mg p.o. daily 8. Lactulose 20 g p.o. 3 times daily - Exam General - other findings: VS: Temp 98.2, BP 112/83, HR 60, RR 19, O2 sats 94% on room air Eye: anicteric sclera ENT: normocephalic atraumatic Neck: supple, no lymphadenopathy Heart: RRR, normal peripheral pulses Respiratory - other findings: Coarse lung sounds throughout with slight exp wheeze Gastrointestinal: soft, non-tender, non-distended, no guarding, no rigidity Extremities: no edema Skin: normal turgor Skin - other findings: excoriations to lower legs Psychiatric: somnolent Psychiatric - other findings: Responsive to voice, not answering questions or following commands Hospitalist Results - Labs Result Diagrams: 01/31/20 00:49 01/31/20 00:50 Lab results: WBC 8.7 thou/uL (4.8-10.8) 01/31/20 00:49 Hgb 12.9 g/dL (12.0-16.0) 01/31/20 00:49 Hct 39.0 % (36.0-47.0) 01/31/20 00:49 MCV 98.0 fL (78.0-98.0) 01/31/20 00:49 Plt Count 98 thou/uL (130-400) L 01/31/20 00:49 Neutrophils % 60.4 % (42.0-75.0) 01/31/20 00:49 ABG pH 7.45 (7.35-7.45) 01/31/20 05:08 ABG pCO2 33.2 mmHg (35.0-45.0) L 01/31/20 05:08 ABG pO2 71.4 mmHg (80.0-100.0) L 01/31/20 05:08 Sodium 145 mmol/L (136-145) 01/31/20 00:50 Potassium 4.1 mmol/L (3.5-5.1) 01/31/20 00:50 Chloride 115 mmol/L (98-107) H 01/31/20 00:50 Carbon Dioxide 23 mmol/L (22-29) 01/31/20 00:50 BUN 19 mg/dL (9.8-20.1) 01/31/20 00:50 Creatinine 0.70 mg/dL (0.6-1.1) 01/31/20 00:50 Glucose 83 mg/dL (70-105) 01/31/20 00:50 Calcium 8.5 mg/dL (7.8-10.44) 01/31/20 00:50 Total Bilirubin 3.3 mg/dL (0.2-1.2) H 01/31/20 00:50 AST 193 U/L (5-34) H 01/31/20 00:50 ALT 61 U/L (8-55) H 01/31/20 00:50 Alkaline Phosphatase 79 U/L (40-110) 01/31/20 00:50 Ammonia 51 umol/L (18-72) 01/31/20 00:50 Troponin I 0.018 ng/mL (< 0.028) 01/31/20 00:50 Serum Total Protein 5.8 g/dL (6.0-8.3) L 01/31/20 00:50 Albumin 2.3 g/dL (3.5-5.0) L 01/31/20 00:50 Urine Ketones Negative mg/dL (Negative) 01/31/20 00:42 Urine Blood Negative (Negative) 01/31/20 00:42 Urine Nitrite Negative (Negative) 01/31/20 00:42 Ur Leukocyte Esterase Negative Louann/uL (Negative) 01/31/20 00:42 - Radiology Interpretation CT scan - head Status: report reviewed by fl Hospitalist H&P A/P - Plan Plan: Patient brought in by EMS who was called by family due to being altered. Admitted for the following: Altered Mental Status: Secondary to hepatic encephalopathy vs. substance abuse Ammonia level pending Monitor O2 sats Keep NPO until more alert Repeat BMP, LFTs, Lactic Acid Liver disease: associated with alcoholic cirrhosis and hepatitis C Monitor LFTs Ammonia level pending, if elevated resume lactulose (give CA if unable to take PO) Elevated bili, obtain direct bili Check Lipase COPD: cough and wheezing Resume home inhalers Monitor O2 sats Obtain baseline CXR Hypertension: Monitor BP Hold antihypertensives given low BP Anemia of chronic disease: Stable Consider CM for Possible APS GI Prophylaxis: Famotidine. DVT prophylaxis: mechanical scds CODE STATUS FULL Case discussed with attending who agrees with plan as above.
[2020-01-31 10:15] LABS: Lactic Acid 1.3 mmol/L (0.5-2.2)
[2020-01-31 10:16] LABS: Anion Gap 13 mmol/L (10-20); BUN (Urea Nitrogen) 17 mg/dL (9.8-20.1); Calc. Creatinine Clearance 0 mL/min (70-130); Calcium 8.1 mg/dL (7.8-10.44); Carbon Dioxide 21 mmol/L (22-29); Chloride 114 mmol/L (98-107); Glucose 77 mg/dL (70-105); Magnesium 1.6 mg/dL (1.6-2.6); Sodium 144 mmol/L (136-145)
[2020-01-31 10:18] LABS: ALT (SGPT) 54 U/L (8-55); AST (SGOT) 158 U/L (5-34); Albumin 2.1 g/dL (3.5-5.0); Alkaline Phosphatase 72 U/L (40-110); Bilirubin, Direct 1.9 mg/dL (0.1-0.3); Bilirubin, Total 3.1 mg/dL (0.2-1.2); Protein, Total 5.2 g/dL (6.0-8.3)
[2020-01-31] MEDS: Sodium Chloride 0.9% 1,000 ML IV SCH (10:30)
--- NOTE | 2020-01-31 11:04 | RAD ---
XR Chest 1 View Portable History: Coarsening lung sounds Comparison: Radiograph June 2019 Findings: Moderate layering effusion on the right. No pneumothorax. No airspace consolidation appreci ated. Impression: Moderate right layering pleural effusion may be hepatic hydrothorax given history of live r failure.
[2020-01-31 16:32] LABS: SARS-CoV-2 MS2 Positive; SARS-CoV-2 N Gene Negative; SARS-CoV-2 S Gene Negative; SARS-CoV-2 by NAA Not Detected (NotDetected); SARS-CoV-2 orf1ab Negative
[2020-02-01 03:47] LABS: #Basophils 0.1 thou/uL (0.0-0.2); #Eosinphils 0.1 thou/uL (0.0-0.7); #Monocytes 1.1 thou/uL (0.11-0.59); #Neutrophils 5.6 thou/uL (1.40-6.50); %Basophils 0.9 % (0.0-1.0); %Eosinophils 0.9 % (0.0-10.0); %Lymphocytes 22.7 % (21.0-51.0); %Monocytes 12.8 % (0.0-10.0); %Neutrophils 62.8 % (42.0-75.0); Mean Corpuscular HGB CONC 32.5 g/dL (32.0-36.0); Mean Corpuscular Hemoglobin 32.6 pg (27.0-31.0); Mean Platelet Volume 9.3 fL (7.4-10.4); Platelet Count 86 thou/uL (130-400); RBC Distribution Width 15.4 % (11.5-14.5); Red Blood Cell (RBC) Count 3.69 mill/uL (4.20-5.40); White Blood Cell (WBC) Count 8.8 thou/uL (4.8-10.8)
[2020-02-01 04:02] LABS: ALT (SGPT) 54 U/L (8-55); AST (SGOT) 135 U/L (5-34); Alkaline Phosphatase 69 U/L (40-110); Anion Gap 12 mmol/L (10-20); BUN (Urea Nitrogen) 18 mg/dL (9.8-20.1); Bilirubin, Total 3.1 mg/dL (0.2-1.2); Calc. Creatinine Clearance 97 mL/min (70-130); Calcium 7.9 mg/dL (7.8-10.44); Carbon Dioxide 20 mmol/L (22-29); Chloride 115 mmol/L (98-107); Globulin 3.2 g/dL (2.4-3.5); Glucose 70 mg/dL (70-105); Lipase 38 U/L (8-78); Potassium 3.9 mmol/L (3.5-5.1); Protein, Total 5.2 g/dL (6.0-8.3); Sodium 143 mmol/L (136-145)
[2020-02-01] MEDS: Sodium Chloride 0.9% 1,000 ML IV SCH (05:35)
[2020-02-01] MEDS ORDERED: FLU VACC QS2020-21(6MOS UP)/PF 60 MCG/0.5 ML SYRINGE IM ONE (09:00)
[2020-02-01] MEDS: Thiamine 100 MG TAB PO SCH (10:11)
[2020-02-01] MEDS ORDERED: Furosemide 20 MG/2 ML VIAL SLOW IVP SCH (10:15)
[2020-02-01] MEDS ORDERED: Lactulose 10 GM/15 ML Oral Solution PO SCH (15:00)
--- NOTE | 2020-02-01 16:11 | PDOC.HOSPP ---
- Subjective Encounter Date: 02/01/20 Encounter Time: 09:00 Subjective: F/u: encephalopathy The patient stated it was January 2020. When asked if she was compliant with her lactulose at home, she had difficulty answering the questions. She still slurs her speech slightly and worked with physical therapy and had difficulty standing up. The patient denies abdominal pain, nausea or vomiting - Objective Vital Signs & Weight: Vital Signs (12 hours) Temp Pulse Resp BP Pulse Ox 02/01/20 15:11 98.3 F 65 18 112/65 93 L 02/01/20 10:30 97.9 F 107 H 18 163/88 H 98 02/01/20 09:32 94 L 02/01/20 07:14 98 F 60 18 120/67 90 L Weight Weight 130 lb 8 oz I&O: 01/31/20 02/01/20 02/02/20 06:59 06:59 06:59 Intake Total 350 Balance 350 Result Diagrams: 02/01/20 03:29 02/01/20 03:29 Hospitalist ROS - Review of Systems Constitutional: denies: fever, chills - Medication Medications: Active Medications Generic Name Dose Route Start Last Admin Trade Name Freq PRN Reason Stop Dose Admin Lactulose 20 gm 02/01/20 15:00 02/01/20 15:12 Lactulose 20 Gm/30 Ml Udcup PO 20 gm TID GIOVANNI Administration Pantoprazole Sodium 40 mg 02/01/20 09:00 02/01/20 10:11 Pantoprazole 40 Mg Tab PO 40 mg DAILY GIOVANNI Administration Thiamine HCl 100 mg 02/01/20 09:00 02/01/20 10:11 Thiamine 100 Mg Tab PO 100 mg DAILY GIOVANNI Administration - Exam General Appearance: NAD, awake alert Eye: PERRL, anicteric sclera ENT: normocephalic atraumatic, no oropharyngeal lesions Neck: no JVD Heart: RRR, no murmur, no gallops, no rubs Respiratory: CTAB, no wheezes, no rales, no ronchi Gastrointestinal: soft, non-tender, non-distended, normal bowel sounds Extremities: no cyanosis, no clubbing, no edema Skin: normal turgor, no lesions, no rashes Neurological: cranial nerve grossly intact, normal sensation to touch, no weakness Neurological - other findings: slight slurring of her speech Musculoskeletal: normal tone, normal strength Psychiatric: A&O x 3 Hosp A/P - Plan CT brain: normal Chest x ray: moderate right layering pleural effusion This is a 59 year old female with past medical history of cirrhosis who presented with encephalopathy Acute hepatic encephalopathy - she was restarted on her lactulose, will recheck ammonia level tomorrow Acute hypoxic respiratory failure secondary to pleural effusion - chest Xray showed moderate right layering pleural effusion. One dose of lasix was administered and patient has been weaned down to room air COPD - continue home inhalers Hypertension - given IV lasix - if BP stable, will resume oral diuretics tomorrow Generalized weakness - continue with physical therapy
[2020-02-02] MEDS: Thiamine 100 MG TAB PO SCH (08:30)
[2020-02-02 14:24] VITALS: BMI 18.7
--- NOTE | 2020-02-02 18:01 | PDOC.HOSPP ---
- Subjective Encounter Date: 02/02/20 Encounter Time: 13:00 Subjective: F/u: hepatic encephalopathy The patient is laying in bed. She still has some slurred speech and mildly confused but is oriented to the month and the year. She denies any abdominal pain ,nausea or vomiting. She denies shortness of breath. She had one bowel movement this morning Polysubstance abuse- she tested positive for meth, amphetamine and marijuana. Patient denies drugs except for marijuana. When asked about going to a drug rehab, she was unable to answer - Objective Vital Signs & Weight: Vital Signs (12 hours) Temp Pulse Resp BP Pulse Ox 02/02/20 16:22 98.4 F 54 L 18 119/56 L 91 L 02/02/20 11:19 98.2 F 59 L 18 112/64 94 L 02/02/20 09:00 53 L 93 L 02/02/20 08:50 93 L 02/02/20 07:51 98.3 F 64 18 130/82 92 L Weight Admit Weight 130 lb 8 oz Weight 130 lb 8 oz I&O: 02/01/20 02/02/20 02/03/20 06:59 06:59 06:59 Intake Total 350 1550 Balance 350 1550 Result Diagrams: 02/01/20 03:29 02/01/20 03:29 Hospitalist ROS - Review of Systems Constitutional: denies: fever, chills - Medication Medications: Active Medications Generic Name Dose Route Start Last Admin Trade Name Freq PRN Reason Stop Dose Admin Lactulose 20 gm 02/01/20 15:00 02/02/20 15:59 Lactulose 20 Gm/30 Ml Udcup PO 20 gm TID GIOVANNI Administration Pantoprazole Sodium 40 mg 02/01/20 09:00 02/02/20 08:30 Pantoprazole 40 Mg Tab PO 40 mg DAILY GIOVANNI Administration Thiamine HCl 100 mg 02/01/20 09:00 02/02/20 08:30 Thiamine 100 Mg Tab PO 100 mg DAILY GIOVANNI Administration - Exam General Appearance: NAD, awake alert Eye: PERRL, anicteric sclera ENT: normocephalic atraumatic, no oropharyngeal lesions Neck: no JVD Heart: RRR, no murmur, no gallops, no rubs Respiratory: CTAB, no wheezes, no rales, no ronchi Gastrointestinal: soft, non-tender, non-distended, normal bowel sounds Extremities: no cyanosis, no clubbing, no edema Skin: normal turgor, no lesions, no rashes Hosp A/P - Plan CT brain: normal Chest x ray: moderate right layering pleural effusion This is a 59 year old female with past medical history of cirrhosis who presented with encephalopathy Acute hepatic encephalopathy - she was restarted on her lactulose, repeat ammonia normal but confused still. Titrate lactulose to 3 bowel movements daily - tried calling the son, but did not answer. Son is supposed to visit tomorrow per patient Acute hypoxic respiratory failure secondary to pleural effusion - chest Xray showed moderate right layering pleural effusion. She is on 1L of oxygen a 93. Will resume home spironolactone and monitor for hypotension COPD - continue home inhalers Hypertension - resume spironolactone, BP controlled for now Generalized weakness - continue with physical therapy
[2020-02-02] MEDS: Spironolactone 100 MG TAB PO SCH (19:01)
[2020-02-03 04:17] LABS: ALT (SGPT) 54 U/L (8-55); AST (SGOT) 94 U/L (5-34); Alkaline Phosphatase 80 U/L (40-110); Bilirubin, Direct 1.7 mg/dL (0.1-0.3); Bilirubin, Total 2.5 mg/dL (0.2-1.2); Protein, Total 5.4 g/dL (6.0-8.3)
[2020-02-03] MEDS: Thiamine 100 MG TAB PO SCH (08:40)
[2020-02-03] MEDS: Spironolactone 100 MG TAB PO SCH (08:41)
[2020-02-03] MEDS ORDERED: Furosemide 20 MG/2 ML VIAL SLOW IVP SCH (14:30)
--- NOTE | 2020-02-03 15:19 | PDOC.HOSPP ---
- Subjective Encounter Date: 02/03/20 Encounter Time: 10:00 Subjective: F/u: hepatic encephalopathy The patient is laying in bed. She has not gotten up yet. She says she thinks she had two bowel movements yesterday. She says it is before Ada and year is 2019 and month is January. I did see her look at the board for the month She states she is short of breath. Oxygen sat 92% on 1L - Objective Vital Signs & Weight: Vital Signs (12 hours) Temp Pulse Resp BP Pulse Ox 02/03/20 11:00 97.9 F 69 18 111/66 92 L 02/03/20 08:40 92 L 02/03/20 07:47 98.1 F 70 16 118/75 92 L 02/03/20 04:18 98.1 F 70 18 119/68 92 L Weight Admit Weight 130 lb 8 oz Weight 130 lb 8 oz I&O: 02/02/20 02/03/20 02/04/20 06:59 06:59 06:59 Intake Total 1550 240 Balance 1550 240 Result Diagrams: 02/01/20 03:29 02/01/20 03:29 Hospitalist ROS - Review of Systems Constitutional: denies: fever, chills - Medication Medications: Active Medications Generic Name Dose Route Start Last Admin Trade Name Sintia PRN Reason Stop Dose Admin Lactulose 20 gm 02/01/20 15:00 02/03/20 08:41 Lactulose 20 Gm/30 Ml Udcup PO 20 gm TID GIOVANNI Administration Pantoprazole Sodium 40 mg 02/01/20 09:00 02/03/20 08:40 Pantoprazole 40 Mg Tab PO 40 mg DAILY GIOVANNI Administration Spironolactone 100 mg 02/02/20 18:00 02/03/20 08:41 Spironolactone 100 Mg Tab PO 100 mg DAILY GIOVANNI Administration Thiamine HCl 100 mg 02/01/20 09:00 02/03/20 08:40 Thiamine 100 Mg Tab PO 100 mg DAILY GIOVANNI Administration - Exam General - other findings: sleepy Eye: PERRL, anicteric sclera ENT: normocephalic atraumatic, no oropharyngeal lesions Neck: no JVD Heart: RRR, no murmur, no gallops, no rubs Respiratory: CTAB, no wheezes, no rales, no ronchi Gastrointestinal: soft, non-tender, non-distended, normal bowel sounds Extremities: no cyanosis, no clubbing, no edema Hosp A/P - Plan CT brain: normal Chest x ray: moderate right layering pleural effusion This is a 59 year old female with past medical history of cirrhosis who presented with encephalopathy Acute hepatic encephalopathy - confusion is improving some, speech less slurred. However ammonia still around 70. Will add rifaximin with goals to achieve around 3 bowel movements daily Acute hypoxic respiratory failure secondary to pleural effusion - chest Xray showed moderate right layering pleural effusion. She is on 1L of oxygen a 93. Continue spironolactone. Will give additional dose of IV lasix and repeat chest X ray tomorrow COPD - continue home inhalers Hypertension - resume spironolactone, BP controlled for now Generalized weakness - continue with physical therapy
[2020-02-03] MEDS ORDERED: Rifaximin 550 MG TAB PO SCH (15:30)
[2020-02-03] MEDS ORDERED: Furosemide 20 MG TAB PO SCH (16:00)
[2020-02-03] MEDS: Rifaximin 550 MG TAB PO SCH (20:24)
[2020-02-04] MEDS: Thiamine 100 MG TAB PO SCH (08:38)
[2020-02-04] MEDS: Rifaximin 550 MG TAB PO SCH (08:39)
[2020-02-04] MEDS: Spironolactone 100 MG TAB PO SCH (08:39)
[2020-02-04 16:25] VITALS: BP 120/74; TEMP 98
--- NOTE | 2020-02-04 17:16 | PDOC.DS.DS ---
Provider - Provider Date of Admission: 02/01/20 16:09 Date of Discharge: 02/04/20 Admitting Provider: Gavin Stinson MD Primary Care Physician: Janak Garcia MD Course - Hospital Course Hospital Course: Discharge Diagnoses: 1. Acute hepatic encephalopathy 2. Acute hypoxic respiratory failure secondary to right sided pleural effusion 3. COPD 4. Hypertension 5. Generalized weakness Brief HPI: This is a 59-year-old female with a past medical history of cirrhosis who presented to the emergency room with altered mental status. She was brought into the emergency room due to inability to follow commands. Patient had unremarkable labs. Her urine drug screen was positive for methamphetamines, amphetamines, benzos and cannabis. She was admitted to the hospital for possible hepatic encephalopathy. Hospital Course: Acute hepatic encephalopathy: The patient presented with ammonia level of 83. She was started on lactulose 20 mg 3 times daily. She continued to have some mild slurred speech and confusion, therefore rifaximin was added on 02/02. On 02/03, the patient had had 6 bowel movements overnight. Her mental status was back to normal, however she still has a slightly slurred speech. I did discuss with the son who felt that the patient was near her baseline and was comfortable with discharge. Acute hypoxic respiratory failure secondary to pleural effusion: chest Xray showed moderate right layering pleural effusion. She required 1 L of oxygen while in the hospital. She was given IV Lasix. She was restarted on her spironolactone 100 mg daily. She is weaned down to room air. On discharge her Lasix will be decreased to 20 mg daily given her very low BMI of 18. Generalized weakness: She was seen by physical therapy and was unsteady while ambulating but did well with a walker. Patient states that she has a walker at home. Pertinent Studies: CT brain: no acute disease Chest X ray: moderate right layering pleural effusion - Labs Lab Results: 02/01/20 03:29 02/01/20 03:29 Abnormal Lab Results - Last 48 hrs 02/03/20 03:47: Total Bilirubin 2.5 H, Direct Bilirubin 1.7 H, AST 94 H, Serum Total Protein 5.4 L, Albumin 2.0 L - Physical Exam Vitals: Vital Signs (12 hours) Temp Pulse Resp BP Pulse Ox 02/04/20 16:21 98.0 F 66 16 120/74 95 02/04/20 10:41 98.1 F 74 16 126/75 92 L 02/04/20 08:44 98.1 F 70 16 121/86 93 L 02/04/20 08:30 93 L Weight Admit Weight 130 lb 8 oz Weight 130 lb 8 oz Physical Exam: The patient was seen and examined on the day of discharge. General: awake, alert, oriented times three. Psych: she is cognitively slightly slow CVS: RRR, no murmurs, rubs, gallops Lungs: CTAB Abdomen: +BS, soft, nontender, nondistended Extremities: no edema Neuro: alert and oriented times three. 5/5 strength in upper and lower extremities. Sensation is normal in all four extremities Problem - Discharge Plan Plan of Treatment: Patient to follow-up with her PCP in a week and get a repeat chest x-ray in 6 weeks. - Time spent with Patient (mins): 40 Plan - Discharge Medications Prescriptions: Furosemide 20 mg PO DAILY PRN #30 tablet PRN Reason: Edema Home Medications: Medication Instructions Recorded Confirmed Type Albuterol Sulfate [Proventil Hfa] 2 puff INH Q4H PRN 01/29/19 01/31/20 History Ipratropium/Albuterol Sulfate 3 ml NEB BID 01/29/19 01/31/20 History [DuoNeb] Potassium Chloride [Klor-Con] 20 meq PO DAILY 01/29/19 01/31/20 History Sertraline HCl 100 mg PO DAILY 01/29/19 01/31/20 History Spironolactone [Aldactone] 100 mg PO DAILY 01/29/19 01/31/20 History Pantoprazole [Protonix] 40 mg PO DAILY #30 tab 02/06/19 01/31/20 Rx Propranolol [Inderal] 10 mg PO BID #60 tab 02/06/19 01/31/20 Rx Lactulose 10 GM/15ML Oral Nneka 20 gm PO TID #1500 ml 04/25/19 01/31/20 Rx [Lactulose] Cyanocobalamin (Vitamin B-12) 1,000 mcg PO DAILY #30 tab 06/19/19 01/31/20 Rx [Vitamin B-12] Folic Acid [Folvite] 1 mg PO DAILY #30 tab 06/19/19 01/31/20 Rx Thiamine 100 mg PO DAILY #30 tab 06/19/19 01/31/20 Rx Furosemide 20 mg PO DAILY PRN #30 tablet 02/04/20 Rx Allergies: codeine Allergy (Verified 06/16/19 20:51) Nausea codeine per chart. Pt AMS at this time. - Discharge Instructions Discharge Instructions:: You presented with hepatic encephalopathy. You should take lactulose three times daily and rifaximin twice daily to titrate bowel movements to three times daily. Take lasix 20 mg daily as needed. Your liver enzymes are elevated but improving. Please have this repeated in a week. You tested positive for methamphetamine, amphetamine, benzo and marijuana. Please stop using these drugs and consider following up with an outpatient substance abuse clinic. You had some fluid in your right lung. Please get a repeat chest Xray in a week to see if this has resolved. Follow up with your primary care doctor in a week. Use a walker while ambulating . Activity:: Activity as Tolerated Nourishment:: Heart Healthy Diet - Follow up Plan Referrals: Janak Garcia MD [Primary Care Provider] - Disposition: HOME Quality - Care Measures CORE MEASURES:: N/A
== END 2020-02-04 17:08 | disposition home or self-care (01) | DRG 441 ==
LOC: ERS 00:03 → SJJU 07:26 → OBSVTOIN 02-01 16:09
PROVIDERS: ADMIT Internal Medicine; ATTEND Internal Medicine
DX: K72.00 Acute and subacute hepatic failure without coma (principal); J96.01 Acute respiratory failure with hypoxia; J90 Pleural effusion, not elsewhere classified; J44.9 Chronic obstructive pulmonary disease, unspecified; I10 Essential (primary) hypertension; K70.30 Alcoholic cirrhosis of liver without ascites; B19.20 Unspecified viral hepatitis C without hepatic coma; D63.8 Anemia in other chronic diseases classified elsewhere; F19.10 Other psychoactive substance abuse, uncomplicated; R53.1 Weakness; Z20.828 Contact with and (suspected) exposure to other viral communicable diseases; Z90.49 Acquired absence of other specified parts of digestive tract; Z98.51 Tubal ligation status; Z88.5 Allergy status to narcotic agent; Z79.899 Other long term (current) drug therapy; Z71.51 Drug abuse counseling and surveillance of drug abuser
CPT/HCPCS: 36415; 36416; 36600; 51701; 70450; 71045; 80053; 80076; 80306; 80307; 81003; 82140; 82805; 83605; 83690; 83735; 84146; 84484; 85025; 87635; 93005; 94664; J1940; U0003

== ENCOUNTER 2020-06-02 16:44 | Inpatient (IN) | payer MEDICARE, MEDICAID ==
[2020-06-02 17:31] LABS: #Lymphocytes 1.8 thou/uL (1.20-3.40); #Monocytes 0.8 thou/uL (0.11-0.59); %Basophils 0.5 % (0.0-1.0); %Eosinophils 0.2 % (0.0-10.0); %Lymphocytes 27.6 % (21.0-51.0); %Monocytes 11.7 % (0.0-10.0); Hemoglobin 13.6 g/dL (12.0-16.0); Mean Corpuscular HGB CONC 33.6 g/dL (32.0-36.0); Mean Corpuscular Hemoglobin 33.2 pg (27.0-31.0); Mean Corpuscular Volume 98.8 fL (78.0-98.0); Mean Platelet Volume 10.2 fL (7.4-10.4); Platelet Count 95 thou/uL (130-400); White Blood Cell (WBC) Count 6.6 thou/uL (4.8-10.8)
[2020-06-02 17:53] LABS: Acetaminophen Less than 6.0 mcg/mL (10.0-30.0); Alcohol Less than 10 mg/dL (Less than 10); Magnesium 1.6 mg/dL (1.6-2.6); Salicylate Less than 8.0 mg/dL (15.0-30.0)
[2020-06-02 18:01] LABS: ALT (SGPT) 40 U/L (8-55); AST (SGOT) 84 U/L (5-34); Albumin 2.4 g/dL (3.5-5.0); Alkaline Phosphatase 76 U/L (40-110); Anion Gap 13 mmol/L (10-20); BUN (Urea Nitrogen) 11 mg/dL (9.8-20.1); Bilirubin, Total 2.7 mg/dL (0.2-1.2); Calc. Creatinine Clearance 0 mL/min (70-130); Calcium 8.4 mg/dL (7.8-10.44); Carbon Dioxide 17 mmol/L (22-29); Chloride 114 mmol/L (98-107); Globulin 4.2 g/dL (2.4-3.5); Glucose 87 mg/dL (70-105); Lipase 54 U/L (8-78); Potassium 4.2 mmol/L (3.5-5.1); Protein, Total 6.6 g/dL (6.0-8.3); Sodium 140 mmol/L (136-145)
[2020-06-02 19:02] LABS: Bacteria/HPF None Seen HPF (None Seen); Bilirubin Negative (Negative); Blood, Urine Negative (Negative); Clarity Clear (Clear); Glucose, Urine (Dipstick) Normal (Negative); Ketone, Urine Negative (Negative); Leukocyte 25 Leu/uL (Negative); Nitrite Negative (Negative); Protein, Urine (Dipstick) Negative (Neg-Trace); RBC/HPF 0-3 HPF (0-3); Specific Gravity, Urine 1.021 (1.002-1.036); Squamous Epithelial 0-3 HPF (0-3); Urobilinogen Greater than 12 mg/dL (Less than 2)
[2020-06-02 19:11] LABS: Amphetamine Not Detected (NotDetected); Barbiturates Screen Not Detected (NotDetected); Benzodiazepine Screen Not Detected (NotDetected); Cocaine Metabolite Screen Not Detected (NotDetected); Medtox Control Line Valid? VALID (VALID); Medtox Reader # READER 1; Methadone Not Detected (NotDetected); Methamphetamine Not Detected (NotDetected); Opiate Screen Not Detected (NotDetected); Oxycodone Screen Not Detected (NotDetected); Phencyclidine (PCP) Not Detected (NotDetected); THC/Cannabinoid Screen Detected (NotDetected); Tricyclic Screen Not Detected (NotDetected)
[2020-06-02] MEDS ORDERED: Ondansetron ODT 4 MG TAB PO PRN (21:00)
[2020-06-02] MEDS ORDERED: Sodium Chloride 0.9% 1,000 ML IV SCH (21:00)
[2020-06-02] MEDS ORDERED: Ondansetron PF 4 MG/2 ML Vial IVP PRN (21:00)
[2020-06-02] MEDS ORDERED: Albuterol 200 PUFF (6.7GM INHALER) INH PRN (21:05)
[2020-06-02 21:31] VITALS: BMI 22.9
[2020-06-02] MEDS: Multivitamins, Adult 10 ML, Folic Acid 1 MG in Dextrose 5 %-0.45 % NaCl 1,000 ML IV SCH (22:29)
[2020-06-02] MEDS: Thiamine HCl 200 MG/2 ML VIAL SLOW IVP SCH (22:30)
[2020-06-02] MEDS: Famotidine/PF 20 mg/2ml Vial SLOW IVP SCH (22:44)
[2020-06-03] MEDS: Propranolol 10 MG TAB PO SCH ×3 (00:06→21:19)
[2020-06-03 04:37] LABS: ALT (SGPT) 41 U/L (8-55); AST (SGOT) 111 U/L (5-34); Albumin 2.3 g/dL (3.5-5.0); Alkaline Phosphatase 75 U/L (40-110); Anion Gap 12 mmol/L (10-20); BUN (Urea Nitrogen) 14 mg/dL (9.8-20.1); Bilirubin, Total 2.6 mg/dL (0.2-1.2); Calc. Creatinine Clearance 83 mL/min (70-130); Calcium 8.2 mg/dL (7.8-10.44); Carbon Dioxide 17 mmol/L (22-29); Chloride 114 mmol/L (98-107); Globulin 4.4 g/dL (2.4-3.5); Glucose 112 mg/dL (70-105); Magnesium 1.6 mg/dL (1.6-2.6); Potassium 3.9 mmol/L (3.5-5.1); Protein, Total 6.7 g/dL (6.0-8.3); Sodium 139 mmol/L (136-145)
[2020-06-03 04:40] LABS: Band 2 % (5-11); Eosinophils 1 % (0-10); Hemoglobin 14.8 g/dL (12.0-16.0); Lymphocytes 24 % (21-51); MDiff Complete? YES; Macrocytosis SLIGHT = 6-15 cells (100X) (0-5/hpf); Mean Corpuscular HGB CONC 34.9 g/dL (32.0-36.0); Mean Corpuscular Hemoglobin 34.9 pg (27.0-31.0); Mean Platelet Volume 10.5 fL (7.4-10.4); Monocytes 14 % (0-10); Neutrophil 59 % (42-75); Platelet Count 71 thou/uL (130-400); Platelet Morphology Comment Appears Decreased; Polychromasia SLIGHT = 2-3 cells (100X) (0-2/hpf); RBC Distribution Width 15.2 % (11.5-14.5); Red Blood Cell (RBC) Count 4.25 mill/uL (4.20-5.40); White Blood Cell (WBC) Count 8.4 thou/uL (4.8-10.8)
[2020-06-03] MEDS ORDERED: Thiamine 100 MG TAB PO SCH (09:00)
[2020-06-03 09:55] LABS: SARS-CoV-2 PCR by NAA Not Detected (NotDetected)
[2020-06-03] MEDS: Spironolactone 100 MG TAB PO SCH (10:14)
[2020-06-03] MEDS: Famotidine/PF 20 mg/2ml Vial SLOW IVP SCH ×2 (10:15→20:50)
[2020-06-03] MEDS: Folic Acid 1 MG TAB PO SCH (10:15)
[2020-06-03] MEDS: Cyanocobalamin (Vitamin B-12) 1,000 MCG TAB PO SCH (10:15)
[2020-06-03] MEDS: Multivitamins, Adult 10 ML, Folic Acid 1 MG in Dextrose 5 %-0.45 % NaCl 1,000 ML IV SCH (20:50)
[2020-06-03] MEDS: Thiamine HCl 200 MG/2 ML VIAL SLOW IVP SCH (20:50)
[2020-06-04 05:18] LABS: #Basophils 0.1 thou/uL (0.0-0.2); #Lymphocytes 2.3 thou/uL (1.20-3.40); #Neutrophils 4.4 thou/uL (1.40-6.50); %Basophils 0.9 % (0.0-1.0); %Eosinophils 0.5 % (0.0-10.0); %Lymphocytes 29.8 % (21.0-51.0); %Monocytes 13.3 % (0.0-10.0); %Neutrophils 55.5 % (42.0-75.0); Hemoglobin 12.8 g/dL (12.0-16.0); Mean Corpuscular HGB CONC 32.8 g/dL (32.0-36.0); Mean Corpuscular Hemoglobin 32.6 pg (27.0-31.0); Mean Corpuscular Volume 99.2 fL (78.0-98.0); Mean Platelet Volume 10.5 fL (7.4-10.4); Platelet Count 94 thou/uL (130-400); RBC Distribution Width 15.2 % (11.5-14.5); Red Blood Cell (RBC) Count 3.94 mill/uL (4.20-5.40); White Blood Cell (WBC) Count 7.8 thou/uL (4.8-10.8)
[2020-06-04 05:51] LABS: ALT (SGPT) 43 U/L (8-55); AST (SGOT) 155 U/L (5-34); Albumin 2.2 g/dL (3.5-5.0); Alkaline Phosphatase 66 U/L (40-110); Anion Gap 9 mmol/L (10-20); BUN (Urea Nitrogen) 13 mg/dL (9.8-20.1); Bilirubin, Total 2.6 mg/dL (0.2-1.2); Calc. Creatinine Clearance 81 mL/min (70-130); Calcium 7.6 mg/dL (7.8-10.44); Carbon Dioxide 16 mmol/L (22-29); Chloride 116 mmol/L (98-107); Globulin 3.8 g/dL (2.4-3.5); Glucose 101 mg/dL (70-105); Potassium 3.2 mmol/L (3.5-5.1); Sodium 138 mmol/L (136-145)
[2020-06-04] MEDS ORDERED: Potassium Chloride 20 MEQ TAB PO SCH (08:15)
[2020-06-04] MEDS: Spironolactone 100 MG TAB PO SCH (09:10)
[2020-06-04] MEDS: Famotidine/PF 20 mg/2ml Vial SLOW IVP SCH ×2 (09:10→21:53)
[2020-06-04] MEDS: Cyanocobalamin (Vitamin B-12) 1,000 MCG TAB PO SCH (09:11)
[2020-06-04] MEDS: Folic Acid 1 MG TAB PO SCH (09:11)
[2020-06-04] MEDS: Propranolol 10 MG TAB PO SCH ×2 (09:11→21:53)
[2020-06-04] MEDS: Rifaximin 550 MG TAB PO SCH ×2 (09:11→21:54)
[2020-06-04] MEDS: Thiamine HCl 200 MG/2 ML VIAL SLOW IVP SCH (21:55)
[2020-06-04] MEDS: Multivitamins, Adult 10 ML, Folic Acid 1 MG in Dextrose 5 %-0.45 % NaCl 1,000 ML IV SCH (21:58)
[2020-06-05] MEDS: Cyanocobalamin (Vitamin B-12) 1,000 MCG TAB PO SCH (09:44)
[2020-06-05] MEDS: Propranolol 10 MG TAB PO SCH ×2 (09:44→21:36)
[2020-06-05] MEDS: Folic Acid 1 MG TAB PO SCH (09:44)
[2020-06-05] MEDS: Rifaximin 550 MG TAB PO SCH ×2 (09:44→21:37)
[2020-06-05] MEDS: Famotidine/PF 20 mg/2ml Vial SLOW IVP SCH ×2 (09:45→21:37)
[2020-06-05] MEDS: Spironolactone 100 MG TAB PO SCH (09:45)
[2020-06-05 10:11] LABS: #Basophils 0.1 thou/uL (0.0-0.2); #Lymphocytes 1.8 thou/uL (1.20-3.40); #Neutrophils 4.1 thou/uL (1.40-6.50); %Eosinophils 0.3 % (0.0-10.0); %Lymphocytes 25.1 % (21.0-51.0); %Monocytes 14.3 % (0.0-10.0); %Neutrophils 59.4 % (42.0-75.0); Mean Corpuscular HGB CONC 33.5 g/dL (32.0-36.0); Mean Corpuscular Hemoglobin 33.4 pg (27.0-31.0); Mean Corpuscular Volume 99.5 fL (78.0-98.0); Platelet Count 75 thou/uL (130-400); RBC Distribution Width 15.2 % (11.5-14.5); Red Blood Cell (RBC) Count 3.61 mill/uL (4.20-5.40)
[2020-06-05 10:32] LABS: Anion Gap 10 mmol/L (10-20); BUN (Urea Nitrogen) 9 mg/dL (9.8-20.1); Calc. Creatinine Clearance 91 mL/min (70-130); Calcium 7.6 mg/dL (7.8-10.44); Carbon Dioxide 17 mmol/L (22-29); Chloride 114 mmol/L (98-107); Glucose 98 mg/dL (70-105); Potassium 3.7 mmol/L (3.5-5.1); Sodium 137 mmol/L (136-145)
[2020-06-05] MEDS: Thiamine HCl 200 MG/2 ML VIAL SLOW IVP SCH (21:39)
[2020-06-05] MEDS: Multivitamins, Adult 10 ML, Folic Acid 1 MG in Dextrose 5 %-0.45 % NaCl 1,000 ML IV SCH (21:45)
[2020-06-05] MEDS: Acetaminophen 500 MG TAB PO PRN (22:31)
[2020-06-06] MEDS: Cyanocobalamin (Vitamin B-12) 1,000 MCG TAB PO SCH (08:40)
[2020-06-06] MEDS: Folic Acid 1 MG TAB PO SCH (08:41)
[2020-06-06] MEDS: Famotidine/PF 20 mg/2ml Vial SLOW IVP SCH ×3 (08:41→22:47)
[2020-06-06] MEDS: Rifaximin 550 MG TAB PO SCH ×2 (08:42→21:26)
[2020-06-06] MEDS: Spironolactone 100 MG TAB PO SCH (08:42)
[2020-06-06] MEDS: Propranolol 10 MG TAB PO SCH ×2 (11:43→21:26)
[2020-06-06 17:38] LABS: Anion Gap 10 mmol/L (10-20); BUN (Urea Nitrogen) 8 mg/dL (9.8-20.1); Calc. Creatinine Clearance 89 mL/min (70-130); Calcium 7.6 mg/dL (7.8-10.44); Carbon Dioxide 16 mmol/L (22-29); Chloride 114 mmol/L (98-107); Glucose 95 mg/dL (70-105); Potassium 3.8 mmol/L (3.5-5.1); Sodium 136 mmol/L (136-145)
[2020-06-06] MEDS: Acetaminophen 500 MG TAB PO PRN (21:26)
[2020-06-06] MEDS: Thiamine HCl 200 MG/2 ML VIAL SLOW IVP SCH ×2 (21:30→22:49)
[2020-06-06] MEDS: Multivitamins, Adult 10 ML, Folic Acid 1 MG in Dextrose 5 %-0.45 % NaCl 1,000 ML IV SCH ×2 (21:31→22:48)
[2020-06-07] MEDS: Rifaximin 550 MG TAB PO SCH (09:23)
[2020-06-07] MEDS: Cyanocobalamin (Vitamin B-12) 1,000 MCG TAB PO SCH (09:29)
[2020-06-07] MEDS: Spironolactone 100 MG TAB PO SCH (09:29)
[2020-06-07] MEDS: Propranolol 10 MG TAB PO SCH (09:30)
[2020-06-07] MEDS: Folic Acid 1 MG TAB PO SCH (09:30)
[2020-06-07] MEDS: Famotidine/PF 20 mg/2ml Vial SLOW IVP SCH (09:30)
[2020-06-07 11:46] VITALS: BP 115/79; TEMP 98.1
[2020-06-07 12:11] LABS: Hemoglobin 13.7 g/dL (12.0-16.0); Mean Corpuscular HGB CONC 32.3 g/dL (32.0-36.0); Mean Corpuscular Hemoglobin 32.2 pg (27.0-31.0); Mean Corpuscular Volume 99.6 fL (78.0-98.0); Mean Platelet Volume 10.3 fL (7.4-10.4); Platelet Count 89 thou/uL (130-400); RBC Distribution Width 15.5 % (11.5-14.5); Red Blood Cell (RBC) Count 4.25 mill/uL (4.20-5.40); White Blood Cell (WBC) Count 7.3 thou/uL (4.8-10.8)
[2020-06-07 12:19] LABS: Band 2 % (5-11); Eosinophils 4 % (0-10); Lymphocytes 25 % (21-51); MDiff Complete? YES; Monocytes 7 % (0-10); Neutrophil 61 % (42-75); Platelet Morphology Comment Appears Decreased; RBC Morphology Normal
== END 2020-06-07 14:09 | disposition home health service (06) | DRG 441 ==
LOC: ERS 16:44 → 2SE 20:40
PROVIDERS: ADMIT Family Medicine; ATTEND Family Medicine
DX: K72.00 Acute and subacute hepatic failure without coma (principal); G92 Toxic encephalopathy; E44.0 Moderate protein-calorie malnutrition; Z20.822 Contact with and (suspected) exposure to COVID-19; B18.2 Chronic viral hepatitis C; K70.30 Alcoholic cirrhosis of liver without ascites; F17.210 Nicotine dependence, cigarettes, uncomplicated; F12.10 Cannabis abuse, uncomplicated; J44.9 Chronic obstructive pulmonary disease, unspecified; D53.9 Nutritional anemia, unspecified; D69.59 Other secondary thrombocytopenia; I10 Essential (primary) hypertension; Z91.14 Patient's other noncompliance with medication regimen; Z88.5 Allergy status to narcotic agent; Z98.51 Tubal ligation status; Z79.899 Other long term (current) drug therapy; Z90.49 Acquired absence of other specified parts of digestive tract; Z68.23 Body mass index [BMI] 23.0-23.9, adult
CPT/HCPCS: 36415; 51701; 70450; 71045; 74018; 80048; 80053; 80306; 80307; 81003; 81015; 82140; 83690; 83735; 84484; 85025; 87635; 94640; J3411; J7042; J7620; S0028; U0003; U0005

== ENCOUNTER 2020-07-08 15:14 | Inpatient (IN) | payer MEDICARE, MEDICAID ==
[2020-07-08 16:37] LABS: #Basophils 0.1 thou/uL (0.0-0.2); #Lymphocytes 2.1 thou/uL (1.20-3.40); #Monocytes 0.8 thou/uL (0.11-0.59); #Neutrophils 4.5 thou/uL (1.40-6.50); %Basophils 1.2 % (0.0-1.0); %Eosinophils 0.2 % (0.0-10.0); %Lymphocytes 28.1 % (21.0-51.0); %Neutrophils 59.5 % (42.0-75.0); Hemoglobin 13.3 g/dL (12.0-16.0); Mean Corpuscular HGB CONC 34.4 g/dL (32.0-36.0); Mean Corpuscular Hemoglobin 33.5 pg (27.0-31.0); Mean Corpuscular Volume 97.5 fL (78.0-98.0); Mean Platelet Volume 10.9 fL (7.4-10.4); Platelet Count 85 thou/uL (130-400); RBC Distribution Width 13.9 % (11.5-14.5); Red Blood Cell (RBC) Count 3.96 mill/uL (4.20-5.40); White Blood Cell (WBC) Count 7.5 thou/uL (4.8-10.8)
[2020-07-08 16:54] LABS: ALT (SGPT) 31 U/L (8-55); AST (SGOT) 51 U/L (5-34); Albumin 2.4 g/dL (3.5-5.0); Alkaline Phosphatase 68 U/L (40-110); Anion Gap 12 mmol/L (10-20); BUN (Urea Nitrogen) 18 mg/dL (9.8-20.1); Bilirubin, Total 2.3 mg/dL (0.2-1.2); CK (CPK) 341 U/L (29-168); Calc. Creatinine Clearance 0 mL/min (70-130); Carbon Dioxide 21 mmol/L (22-29); Chloride 110 mmol/L (98-107); Globulin 3.9 g/dL (2.4-3.5); Glucose 95 mg/dL (70-105); Potassium 4.3 mmol/L (3.5-5.1); Protein, Total 6.3 g/dL (6.0-8.3); Sodium 139 mmol/L (136-145)
[2020-07-08 17:39] LABS: Bilirubin Negative (Negative); Blood, Urine Negative (Negative); Clarity Clear (Clear); Glucose, Urine (Dipstick) Normal (Negative); Ketone, Urine Negative (Negative); Leukocyte Negative Leu/uL (Negative); Nitrite Negative (Negative); Protein, Urine (Dipstick) 10 mg/dL (Neg-Trace); Specific Gravity, Urine 1.027 (1.002-1.036); Urobilinogen Greater than 12 mg/dL (Less than 2); pH, Urine 6.5 (5.0-9.0)
[2020-07-08 21:10] VITALS: BMI 18.0
[2020-07-08] MEDS: Nicotine 21 MG PATCH TD SCH (21:51)
[2020-07-08] MEDS: Famotidine 20 MG TAB PO SCH (22:32)
[2020-07-09 02:18] LABS: SARS-CoV-2 NAA Rapid Test Not Detected (NotDetected)
[2020-07-09 04:41] LABS: ALT (SGPT) 31 U/L (8-55); AST (SGOT) 56 U/L (5-34); Albumin 2.1 g/dL (3.5-5.0); Alkaline Phosphatase 63 U/L (40-110); Anion Gap 10 mmol/L (10-20); BUN (Urea Nitrogen) 17 mg/dL (9.8-20.1); Bilirubin, Total 2.4 mg/dL (0.2-1.2); Calc. Creatinine Clearance 67 mL/min (70-130); Calcium 8.2 mg/dL (7.8-10.44); Carbon Dioxide 17 mmol/L (22-29); Chloride 113 mmol/L (98-107); Globulin 3.7 g/dL (2.4-3.5); Glucose 73 mg/dL (70-105); Potassium 3.6 mmol/L (3.5-5.1); Protein, Total 5.8 g/dL (6.0-8.3); Sodium 136 mmol/L (136-145)
[2020-07-09 04:43] LABS: Hemoglobin 12.4 g/dL (12.0-16.0); Lymphocytes 22 % (21-51); MDiff Complete? YES; Mean Corpuscular Hemoglobin 33.3 pg (27.0-31.0); Mean Corpuscular Volume 97.9 fL (78.0-98.0); Mean Platelet Volume 10.5 fL (7.4-10.4); Metamyelocyte 1 % (0-0); Monocytes 5 % (0-10); Neutrophil 72 % (42-75); Platelet Count 69 thou/uL (130-400); Platelet Morphology Comment Appears Decreased; Red Blood Cell (RBC) Count 3.72 mill/uL (4.20-5.40); White Blood Cell (WBC) Count 6.6 thou/uL (4.8-10.8)
[2020-07-09] MEDS ORDERED: Furosemide 20 MG TAB PO PRN (04:56)
[2020-07-09] MEDS: Propranolol 10 MG TAB PO SCH ×2 (09:00→20:36)
[2020-07-09] MEDS: Famotidine 20 MG TAB PO SCH ×2 (09:00→20:14)
[2020-07-09] MEDS: Potassium Bicarbonate/Cit Ac 20 MEQ TAB PO SCH (09:00)
[2020-07-09] MEDS: Spironolactone 100 MG TAB PO SCH (09:00)
[2020-07-09] MEDS: Folic Acid 1 MG TAB PO SCH (10:21)
[2020-07-09] MEDS: Sodium Chloride 0.9% 1,000 ML IV SCH ×2 (19:16→20:19)
[2020-07-09] MEDS: Nicotine 21 MG PATCH TD SCH (20:14)
[2020-07-10 06:06] LABS: Anion Gap 9 mmol/L (10-20); BUN (Urea Nitrogen) 12 mg/dL (9.8-20.1); Calc. Creatinine Clearance 82 mL/min (70-130); Calcium 7.5 mg/dL (7.8-10.44); Carbon Dioxide 17 mmol/L (22-29); Chloride 114 mmol/L (98-107); Glucose 90 mg/dL (70-105); Potassium 3.7 mmol/L (3.5-5.1); Sodium 136 mmol/L (136-145)
[2020-07-10] MEDS: Famotidine 20 MG TAB PO SCH ×2 (09:00→20:56)
[2020-07-10] MEDS: Propranolol 10 MG TAB PO SCH ×2 (09:53→20:56)
[2020-07-10] MEDS: Spironolactone 100 MG TAB PO SCH (09:53)
[2020-07-10] MEDS: Folic Acid 1 MG TAB PO SCH (09:53)
[2020-07-10] MEDS: Sodium Chloride 0.9% 1,000 ML IV SCH (09:54)
[2020-07-10] MEDS: Potassium Bicarbonate/Cit Ac 20 MEQ TAB PO SCH (09:54)
[2020-07-10] MEDS: Nicotine 21 MG PATCH TD SCH (20:56)
[2020-07-10] MEDS ORDERED: Albuterol Sulfate 2.5 mg/3 ml Neb NEB PRN (23:27)
[2020-07-11] MEDS: Propranolol 10 MG TAB PO SCH ×2 (09:48→20:09)
[2020-07-11] MEDS: Spironolactone 100 MG TAB PO SCH (09:49)
[2020-07-11] MEDS: Folic Acid 1 MG TAB PO SCH (09:49)
[2020-07-11] MEDS: Furosemide 20 MG TAB PO SCH (09:49)
[2020-07-11] MEDS: Potassium Bicarbonate/Cit Ac 20 MEQ TAB PO SCH (09:54)
[2020-07-11] MEDS: Famotidine 20 MG TAB PO SCH ×2 (09:57→20:09)
[2020-07-11] MEDS: Nicotine 21 MG PATCH TD SCH (20:09)
[2020-07-12 07:05] VITALS: TEMP 98.5
[2020-07-12 08:12] LABS: ALT (SGPT) 39 U/L (8-55); AST (SGOT) 85 U/L (5-34); Albumin 2.4 g/dL (3.5-5.0); Alkaline Phosphatase 63 U/L (40-110); Anion Gap 9 mmol/L (10-20); BUN (Urea Nitrogen) 8 mg/dL (9.8-20.1); Bilirubin, Total 1.8 mg/dL (0.2-1.2); Calc. Creatinine Clearance 79 mL/min (70-130); Calcium 8.1 mg/dL (7.8-10.44); Carbon Dioxide 19 mmol/L (22-29); Chloride 112 mmol/L (98-107); Globulin 3.5 g/dL (2.4-3.5); Glucose 90 mg/dL (70-105); Potassium 3.8 mmol/L (3.5-5.1); Protein, Total 5.9 g/dL (6.0-8.3); Sodium 136 mmol/L (136-145)
[2020-07-12] MEDS: Propranolol 10 MG TAB PO SCH (09:25)
[2020-07-12] MEDS: Furosemide 20 MG TAB PO SCH (09:25)
[2020-07-12] MEDS: Spironolactone 100 MG TAB PO SCH (09:25)
[2020-07-12] MEDS: Potassium Bicarbonate/Cit Ac 20 MEQ TAB PO SCH (09:26)
[2020-07-12] MEDS: Folic Acid 1 MG TAB PO SCH (09:26)
[2020-07-12] MEDS: Famotidine 20 MG TAB PO SCH (09:27)
[2020-07-12 11:26] VITALS: BP 120/78
== END 2020-07-12 14:03 | disposition home or self-care (01) | DRG 441 ==
LOC: ERS 15:14 → T4-B 18:45 → OBSVTOIN 07-10 16:26
PROVIDERS: ADMIT Internal Medicine; ATTEND Internal Medicine
DX: K72.90 Hepatic failure, unspecified without coma (principal); G93.41 Metabolic encephalopathy; E44.0 Moderate protein-calorie malnutrition; E87.2 Acidosis; Z68.1 Body mass index [BMI] 19.9 or less, adult; I10 Essential (primary) hypertension; K74.60 Unspecified cirrhosis of liver; R53.1 Weakness; B18.2 Chronic viral hepatitis C; D69.6 Thrombocytopenia, unspecified; F17.210 Nicotine dependence, cigarettes, uncomplicated; Z20.822 Contact with and (suspected) exposure to COVID-19; D63.8 Anemia in other chronic diseases classified elsewhere; J44.9 Chronic obstructive pulmonary disease, unspecified; Z88.5 Allergy status to narcotic agent; Z91.14 Patient's other noncompliance with medication regimen; Z98.51 Tubal ligation status; Z90.49 Acquired absence of other specified parts of digestive tract
CPT/HCPCS: 36415; 51701; 70450; 71045; 80048; 80053; 81003; 82140; 82550; 83690; 85025; 93005; 94640; G0378; J7611; U0002; U0003; U0005

== ENCOUNTER 2020-07-26 15:46 | Inpatient (IN) | payer MEDICARE, MEDICAID ==
[~2020-07-26 15:46] MED LIST changes: +Heparin 1,000 UNITS/ML VIAL ONE; -Iopamidol-370 76% 500 ML 1 ML ONE
[2020-07-26 16:49] LABS: Hemoglobin 14.2 g/dL (12.0-16.0); Mean Corpuscular HGB CONC 32.4 g/dL (32.0-36.0); Mean Corpuscular Volume 98.7 fL (78.0-98.0); Mean Platelet Volume 11.1 fL (7.4-10.4); Platelet Count 61 thou/uL (130-400); RBC Distribution Width 14.8 % (11.5-14.5); Red Blood Cell (RBC) Count 4.44 mill/uL (4.20-5.40); White Blood Cell (WBC) Count 6.3 thou/uL (4.8-10.8)
[2020-07-26 17:03] LABS: Anisocytosis SLIGHT = 6-15 cells (100X) (0-5/hpf); Band 6 % (5-11); Lymphocytes 21 % (21-51); MDiff Complete? YES; Monocytes 5 % (0-10); Neutrophil 66 % (42-75); Platelet Morphology Comment Appears Decreased
[2020-07-26 17:34] LABS: ALT (SGPT) 38 U/L (8-55); AST (SGOT) 76 U/L (5-34); Albumin 2.8 g/dL (3.5-5.0); Alkaline Phosphatase 85 U/L (40-110); Anion Gap 17 mmol/L (10-20); BUN (Urea Nitrogen) 25 mg/dL (9.8-20.1); Bilirubin, Total 2.2 mg/dL (0.2-1.2); CK (CPK) 220 U/L (29-168); Calc. Creatinine Clearance 0 mL/min (70-130); Calcium 8.4 mg/dL (7.8-10.44); Carbon Dioxide 20 mmol/L (22-29); Chloride 104 mmol/L (98-107); Globulin 4.4 g/dL (2.4-3.5); Glucose 117 mg/dL (70-105); Lipase 62 U/L (8-78); Potassium 5.8 mmol/L (3.5-5.1); Protein, Total 7.2 g/dL (6.0-8.3); Sodium 135 mmol/L (136-145)
[2020-07-26] MEDS ORDERED: Vancomycin HCl 1.25 GM in Sodium Chloride 0.9% 250 ML 250 ML IVPB SCH (18:00)
[2020-07-26] MEDS ORDERED: Cefepime 2 GM VIAL ONE (18:01)
[2020-07-26] MEDS ORDERED: Dextrose 50% Abboject 50 ML SYRINGE ONE ×2 (19:14→19:21)
[2020-07-26 19:41] LABS: Bilirubin Negative (Negative); Blood, Urine Negative (Negative); Glucose, Urine (Dipstick) Negative (Negative); Ketone, Urine Negative (Negative); Leukocyte Negative (Negative); Nitrite Negative (Negative); Protein, Urine (Dipstick) Negative (Neg-Trace); Specific Gravity, Urine 1.015 (1.005-1.030); pH, Urine 6.5 (5.0-9.0)
[2020-07-26 19:42] LABS: Clarity Clear (Clear)
[2020-07-26 19:43] LABS: Bacteria/HPF None Seen HPF (None Seen); RBC/HPF 0-3 HPF (0-3); Squamous Epithelial 0-3 HPF (0-3); WBC/HPF 0-3 HPF (0-3)
[2020-07-26 19:52] LABS: Anion Gap 15 mmol/L (10-20); BUN (Urea Nitrogen) 25 mg/dL (9.8-20.1); Calc. Creatinine Clearance 0 mL/min (70-130); Calcium 8.2 mg/dL (7.8-10.44); Carbon Dioxide 18 mmol/L (22-29); Chloride 107 mmol/L (98-107); Glucose 109 mg/dL (70-105); Potassium 4.8 mmol/L (3.5-5.1); Sodium 135 mmol/L (136-145)
[2020-07-26] MEDS ORDERED: Ondansetron PF 4 MG/2 ML Vial IVP PRN (20:01)
[2020-07-26] MEDS ORDERED: Insulin Regular 300 UNITS/3 ML VIAL ONE (20:16)
[2020-07-26] MEDS ORDERED: hydrALAZINE 20 MG/ML VIAL SLOW IVP PRN (20:23)
[2020-07-26 20:55] LABS: Creatinine, Urine 127.9 mg/dL (47-110)
[2020-07-26] MEDS ORDERED: cefTRIAXone\\ROCEPHIN 1 GM VIAL ONE (21:00)
[2020-07-26] MEDS: Albumin 25% 25 GM/100 ML BOT IVPB SCH (22:50)
[2020-07-27] MEDS: Albumin 25% 25 GM/100 ML BOT IVPB SCH ×3 (04:32→16:41)
[2020-07-27 05:18] LABS: #Monocytes 0.9 thou/uL (0.11-0.59); %Basophils 0.6 % (0.0-1.0); %Eosinophils 0.2 % (0.0-10.0); %Lymphocytes 28.7 % (21.0-51.0); %Monocytes 13.4 % (0.0-10.0); %Neutrophils 57.2 % (42.0-75.0); Hemoglobin 12.5 g/dL (12.0-16.0); INR-International Normal Ratio 1.4; Mean Corpuscular HGB CONC 34.5 g/dL (32.0-36.0); Mean Corpuscular Hemoglobin 33.6 pg (27.0-31.0); Mean Corpuscular Volume 97.5 fL (78.0-98.0); Mean Platelet Volume 9.9 fL (7.4-10.4); Platelet Count 93 thou/uL (130-400); RBC Distribution Width 14.6 % (11.5-14.5); Red Blood Cell (RBC) Count 3.72 mill/uL (4.20-5.40)
[2020-07-27 05:19] LABS: PTT 35.5 sec (22.9-36.1)
[2020-07-27 05:29] LABS: Bilirubin Negative (Negative); Blood, Urine Negative (Negative); Glucose, Urine (Dipstick) Negative (Negative); Ketone, Urine Trace mg/dL (Negative); Leukocyte Small (Negative); Nitrite Negative (Negative); Protein, Urine (Dipstick) Negative (Neg-Trace); Specific Gravity, Urine 1.015 (1.005-1.030); Urobilinogen 0.2 mg/dL (Less than 2); pH, Urine 6.5 (5.0-9.0)
[2020-07-27 05:32] LABS: Bacteria/HPF None Seen HPF (None Seen); Clarity Clear (Clear); RBC/HPF 0-3 HPF (0-3); Urine Culture Reflex No No
[2020-07-27 05:34] LABS: ALT (SGPT) 31 U/L (8-55); AST (SGOT) 52 U/L (5-34); Albumin 3.1 g/dL (3.5-5.0); Alkaline Phosphatase 72 U/L (40-110); Bilirubin, Direct 1.5 mg/dL (0.1-0.3); Bilirubin, Total 2.6 mg/dL (0.2-1.2); Protein, Total 6.9 g/dL (6.0-8.3)
[2020-07-27 05:48] LABS: Anion Gap 15 mmol/L (10-20); BUN (Urea Nitrogen) 22 mg/dL (9.8-20.1); Calc. Creatinine Clearance 47 mL/min (70-130); Calcium 8.5 mg/dL (7.8-10.44); Carbon Dioxide 17 mmol/L (22-29); Chloride 110 mmol/L (98-107); Glucose 83 mg/dL (70-105); Potassium 4.3 mmol/L (3.5-5.1); Sodium 138 mmol/L (136-145)
[2020-07-27] MEDS: Pantoprazole 40 MG VIAL IVP SCH (09:12)
[2020-07-27] MEDS: Sodium Bicarbonate Tab 325 MG TAB PO SCH ×3 (10:29→22:03)
[2020-07-27] MEDS ORDERED: Sodium Bicarbonate 150 MEQ in Dextrose 5% in Water 1,000 ML IV SCH (11:30)
[2020-07-27] MEDS: cefTRIAXone\\ROCEPHIN 1 GM in Sodium Chloride 0.9% 100 ML IVPB SCH (21:54)
[2020-07-28 05:22] LABS: #Basophils 0.1 thou/uL (0.0-0.2); #Lymphocytes 1.4 thou/uL (1.20-3.40); #Monocytes 0.7 thou/uL (0.11-0.59); #Neutrophils 4.8 thou/uL (1.40-6.50); %Basophils 0.7 % (0.0-1.0); %Eosinophils 0.2 % (0.0-10.0); %Lymphocytes 19.5 % (21.0-51.0); %Monocytes 10.5 % (0.0-10.0); %Neutrophils 69.1 % (42.0-75.0); Hemoglobin 11.3 g/dL (12.0-16.0); Mean Corpuscular HGB CONC 32.7 g/dL (32.0-36.0); Mean Corpuscular Volume 97.8 fL (78.0-98.0); Mean Platelet Volume 7.2 fL (7.4-10.4); Platelet Count 95 thou/uL (130-400); RBC Distribution Width 14.5 % (11.5-14.5); Red Blood Cell (RBC) Count 3.54 mill/uL (4.20-5.40)
[2020-07-28 05:39] LABS: Anion Gap 12 mmol/L (10-20); BUN (Urea Nitrogen) 17 mg/dL (9.8-20.1); Calc. Creatinine Clearance 56 mL/min (70-130); Calcium 9.1 mg/dL (7.8-10.44); Carbon Dioxide 21 mmol/L (22-29); Chloride 114 mmol/L (98-107); Glucose 117 mg/dL (70-105); Potassium 3.1 mmol/L (3.5-5.1); Sodium 144 mmol/L (136-145)
[2020-07-28 05:41] LABS: Anion Gap 13 mmol/L (10-20); BUN (Urea Nitrogen) 17 mg/dL (9.8-20.1); Calc. Creatinine Clearance 57 mL/min (70-130); Carbon Dioxide 22 mmol/L (22-29); Chloride 113 mmol/L (98-107); Potassium 3.1 mmol/L (3.5-5.1); Sodium 145 mmol/L (136-145)
[2020-07-28 05:42] LABS: ALT (SGPT) 28 U/L (8-55); AST (SGOT) 123 U/L (5-34); Albumin 3.5 g/dL (3.5-5.0); Alkaline Phosphatase 60 U/L (40-110); Bilirubin, Direct 1.4 mg/dL (0.1-0.3); Bilirubin, Total 2.3 mg/dL (0.2-1.2); Calcium 9.2 mg/dL (7.8-10.44); Globulin 3.1 g/dL (2.4-3.5); Glucose 118 mg/dL (70-105); Protein, Total 6.6 g/dL (6.0-8.3)
[2020-07-28] MEDS ORDERED: Potassium Chloride 20 MEQ TAB PO SCH (07:30)
[2020-07-28] MEDS: Sodium Bicarbonate Tab 325 MG TAB PO SCH ×3 (10:30→21:52)
[2020-07-28] MEDS: Folic Acid 1 MG TAB PO SCH (10:30)
[2020-07-28] MEDS: Spironolactone 100 MG TAB PO SCH (10:30)
[2020-07-28] MEDS: Pantoprazole 40 MG VIAL IVP SCH (10:31)
[2020-07-28] MEDS: Acetaminophen 325 MG TAB PO PRN (21:52)
[2020-07-28] MEDS: cefTRIAXone\\ROCEPHIN 1 GM in Sodium Chloride 0.9% 100 ML IVPB SCH (23:17)
[2020-07-29 05:59] LABS: #Basophils 0.1 thou/uL (0.0-0.2); #Lymphocytes 1.6 thou/uL (1.20-3.40); #Monocytes 0.6 thou/uL (0.11-0.59); #Neutrophils 3.2 thou/uL (1.40-6.50); %Eosinophils 0.3 % (0.0-10.0); %Lymphocytes 29.4 % (21.0-51.0); %Monocytes 11.5 % (0.0-10.0); %Neutrophils 57.8 % (42.0-75.0); Hemoglobin 10.6 g/dL (12.0-16.0); Mean Corpuscular HGB CONC 32.8 g/dL (32.0-36.0); Mean Corpuscular Hemoglobin 32.7 pg (27.0-31.0); Mean Corpuscular Volume 99.6 fL (78.0-98.0); Mean Platelet Volume 9.5 fL (7.4-10.4); Platelet Count 80 thou/uL (130-400); RBC Distribution Width 14.6 % (11.5-14.5); Red Blood Cell (RBC) Count 3.26 mill/uL (4.20-5.40); White Blood Cell (WBC) Count 5.5 thou/uL (4.8-10.8)
[2020-07-29 06:27] LABS: Anion Gap 10 mmol/L (10-20); BUN (Urea Nitrogen) 15 mg/dL (9.8-20.1); Calc. Creatinine Clearance 75 mL/min (70-130); Calcium 8.4 mg/dL (7.8-10.44); Carbon Dioxide 22 mmol/L (22-29); Chloride 115 mmol/L (98-107); Glucose 85 mg/dL (70-105); Potassium 3.3 mmol/L (3.5-5.1); Sodium 144 mmol/L (136-145)
[2020-07-29] MEDS ORDERED: Potassium Bicarbonate/Cit Ac 20 MEQ TAB PO SCH ×2 (07:00→14:00)
[2020-07-29] MEDS: Sodium Bicarbonate Tab 325 MG TAB PO SCH ×3 (09:12→21:59)
[2020-07-29] MEDS: Folic Acid 1 MG TAB PO SCH (09:13)
[2020-07-29] MEDS: Spironolactone 100 MG TAB PO SCH (09:16)
[2020-07-29 10:17] LABS: Cardiac Risk 3.6 (Less than 4.5)
[2020-07-29 10:42] LABS: Phosphorus 1.9 mg/dL (2.3-4.7)
[2020-07-29] MEDS ORDERED: PHOS-NAK 1 PKT PACK PO SCH (11:45)
[2020-07-29] MEDS ORDERED: Potassium Chloride 20 MEQ TAB PO SCH (11:45)
[2020-07-29] MEDS ORDERED: Magnesium 2 GM/50 ML 2 GM in Premix Bag 1 BAG IVPB SCH (17:45)
[2020-07-29] MEDS: Atorvastatin Calcium 40 MG TAB PO SCH (21:59)
[2020-07-30] MEDS: Spironolactone 100 MG TAB PO SCH (08:17)
[2020-07-30] MEDS: Folic Acid 1 MG TAB PO SCH (08:17)
[2020-07-30] MEDS: Sodium Bicarbonate Tab 325 MG TAB PO SCH ×3 (08:17→21:27)
[2020-07-30 11:06] LABS: ALT (SGPT) 33 U/L (8-55); AST (SGOT) 95 U/L (5-34); Albumin 3.2 g/dL (3.5-5.0); Alkaline Phosphatase 60 U/L (40-110); Anion Gap 11 mmol/L (10-20); BUN (Urea Nitrogen) 10 mg/dL (9.8-20.1); Bilirubin, Total 1.9 mg/dL (0.2-1.2); Calc. Creatinine Clearance 77 mL/min (70-130); Calcium 8.6 mg/dL (7.8-10.44); Carbon Dioxide 20 mmol/L (22-29); Chloride 112 mmol/L (98-107); Globulin 2.9 g/dL (2.4-3.5); Glucose 109 mg/dL (70-105); Phosphorus 2.8 mg/dL (2.3-4.7); Potassium 4.7 mmol/L (3.5-5.1); Protein, Total 6.1 g/dL (6.0-8.3); Sodium 138 mmol/L (136-145)
[2020-07-30 20:28] LABS: Iron 74 ug/dL (50-170); Iron Binding Capacity, Total 188 mcg/dL (265-497)
[2020-07-30 20:48] LABS: Ferritin 200.05 ng/mL (10-291)
[2020-07-30 20:54] LABS: Vitamin B12 1525 pg/mL (211-911)
[2020-07-30] MEDS: Rifaximin 550 MG TAB PO SCH (21:26)
[2020-07-30] MEDS: Atorvastatin Calcium 40 MG TAB PO SCH (21:26)
[2020-07-31 00:36] LABS: HBSAg Index 0.31 S/CO (0-0.99); Hep B Surf Ag Non-Reactive S/CO (NonReactive)
[2020-07-31 01:21] LABS: HBSAB Concentration 9.37 mIU/mL
[2020-07-31] MEDS: Sodium Bicarbonate Tab 325 MG TAB PO SCH ×3 (07:23→21:17)
[2020-07-31] MEDS: Magnesium Oxide 400 MG TAB PO SCH (07:24)
[2020-07-31] MEDS: Spironolactone 100 MG TAB PO SCH (07:24)
[2020-07-31] MEDS: Rifaximin 550 MG TAB PO SCH ×2 (07:24→21:17)
[2020-07-31] MEDS: Folic Acid 1 MG TAB PO SCH (07:24)
[2020-07-31] MEDS ORDERED: Iopamidol-370 76% 500 ML 1 ML ONE (10:46)
[2020-07-31 12:05] LABS: ALT (SGPT) 36 U/L (8-55); AST (SGOT) 91 U/L (5-34); Albumin 3.4 g/dL (3.5-5.0); Alkaline Phosphatase 61 U/L (40-110); Anion Gap 16 mmol/L (10-20); BUN (Urea Nitrogen) 11 mg/dL (9.8-20.1); Bilirubin, Total 2.3 mg/dL (0.2-1.2); Calc. Creatinine Clearance 73 mL/min (70-130); Calcium 8.9 mg/dL (7.8-10.44); Carbon Dioxide 15 mmol/L (22-29); Chloride 110 mmol/L (98-107); Globulin 3.3 g/dL (2.4-3.5); Glucose 111 mg/dL (70-105); Magnesium 1.6 mg/dL (1.6-2.6); Potassium 4.7 mmol/L (3.5-5.1); Protein, Total 6.7 g/dL (6.0-8.3); Sodium 136 mmol/L (136-145)
[2020-07-31] MEDS: Atorvastatin Calcium 40 MG TAB PO SCH (21:16)
[2020-07-31] MEDS: Metoprolol Tartrate 25 MG TAB PO SCH (21:17)
[2020-07-31] MEDS: Acetaminophen 325 MG TAB PO PRN (21:17)
[2020-08-01] MEDS: Folic Acid 1 MG TAB PO SCH (08:27)
[2020-08-01] MEDS: Magnesium Oxide 400 MG TAB PO SCH (08:27)
[2020-08-01] MEDS: Metoprolol Tartrate 25 MG TAB PO SCH ×2 (08:27→21:45)
[2020-08-01] MEDS: Sodium Bicarbonate Tab 325 MG TAB PO SCH ×3 (08:28→21:44)
[2020-08-01] MEDS: Rifaximin 550 MG TAB PO SCH ×2 (08:28→21:44)
[2020-08-01] MEDS: Spironolactone 100 MG TAB PO SCH (08:29)
[2020-08-01 11:08] LABS: ALT (SGPT) 32 U/L (8-55); AST (SGOT) 64 U/L (5-34); Albumin 3.1 g/dL (3.5-5.0); Alkaline Phosphatase 59 U/L (40-110); Anion Gap 9 mmol/L (10-20); BUN (Urea Nitrogen) 11 mg/dL (9.8-20.1); Bilirubin, Total 2.1 mg/dL (0.2-1.2); Calc. Creatinine Clearance 71 mL/min (70-130); Calcium 8.7 mg/dL (7.8-10.44); Carbon Dioxide 19 mmol/L (22-29); Chloride 113 mmol/L (98-107); Globulin 3.2 g/dL (2.4-3.5); Glucose 141 mg/dL (70-105); Potassium 4.1 mmol/L (3.5-5.1); Protein, Total 6.3 g/dL (6.0-8.3); Sodium 137 mmol/L (136-145)
[2020-08-01] MEDS ORDERED: Metoprolol Tartrate 25 MG TAB PO SCH (11:45)
[2020-08-01 17:15] LABS: EliA Vaculitis New Method **** NEW METHOD ****
[2020-08-01] MEDS: Atorvastatin Calcium 40 MG TAB PO SCH (21:44)
[2020-08-02 05:41] LABS: ALT (SGPT) 31 U/L (8-55); AST (SGOT) 59 U/L (5-34); Albumin 3.1 g/dL (3.5-5.0); Alkaline Phosphatase 66 U/L (40-110); Anion Gap 11 mmol/L (10-20); BUN (Urea Nitrogen) 12 mg/dL (9.8-20.1); Calc. Creatinine Clearance 73 mL/min (70-130); Calcium 8.5 mg/dL (7.8-10.44); Carbon Dioxide 18 mmol/L (22-29); Chloride 111 mmol/L (98-107); Glucose 87 mg/dL (70-105); Magnesium 1.5 mg/dL (1.6-2.6); Potassium 4.1 mmol/L (3.5-5.1); Protein, Total 6.1 g/dL (6.0-8.3); Sodium 136 mmol/L (136-145)
[2020-08-02] MEDS: Folic Acid 1 MG TAB PO SCH (08:18)
[2020-08-02] MEDS: Metoprolol Tartrate 25 MG TAB PO SCH ×2 (08:18→21:20)
[2020-08-02] MEDS: Magnesium Oxide 400 MG TAB PO SCH (08:18)
[2020-08-02] MEDS: Spironolactone 100 MG TAB PO SCH (08:18)
[2020-08-02] MEDS: Sodium Bicarbonate Tab 325 MG TAB PO SCH ×3 (08:18→21:21)
[2020-08-02] MEDS: Rifaximin 550 MG TAB PO SCH ×2 (08:18→21:20)
[2020-08-02 10:12] LABS: Alpha-1-Antitrypsin 98 mg/dL (101-187)
[2020-08-02 11:12] LABS: HCV log10 5.722 (.); Hep C PCR-Quant 527000 IU/mL (.)
[2020-08-02 12:13] LABS: ALT (SGPT) 32 U/L (8-55); AST (SGOT) 62 U/L (5-34); Albumin 3.2 g/dL (3.5-5.0); Alkaline Phosphatase 66 U/L (40-110); Anion Gap 12 mmol/L (10-20); BUN (Urea Nitrogen) 13 mg/dL (9.8-20.1); Bilirubin, Total 1.9 mg/dL (0.2-1.2); Calc. Creatinine Clearance 72 mL/min (70-130); Calcium 8.8 mg/dL (7.8-10.44); Carbon Dioxide 17 mmol/L (22-29); Chloride 110 mmol/L (98-107); Globulin 3.1 g/dL (2.4-3.5); Glucose 115 mg/dL (70-105); Magnesium 1.6 mg/dL (1.6-2.6); Potassium 4.3 mmol/L (3.5-5.1); Protein, Total 6.3 g/dL (6.0-8.3); Sodium 135 mmol/L (136-145)
[2020-08-02 12:37] LABS: Smooth Muscle Total ABS 14 Units (0-19)
[2020-08-02] MEDS: Atorvastatin Calcium 40 MG TAB PO SCH (21:20)
[2020-08-02] MEDS: Acetaminophen 325 MG TAB PO PRN (21:21)
[2020-08-03] MEDS: Magnesium Oxide 400 MG TAB PO SCH (08:05)
[2020-08-03] MEDS: Rifaximin 550 MG TAB PO SCH (08:05)
[2020-08-03] MEDS: Spironolactone 100 MG TAB PO SCH (08:05)
[2020-08-03] MEDS: Metoprolol Tartrate 25 MG TAB PO SCH (08:05)
[2020-08-03] MEDS: Folic Acid 1 MG TAB PO SCH (08:05)
[2020-08-03] MEDS: Sodium Bicarbonate Tab 325 MG TAB PO SCH ×2 (08:05→14:56)
[2020-08-03] MEDS: Acetaminophen 325 MG TAB PO PRN (08:08)
[2020-08-03 10:23] VITALS: BMI 23.4
[2020-08-03 14:58] VITALS: BP 105/59; TEMP 98.4
[2020-08-03 15:04] LABS: Anion Gap 6 mmol/L (10-20); BUN (Urea Nitrogen) 17 mg/dL (9.8-20.1); Calc. Creatinine Clearance 69 mL/min (70-130); Calcium 8.5 mg/dL (7.8-10.44); Carbon Dioxide 21 mmol/L (22-29); Chloride 110 mmol/L (98-107); Glucose 91 mg/dL (70-105); Magnesium 1.7 mg/dL (1.6-2.6); Potassium 3.9 mmol/L (3.5-5.1); Sodium 133 mmol/L (136-145)
== END 2020-08-03 16:45 | disposition home health service (06) | DRG 442 ==
LOC: ERS 15:46 → 2NO 18:47
PROVIDERS: ADMIT Internal Medicine; ATTEND Internal Medicine
PROC: 02H633Z Insertion of Infusion Device into Right Atrium, Percutaneous Approach (ICD-10-PCS; principal; 2020-07-31)
PROC: B548ZZA Ultrasonography of Superior Vena Cava, Guidance (ICD-10-PCS; 2020-07-31)
DX: K72.00 Acute and subacute hepatic failure without coma (principal); N17.9 Acute kidney failure, unspecified; E87.2 Acidosis; E44.0 Moderate protein-calorie malnutrition; D68.4 Acquired coagulation factor deficiency; I47.2 Ventricular tachycardia; G45.9 Transient cerebral ischemic attack, unspecified; F17.210 Nicotine dependence, cigarettes, uncomplicated; J44.9 Chronic obstructive pulmonary disease, unspecified; B18.2 Chronic viral hepatitis C; I10 Essential (primary) hypertension; D69.6 Thrombocytopenia, unspecified; R94.5 Abnormal results of liver function studies; E86.9 Volume depletion, unspecified; E86.0 Dehydration; F10.11 Alcohol abuse, in remission; K70.31 Alcoholic cirrhosis of liver with ascites; E87.5 Hyperkalemia; E87.6 Hypokalemia; Z88.5 Allergy status to narcotic agent; Z98.51 Tubal ligation status; Z79.899 Other long term (current) drug therapy; Z90.49 Acquired absence of other specified parts of digestive tract; Z91.14 Patient's other noncompliance with medication regimen
CPT/HCPCS: 36415; 36416; 36569; 51701; 70551; 71045; 74178; 74181; 76705; 80048; 80053; 80061; 80076; 81001; 81003; 82103; 82105; 82140; 82550; 82570; 82607; 82728; 82746; 83516; 83540; 83550; 83605; 83690; 83735; 84100; 84156; 84300; 84484; 84540; 85025; 85610; 85730; 86706; 86708; 87040; 87086; 87340; 87522; 93005; 93306; 96365; 96366; 96367; 96375; C1751; C9113; J0692; J0696; J1644; J1815; J3370; J3475; J3490; J7050; J7070; P9047; Q9967

== ENCOUNTER 2021-01-02 16:48 | Inpatient (IN) | payer MEDICARE, MEDICAID ==
[2021-01-02 17:24] LABS: #Basophils 0.1 thou/uL (0.0-0.2); #Lymphocytes 1.8 thou/uL (1.20-3.40); #Monocytes 0.9 thou/uL (0.11-0.59); #Neutrophils 3.7 thou/uL (1.40-6.50); %Eosinophils 0.1 % (0.0-10.0); %Lymphocytes 27.7 % (21.0-51.0); %Monocytes 13.7 % (0.0-10.0); %Neutrophils 57.5 % (42.0-75.0); Hemoglobin 14.2 g/dL (12.0-16.0); Mean Corpuscular HGB CONC 33.3 g/dL (32.0-36.0); Mean Corpuscular Hemoglobin 33.5 pg (27.0-31.0); Mean Platelet Volume 6.9 fL (7.4-10.4); Platelet Count 61 thou/uL (130-400); RBC Distribution Width 18.9 % (11.5-14.5); Red Blood Cell (RBC) Count 4.25 mill/uL (4.20-5.40); White Blood Cell (WBC) Count 6.5 thou/uL (4.8-10.8)
[2021-01-02 17:44] LABS: ALT (SGPT) 44 U/L (8-55); AST (SGOT) 100 U/L (5-34); Alkaline Phosphatase 94 U/L (40-110); Anion Gap 11 mmol/L (10-20); BUN (Urea Nitrogen) 8 mg/dL (9.8-20.1); Bilirubin, Total 4.8 mg/dL (0.2-1.2); Calc. Creatinine Clearance 0 mL/min (70-130); Calcium 7.7 mg/dL (7.8-10.44); Carbon Dioxide 25 mmol/L (22-29); Chloride 103 mmol/L (98-107); Globulin 3.6 g/dL (2.4-3.5); Glucose 130 mg/dL (70-105); Protein, Total 5.6 g/dL (6.0-8.3); Sodium 137 mmol/L (136-145)
[2021-01-02 17:56] LABS: Potassium 2.3 mmol/L (3.5-5.1)
[2021-01-02] MEDS ORDERED: Potassium Chloride 20 MEQ/100 ML PREMIX BAG ONE ×2 (18:39)
[2021-01-02] MEDS ORDERED: Magnesium 2 GM/50 ML BAG (IN WATER) ONE ×2 (18:39→18:49)
[2021-01-02] MEDS ORDERED: Potassium Chloride 20 MEQ TAB ONE (18:40)
[2021-01-02 19:00] LABS: Bacteria/HPF 4+ HPF (None Seen); Bilirubin 2+ (Negative); Blood, Urine 1+ (Negative); Clarity Turbid (Clear); Glucose, Urine (Dipstick) Normal (Negative); Ketone, Urine Negative (Negative); Leukocyte 500 Leu/uL (Negative); Nitrite Negative (Negative); Protein, Urine (Dipstick) 50 mg/dL (Neg-Trace); Renal Epithelial 0-3 HPF (None Seen); Specific Gravity, Urine 1.024 (1.002-1.036); Transitional Epithelial 0-3 HPF (None Seen); Urobilinogen Greater than 12 mg/dL (Less than 2); WBC/HPF Greater than 50 HPF (0-3)
[2021-01-02] MEDS ORDERED: cefTRIAXone\\ROCEPHIN 1 GM VIAL ONE (20:19)
[2021-01-02] MEDS ORDERED: Sodium Chloride 0.9% 100 ML ONE (20:19)
[2021-01-02 21:03] LABS: Lactic Acid 2.2 mmol/L (0.5-2.2)
[2021-01-02] MEDS ORDERED: Ondansetron PF 4 MG/2 ML Vial IVP PRN (21:45)
[2021-01-03 00:48] LABS: Magnesium 1.9 mg/dL (1.6-2.6)
[2021-01-03] MEDS ORDERED: Albuterol Sulfate 2.5 mg/3 ml Neb NEB PRN (03:40)
[2021-01-03] MEDS: Acetaminophen 325 MG TAB PO PRN (04:48)
[2021-01-03 05:42] LABS: Anion Gap 9 mmol/L (10-20); BUN (Urea Nitrogen) 7 mg/dL (9.8-20.1); Calc. Creatinine Clearance 91 mL/min (70-130); Calcium 7.4 mg/dL (7.8-10.44); Carbon Dioxide 26 mmol/L (22-29); Chloride 105 mmol/L (98-107); Glucose 74 mg/dL (70-105); Magnesium 2.2 mg/dL (1.6-2.6); Sodium 138 mmol/L (136-145)
[2021-01-03 05:44] LABS: #Basophils 0.1 thou/uL (0.0-0.2); #Lymphocytes 1.7 thou/uL (1.20-3.40); #Monocytes 0.8 thou/uL (0.11-0.59); #Neutrophils 2.7 thou/uL (1.40-6.50); %Eosinophils 0.2 % (0.0-10.0); %Lymphocytes 31.8 % (21.0-51.0); %Monocytes 14.5 % (0.0-10.0); %Neutrophils 52.4 % (42.0-75.0); Hemoglobin 11.7 g/dL (12.0-16.0); Mean Corpuscular HGB CONC 32.4 g/dL (32.0-36.0); Mean Corpuscular Hemoglobin 32.8 pg (27.0-31.0); Mean Platelet Volume 11.7 fL (7.4-10.4); Platelet Count 63 thou/uL (130-400); Red Blood Cell (RBC) Count 3.55 mill/uL (4.20-5.40); White Blood Cell (WBC) Count 5.2 thou/uL (4.8-10.8)
[2021-01-03 05:46] LABS: Potassium 2.4 mmol/L (3.5-5.1)
[2021-01-03] MEDS ORDERED: Loperamide HCl 2 MG CAP PO PRN (06:53)
[2021-01-03] MEDS ORDERED: Loratadine 10 MG TAB PO PRN (06:53)
[2021-01-03] MEDS ORDERED: Benzonatate 100 MG CAP PO PRN (06:53)
[2021-01-03] MEDS ORDERED: Sodium Chloride 0.65% Nasal 44 ML BOT EA NARE PRN (06:53)
[2021-01-03] MEDS ORDERED: Senokot S 8.6-50 MG TAB PO PRN (06:53)
[2021-01-03] MEDS ORDERED: Artificial Tear Sol 15 ML BOT EA EYE PRN (06:53)
[2021-01-03] MEDS ORDERED: Hydrocerin (Eucerin) Cream 120 gm Jar TOP PRN (06:53)
[2021-01-03] MEDS ORDERED: hydrALAZINE 20 MG/ML VIAL SLOW IVP PRN (06:53)
[2021-01-03] MEDS ORDERED: Cepastat Lozenges 1 LOZ PO PRN (06:53)
[2021-01-03] MEDS ORDERED: Calcium Carbonate 500 MG ChewTAB PO PRN (06:53)
[2021-01-03] MEDS ORDERED: Potassium Chloride 20 MEQ TAB PO SCH ×3 (07:00→18:00)
[2021-01-03] MEDS ORDERED: Electrolyte Replacement Protocol 1 EACH FS SCH (07:15)
[2021-01-03] MEDS: Rifaximin 550 MG TAB PO SCH ×2 (08:46→20:37)
[2021-01-03] MEDS: Cyanocobalamin (Vitamin B-12) 1,000 MCG TAB PO SCH (08:46)
[2021-01-03] MEDS: Sodium Bicarbonate Tab 325 MG TAB PO SCH ×3 (08:47→20:38)
[2021-01-03] MEDS: Magnesium Oxide 400 MG TAB PO SCH (08:48)
[2021-01-03] MEDS: Spironolactone 100 MG TAB PO SCH (08:48)
[2021-01-03] MEDS: Folic Acid 1 MG TAB PO SCH (08:48)
[2021-01-03] MEDS ORDERED: Metoprolol Tartrate 25 MG TAB PO SCH (09:00)
[2021-01-03] MEDS: FLU VACC QS2021-22(6MOS UP)/PF 60 MCG/0.5 ML SYRINGE IM ONE (09:06)
[2021-01-03] MEDS ORDERED: Potassium Chloride 20 MEQ in Premix Bag 1 BAG IVPB SCH (11:15)
[2021-01-03 11:21] LABS: SARS-CoV-2 PCR by NAA Not Detected (NotDetected)
[2021-01-03] MEDS: Furosemide 20 MG/2 ML VIAL SLOW IVP SCH (15:27)
[2021-01-03] MEDS: cefTRIAXone\\ROCEPHIN 1 GM in Sodium Chloride 0.9% 100 ML IVPB SCH (20:36)
[2021-01-03] MEDS: Atorvastatin Calcium 40 MG TAB PO SCH (20:36)
[2021-01-03] MEDS: Metoprolol Tartrate 25 MG TAB PO SCH (20:37)
[2021-01-04 05:02] LABS: INR-International Normal Ratio 1.3; Prothrombin Time 16.8 sec (12.0-14.7)
[2021-01-04 05:11] LABS: Hemoglobin 12.3 g/dL (12.0-16.0); Mean Corpuscular Hemoglobin 32.6 pg (27.0-31.0); Mean Platelet Volume 11.6 fL (7.4-10.4); Platelet Count 63 thou/uL (130-400); RBC Distribution Width 19.1 % (11.5-14.5); Red Blood Cell (RBC) Count 3.77 mill/uL (4.20-5.40)
[2021-01-04 05:17] LABS: ALT (SGPT) 40 U/L (8-55); AST (SGOT) 107 U/L (5-34); Alkaline Phosphatase 87 U/L (40-110); Anion Gap 10 mmol/L (10-20); BUN (Urea Nitrogen) 9 mg/dL (9.8-20.1); Bilirubin, Total 3.4 mg/dL (0.2-1.2); Calc. Creatinine Clearance 70 mL/min (70-130); Calcium 7.4 mg/dL (7.8-10.44); Carbon Dioxide 25 mmol/L (22-29); Chloride 107 mmol/L (98-107); Globulin 3.5 g/dL (2.4-3.5); Glucose 104 mg/dL (70-105); Phosphorus 1.9 mg/dL (2.3-4.7); Potassium 4.1 mmol/L (3.5-5.1); Protein, Total 5.5 g/dL (6.0-8.3); Sodium 138 mmol/L (136-145)
[2021-01-04] MEDS: Furosemide 20 MG/2 ML VIAL SLOW IVP SCH ×2 (05:28→14:46)
[2021-01-04 05:52] LABS: Anisocytosis SLIGHT = 6-15 cells (100X) (0-5/hpf); Band 13 % (5-11); Lymphocytes 23 % (21-51); MDiff Complete? YES; Monocytes 10 % (0-10); Neutrophil 52 % (42-75); Platelet Morphology Comment Appears Decreased
[2021-01-04] MEDS ORDERED: PHOS-NAK 1 PKT PACK PO SCH ×4 (07:00→15:00)
[2021-01-04] MEDS: Cyanocobalamin (Vitamin B-12) 1,000 MCG TAB PO SCH (09:02)
[2021-01-04] MEDS: Folic Acid 1 MG TAB PO SCH (09:02)
[2021-01-04] MEDS: Spironolactone 100 MG TAB PO SCH (09:02)
[2021-01-04] MEDS: Sodium Bicarbonate Tab 325 MG TAB PO SCH ×3 (09:02→21:28)
[2021-01-04] MEDS: Metoprolol Tartrate 25 MG TAB PO SCH ×2 (09:03→19:57)
[2021-01-04] MEDS: Rifaximin 550 MG TAB PO SCH ×2 (09:03→19:56)
[2021-01-04] MEDS: Magnesium Oxide 400 MG TAB PO SCH (09:03)
[2021-01-04] MEDS ORDERED: Magnesium 2 GM/50 ML 2 GM in Premix Bag 1 BAG IVPB SCH (10:30)
[2021-01-04] MEDS: cefTRIAXone\\ROCEPHIN 1 GM in Sodium Chloride 0.9% 100 ML IVPB SCH (19:54)
[2021-01-04] MEDS: Atorvastatin Calcium 40 MG TAB PO SCH (19:56)
[2021-01-05 04:47] LABS: #Basophils 0.1 thou/uL (0.0-0.2); #Lymphocytes 1.5 thou/uL (1.20-3.40); #Monocytes 0.7 thou/uL (0.11-0.59); #Neutrophils 4.2 thou/uL (1.40-6.50); %Basophils 1.3 % (0.0-1.0); %Lymphocytes 22.8 % (21.0-51.0); %Monocytes 11.3 % (0.0-10.0); %Neutrophils 64.6 % (42.0-75.0); Hemoglobin 11.5 g/dL (12.0-16.0); Mean Corpuscular Hemoglobin 32.9 pg (27.0-31.0); Mean Platelet Volume 11.3 fL (7.4-10.4); Platelet Count 63 thou/uL (130-400); RBC Distribution Width 19.1 % (11.5-14.5); White Blood Cell (WBC) Count 6.5 thou/uL (4.8-10.8)
[2021-01-05 05:05] LABS: Anion Gap 8 mmol/L (10-20); BUN (Urea Nitrogen) 10 mg/dL (9.8-20.1); Calc. Creatinine Clearance 77 mL/min (70-130); Calcium 7.3 mg/dL (7.8-10.44); Carbon Dioxide 27 mmol/L (22-29); Chloride 105 mmol/L (98-107); Glucose 122 mg/dL (70-105); Phosphorus 2.5 mg/dL (2.3-4.7); Potassium 2.5 mmol/L (3.5-5.1); Sodium 137 mmol/L (136-145)
[2021-01-05] MEDS: Furosemide 20 MG/2 ML VIAL SLOW IVP SCH ×2 (05:40→13:56)
[2021-01-05] MEDS: Ondansetron ODT 4 MG TAB SL PRN (05:47)
[2021-01-05] MEDS: Acetaminophen 325 MG TAB PO PRN ×2 (05:47→20:37)
[2021-01-05] MEDS: Potassium Chloride 20 MEQ TAB PO SCH ×2 (06:49→11:22)
[2021-01-05] MEDS: Magnesium Oxide 400 MG TAB PO SCH (08:57)
[2021-01-05] MEDS: Folic Acid 1 MG TAB PO SCH (08:57)
[2021-01-05] MEDS: Rifaximin 550 MG TAB PO SCH ×2 (08:57→20:34)
[2021-01-05] MEDS: Cyanocobalamin (Vitamin B-12) 1,000 MCG TAB PO SCH (08:57)
[2021-01-05] MEDS: Sodium Bicarbonate Tab 325 MG TAB PO SCH ×3 (08:57→20:34)
[2021-01-05] MEDS: Spironolactone 100 MG TAB PO SCH (08:58)
[2021-01-05] MEDS: Metoprolol Tartrate 25 MG TAB PO SCH ×2 (09:01→19:38)
[2021-01-05] MEDS: cefTRIAXone\\ROCEPHIN 1 GM in Sodium Chloride 0.9% 100 ML IVPB SCH (19:26)
[2021-01-06] MEDS: Melatonin 3 MG TAB PO PRN (03:00)
[2021-01-06] MEDS: GUAIFENESIN SF SOLN 200 MG/10 ML UDCUP PO PRN (03:00)
[2021-01-06 04:35] LABS: #Lymphocytes 1.5 thou/uL (1.20-3.40); #Monocytes 0.9 thou/uL (0.11-0.59); %Basophils 0.6 % (0.0-1.0); %Eosinophils 0.3 % (0.0-10.0); %Lymphocytes 23.6 % (21.0-51.0); %Monocytes 13.7 % (0.0-10.0); %Neutrophils 61.8 % (42.0-75.0); Mean Corpuscular Hemoglobin 33.4 pg (27.0-31.0); Mean Platelet Volume 11.3 fL (7.4-10.4); Platelet Count 57 thou/uL (130-400); RBC Distribution Width 19.3 % (11.5-14.5); Red Blood Cell (RBC) Count 3.28 mill/uL (4.20-5.40); White Blood Cell (WBC) Count 6.5 thou/uL (4.8-10.8)
[2021-01-06 04:49] LABS: Anion Gap 9 mmol/L (10-20); BUN (Urea Nitrogen) 12 mg/dL (9.8-20.1); Calc. Creatinine Clearance 61 mL/min (70-130); Calcium 7.7 mg/dL (7.8-10.44); Carbon Dioxide 26 mmol/L (22-29); Chloride 103 mmol/L (98-107); Glucose 100 mg/dL (70-105); Sodium 135 mmol/L (136-145)
[2021-01-06] MEDS: Furosemide 20 MG/2 ML VIAL SLOW IVP SCH ×2 (06:33→13:16)
[2021-01-06] MEDS ORDERED: Potassium Chloride 20 MEQ TAB PO SCH ×2 (07:00→13:30)
[2021-01-06] MEDS: Sodium Bicarbonate Tab 325 MG TAB PO SCH ×3 (09:45→20:26)
[2021-01-06] MEDS: Rifaximin 550 MG TAB PO SCH ×2 (09:45→20:25)
[2021-01-06] MEDS: Spironolactone 100 MG TAB PO SCH (09:47)
[2021-01-06] MEDS: Magnesium Oxide 400 MG TAB PO SCH (09:48)
[2021-01-06] MEDS: Folic Acid 1 MG TAB PO SCH (09:49)
[2021-01-06] MEDS: Metoprolol Tartrate 25 MG TAB PO SCH ×2 (09:49→20:27)
[2021-01-06] MEDS: Cyanocobalamin (Vitamin B-12) 1,000 MCG TAB PO SCH (09:49)
[2021-01-06] MEDS: FLU VACC QS2021-22(6MOS UP)/PF 60 MCG/0.5 ML SYRINGE IM ONE (10:05)
[2021-01-06] MEDS: Acetaminophen 325 MG TAB PO PRN ×3 (10:06→20:42)
[2021-01-06 11:40] LABS: Potassium 3.4 mmol/L (3.5-5.1)
[2021-01-06 19:56] LABS: Potassium 4.2 mmol/L (3.5-5.1)
[2021-01-06] MEDS: cefTRIAXone\\ROCEPHIN 1 GM in Sodium Chloride 0.9% 100 ML IVPB SCH (20:20)
[2021-01-07] MEDS: Acetaminophen 325 MG TAB PO PRN ×3 (02:57→20:19)
[2021-01-07] MEDS: Melatonin 3 MG TAB PO PRN ×2 (02:58→23:15)
[2021-01-07] MEDS: Furosemide 20 MG/2 ML VIAL SLOW IVP SCH ×2 (05:18→14:23)
[2021-01-07] MEDS: Magnesium Oxide 400 MG TAB PO SCH (08:14)
[2021-01-07] MEDS: Rifaximin 550 MG TAB PO SCH ×2 (08:14→20:04)
[2021-01-07] MEDS: Spironolactone 100 MG TAB PO SCH (08:15)
[2021-01-07] MEDS: Folic Acid 1 MG TAB PO SCH (08:15)
[2021-01-07] MEDS: Sodium Bicarbonate Tab 325 MG TAB PO SCH ×3 (08:15→20:04)
[2021-01-07] MEDS: Cyanocobalamin (Vitamin B-12) 1,000 MCG TAB PO SCH (08:16)
[2021-01-07] MEDS: Metoprolol Tartrate 25 MG TAB PO SCH ×2 (09:07→20:00)
[2021-01-07] MEDS: GUAIFENESIN SF SOLN 200 MG/10 ML UDCUP PO PRN (20:20)
[2021-01-07] MEDS ORDERED: methylPREDNISolone Sod Succ/PF 125 MG/2 ML VIAL IVP SCH (23:44)
[2021-01-08] MEDS: Acetaminophen 325 MG TAB PO PRN ×2 (00:32→06:06)
[2021-01-08] MEDS: Ondansetron ODT 4 MG TAB SL PRN (02:20)
[2021-01-08 05:43] LABS: ALT (SGPT) 39 U/L (8-55); AST (SGOT) 87 U/L (5-34); Albumin 2.3 g/dL (3.5-5.0); Alkaline Phosphatase 91 U/L (40-110); Anion Gap 17 mmol/L (10-20); BUN (Urea Nitrogen) 17 mg/dL (9.8-20.1); Bilirubin, Total 3.1 mg/dL (0.2-1.2); Calc. Creatinine Clearance 40 mL/min (70-130); Calcium 8.5 mg/dL (7.8-10.44); Carbon Dioxide 19 mmol/L (22-29); Chloride 102 mmol/L (98-107); Glucose 122 mg/dL (70-105); Potassium 4.6 mmol/L (3.5-5.1); Protein, Total 6.3 g/dL (6.0-8.3); Sodium 133 mmol/L (136-145)
[2021-01-08] MEDS: Furosemide 20 MG/2 ML VIAL SLOW IVP SCH ×2 (06:06→15:30)
[2021-01-08] MEDS: Spironolactone 100 MG TAB PO SCH (10:04)
[2021-01-08] MEDS: Folic Acid 1 MG TAB PO SCH (10:04)
[2021-01-08] MEDS: Cyanocobalamin (Vitamin B-12) 1,000 MCG TAB PO SCH (10:04)
[2021-01-08] MEDS: Rifaximin 550 MG TAB PO SCH ×2 (10:04→20:40)
[2021-01-08] MEDS: Metoprolol Tartrate 25 MG TAB PO SCH ×2 (10:04→20:40)
[2021-01-08] MEDS: Magnesium Oxide 400 MG TAB PO SCH (10:04)
[2021-01-08] MEDS: Sodium Bicarbonate Tab 325 MG TAB PO SCH ×3 (10:07→20:40)
[2021-01-08] MEDS ORDERED: Morphine 4 MG/ML VIAL FS PRN (14:32)
[2021-01-08] MEDS ORDERED: HYDROcodone/Acetaminophen 5/325 mg Tablet PO PRN (15:19)
[2021-01-08] MEDS: Morphine 4 MG/ML VIAL SLOW IVP PRN ×2 (15:31→20:40)
[2021-01-08] MEDS: Mometasone 200 MCG/Formoterol 5 MCG 120 PUFF INHALER INH SCH (18:29)
[2021-01-08] MEDS: GUAIFENESIN SF SOLN 200 MG/10 ML UDCUP PO PRN (20:40)
[2021-01-09] MEDS: Morphine 4 MG/ML VIAL SLOW IVP PRN ×3 (02:51→21:25)
[2021-01-09] MEDS: Furosemide 20 MG/2 ML VIAL SLOW IVP SCH (05:13)
[2021-01-09 05:44] LABS: ALT (SGPT) 36 U/L (8-55); AST (SGOT) 68 U/L (5-34); Albumin 2.1 g/dL (3.5-5.0); Alkaline Phosphatase 79 U/L (40-110); Anion Gap 12 mmol/L (10-20); BUN (Urea Nitrogen) 22 mg/dL (9.8-20.1); Bilirubin, Total 2.8 mg/dL (0.2-1.2); Calc. Creatinine Clearance 51 mL/min (70-130); Calcium 8.5 mg/dL (7.8-10.44); Carbon Dioxide 25 mmol/L (22-29); Chloride 99 mmol/L (98-107); Globulin 3.8 g/dL (2.4-3.5); Glucose 108 mg/dL (70-105); Potassium 4.7 mmol/L (3.5-5.1); Protein, Total 5.9 g/dL (6.0-8.3); Sodium 131 mmol/L (136-145)
[2021-01-09] MEDS: Mometasone 200 MCG/Formoterol 5 MCG 120 PUFF INHALER INH SCH ×2 (08:57→18:39)
[2021-01-09] MEDS: Folic Acid 1 MG TAB PO SCH (08:58)
[2021-01-09] MEDS: Spironolactone 100 MG TAB PO SCH (08:58)
[2021-01-09] MEDS: Magnesium Oxide 400 MG TAB PO SCH (08:58)
[2021-01-09] MEDS: Cyanocobalamin (Vitamin B-12) 1,000 MCG TAB PO SCH (08:58)
[2021-01-09] MEDS: Metoprolol Tartrate 25 MG TAB PO SCH ×2 (08:58→21:26)
[2021-01-09] MEDS: Rifaximin 550 MG TAB PO SCH ×2 (08:58→21:26)
[2021-01-09] MEDS: Sodium Bicarbonate Tab 325 MG TAB PO SCH ×3 (08:58→21:29)
[2021-01-09] MEDS ORDERED: predniSONE 20 MG TAB PO SCH (09:30)
[2021-01-09 18:01] LABS: Pleural Fluid, Glucose 120 mg/dL; Pleural Fluid, LDH 86 U/L (Not Available); Pleural Fluid, Protein Less than 1.0 g/dL
[2021-01-09 18:28] LABS: RBC Count-Automated (BF) 849 /cu.mm; WBC/Nucleated-Auto (BF) 128 /cu.mm
[2021-01-09 18:42] LABS: BF Color Yellow; Body Fluid Source Pleural Fluid; Clarity Hazy (Clear); Tube # EDTA
[2021-01-09 18:55] LABS: BF Segmented Neutrophils 48 %; Cell Count Non Hematic 25 %; Lymphocytes 27 %
[2021-01-09] MEDS: GUAIFENESIN SF SOLN 200 MG/10 ML UDCUP PO PRN (21:26)
[2021-01-09] MEDS ORDERED: Nitroglycerin 0.4 MG TAB (25 Tab Bottle) SL PRN (22:05)
[2021-01-10 05:01] LABS: ALT (SGPT) 40 U/L (8-55); AST (SGOT) 81 U/L (5-34); Albumin 2.1 g/dL (3.5-5.0); Alkaline Phosphatase 80 U/L (40-110); Anion Gap 15 mmol/L (10-20); BUN (Urea Nitrogen) 21 mg/dL (9.8-20.1); Bilirubin, Total 2.5 mg/dL (0.2-1.2); Calc. Creatinine Clearance 53 mL/min (70-130); Calcium 8.8 mg/dL (7.8-10.44); Carbon Dioxide 21 mmol/L (22-29); Chloride 103 mmol/L (98-107); Globulin 3.6 g/dL (2.4-3.5); Glucose 100 mg/dL (70-105); Potassium 4.9 mmol/L (3.5-5.1); Protein, Total 5.7 g/dL (6.0-8.3); Sodium 134 mmol/L (136-145)
[2021-01-10] MEDS: Mometasone 200 MCG/Formoterol 5 MCG 120 PUFF INHALER INH SCH (07:16)
[2021-01-10 07:41] VITALS: BP 123/66; TEMP 97.5
[2021-01-10] MEDS ORDERED: predniSONE 20 MG TAB PO SCH (08:00)
[2021-01-10] MEDS: Sodium Bicarbonate Tab 325 MG TAB PO SCH (08:52)
[2021-01-10] MEDS: Folic Acid 1 MG TAB PO SCH (08:52)
[2021-01-10] MEDS: Metoprolol Tartrate 25 MG TAB PO SCH (08:53)
[2021-01-10] MEDS: Cyanocobalamin (Vitamin B-12) 1,000 MCG TAB PO SCH (08:53)
[2021-01-10] MEDS: Spironolactone 100 MG TAB PO SCH (08:53)
[2021-01-10] MEDS: Rifaximin 550 MG TAB PO SCH (08:53)
[2021-01-10] MEDS: Magnesium Oxide 400 MG TAB PO SCH (08:53)
[2021-01-10] MEDS ORDERED: Furosemide 20 MG/2 ML VIAL SLOW IVP SCH (09:00)
[2021-01-10 10:15] VITALS: BMI 20.9
[2021-01-10] MEDS: Morphine 4 MG/ML VIAL SLOW IVP PRN (11:19)
== END 2021-01-10 11:30 | disposition home or self-care (01) | DRG 432 ==
LOC: ERS 16:48 → 2NO 19:37 → ONC 01-04 10:48 → 2NO 01-08 03:22
PROVIDERS: ADMIT Student in an Organized Health Care Education/Training Program; ATTEND Family Medicine
PROC: 0W993ZZ Drainage of Right Pleural Cavity, Percutaneous Approach (ICD-10-PCS; principal; 2021-01-09)
DX: K70.30 Alcoholic cirrhosis of liver without ascites (principal); Z20.822 Contact with and (suspected) exposure to COVID-19; Z23 Encounter for immunization; E43 Unspecified severe protein-calorie malnutrition; J96.01 Acute respiratory failure with hypoxia; N39.0 Urinary tract infection, site not specified; J90 Pleural effusion, not elsewhere classified; N17.9 Acute kidney failure, unspecified; K72.90 Hepatic failure, unspecified without coma; F17.210 Nicotine dependence, cigarettes, uncomplicated; I10 Essential (primary) hypertension; E87.6 Hypokalemia; J44.9 Chronic obstructive pulmonary disease, unspecified; B18.2 Chronic viral hepatitis C; D69.6 Thrombocytopenia, unspecified; R73.9 Hyperglycemia, unspecified; F12.10 Cannabis abuse, uncomplicated; D75.89 Other specified diseases of blood and blood-forming organs; B96.20 Unspecified Escherichia coli [E. coli] as the cause of diseases classified elsewhere; D69.59 Other secondary thrombocytopenia; K83.8 Other specified diseases of biliary tract; R07.89 Other chest pain; Z98.51 Tubal ligation status; Z88.5 Allergy status to narcotic agent; Z79.899 Other long term (current) drug therapy; Z90.49 Acquired absence of other specified parts of digestive tract; Z91.14 Patient's other noncompliance with medication regimen; Z68.21 Body mass index [BMI] 21.0-21.9, adult; Z71.6 Tobacco abuse counseling; Z71.51 Drug abuse counseling and surveillance of drug abuser
CPT/HCPCS: 36415; 36416; 51701; 71045; 72190; 74176; 76700; 80048; 80053; 81003; 81015; 82140; 82945; 83605; 83615; 83735; 84100; 84157; 84443; 84484; 85025; 85060; 85610; 87070; 87077; 87086; 87186; 87205; 88112; 89051; 90471; 90686; 93005; 93010; 94640; 96365; 96366; 96367; G0008; J0696; J1940; J2270; J2930; J3475; J3480; J3490; J7512; J7620; Q0162; U0003; U0005

== ENCOUNTER 2021-02-08 19:06 | Inpatient (IN) | payer MEDICARE, MEDICAID ==
[2021-02-08 22:10] VITALS: BMI 20.2
[2021-02-08] MEDS ORDERED: Ondansetron PF 4 MG/2 ML Vial IVP PRN (23:46)
[2021-02-08] MEDS ORDERED: Acetaminophen 500 MG TAB PO PRN (23:52)
[2021-02-08] MEDS ORDERED: hydrALAZINE 20 MG/ML VIAL SLOW IVP PRN (23:55)
[2021-02-09] MEDS ORDERED: traMADol HCl 50 MG TAB PO SCH ×2 (01:45→21:30)
[2021-02-09] MEDS ORDERED: Furosemide 20 MG/2 ML VIAL SLOW IVP SCH (06:00)
[2021-02-09 06:32] LABS: #Eosinphils 0.2 thou/uL (0.0-0.7); #Monocytes 1.2 thou/uL (0.11-0.59); #Neutrophils 8.4 thou/uL (1.40-6.50); %Basophils 0.4 % (0.0-1.0); %Eosinophils 1.5 % (0.0-10.0); %Lymphocytes 9.2 % (21.0-51.0); %Monocytes 11.2 % (0.0-10.0); %Neutrophils 77.8 % (42.0-75.0); Hemoglobin 12.3 g/dL (12.0-16.0); Mean Corpuscular HGB CONC 32.2 g/dL (32.0-36.0); Mean Corpuscular Hemoglobin 33.8 pg (27.0-31.0); Mean Platelet Volume 10.5 fL (7.4-10.4); Platelet Count 64 thou/uL (130-400); RBC Distribution Width 16.2 % (11.5-14.5); Red Blood Cell (RBC) Count 3.64 mill/uL (4.20-5.40); White Blood Cell (WBC) Count 10.8 thou/uL (4.8-10.8)
[2021-02-09 06:55] LABS: Anion Gap 9 mmol/L (10-20); BUN (Urea Nitrogen) 25 mg/dL (9.8-20.1); Calc. Creatinine Clearance 81 mL/min (70-130); Calcium 8.1 mg/dL (7.8-10.44); Carbon Dioxide 21 mmol/L (22-29); Chloride 108 mmol/L (98-107); Glucose 67 mg/dL (70-105); Magnesium 1.7 mg/dL (1.6-2.6); Potassium 4.1 mmol/L (3.5-5.1); Sodium 134 mmol/L (136-145)
[2021-02-09] MEDS: Mometasone 200 MCG/Formoterol 5 MCG 120 PUFF INHALER INH SCH ×2 (06:59→18:20)
[2021-02-09] MEDS: Spironolactone 100 MG TAB PO SCH (08:23)
[2021-02-09] MEDS: Furosemide 40 MG TAB PO SCH ×2 (08:23→14:30)
[2021-02-09] MEDS: Metoprolol Tartrate 25 MG TAB PO SCH ×2 (08:23→20:01)
[2021-02-09] MEDS: Rifaximin 550 MG TAB PO SCH ×2 (08:23→20:07)
[2021-02-09 16:23] LABS: Fluid, Triglycerides 41 mg/dL (Not Available); Pleural Fluid, Amylase Less than 30 U/L (Not Available); Pleural Fluid, Glucose 78 mg/dL; Pleural Fluid, LDH 66 U/L (Not Available); Pleural Fluid, Protein Less than 1.0 g/dL; RBC Count-Automated (BF) 382 /cu.mm; WBC/Nucleated-Auto (BF) 109 /cu.mm
[2021-02-09 16:30] LABS: BF Color Yellow; Body Fluid Source Pleural Fluid; Clarity Hazy (Clear); Tube # EDTA
[2021-02-09 16:35] LABS: BF Segmented Neutrophils 29 %; Cell Count Non Hematic 54 %; Lymphocytes 17 %
[2021-02-09] MEDS ORDERED: hydrALAZINE 10 MG TAB PO PRN (17:56)
[2021-02-09 18:35] LABS: INR-International Normal Ratio 1.4; PTT 34.6 sec (22.9-36.1); Prothrombin Time 17.5 sec (12.0-14.7)
[2021-02-10] MEDS ORDERED: traMADol HCl 50 MG TAB PO SCH (03:15)
[2021-02-10] MEDS ORDERED: Arformoterol 15 MCG/2 ML NEB ONE (06:36)
[2021-02-10] MEDS: Mometasone 200 MCG/Formoterol 5 MCG 120 PUFF INHALER INH SCH ×2 (06:45→19:19)
[2021-02-10 07:08] LABS: Hemoglobin 12.2 g/dL (12.0-16.0); Mean Corpuscular HGB CONC 31.8 g/dL (32.0-36.0); Mean Corpuscular Hemoglobin 33.9 pg (27.0-31.0); Mean Platelet Volume 10.6 fL (7.4-10.4); Platelet Count 56 thou/uL (130-400); RBC Distribution Width 16.7 % (11.5-14.5); Red Blood Cell (RBC) Count 3.61 mill/uL (4.20-5.40); White Blood Cell (WBC) Count 11.8 thou/uL (4.8-10.8)
[2021-02-10 07:31] LABS: Anion Gap 15 mmol/L (10-20); BUN (Urea Nitrogen) 26 mg/dL (9.8-20.1); Calc. Creatinine Clearance 69 mL/min (70-130); Carbon Dioxide 17 mmol/L (22-29); Chloride 106 mmol/L (98-107); Glucose 89 mg/dL (70-105); Magnesium 1.5 mg/dL (1.6-2.6); Potassium 3.7 mmol/L (3.5-5.1); Sodium 134 mmol/L (136-145)
[2021-02-10 07:41] LABS: #Eosinphils 0.1 thou/uL (0.0-0.7); #Monocytes 1.3 thou/uL (0.11-0.59); #Neutrophils 9.4 thou/uL (1.40-6.50); %Basophils 0.4 % (0.0-1.0); %Eosinophils 0.8 % (0.0-10.0); %Lymphocytes 8.3 % (21.0-51.0); %Monocytes 10.7 % (0.0-10.0); %Neutrophils 79.7 % (42.0-75.0); Band 8 % (5-11); Burr Cells SLIGHT = 2-5 cells (100X) (0-1/hpf); Eosinophils 1 % (0-10); Lymphocytes 10 % (21-51); MDiff Complete? YES; Monocytes 8 % (0-10); Neutrophil 73 % (42-75); Nucleated RBC 1 % (0); Platelet Morphology Comment Appears Decreased; Polychromasia SLIGHT = 2-3 cells (100X) (0-2/hpf)
[2021-02-10] MEDS: Metoprolol Tartrate 25 MG TAB PO SCH ×2 (08:47→21:04)
[2021-02-10] MEDS: Rifaximin 550 MG TAB PO SCH ×2 (08:47→21:04)
[2021-02-10] MEDS: Furosemide 40 MG TAB PO SCH ×2 (08:47→14:46)
[2021-02-10] MEDS: Spironolactone 100 MG TAB PO SCH (08:47)
[2021-02-10] MEDS ORDERED: Morphine 4 MG/ML VIAL SLOW IVP PRN (15:42)
[2021-02-10] MEDS: Ibuprofen 200 MG TAB PO PRN (22:25)
[2021-02-11 06:20] LABS: Hemoglobin 11.2 g/dL (12.0-16.0); Mean Corpuscular HGB CONC 32.1 g/dL (32.0-36.0); Mean Corpuscular Hemoglobin 34.1 pg (27.0-31.0); Mean Platelet Volume 10.7 fL (7.4-10.4); Platelet Count 47 thou/uL (130-400); RBC Distribution Width 16.8 % (11.5-14.5); White Blood Cell (WBC) Count 8.7 thou/uL (4.8-10.8)
[2021-02-11 06:35] LABS: Anion Gap 10 mmol/L (10-20); BUN (Urea Nitrogen) 21 mg/dL (9.8-20.1); Calc. Creatinine Clearance 65 mL/min (70-130); Carbon Dioxide 21 mmol/L (22-29); Chloride 109 mmol/L (98-107); Sodium 137 mmol/L (136-145)
[2021-02-11 06:36] LABS: Calcium 7.8 mg/dL (7.8-10.44); Glucose 84 mg/dL (70-105); Magnesium 1.3 mg/dL (1.6-2.6)
[2021-02-11 06:46] LABS: Band 6 % (5-11); Lymphocytes 8 % (21-51); MDiff Complete? YES; Monocytes 9 % (0-10); Neutrophil 77 % (42-75); Platelet Morphology Comment Appears Decreased
[2021-02-11] MEDS: Mometasone 200 MCG/Formoterol 5 MCG 120 PUFF INHALER INH SCH ×2 (07:27→19:54)
[2021-02-11] MEDS: Metoprolol Tartrate 25 MG TAB PO SCH ×2 (09:23→21:00)
[2021-02-11] MEDS: Spironolactone 100 MG TAB PO SCH (09:23)
[2021-02-11] MEDS: Furosemide 40 MG TAB PO SCH ×2 (09:23→14:14)
[2021-02-11] MEDS: Rifaximin 550 MG TAB PO SCH ×2 (09:23→20:11)
[2021-02-11] MEDS: Potassium Chloride 20 MEQ TAB PO SCH ×2 (14:14→20:09)
[2021-02-11] MEDS: Ibuprofen 200 MG TAB PO PRN (20:11)
[2021-02-12] MEDS ORDERED: traMADol HCl 50 MG TAB PO SCH (00:30)
[2021-02-12] MEDS ORDERED: Morphine 4 MG/ML VIAL SLOW IVP SCH (05:45)
[2021-02-12] MEDS ORDERED: HYDROcodone/Acetaminophen 5/325 mg Tablet PO SCH (06:30)
[2021-02-12] MEDS: Mometasone 200 MCG/Formoterol 5 MCG 120 PUFF INHALER INH SCH ×2 (06:47→20:05)
[2021-02-12] MEDS: Potassium Chloride 20 MEQ TAB PO SCH (09:03)
[2021-02-12] MEDS: Rifaximin 550 MG TAB PO SCH ×2 (09:03→19:50)
[2021-02-12] MEDS: Spironolactone 100 MG TAB PO SCH (09:03)
[2021-02-12] MEDS: Furosemide 40 MG TAB PO SCH ×2 (09:04→14:42)
[2021-02-12] MEDS: Metoprolol Tartrate 25 MG TAB PO SCH ×2 (09:04→19:50)
[2021-02-12] MEDS: HYDROcodone/Acetaminophen 5/325 mg Tablet PO PRN (17:47)
[2021-02-13] MEDS: HYDROcodone/Acetaminophen 5/325 mg Tablet PO PRN ×4 (00:05→18:19)
[2021-02-13] MEDS: Mometasone 200 MCG/Formoterol 5 MCG 120 PUFF INHALER INH SCH ×2 (07:30→18:35)
[2021-02-13] MEDS: Furosemide 40 MG TAB PO SCH ×2 (08:55→14:49)
[2021-02-13] MEDS: Potassium Chloride 20 MEQ TAB PO SCH (08:55)
[2021-02-13] MEDS: Spironolactone 100 MG TAB PO SCH (08:56)
[2021-02-13] MEDS: Metoprolol Tartrate 25 MG TAB PO SCH ×2 (08:56→20:20)
[2021-02-13] MEDS: Rifaximin 550 MG TAB PO SCH ×2 (08:56→20:19)
[2021-02-13] MEDS: Ondansetron ODT 4 MG TAB PO PRN (18:19)
[2021-02-14] MEDS: HYDROcodone/Acetaminophen 5/325 mg Tablet PO PRN ×3 (00:15→17:40)
[2021-02-14] MEDS: Ondansetron ODT 4 MG TAB PO PRN (00:16)
[2021-02-14] MEDS: Mometasone 200 MCG/Formoterol 5 MCG 120 PUFF INHALER INH SCH ×2 (08:01→18:38)
[2021-02-14 08:09] LABS: Anion Gap 10 mmol/L (10-20); BUN (Urea Nitrogen) 17 mg/dL (9.8-20.1); Calc. Creatinine Clearance 50 mL/min (70-130); Carbon Dioxide 22 mmol/L (22-29); Chloride 104 mmol/L (98-107); Glucose 131 mg/dL (70-105); Potassium 4.2 mmol/L (3.5-5.1); Sodium 132 mmol/L (136-145)
[2021-02-14] MEDS: Potassium Chloride 20 MEQ TAB PO SCH (08:45)
[2021-02-14] MEDS: Furosemide 40 MG TAB PO SCH ×2 (08:46→14:33)
[2021-02-14] MEDS: Rifaximin 550 MG TAB PO SCH ×2 (08:46→20:22)
[2021-02-14] MEDS: Metoprolol Tartrate 25 MG TAB PO SCH ×2 (08:47→20:22)
[2021-02-14] MEDS: Spironolactone 100 MG TAB PO SCH (08:48)
[2021-02-14] MEDS ORDERED: diphenhydrAMINE 25 MG CAP PO PRN (16:38)
[2021-02-14 21:08] LABS: #Eosinphils 0.1 thou/uL (0.0-0.7); #Lymphocytes 0.9 thou/uL (1.20-3.40); #Monocytes 0.8 thou/uL (0.11-0.59); #Neutrophils 6.4 thou/uL (1.40-6.50); %Basophils 0.4 % (0.0-1.0); %Eosinophils 0.7 % (0.0-10.0); %Monocytes 10.1 % (0.0-10.0); %Neutrophils 77.9 % (42.0-75.0); Hemoglobin 12.7 g/dL (12.0-16.0); Mean Corpuscular HGB CONC 32.5 g/dL (32.0-36.0); Mean Corpuscular Hemoglobin 33.1 pg (27.0-31.0); Mean Platelet Volume 10.4 fL (7.4-10.4); Platelet Count 52 thou/uL (130-400); RBC Distribution Width 15.8 % (11.5-14.5); Red Blood Cell (RBC) Count 3.82 mill/uL (4.20-5.40); White Blood Cell (WBC) Count 8.2 thou/uL (4.8-10.8)
[2021-02-15] MEDS: Mometasone 200 MCG/Formoterol 5 MCG 120 PUFF INHALER INH SCH ×2 (07:13→20:20)
[2021-02-15 08:07] LABS: Anion Gap 10 mmol/L (10-20); BUN (Urea Nitrogen) 15 mg/dL (9.8-20.1); Calc. Creatinine Clearance 61 mL/min (70-130); Carbon Dioxide 21 mmol/L (22-29); Chloride 105 mmol/L (98-107); Glucose 83 mg/dL (70-105); Potassium 5.2 mmol/L (3.5-5.1); Sodium 131 mmol/L (136-145)
[2021-02-15] MEDS: Potassium Chloride 20 MEQ TAB PO SCH (08:33)
[2021-02-15] MEDS: Rifaximin 550 MG TAB PO SCH ×2 (08:33→20:07)
[2021-02-15] MEDS: Spironolactone 100 MG TAB PO SCH (08:34)
[2021-02-15] MEDS: Metoprolol Tartrate 25 MG TAB PO SCH ×2 (08:34→20:07)
[2021-02-15] MEDS: HYDROcodone/Acetaminophen 5/325 mg Tablet PO PRN ×2 (08:36→18:11)
[2021-02-16] MEDS: HYDROcodone/Acetaminophen 5/325 mg Tablet PO PRN ×3 (00:31→14:16)
[2021-02-16] MEDS: Mometasone 200 MCG/Formoterol 5 MCG 120 PUFF INHALER INH SCH (07:53)
[2021-02-16] MEDS: Spironolactone 100 MG TAB PO SCH (08:45)
[2021-02-16] MEDS: Rifaximin 550 MG TAB PO SCH (08:45)
[2021-02-16] MEDS: Potassium Chloride 20 MEQ TAB PO SCH (08:45)
[2021-02-16] MEDS: Metoprolol Tartrate 25 MG TAB PO SCH (08:46)
[2021-02-16 16:15] VITALS: BP 133/67; TEMP 98.2
== END 2021-02-16 15:19 | disposition home or self-care (01) | DRG 432 ==
LOC: T4-B 21:54 → OBSVTOIN 23:48
PROVIDERS: ADMIT Family Medicine; ATTEND Internal Medicine
PROC: 0W9930Z Drainage of Right Pleural Cavity with Drainage Device, Percutaneous Approach (ICD-10-PCS; principal; 2021-02-09)
DX: K74.60 Unspecified cirrhosis of liver (principal); J96.01 Acute respiratory failure with hypoxia; K72.00 Acute and subacute hepatic failure without coma; E44.0 Moderate protein-calorie malnutrition; J91.8 Pleural effusion in other conditions classified elsewhere; N17.9 Acute kidney failure, unspecified; Z66 Do not resuscitate; D69.59 Other secondary thrombocytopenia; J44.9 Chronic obstructive pulmonary disease, unspecified; I10 Essential (primary) hypertension; B18.2 Chronic viral hepatitis C; Z88.5 Allergy status to narcotic agent; Z79.899 Other long term (current) drug therapy; Z90.49 Acquired absence of other specified parts of digestive tract; Z98.51 Tubal ligation status; Z87.891 Personal history of nicotine dependence; Z68.20 Body mass index [BMI] 20.0-20.9, adult
CPT/HCPCS: 36415; 71045; 80048; 82150; 82945; 83615; 83735; 83986; 84157; 84478; 85025; 85060; 85610; 85730; 87070; 87116; 87205; 87206; 88112; 89051; 94640; J7620; Q0162

== ENCOUNTER 2022-01-02 14:26 | Inpatient (IN) | payer OTHER, MEDICAID ==
[2022-01-02] MEDS ORDERED: Morphine 4 MG/ML VIAL ONE (14:51)
[2022-01-02] MEDS ORDERED: FENTANYL 50 MCG/ML 1 ML VIAL ONE (15:41)
[2022-01-02 15:57] LABS: #Lymphocytes 1.5 thou/uL (1.20-3.40); #Monocytes 2.3 thou/uL (0.11-0.59); #Neutrophils 12.3 thou/uL (1.40-6.50); %Basophils 0.2 % (0.0-1.0); %Eosinophils 0.2 % (0.0-10.0); %Lymphocytes 9.4 % (21.0-51.0); %Monocytes 14.4 % (0.0-10.0); %Neutrophils 75.8 % (42.0-75.0); Hemoglobin 10.9 g/dL (12.0-16.0); Mean Corpuscular HGB CONC 31.3 g/dL (32.0-36.0); Mean Corpuscular Hemoglobin 32.1 pg (27.0-31.0); Mean Platelet Volume 10.8 fL (7.4-10.4); Platelet Count 84 10x3/uL (130-400); RBC Distribution Width 15.7 % (11.5-14.5); Red Blood Cell (RBC) Count 3.39 mill/uL (4.20-5.40); White Blood Cell (WBC) Count 16.2 10x3/uL (4.8-10.8)
[2022-01-02 16:15] LABS: ALT (SGPT) 45 U/L (8-55); AST (SGOT) 67 U/L (5-34); Albumin 2.7 g/dL (3.5-5.0); Alkaline Phosphatase 104 U/L (40-110); Anion Gap 11 mmol/L (10-20); BUN (Urea Nitrogen) 27 mg/dL (9.8-20.1); Bilirubin, Total 2.1 mg/dL (0.2-1.2); Calc. Creatinine Clearance 0 mL/min (70-130); Calcium 8.6 mg/dL (7.8-10.44); Carbon Dioxide 22 mmol/L (22-29); Chloride 108 mmol/L (98-107); Estimated GFR 47; Globulin 2.6 g/dL (2.4-3.5); Glucose 73 mg/dL (70-105); Potassium 3.7 mmol/L (3.5-5.1); Protein, Total 5.3 g/dL (6.0-8.3); Sodium 137 mmol/L (136-145)
[2022-01-02] MEDS: cefTRIAXone\\ROCEPHIN 2 GM in Sodium Chloride 0.9% 100 ML IVPB SCH (20:45)
[2022-01-02] MEDS ORDERED: Fentanyl 100 MCG/2 ML VIAL SLOW IVP PRN (20:56)
[2022-01-02] MEDS ORDERED: cefTRIAXone\\ROCEPHIN 2 GM VIAL ONE (20:57)
[2022-01-02] MEDS: Albumin 25% 25 GM/100 ML BOT IVPB SCH ×2 (21:41→22:32)
[2022-01-02 21:50] VITALS: BMI 22.1
[2022-01-02] MEDS: Famotidine 20 MG TAB PO SCH (22:18)
[2022-01-02] MEDS: Morphine 4 MG/ML VIAL SLOW IVP PRN (22:19)
[2022-01-02] MEDS: Rifaximin 550 MG TAB PO SCH (22:19)
[2022-01-02] MEDS: Rosuvastatin 20 MG TAB PO SCH (22:19)
[2022-01-02] MEDS: Ondansetron ODT 4 MG TAB PO PRN (23:24)
[2022-01-03] MEDS: Morphine 4 MG/ML VIAL SLOW IVP PRN ×2 (04:02→20:24)
[2022-01-03] MEDS: Albumin 25% 25 GM/100 ML BOT IVPB SCH ×2 (04:58→11:41)
[2022-01-03 08:02] LABS: #Lymphocytes 1.1 thou/uL (1.20-3.40); #Monocytes 1.1 thou/uL (0.11-0.59); #Neutrophils 6.4 thou/uL (1.40-6.50); %Basophils 0.1 % (0.0-1.0); %Eosinophils 0.4 % (0.0-10.0); %Lymphocytes 12.3 % (21.0-51.0); %Monocytes 13.1 % (0.0-10.0); %Neutrophils 74.1 % (42.0-75.0); Hemoglobin 11.6 g/dL (12.0-16.0); Mean Corpuscular HGB CONC 31.8 g/dL (32.0-36.0); Mean Corpuscular Hemoglobin 33.5 pg (27.0-31.0); Mean Platelet Volume 10.7 fL (7.4-10.4); Platelet Count 76 10x3/uL (130-400); RBC Distribution Width 15.9 % (11.5-14.5); Red Blood Cell (RBC) Count 3.45 mill/uL (4.20-5.40); White Blood Cell (WBC) Count 8.6 10x3/uL (4.8-10.8)
[2022-01-03 08:12] LABS: Anion Gap 10 mmol/L (10-20); BUN (Urea Nitrogen) 26 mg/dL (9.8-20.1); Calc. Creatinine Clearance 51 mL/min (70-130); Calcium 8.7 mg/dL (7.8-10.44); Carbon Dioxide 20 mmol/L (22-29); Chloride 111 mmol/L (98-107); Estimated GFR 49; Glucose 86 mg/dL (70-105); Potassium 3.9 mmol/L (3.5-5.1); Sodium 137 mmol/L (136-145)
[2022-01-03] MEDS: Rifaximin 550 MG TAB PO SCH ×2 (08:31→20:21)
[2022-01-03] MEDS: buPROPion HCl 100 MG TAB PO SCH (08:31)
[2022-01-03] MEDS: Famotidine 20 MG TAB PO SCH (08:36)
[2022-01-03 08:55] LABS: Macrocytosis SLIGHT = 6-15 cells (100X) (0-5/hpf); Polychromasia SLIGHT = 2-3 cells (100X) (0-2/hpf)
[2022-01-03] MEDS ORDERED: FLU VACC QS2022-23(6MOS UP)/PF 60 MCG/0.5 ML SYRINGE IM ONE (09:00)
[2022-01-03] MEDS: Ondansetron ODT 4 MG TAB PO PRN (11:50)
[2022-01-03] MEDS ORDERED: Sodium Bicarbonate 2.5 MEQ/5 ML VIAL ONE (14:31)
[2022-01-03] MEDS ORDERED: Lidocaine 2% PF 5 ML VIAL ONE (14:31)
[2022-01-03] MEDS ORDERED: Ondansetron PF 4 MG/2 ML Vial IVP PRN (16:22)
[2022-01-03] MEDS: cefTRIAXone\\ROCEPHIN 2 GM in Sodium Chloride 0.9% 100 ML IVPB SCH (17:39)
[2022-01-03 19:23] LABS: Fluid, LDH 66 U/L (Not Available); Fluid, Protein Less than 1.0 g/dL (Not Available)
[2022-01-03 19:34] LABS: RBC Count-Automated (BF) 626 /cu.mm; WBC/Nucleated-Auto (BF) 22 /cu.mm
[2022-01-03 19:58] LABS: BF Color Yellow; Body Fluid Source Peritoneal Fluid; Clarity Hazy (Clear); Tube # EDTA
[2022-01-03 20:00] LABS: BF Segmented Neutrophils 28 %; Cell Count Non Hematic 64 %; Lymphocytes 8 %
[2022-01-04 05:01] LABS: INR-International Normal Ratio 1.7; Prothrombin Time 20.6 sec (12.0-14.7)
[2022-01-04 05:49] LABS: Anion Gap 13 mmol/L (10-20); BUN (Urea Nitrogen) 21 mg/dL (9.8-20.1); Calc. Creatinine Clearance 50 mL/min (70-130); Calcium 8.4 mg/dL (7.8-10.44); Carbon Dioxide 16 mmol/L (22-29); Chloride 114 mmol/L (98-107); Estimated GFR 48; Glucose 64 mg/dL (70-105); Potassium 3.6 mmol/L (3.5-5.1); Sodium 139 mmol/L (136-145)
[2022-01-04] MEDS: Rifaximin 550 MG TAB PO SCH ×2 (08:50→20:36)
[2022-01-04] MEDS: buPROPion HCl 100 MG TAB PO SCH (08:50)
[2022-01-04] MEDS: HYDROcodone/Acetaminophen 5/325 mg Tablet PO PRN (12:15)
[2022-01-04] MEDS: Ondansetron ODT 4 MG TAB PO PRN (12:15)
[2022-01-05] MEDS: HYDROcodone/Acetaminophen 5/325 mg Tablet PO PRN ×4 (02:41→20:49)
[2022-01-05 05:39] LABS: Anion Gap 10 mmol/L (10-20); BUN (Urea Nitrogen) 18 mg/dL (9.8-20.1); Calc. Creatinine Clearance 51 mL/min (70-130); Calcium 8.4 mg/dL (7.8-10.44); Carbon Dioxide 20 mmol/L (22-29); Chloride 111 mmol/L (98-107); Estimated GFR 49; Glucose 72 mg/dL (70-105); Potassium 3.8 mmol/L (3.5-5.1); Sodium 137 mmol/L (136-145)
[2022-01-05] MEDS: Rifaximin 550 MG TAB PO SCH ×2 (09:50→20:50)
[2022-01-05] MEDS: buPROPion HCl 100 MG TAB PO SCH (09:51)
[2022-01-05] MEDS ORDERED: Furosemide 40 MG/4 ML VIAL SLOW IVP SCH (11:00)
[2022-01-05] MEDS ORDERED: Furosemide 40 MG TAB PO SCH (12:45)
[2022-01-06] MEDS: HYDROcodone/Acetaminophen 5/325 mg Tablet PO PRN ×3 (05:49→23:46)
[2022-01-06] MEDS: buPROPion HCl 100 MG TAB PO SCH (07:57)
[2022-01-06] MEDS: Rifaximin 550 MG TAB PO SCH ×2 (07:57→20:10)
[2022-01-06] MEDS: Folic Acid 1 MG TAB PO SCH (07:57)
[2022-01-06] MEDS: Furosemide 40 MG TAB PO SCH (07:57)
[2022-01-06] MEDS ORDERED: Spironolactone 25 MG TAB PO SCH (09:00)
[2022-01-07] MEDS: HYDROcodone/Acetaminophen 5/325 mg Tablet PO PRN ×3 (06:17→19:53)
[2022-01-07] MEDS: Furosemide 40 MG TAB PO SCH (08:22)
[2022-01-07] MEDS: Folic Acid 1 MG TAB PO SCH (08:22)
[2022-01-07] MEDS: Spironolactone 25 MG TAB PO SCH (08:22)
[2022-01-07] MEDS: Rifaximin 550 MG TAB PO SCH ×2 (08:22→19:50)
[2022-01-07] MEDS: buPROPion HCl 100 MG TAB PO SCH (08:22)
[2022-01-07 11:15] LABS: Anion Gap 11 mmol/L (10-20); BUN (Urea Nitrogen) 16 mg/dL (9.8-20.1); Calc. Creatinine Clearance 53 mL/min (70-130); Calcium 8.2 mg/dL (7.8-10.44); Carbon Dioxide 20 mmol/L (22-29); Chloride 105 mmol/L (98-107); Estimated GFR 51; Glucose 109 mg/dL (70-105); Potassium 3.2 mmol/L (3.5-5.1); Sodium 133 mmol/L (136-145)
[2022-01-08] MEDS: HYDROcodone/Acetaminophen 5/325 mg Tablet PO PRN ×3 (06:17→19:21)
[2022-01-08 07:34] LABS: Anion Gap 11 mmol/L (10-20); BUN (Urea Nitrogen) 13 mg/dL (9.8-20.1); Calc. Creatinine Clearance 60 mL/min (70-130); Calcium 7.9 mg/dL (7.8-10.44); Carbon Dioxide 24 mmol/L (22-29); Chloride 104 mmol/L (98-107); Estimated GFR 59; Glucose 77 mg/dL (70-105); Potassium 3.2 mmol/L (3.5-5.1); Sodium 136 mmol/L (136-145)
[2022-01-08] MEDS ORDERED: Magnesium Sulfate In Water 4 GM in Premix Bag 1 BAG IVPB SCH (08:15)
[2022-01-08] MEDS: Rifaximin 550 MG TAB PO SCH ×2 (08:26→19:59)
[2022-01-08] MEDS: Folic Acid 1 MG TAB PO SCH (08:26)
[2022-01-08] MEDS: Furosemide 40 MG TAB PO SCH (08:26)
[2022-01-08] MEDS: Spironolactone 25 MG TAB PO SCH (08:26)
[2022-01-08] MEDS: buPROPion HCl 100 MG TAB PO SCH (08:26)
[2022-01-08 10:22] LABS: Hemoglobin 9.2 g/dL (12.0-16.0); Mean Corpuscular HGB CONC 31.3 g/dL (32.0-36.0); Mean Corpuscular Hemoglobin 31.8 pg (27.0-31.0); Mean Platelet Volume 11.9 fL (7.4-10.4); Platelet Count 47 10x3/uL (130-400); RBC Distribution Width 15.9 % (11.5-14.5); Red Blood Cell (RBC) Count 2.89 mill/uL (4.20-5.40); White Blood Cell (WBC) Count 5.7 10x3/uL (4.8-10.8)
[2022-01-08] MEDS: Magnesium Sulfate In Water 4 GM in Premix Bag 1 BAG IVPB SCH ×2 (11:02→11:21)
[2022-01-08 11:30] LABS: Crenated RBC SLIGHT = 1-5 cells (100X) (None Seen); Elliptocytes SLIGHT = 2-5 cells (100X) (0-1/hpf); Lymphocytes 12 % (21-51); MDiff Complete? YES; Microcytosis MODERATE=15-30 cells (100X) (0-5/hpf); Monocytes 5 % (0-10); Neutrophil 83 % (42-75); Platelet Morphology Comment Appears Adequate
[2022-01-08] MEDS ORDERED: Potassium Chloride 20 MEQ TAB PO SCH (11:30)
[2022-01-08] MEDS ORDERED: Magnesium Oxide 400 MG TAB PO SCH (12:15)
[2022-01-09] MEDS: HYDROcodone/Acetaminophen 5/325 mg Tablet PO PRN ×3 (02:27→17:09)
[2022-01-09 06:47] LABS: ALT (SGPT) 21 U/L (8-55); AST (SGOT) 32 U/L (5-34); Albumin 2.5 g/dL (3.5-5.0); Alkaline Phosphatase 74 U/L (40-110); Anion Gap 10 mmol/L (10-20); BUN (Urea Nitrogen) 12 mg/dL (9.8-20.1); Bilirubin, Total 2.1 mg/dL (0.2-1.2); Calc. Creatinine Clearance 60 mL/min (70-130); Calcium 7.8 mg/dL (7.8-10.44); Carbon Dioxide 23 mmol/L (22-29); Chloride 106 mmol/L (98-107); Estimated GFR 60; Globulin 1.8 g/dL (2.4-3.5); Glucose 73 mg/dL (70-105); Potassium 3.5 mmol/L (3.5-5.1); Protein, Total 4.3 g/dL (6.0-8.3); Sodium 135 mmol/L (136-145)
[2022-01-09 06:48] LABS: Magnesium 1.2 mg/dL (1.6-2.6)
[2022-01-09] MEDS: Furosemide 40 MG TAB PO SCH (07:40)
[2022-01-09] MEDS: Ondansetron ODT 4 MG TAB PO PRN (07:40)
[2022-01-09 08:28] LABS: Hemoglobin 9.7 g/dL (12.0-16.0); Mean Corpuscular HGB CONC 31.4 g/dL (32.0-36.0); Mean Corpuscular Hemoglobin 32.1 pg (27.0-31.0); Platelet Count 48 10x3/uL (130-400); RBC Distribution Width 16.4 % (11.5-14.5); Red Blood Cell (RBC) Count 3.02 mill/uL (4.20-5.40); White Blood Cell (WBC) Count 5.7 10x3/uL (4.8-10.8)
[2022-01-09] MEDS ORDERED: Magnesium Oxide 400 MG TAB PO SCH (09:00)
[2022-01-09] MEDS: Folic Acid 1 MG TAB PO SCH (09:03)
[2022-01-09] MEDS: buPROPion HCl 100 MG TAB PO SCH (09:03)
[2022-01-09] MEDS: Rifaximin 550 MG TAB PO SCH ×2 (09:03→20:29)
[2022-01-09] MEDS: Spironolactone 25 MG TAB PO SCH (09:03)
[2022-01-09 10:48] LABS: Band 9 % (5-11); Lymphocytes 19 % (21-51); MDiff Complete? YES; Monocytes 12 % (0-10); Neutrophil 57 % (42-75); Platelet Morphology Comment Appears Decreased; Polychromasia SLIGHT = 2-3 cells (100X) (0-2/hpf); Reactive Lymphocytes 2 % (0-10); Schistocytes SLIGHT = 2-5 cells (100X) (0-1/hpf)
[2022-01-09] MEDS ORDERED: Calcium Carbonate 500 MG ChewTAB PO PRN (17:19)
[2022-01-09] MEDS ORDERED: Electrolyte Replacement Protocol 1 EACH FS SCH (17:30)
[2022-01-09] MEDS ORDERED: Electrolyte Replacement Protocol FS PRN (17:45)
[2022-01-09] MEDS ORDERED: Magnesium Sulfate In Water 4 GM in Premix Bag 1 BAG IVPB SCH (18:00)
[2022-01-09] MEDS: Rosuvastatin 20 MG TAB PO SCH (20:29)
[2022-01-09] MEDS: Magnesium Oxide 400 MG TAB PO SCH (20:29)
[2022-01-10] MEDS ORDERED: Magnesium Sulfate In Water 4 GM in Premix Bag 1 BAG IVPB SCH (01:15)
[2022-01-10] MEDS: HYDROcodone/Acetaminophen 5/325 mg Tablet PO PRN ×2 (07:46→16:19)
[2022-01-10] MEDS: Furosemide 40 MG TAB PO SCH (07:50)
[2022-01-10] MEDS: Spironolactone 25 MG TAB PO SCH (07:51)
[2022-01-10] MEDS: Rifaximin 550 MG TAB PO SCH ×2 (08:37→20:17)
[2022-01-10] MEDS: buPROPion HCl 100 MG TAB PO SCH (08:37)
[2022-01-10] MEDS: Folic Acid 1 MG TAB PO SCH (08:37)
[2022-01-10] MEDS: Magnesium Oxide 400 MG TAB PO SCH ×2 (08:38→20:17)
[2022-01-10] MEDS: Rosuvastatin 20 MG TAB PO SCH (20:17)
[2022-01-11] MEDS: HYDROcodone/Acetaminophen 5/325 mg Tablet PO PRN ×2 (01:09→08:07)
[2022-01-11 06:08] LABS: ALT (SGPT) 18 U/L (8-55); AST (SGOT) 35 U/L (5-34); Albumin 2.6 g/dL (3.5-5.0); Alkaline Phosphatase 77 U/L (40-110); Anion Gap 9 mmol/L (10-20); BUN (Urea Nitrogen) 11 mg/dL (9.8-20.1); Bilirubin, Total 1.8 mg/dL (0.2-1.2); Calc. Creatinine Clearance 78 mL/min (70-130); Calcium 7.8 mg/dL (7.8-10.44); Carbon Dioxide 25 mmol/L (22-29); Chloride 104 mmol/L (98-107); Estimated GFR 82; Globulin 1.9 g/dL (2.4-3.5); Glucose 99 mg/dL (70-105); Magnesium 1.9 mg/dL (1.6-2.6); Potassium 3.2 mmol/L (3.5-5.1); Protein, Total 4.5 g/dL (6.0-8.3); Sodium 135 mmol/L (136-145)
[2022-01-11 06:57] LABS: Hemoglobin 9.5 g/dL (12.0-16.0); Mean Corpuscular HGB CONC 32.4 g/dL (32.0-36.0); Mean Corpuscular Hemoglobin 33.2 pg (27.0-31.0); Mean Platelet Volume 10.9 fL (7.4-10.4); Platelet Count 58 10x3/uL (130-400); RBC Distribution Width 16.9 % (11.5-14.5); Red Blood Cell (RBC) Count 2.85 mill/uL (4.20-5.40); White Blood Cell (WBC) Count 6.4 10x3/uL (4.8-10.8)
[2022-01-11] MEDS ORDERED: Potassium Bicarbonate/Cit Ac 20 MEQ TAB PO SCH (08:00)
[2022-01-11] MEDS: Rifaximin 550 MG TAB PO SCH (08:02)
[2022-01-11] MEDS: buPROPion HCl 100 MG TAB PO SCH (08:02)
[2022-01-11] MEDS: Folic Acid 1 MG TAB PO SCH (08:02)
[2022-01-11] MEDS: Furosemide 40 MG TAB PO SCH (08:02)
[2022-01-11] MEDS: Spironolactone 25 MG TAB PO SCH (08:02)
[2022-01-11] MEDS: Magnesium Oxide 400 MG TAB PO SCH (08:02)
[2022-01-11] MEDS ORDERED: Magnesium 2 GM/50 ML(in water) 2 GM in Premix Bag 1 BAG IVPB SCH (08:15)
[2022-01-11 08:41] VITALS: BP 149/81; TEMP 98.3
[2022-01-11 11:48] LABS: Band 4 % (5-11); Bite Cells SLIGHT = 2-5 cells (100X) (0-1/hpf); Lymphocytes 20 % (21-51); MDiff Complete? YES; Monocytes 13 % (0-10); Neutrophil 63 % (42-75); Platelet Morphology Comment Appears Adequate; Polychromasia SLIGHT = 2-3 cells (100X) (0-2/hpf); Schistocytes SLIGHT = 2-5 cells (100X) (0-1/hpf)
== END 2022-01-11 12:20 | disposition home or self-care (01) | DRG 433 ==
LOC: ERS 14:26 → MSONC 16:43 → OBSVTOIN 01-04 13:58
PROVIDERS: ADMIT Hospitalist; ATTEND Internal Medicine
PROC: 0W9G3ZZ Drainage of Peritoneal Cavity, Percutaneous Approach (ICD-10-PCS; principal; 2022-01-03)
DX: K70.31 Alcoholic cirrhosis of liver with ascites (principal); E87.1 Hypo-osmolality and hyponatremia; I85.10 Secondary esophageal varices without bleeding; N17.9 Acute kidney failure, unspecified; J96.10 Chronic respiratory failure, unspecified whether with hypoxia or hypercapnia; J44.9 Chronic obstructive pulmonary disease, unspecified; D63.1 Anemia in chronic kidney disease; D69.6 Thrombocytopenia, unspecified; N18.2 Chronic kidney disease, stage 2 (mild); B18.2 Chronic viral hepatitis C; E88.09 Other disorders of plasma-protein metabolism, not elsewhere classified; E87.6 Hypokalemia; E83.42 Hypomagnesemia; Z88.5 Allergy status to narcotic agent; Z79.51 Long term (current) use of inhaled steroids; Z79.899 Other long term (current) drug therapy
CPT/HCPCS: 36415; 49083; 51702; 51798; 76705; 76856; 80048; 80053; 83615; 83735; 84157; 85025; 85060; 85610; 87070; 87205; 87811; 88112; 89051; 94640; 96374; 96375; 96376; G0378; J0696; J2001; J2270; J2405; J3010; J3475; J3490; J7620; P9047; Q0162; U0003; U0005

== ENCOUNTER 2022-02-01 19:48 | Inpatient (IN) | payer OTHER ==
[2022-02-01] MEDS ORDERED: HYDROcodone/Acetaminophen 10/325 mg Tablet PO PRN (20:38)
[2022-02-01] MEDS ORDERED: Morphine 4 MG/ML VIAL SLOW IVP PRN (20:38)
[2022-02-01] MEDS ORDERED: hydrALAZINE 20 MG/ML VIAL SLOW IVP PRN (20:38)
[2022-02-01] MEDS ORDERED: TETANUS, DIPHTHERIA TOX,ADULT (TDVAX) 0.5 ML VIAL IM ONE (20:38)
[2022-02-01] MEDS ORDERED: traMADol HCl 50 MG TAB PO PRN (20:38)
[2022-02-01] MEDS ORDERED: Ondansetron PF 4 MG/2 ML Vial IVP PRN (20:38)
[2022-02-01] MEDS ORDERED: Lorazepam 2 MG/ML VIAL SLOW IVP PRN (20:38)
[2022-02-01] MEDS ORDERED: Ondansetron ODT 4 MG TAB PO PRN ×2 (20:38→20:44)
[2022-02-01] MEDS ORDERED: Piperacillin/Tazobactam 3.375 GM in Sodium Chloride 0.9% 100 ML IVPB SCH (20:45)
[2022-02-01] MEDS ORDERED: Potassium Chloride 20 MEQ in Lactated Ringer's 1,000 ML IV SCH (20:45)
[2022-02-01] MEDS: Metoprolol Tartrate 25 MG TAB PO SCH (21:00)
[2022-02-01] MEDS: Pantoprazole 40 MG VIAL IVP SCH (21:00)
[2022-02-01] MEDS ORDERED: Rifaximin 550 MG TAB PO SCH (21:00)
[2022-02-01] MEDS ORDERED: Succinylcholine Chloride 100 MG/5 ML SYRINGE FS ONE (21:58)
[2022-02-01] MEDS ORDERED: Ondansetron PF 4 MG/2 ML Vial ONE (21:58)
[2022-02-01] MEDS: Potassium Chloride 20 MEQ in Lactated Ringer's 1,000 ML IV SCH (22:37)
[2022-02-01] MEDS ORDERED: Promethazine HCl 25 MG/ML VIAL IM PRN (22:40)
[2022-02-01] MEDS ORDERED: Promethazine HCl 25 MG/ML VIAL IVPB PRN (22:40)
[2022-02-01] MEDS ORDERED: Ondansetron HCl/PF 4 MG/2 ML Vial IVP PRN (22:40)
[2022-02-01] MEDS: Albumin 25% 25 GM/100 ML BOT IVPB SCH (23:59)
[2022-02-02] MEDS ORDERED: Morphine 4 MG/ML VIAL SLOW IVP PRN (01:01)
[2022-02-02] MEDS ORDERED: Ketorolac Tromethamine 30 MG/ML VIAL IVP SCH (01:15)
[2022-02-02] MEDS ORDERED: Potassium Chloride 20 MEQ TAB PO SCH (01:15)
[2022-02-02] MEDS ORDERED: Albuterol Sulfate 2.5 mg/3 ml Neb NEB PRN (01:15)
[2022-02-02] MEDS: Potassium Chloride 20 MEQ in Lactated Ringer's 1,000 ML IV SCH (05:11)
[2022-02-02] MEDS: Albumin 25% 25 GM/100 ML BOT IVPB SCH ×2 (05:14→11:37)
[2022-02-02] MEDS: Ketorolac Tromethamine 30 MG/ML VIAL IVP SCH ×2 (05:15→11:36)
[2022-02-02 06:12] VITALS: BMI 19.0
[2022-02-02] MEDS ORDERED: Mometasone/Formoterol 200/5 60 PUFF INH SCH (06:30)
[2022-02-02 07:35] LABS: ALT (SGPT) 15 U/L (8-55); AST (SGOT) 37 U/L (5-34); Albumin 3.1 g/dL (3.5-5.0); Alkaline Phosphatase 66 U/L (40-110); Anion Gap 12 mmol/L (10-20); BUN (Urea Nitrogen) 11 mg/dL (9.8-20.1); Bilirubin, Total 3.1 mg/dL (0.2-1.2); Calc. Creatinine Clearance 70 mL/min (70-130); Calcium 8.2 mg/dL (7.8-10.44); Carbon Dioxide 17 mmol/L (22-29); Chloride 112 mmol/L (98-107); Estimated GFR 86; Globulin 1.9 g/dL (2.4-3.5); Glucose 84 mg/dL (70-105); Potassium 3.4 mmol/L (3.5-5.1); Sodium 138 mmol/L (136-145)
[2022-02-02 07:39] LABS: #Lymphocytes 1.3 thou/uL (1.20-3.40); #Monocytes 0.8 thou/uL (0.11-0.59); #Neutrophils 5.4 thou/uL (1.40-6.50); %Basophils 0.6 % (0.0-1.0); %Eosinophils 0.1 % (0.0-10.0); %Lymphocytes 17.4 % (21.0-51.0); %Monocytes 10.4 % (0.0-10.0); %Neutrophils 71.4 % (42.0-75.0); Hemoglobin 9.5 g/dL (12.0-16.0); Mean Corpuscular HGB CONC 31.7 g/dL (32.0-36.0); Mean Platelet Volume 9.9 fL (7.4-10.4); Platelet Count 76 10x3/uL (130-400); Red Blood Cell (RBC) Count 2.98 mill/uL (4.20-5.40); White Blood Cell (WBC) Count 7.5 10x3/uL (4.8-10.8)
[2022-02-02] MEDS ORDERED: Magnesium Oxide 400 MG TAB PO SCH (09:00)
[2022-02-02] MEDS ORDERED: Folic Acid 1 MG TAB PO SCH (09:00)
[2022-02-02] MEDS ORDERED: Spironolactone 25 MG TAB PO SCH (09:00)
[2022-02-02] MEDS ORDERED: Propranolol 10 MG TAB PO SCH (09:00)
[2022-02-02] MEDS ORDERED: Furosemide 40 MG TAB PO SCH (09:00)
[2022-02-02] MEDS ORDERED: buPROPion HCl 100 MG TAB PO SCH (09:00)
[2022-02-02] MEDS ORDERED: Sodium Bicarbonate Tab 325 MG TAB PO SCH (09:00)
[2022-02-02] MEDS ORDERED: [UNRECOGNIZED DRUG - OTHER] PO SCH (09:00)
[2022-02-02] MEDS: Metoprolol Tartrate 25 MG TAB PO SCH (09:26)
[2022-02-02] MEDS: Pantoprazole 40 MG VIAL IVP SCH (09:26)
[2022-02-02 15:12] VITALS: BP 127/77; TEMP 97.9
== END 2022-02-02 15:51 | disposition home or self-care (01) | DRG 354 ==
LOC: SJX 19:48 → SJJU 20:38
PROVIDERS: ADMIT Specialist; ATTEND Specialist
PROC: 0WQF0ZZ Repair Abdominal Wall, Open Approach (ICD-10-PCS; principal; 2022-02-01)
PROC: 0W9G0ZZ Drainage of Peritoneal Cavity, Open Approach (ICD-10-PCS; 2022-02-01)
PROC: 30233J1 Transfusion of Nonautologous Serum Albumin into Peripheral Vein, Percutaneous Approach (ICD-10-PCS; 2022-02-01)
DX: K42.0 Umbilical hernia with obstruction, without gangrene (principal); K76.6 Portal hypertension; R18.8 Other ascites; K74.60 Unspecified cirrhosis of liver; Z20.822 Contact with and (suspected) exposure to COVID-19; I10 Essential (primary) hypertension; J44.9 Chronic obstructive pulmonary disease, unspecified; Z87.891 Personal history of nicotine dependence; Z88.5 Allergy status to narcotic agent; Z98.51 Tubal ligation status; Z90.49 Acquired absence of other specified parts of digestive tract; Z98.890 Other specified postprocedural states
CPT/HCPCS: 36415; 80053; 85025; C9113; J1885; J2270; J2405; J3480; J7120; P9047

== ENCOUNTER 2022-02-21 20:17 | Inpatient (IN) | payer OTHER, MEDICAID ==
[~2022-02-21 20:17] MED LIST changes: -Heparin 1,000 UNITS/ML VIAL ONE; +Iopamidol-370 76% 500 ML 1 ML ONE
[2022-02-21] MEDS ORDERED: Albuterol 2.5 MG/0.5 ML NEB ONE (21:20)
[2022-02-21] MEDS ORDERED: methylPREDNISolone Sod Succ/PF 125 MG/2 ML VIAL ONE (21:38)
[2022-02-21 21:49] LABS: Hemoglobin 12.1 g/dL (12.0-16.0); Mean Corpuscular HGB CONC 32.4 g/dL (32.0-36.0); Mean Corpuscular Hemoglobin 32.8 pg (27.0-31.0); Mean Platelet Volume 9.5 fL (7.4-10.4); Platelet Count 124 10x3/uL (130-400); RBC Distribution Width 16.6 % (11.5-14.5); Red Blood Cell (RBC) Count 3.68 mill/uL (4.20-5.40); White Blood Cell (WBC) Count 8.2 10x3/uL (4.8-10.8)
[2022-02-21 22:01] LABS: ALT (SGPT) 18 U/L (8-55); AST (SGOT) 53 U/L (5-34); Albumin 2.7 g/dL (3.5-5.0); Alkaline Phosphatase 99 U/L (40-110); Anion Gap 12 mmol/L (10-20); BUN (Urea Nitrogen) 11 mg/dL (9.8-20.1); Bilirubin, Total 2.8 mg/dL (0.2-1.2); Calc. Creatinine Clearance 0 mL/min (70-130); Calcium 8.1 mg/dL (7.8-10.44); Carbon Dioxide 24 mmol/L (22-29); Chloride 106 mmol/L (98-107); Estimated GFR 76; Globulin 2.6 g/dL (2.4-3.5); Glucose 113 mg/dL (70-105); Potassium 3.3 mmol/L (3.5-5.1); Protein, Total 5.3 g/dL (6.0-8.3); Sodium 139 mmol/L (136-145)
[2022-02-21 22:13] LABS: Anisocytosis SLIGHT = 6-15 cells (100X) (0-5/hpf); Band 4 % (5-11); Lymphocytes 14 % (21-51); MDiff Complete? YES; Macrocytosis SLIGHT = 6-15 cells (100X) (0-5/hpf); Monocytes 10 % (0-10); Neutrophil 71 % (42-75); Ovalocytes SLIGHT = 2-5 cells (100X) (0-1/hpf); Platelet Morphology Comment Appears Decreased; Reactive Lymphocytes 1 % (0-10); Target Cells SLIGHT = 2-5 cells (100X) (0-1/hpf)
[2022-02-21 23:12] LABS: INR-International Normal Ratio 1.6; Prothrombin Time 19.6 sec (12.0-14.7)
[2022-02-21 23:13] LABS: PTT 35.3 sec (22.9-36.1)
[2022-02-22 02:00] LABS: SARS-CoV-2 NAA Rapid Test Not Detected (NotDetected)
[2022-02-22] MEDS ORDERED: Ondansetron PF 4 MG/2 ML Vial IVP PRN (02:06)
[2022-02-22] MEDS ORDERED: Acetaminophen 500 MG TAB PO PRN (02:13)
[2022-02-22] MEDS ORDERED: Potassium Chloride 20 MEQ TAB PO SCH (02:15)
[2022-02-22] MEDS ORDERED: Ipratropium/Albuterol 3 ML NEB EZPAP PRN (05:05)
[2022-02-22] MEDS ORDERED: Electrolyte Replacement Protocol 1 EACH FS ONE (07:19)
[2022-02-22 07:37] LABS: #Basophils 0.1 thou/uL (0.0-0.2); #Lymphocytes 0.9 thou/uL (1.20-3.40); #Monocytes 0.5 thou/uL (0.11-0.59); #Neutrophils 7.2 thou/uL (1.40-6.50); %Basophils 0.8 % (0.0-1.0); %Eosinophils 0.1 % (0.0-10.0); %Lymphocytes 10.5 % (21.0-51.0); %Monocytes 6.1 % (0.0-10.0); %Neutrophils 82.4 % (42.0-75.0); Hemoglobin 12.1 g/dL (12.0-16.0); Mean Corpuscular HGB CONC 31.9 g/dL (32.0-36.0); Mean Corpuscular Hemoglobin 32.6 pg (27.0-31.0); Mean Platelet Volume 9.9 fL (7.4-10.4); Platelet Count 111 10x3/uL (130-400); RBC Distribution Width 16.5 % (11.5-14.5); Red Blood Cell (RBC) Count 3.72 mill/uL (4.20-5.40); White Blood Cell (WBC) Count 8.7 10x3/uL (4.8-10.8)
[2022-02-22 07:45] LABS: Anion Gap 13 mmol/L (10-20); BUN (Urea Nitrogen) 13 mg/dL (9.8-20.1); Calc. Creatinine Clearance 72 mL/min (70-130); Calcium 8.3 mg/dL (7.8-10.44); Carbon Dioxide 19 mmol/L (22-29); Chloride 108 mmol/L (98-107); Estimated GFR 84; Glucose 134 mg/dL (70-105); Potassium 3.9 mmol/L (3.5-5.1); Sodium 136 mmol/L (136-145)
[2022-02-22] MEDS ORDERED: Electrolyte Replacement Protocol FS PRN (07:45)
[2022-02-22] MEDS ORDERED: Potassium Chloride 20 MEQ in Premix Bag 1 BAG IVPB SCH (08:00)
[2022-02-22] MEDS: HYDROcodone/Acetaminophen 7.5/325 mg Tablet PO PRN ×2 (09:18→20:54)
[2022-02-22] MEDS: Ipratropium/Albuterol 3 ML NEB IPPB SCH ×4 (10:54→23:16)
[2022-02-22] MEDS: Mometasone 200 MCG/Formoterol 5 MCG 120 PUFF INHALER INH SCH ×2 (10:55→18:31)
[2022-02-22] MEDS: Spironolactone 25 MG TAB PO SCH (11:02)
[2022-02-22] MEDS: Furosemide 20 MG TAB PO SCH (11:02)
[2022-02-22] MEDS: Rifaximin 550 MG TAB PO SCH ×2 (11:02→20:05)
[2022-02-22] MEDS ORDERED: Sodium Bicarbonate 2.5 MEQ/5 ML VIAL ONE (13:00)
[2022-02-22] MEDS ORDERED: Lidocaine 1% PF 5 ML VIAL ONE (13:00)
[2022-02-22 15:23] LABS: Magnesium 1.5 mg/dL (1.6-2.6); Phosphorus 3.6 mg/dL (2.3-4.7)
[2022-02-22] MEDS: predniSONE 1 MG/ML ML PO SCH (15:43)
[2022-02-22] MEDS: cefTRIAXone\\ROCEPHIN 2 GM in Sodium Chloride 0.9% 100 ML IVPB SCH (15:43)
[2022-02-22 15:55] LABS: RBC Count-Automated (BF) 331 /cu.mm; WBC/Nucleated-Auto (BF) 248 /cu.mm
[2022-02-22 16:12] LABS: BF Color Yellow; Body Fluid Source Pleural Fluid; Clarity Hazy (Clear); Tube # EDTA
[2022-02-22 16:18] LABS: BF Segmented Neutrophils 23 %; Cell Count Non Hematic 64 %; Lymphocytes 13 %
[2022-02-22 19:25] LABS: Pleural Fluid, Amylase Less than 30 U/L (Not Available); Pleural Fluid, Glucose 133 mg/dL; Pleural Fluid, LDH 71 U/L (Not Available); Pleural Fluid, Protein Less than 1.0 g/dL
[2022-02-22] MEDS: Metoprolol Tartrate 25 MG TAB PO SCH (20:05)
[2022-02-22] MEDS ORDERED: diphenhydrAMINE 25 MG CAP PO SCH (20:30)
[2022-02-22] MEDS ORDERED: Magnesium 2 GM/50 ML(in water) 2 GM in Premix Bag 1 BAG IVPB SCH (23:59)
[2022-02-23] MEDS: Metoprolol Tartrate 25 MG TAB PO SCH ×2 (05:33→20:06)
[2022-02-23] MEDS: Ipratropium/Albuterol 3 ML NEB IPPB SCH ×3 (06:31→18:50)
[2022-02-23] MEDS: Mometasone 200 MCG/Formoterol 5 MCG 120 PUFF INHALER INH SCH ×2 (06:33→18:52)
[2022-02-23] MEDS ORDERED: Electrolyte Replacement Protocol 1 EACH FS ONE (07:32)
[2022-02-23] MEDS: Folic Acid 1 MG TAB PO SCH (08:01)
[2022-02-23] MEDS: Spironolactone 25 MG TAB PO SCH (08:01)
[2022-02-23] MEDS: predniSONE 1 MG/ML ML PO SCH (08:01)
[2022-02-23] MEDS: Furosemide 20 MG TAB PO SCH (08:01)
[2022-02-23] MEDS: Rifaximin 550 MG TAB PO SCH ×2 (08:01→20:06)
[2022-02-23 08:20] LABS: Fluid, pH - Pleural Fld Greater than 7.50 (7.60 - 7.66)
[2022-02-23 08:33] LABS: Hemoglobin 11.2 g/dL (12.0-16.0); Mean Corpuscular HGB CONC 30.8 g/dL (32.0-36.0); Mean Corpuscular Hemoglobin 31.3 pg (27.0-31.0); Mean Platelet Volume 10.7 fL (7.4-10.4); Platelet Count 89 10x3/uL (130-400); RBC Distribution Width 16.9 % (11.5-14.5); Red Blood Cell (RBC) Count 3.59 mill/uL (4.20-5.40); White Blood Cell (WBC) Count 17.1 10x3/uL (4.8-10.8)
[2022-02-23 08:47] LABS: Phosphorus 3.3 mg/dL (2.3-4.7)
[2022-02-23 09:11] LABS: #Lymphocytes 1.7 thou/uL (1.20-3.40); #Monocytes 1.6 thou/uL (0.11-0.59); #Neutrophils 13.8 thou/uL (1.40-6.50); %Basophils 0.1 % (0.0-1.0); %Eosinophils 0.1 % (0.0-10.0); %Lymphocytes 9.7 % (21.0-51.0); %Monocytes 9.1 % (0.0-10.0); %Neutrophils 80.9 % (42.0-75.0); Band 6 % (5-11); Lymphocytes 8 % (21-51); MDiff Complete? YES; Monocytes 8 % (0-10); Neutrophil 78 % (42-75); Platelet Morphology Comment Appears Decreased; RBC Morphology Normal
[2022-02-23] MEDS: Nicotine 14 MG PATCH TD SCH (09:32)
[2022-02-23 11:22] LABS: ALT (SGPT) 18 U/L (8-55); AST (SGOT) 51 U/L (5-34); Albumin 2.5 g/dL (3.5-5.0); Alkaline Phosphatase 85 U/L (40-110); Anion Gap 15 mmol/L (10-20); BUN (Urea Nitrogen) 20 mg/dL (9.8-20.1); Bilirubin, Total 1.5 mg/dL (0.2-1.2); Calc. Creatinine Clearance 41 mL/min (70-130); Calcium 8.1 mg/dL (7.8-10.44); Carbon Dioxide 15 mmol/L (22-29); Chloride 113 mmol/L (98-107); Estimated GFR 42; Globulin 2.8 g/dL (2.4-3.5); Glucose 128 mg/dL (70-105); Magnesium 2.1 mg/dL (1.6-2.6); Protein, Total 5.3 g/dL (6.0-8.3); Sodium 139 mmol/L (136-145)
[2022-02-23] MEDS ORDERED: Lidocaine 1% PF 5 ML VIAL ONE (12:56)
[2022-02-23] MEDS ORDERED: Sodium Bicarbonate 2.5 MEQ/5 ML VIAL ONE (12:56)
[2022-02-23] MEDS: cefTRIAXone\\ROCEPHIN 2 GM in Sodium Chloride 0.9% 100 ML IVPB SCH (14:42)
[2022-02-23] MEDS ORDERED: VANCOMYCIN 1.25 GM/250 ML BAG 1.25 GM in Premix Bag 1 BAG IVPB SCH (17:00)
[2022-02-23] MEDS: HYDROcodone/Acetaminophen 7.5/325 mg Tablet PO PRN (17:16)
[2022-02-23] MEDS ORDERED: diphenhydrAMINE 25 MG CAP PO SCH (20:00)
[2022-02-24] MEDS: Ipratropium/Albuterol 3 ML NEB IPPB SCH ×5 (00:03→23:31)
[2022-02-24] MEDS: diphenhydrAMINE 12.5 MG/5 ML UDCUP PO PRN ×3 (03:49→21:32)
[2022-02-24] MEDS: HYDROcodone/Acetaminophen 7.5/325 mg Tablet PO PRN ×4 (03:49→21:32)
[2022-02-24] MEDS: Mometasone 200 MCG/Formoterol 5 MCG 120 PUFF INHALER INH SCH ×2 (07:07→18:11)
[2022-02-24] MEDS: predniSONE 1 MG/ML ML PO SCH (09:31)
[2022-02-24] MEDS: Folic Acid 1 MG TAB PO SCH (09:33)
[2022-02-24] MEDS: Furosemide 20 MG TAB PO SCH (09:33)
[2022-02-24] MEDS: Spironolactone 25 MG TAB PO SCH (09:33)
[2022-02-24 09:34] LABS: Anion Gap 13 mmol/L (10-20); BUN (Urea Nitrogen) 14 mg/dL (9.8-20.1); Calc. Creatinine Clearance 64 mL/min (70-130); Calcium 7.7 mg/dL (7.8-10.44); Carbon Dioxide 10 mmol/L (22-29); Chloride 116 mmol/L (98-107); Estimated GFR 73; Glucose 91 mg/dL (70-105); Magnesium 1.6 mg/dL (1.6-2.6); Phosphorus 2.5 mg/dL (2.3-4.7); Sodium 135 mmol/L (136-145)
[2022-02-24] MEDS: Metoprolol Tartrate 25 MG TAB PO SCH ×2 (09:34→20:27)
[2022-02-24] MEDS: Nicotine 14 MG PATCH TD SCH (09:34)
[2022-02-24] MEDS: Rifaximin 550 MG TAB PO SCH ×2 (09:34→20:27)
[2022-02-24] MEDS ORDERED: Magnesium 2 GM/50 ML(in water) 2 GM in Premix Bag 1 BAG IVPB SCH (10:30)
[2022-02-24] MEDS: cefTRIAXone\\ROCEPHIN 2 GM in Sodium Chloride 0.9% 100 ML IVPB SCH (15:25)
[2022-02-24] MEDS ORDERED: Vancomycin 1 GM in Premix Bag 1 BAG IVPB SCH (17:00)
[2022-02-24 20:18] LABS: #Lymphocytes 1.9 thou/uL (1.20-3.40); #Neutrophils 6.5 thou/uL (1.40-6.50); %Basophils 0.2 % (0.0-1.0); %Eosinophils 0.1 % (0.0-10.0); %Lymphocytes 20.4 % (21.0-51.0); %Monocytes 10.6 % (0.0-10.0); %Neutrophils 68.6 % (42.0-75.0); Hemoglobin 11.7 g/dL (12.0-16.0); Mean Corpuscular HGB CONC 31.9 g/dL (32.0-36.0); Mean Corpuscular Hemoglobin 31.9 pg (27.0-31.0); Mean Platelet Volume 10.5 fL (7.4-10.4); Platelet Count 110 10x3/uL (130-400); RBC Distribution Width 16.4 % (11.5-14.5); Red Blood Cell (RBC) Count 3.66 mill/uL (4.20-5.40); White Blood Cell (WBC) Count 9.4 10x3/uL (4.8-10.8)
[2022-02-25] MEDS: HYDROcodone/Acetaminophen 7.5/325 mg Tablet PO PRN ×2 (04:29→20:18)
[2022-02-25] MEDS: diphenhydrAMINE 12.5 MG/5 ML UDCUP PO PRN ×2 (04:49→20:18)
[2022-02-25] MEDS: Ipratropium/Albuterol 3 ML NEB IPPB SCH ×3 (06:54→18:54)
[2022-02-25] MEDS: Mometasone 200 MCG/Formoterol 5 MCG 120 PUFF INHALER INH SCH ×2 (06:56→18:54)
[2022-02-25] MEDS: Metoprolol Tartrate 25 MG TAB PO SCH ×2 (09:30→20:17)
[2022-02-25] MEDS: Nicotine 14 MG PATCH TD SCH (09:30)
[2022-02-25] MEDS: Spironolactone 25 MG TAB PO SCH (09:30)
[2022-02-25] MEDS: Rifaximin 550 MG TAB PO SCH ×2 (09:30→20:17)
[2022-02-25] MEDS: Furosemide 40 MG TAB PO SCH ×2 (09:31→14:04)
[2022-02-25] MEDS: predniSONE 1 MG/ML ML PO SCH (09:31)
[2022-02-25] MEDS: Folic Acid 1 MG TAB PO SCH (09:31)
[2022-02-25] MEDS: cefTRIAXone\\ROCEPHIN 2 GM in Sodium Chloride 0.9% 100 ML IVPB SCH (14:05)
[2022-02-26] MEDS: Ipratropium/Albuterol 3 ML NEB IPPB SCH ×4 (00:06→18:20)
[2022-02-26] MEDS: Mometasone 200 MCG/Formoterol 5 MCG 120 PUFF INHALER INH SCH ×2 (06:52→18:20)
[2022-02-26 07:27] LABS: #Lymphocytes 1.6 thou/uL (1.20-3.40); #Monocytes 0.9 thou/uL (0.11-0.59); #Neutrophils 5.9 thou/uL (1.40-6.50); %Basophils 0.1 % (0.0-1.0); %Eosinophils 0.1 % (0.0-10.0); %Lymphocytes 18.6 % (21.0-51.0); %Monocytes 10.9 % (0.0-10.0); %Neutrophils 70.2 % (42.0-75.0); Hemoglobin 11.4 g/dL (12.0-16.0); Mean Corpuscular HGB CONC 32.5 g/dL (32.0-36.0); Mean Corpuscular Hemoglobin 32.6 pg (27.0-31.0); Mean Platelet Volume 9.8 fL (7.4-10.4); Platelet Count 108 10x3/uL (130-400); RBC Distribution Width 16.2 % (11.5-14.5); White Blood Cell (WBC) Count 8.3 10x3/uL (4.8-10.8)
[2022-02-26 07:56] LABS: Anion Gap 10 mmol/L (10-20); BUN (Urea Nitrogen) 11 mg/dL (9.8-20.1); Calc. Creatinine Clearance 72 mL/min (70-130); Calcium 7.8 mg/dL (7.8-10.44); Carbon Dioxide 19 mmol/L (22-29); Chloride 110 mmol/L (98-107); Estimated GFR 83; Glucose 97 mg/dL (70-105); Magnesium 1.5 mg/dL (1.6-2.6); Phosphorus 3.3 mg/dL (2.3-4.7); Potassium 2.9 mmol/L (3.5-5.1); Sodium 136 mmol/L (136-145)
[2022-02-26] MEDS ORDERED: Magnesium 2 GM/50 ML(in water) 2 GM in Premix Bag 1 BAG IVPB SCH (08:15)
[2022-02-26] MEDS: Potassium Chloride 20 MEQ TAB PO SCH ×2 (08:41→13:01)
[2022-02-26] MEDS: diphenhydrAMINE 12.5 MG/5 ML UDCUP PO PRN ×2 (08:42→20:53)
[2022-02-26] MEDS: Folic Acid 1 MG TAB PO SCH (08:43)
[2022-02-26] MEDS: Furosemide 40 MG TAB PO SCH ×2 (08:43→14:51)
[2022-02-26] MEDS: Spironolactone 25 MG TAB PO SCH (08:43)
[2022-02-26] MEDS: Metoprolol Tartrate 25 MG TAB PO SCH ×2 (08:43→20:48)
[2022-02-26] MEDS: Rifaximin 550 MG TAB PO SCH ×2 (08:43→20:48)
[2022-02-26] MEDS: HYDROcodone/Acetaminophen 7.5/325 mg Tablet PO PRN ×2 (08:43→20:53)
[2022-02-26] MEDS: Nicotine 14 MG PATCH TD SCH (08:44)
[2022-02-26] MEDS: predniSONE 1 MG/ML ML PO SCH (09:15)
[2022-02-26 17:09] LABS: Potassium 4.1 mmol/L (3.5-5.1)
[2022-02-27] MEDS: Ipratropium/Albuterol 3 ML NEB IPPB SCH ×4 (00:08→18:21)
[2022-02-27 06:48] LABS: #Lymphocytes 1.5 thou/uL (1.20-3.40); #Monocytes 1.3 thou/uL (0.11-0.59); #Neutrophils 6.6 thou/uL (1.40-6.50); %Basophils 0.2 % (0.0-1.0); %Eosinophils 0.2 % (0.0-10.0); %Lymphocytes 16.1 % (21.0-51.0); %Monocytes 13.5 % (0.0-10.0); %Neutrophils 70.1 % (42.0-75.0); Mean Corpuscular HGB CONC 32.2 g/dL (32.0-36.0); Mean Corpuscular Hemoglobin 32.2 pg (27.0-31.0); Mean Corpuscular Volume 99.8 fl (78.0-98.0); Mean Platelet Volume 10.1 fL (7.4-10.4); Platelet Count 94 10x3/uL (130-400); Red Blood Cell (RBC) Count 3.41 mill/uL (4.20-5.40); White Blood Cell (WBC) Count 9.5 10x3/uL (4.8-10.8)
[2022-02-27 07:00] LABS: Phosphorus 2.9 mg/dL (2.3-4.7)
[2022-02-27 07:03] LABS: Anion Gap 9 mmol/L (10-20); BUN (Urea Nitrogen) 11 mg/dL (9.8-20.1); Calc. Creatinine Clearance 70 mL/min (70-130); Calcium 7.9 mg/dL (7.8-10.44); Carbon Dioxide 20 mmol/L (22-29); Chloride 111 mmol/L (98-107); Estimated GFR 81; Glucose 101 mg/dL (70-105); Magnesium 1.6 mg/dL (1.6-2.6); Potassium 3.7 mmol/L (3.5-5.1); Sodium 136 mmol/L (136-145)
[2022-02-27] MEDS: Mometasone 200 MCG/Formoterol 5 MCG 120 PUFF INHALER INH SCH ×2 (07:34→18:21)
[2022-02-27] MEDS: HYDROcodone/Acetaminophen 7.5/325 mg Tablet PO PRN ×2 (07:59→17:51)
[2022-02-27] MEDS: diphenhydrAMINE 12.5 MG/5 ML UDCUP PO PRN ×2 (07:59→17:51)
[2022-02-27] MEDS: Nicotine 14 MG PATCH TD SCH (08:00)
[2022-02-27] MEDS ORDERED: Magnesium 2 GM/50 ML(in water) 2 GM in Premix Bag 1 BAG IVPB SCH (08:00)
[2022-02-27] MEDS: Furosemide 40 MG TAB PO SCH ×2 (08:01→14:03)
[2022-02-27] MEDS: Spironolactone 25 MG TAB PO SCH (08:01)
[2022-02-27] MEDS: Rifaximin 550 MG TAB PO SCH ×2 (08:01→21:02)
[2022-02-27] MEDS: Metoprolol Tartrate 25 MG TAB PO SCH ×2 (08:01→21:02)
[2022-02-27] MEDS: Folic Acid 1 MG TAB PO SCH (08:01)
[2022-02-28] MEDS: Ipratropium/Albuterol 3 ML NEB IPPB SCH ×3 (00:28→11:18)
[2022-02-28] MEDS: diphenhydrAMINE 12.5 MG/5 ML UDCUP PO PRN ×2 (01:04→07:55)
[2022-02-28] MEDS: HYDROcodone/Acetaminophen 7.5/325 mg Tablet PO PRN ×2 (01:04→07:57)
[2022-02-28] MEDS: Mometasone 200 MCG/Formoterol 5 MCG 120 PUFF INHALER INH SCH (07:34)
[2022-02-28] MEDS: Nicotine 14 MG PATCH TD SCH (07:55)
[2022-02-28] MEDS: Rifaximin 550 MG TAB PO SCH (07:56)
[2022-02-28] MEDS: Folic Acid 1 MG TAB PO SCH (07:56)
[2022-02-28] MEDS: Furosemide 40 MG TAB PO SCH (07:56)
[2022-02-28] MEDS: Metoprolol Tartrate 25 MG TAB PO SCH (07:56)
[2022-02-28] MEDS: Spironolactone 25 MG TAB PO SCH (07:56)
[2022-02-28 12:34] VITALS: BP 144/75; TEMP 97.7
[2022-02-28] MEDS ORDERED: oxyCODONE 5 MG TAB PO SCH (12:45)
[2022-03-01] MEDS ORDERED: oxyCODONE 5 MG TAB PO SCH (09:00)
[2022-03-01 14:13] LABS: Fungus Stain Final report (.)
== END 2022-02-28 12:55 | disposition home or self-care (01) | DRG 186 ==
LOC: ERS 20:17 → INTOOBSV 02-22 00:32 → T4-A 02-22 00:32 → OBSVTOIN 02-23 15:11
PROVIDERS: ADMIT Internal Medicine; ATTEND Hospitalist
PROC: 0W993ZZ Drainage of Right Pleural Cavity, Percutaneous Approach (ICD-10-PCS; principal; 2022-02-23)
DX: J94.8 Other specified pleural conditions (principal); J96.21 Acute and chronic respiratory failure with hypoxia; R18.8 Other ascites; N17.9 Acute kidney failure, unspecified; J43.9 Emphysema, unspecified; Z20.822 Contact with and (suspected) exposure to COVID-19; B18.2 Chronic viral hepatitis C; F41.9 Anxiety disorder, unspecified; F32.A Depression, unspecified; E87.6 Hypokalemia; K74.60 Unspecified cirrhosis of liver; F17.210 Nicotine dependence, cigarettes, uncomplicated; Z88.5 Allergy status to narcotic agent; Z99.81 Dependence on supplemental oxygen; Z79.899 Other long term (current) drug therapy; Z98.51 Tubal ligation status; Z90.49 Acquired absence of other specified parts of digestive tract
CPT/HCPCS: 32555; 36415; 71045; 71260; 74176; 76705; 80048; 80053; 82150; 82945; 83605; 83615; 83735; 84100; 84145; 84157; 84484; 85025; 85060; 85384; 85610; 85730; 87040; 87070; 87116; 87205; 87206; 87811; 88112; 88305; 89051; 93005; 94640; 94644; 96365; 96366; 96374; 96375; 96376; G0378; J0696; J2930; J3370; J3370-JW; J3475; J3480; J3490; J7512; J7611; J7620; Q0163; Q9967

== ENCOUNTER 2022-04-16 20:34 | Inpatient (IN) | payer OTHER, MEDICAID ==
[2022-04-16 21:44] LABS: Actual Bicarbonate (HCO3a) 19.1 mEq/L (22-28); Analyzer IN Cardio ER; Base Excess (BEa) -3.1 mEq/L (-2.0 to +3.0); CO2 Tension 26.4 mmHg (35.0-45.0); Calcium, Ionized (arterial) 1.13 mmol/L (1.12-1.30); Carboxyhemoglobin (COHb) 0.3 gm% (0.0-3.0); Hemoglobin (Hb) 12.1 g/dL (12.0-16.0); Potassium - ABG Lab 3.63 mmol/L (3.70-5.30); pH, Arterial 7.48 (7.35-7.45)
[2022-04-16 21:45] LABS: O2 Tension (PaO2), arterial 59.8 mmHg (> 80.0); Puncture Site RRA
[2022-04-16] MEDS ORDERED: Dexamethasone 10 MG/ML VIAL ONE (21:51)
[2022-04-16] MEDS ORDERED: Magnesium 2 GM/50 ML BAG (IN WATER) ONE (21:51)
[2022-04-16 21:55] LABS: #Basophils 0.1 thou/uL (0.0-0.2); #Lymphocytes 1.8 thou/uL (1.20-3.40); #Monocytes 0.7 thou/uL (0.11-0.59); #Neutrophils 3.7 thou/uL (1.40-6.50); %Basophils 1.3 % (0.0-1.0); %Eosinophils 0.2 % (0.0-10.0); %Lymphocytes 28.9 % (21.0-51.0); %Monocytes 10.5 % (0.0-10.0); %Neutrophils 59.1 % (42.0-75.0); Hemoglobin 11.7 g/dL (12.0-16.0); Mean Corpuscular HGB CONC 32.8 g/dL (32.0-36.0); Mean Platelet Volume 9.4 fL (7.4-10.4); Platelet Count 130 10x3/uL (130-400); RBC Distribution Width 15.6 % (11.5-14.5); Red Blood Cell (RBC) Count 3.55 mill/uL (4.20-5.40); White Blood Cell (WBC) Count 6.3 10x3/uL (4.8-10.8)
[2022-04-16] MEDS ORDERED: Ipratropium/Albuterol 3 ML NEB ONE (22:01)
[2022-04-16 22:17] LABS: ALT (SGPT) 21 U/L (8-55); AST (SGOT) 42 U/L (5-34); Albumin 2.6 g/dL (3.5-5.0); Alkaline Phosphatase 96 U/L (40-110); Anion Gap 12 mmol/L (10-20); BUN (Urea Nitrogen) 12 mg/dL (9.8-20.1); Bilirubin, Total 1.7 mg/dL (0.2-1.2); CK (CPK) 105 U/L (29-168); Calc. Creatinine Clearance 0 mL/min (70-130); Calcium 7.6 mg/dL (7.8-10.44); Carbon Dioxide 17 mmol/L (22-29); Chloride 113 mmol/L (98-107); Estimated GFR 87; Globulin 3.1 g/dL (2.4-3.5); Glucose 104 mg/dL (70-105); Lipase 103 U/L (8-78); Potassium 3.8 mmol/L (3.5-5.1); Protein, Total 5.7 g/dL (6.0-8.3); Sodium 138 mmol/L (136-145)
[2022-04-16 22:41] LABS: Bilirubin Small (Negative); Blood, Urine Negative (Negative); Glucose, Urine (Dipstick) Negative (Negative); Ketone, Urine Trace mg/dL (Negative); Leukocyte Negative (Negative); Nitrite Positive (Negative); Protein, Urine (Dipstick) Negative (Neg-Trace); Urobilinogen 0.2 mg/dL (Less than 2)
[2022-04-16 22:46] LABS: Clarity Cloudy (Clear)
[2022-04-16 22:48] LABS: Bacteria/HPF 3+ HPF (None Seen); RBC/HPF 0-3 HPF (0-3); Squamous Epithelial 0-3 HPF (0-3)
[2022-04-16 22:49] LABS: Other Microscopic Description Less than 2 mL rec'd
[2022-04-16 23:16] LABS: SARS-CoV-2 NAA Rapid Test Not Detected (NotDetected)
[2022-04-17] MEDS ORDERED: Ondansetron PF 4 MG/2 ML Vial IVP PRN (00:32)
[2022-04-17] MEDS ORDERED: Ondansetron ODT 4 MG TAB PO PRN (00:32)
[2022-04-17] MEDS ORDERED: Acetaminophen 650 MG Suppository PR PRN (00:32)
[2022-04-17] MEDS ORDERED: Ipratropium/Albuterol 3 ML NEB NEB PRN (00:34)
[2022-04-17 01:59] LABS: Troponin I Less than 0.010 ng/mL (< 0.028)
[2022-04-17] MEDS: Ipratropium/Albuterol 3 ML NEB NEB SCH ×4 (02:47→19:10)
[2022-04-17] MEDS ORDERED: Acetaminophen 325 MG TAB ONE ×3 (03:05→13:04)
[2022-04-17] MEDS: Acetaminophen 325 MG TAB PO PRN ×2 (03:08→09:21)
[2022-04-17 05:14] LABS: #Lymphocytes 0.5 thou/uL (1.20-3.40); #Monocytes 0.1 thou/uL (0.11-0.59); #Neutrophils 3.9 thou/uL (1.40-6.50); %Lymphocytes 10.2 % (21.0-51.0); %Monocytes 1.7 % (0.0-10.0); %Neutrophils 88.1 % (42.0-75.0); Hemoglobin 12.4 g/dL (12.0-16.0); Mean Corpuscular HGB CONC 32.4 g/dL (32.0-36.0); Mean Corpuscular Hemoglobin 33.1 pg (27.0-31.0); Mean Platelet Volume 9.4 fL (7.4-10.4); Platelet Count 113 10x3/uL (130-400); RBC Distribution Width 15.6 % (11.5-14.5); Red Blood Cell (RBC) Count 3.76 mill/uL (4.20-5.40); White Blood Cell (WBC) Count 4.4 10x3/uL (4.8-10.8)
[2022-04-17 05:39] LABS: Anion Gap 17 mmol/L (10-20); BUN (Urea Nitrogen) 14 mg/dL (9.8-20.1); Calc. Creatinine Clearance 63 mL/min (70-130); Calcium 8.2 mg/dL (7.8-10.44); Carbon Dioxide 12 mmol/L (22-29); Chloride 112 mmol/L (98-107); Estimated GFR 74; Glucose 149 mg/dL (70-105); Sodium 137 mmol/L (136-145)
[2022-04-17 05:41] LABS: Troponin I Less than 0.010 ng/mL (< 0.028)
[2022-04-17] MEDS ORDERED: INSULIN REGULAR IN 0.9 % NACL 100 UNIT/100 ML BAG ONE (06:59)
[2022-04-17] MEDS ORDERED: Ipratropium/Albuterol 3 ML NEB ONE ×2 (08:18→13:43)
[2022-04-17] MEDS ORDERED: methylPREDNISolone Sod Succ 40 MG VIAL ONE (08:53)
[2022-04-17] MEDS ORDERED: Furosemide 40 MG TAB ONE (08:53)
[2022-04-17] MEDS: Spironolactone 25 MG TAB PO SCH (09:21)
[2022-04-17] MEDS: Furosemide 40 MG TAB PO SCH ×2 (09:21→17:19)
[2022-04-17] MEDS: Rifaximin 550 MG TAB PO SCH ×2 (09:24→19:52)
[2022-04-17] MEDS: methylPREDNISolone Sod Succ 40 MG VIAL IVP SCH (09:29)
[2022-04-17] MEDS: HYDROcodone/Acetaminophen 5/325 mg Tablet PO PRN (21:51)
[2022-04-18] MEDS: Ipratropium/Albuterol 3 ML NEB NEB SCH ×4 (01:30→19:00)
[2022-04-18] MEDS ORDERED: diphenhydrAMINE 25 MG CAP PO SCH (02:45)
[2022-04-18] MEDS: HYDROcodone/Acetaminophen 5/325 mg Tablet PO PRN ×2 (03:52→13:20)
[2022-04-18] MEDS: methylPREDNISolone Sod Succ 40 MG VIAL IVP SCH (08:27)
[2022-04-18] MEDS: Spironolactone 25 MG TAB PO SCH (08:27)
[2022-04-18] MEDS: Furosemide 40 MG TAB PO SCH ×2 (08:28→13:19)
[2022-04-18] MEDS: Acetaminophen 325 MG TAB PO PRN (08:28)
[2022-04-18] MEDS: Rifaximin 550 MG TAB PO SCH ×2 (08:28→20:31)
[2022-04-18] MEDS ORDERED: FLU VACC QS2022-23(6MOS UP)/PF 60 MCG/0.5 ML SYRINGE IM ONE (09:00)
[2022-04-18] MEDS: cefTRIAXone\\ROCEPHIN 1 GM in Sodium Chloride 0.9% 100 ML IVPB SCH (13:19)
[2022-04-19] MEDS: Ipratropium/Albuterol 3 ML NEB NEB SCH ×5 (00:54→23:10)
[2022-04-19 06:34] LABS: Hemoglobin 10.6 g/dL (12.0-16.0); Mean Corpuscular HGB CONC 32.5 g/dL (32.0-36.0); Mean Corpuscular Hemoglobin 32.6 pg (27.0-31.0); Mean Platelet Volume 9.9 fL (7.4-10.4); Platelet Count 113 10x3/uL (130-400); RBC Distribution Width 15.3 % (11.5-14.5); Red Blood Cell (RBC) Count 3.26 mill/uL (4.20-5.40); White Blood Cell (WBC) Count 17.8 10x3/uL (4.8-10.8)
[2022-04-19 06:52] LABS: #Lymphocytes 1.2 thou/uL (1.20-3.40); #Monocytes 1.4 thou/uL (0.11-0.59); #Neutrophils 15.2 thou/uL (1.40-6.50); %Basophils 0.1 % (0.0-1.0); %Eosinophils 0.1 % (0.0-10.0); %Lymphocytes 6.7 % (21.0-51.0); %Monocytes 7.9 % (0.0-10.0); %Neutrophils 85.3 % (42.0-75.0); Band 10 % (5-11); Hypochromia SLIGHT = 6-15 cells (100X) (0-5/hpf); Lymphocytes 10 % (21-51); MDiff Complete? YES; Macrocytosis SLIGHT = 6-15 cells (100X) (0-5/hpf); Monocytes 8 % (0-10); Neutrophil 71 % (42-75); Platelet Morphology Comment Appears Decreased; Reactive Lymphocytes 1 % (0-10)
[2022-04-19 06:58] LABS: ALT (SGPT) 23 U/L (8-55); AST (SGOT) 40 U/L (5-34); Albumin 2.1 g/dL (3.5-5.0); Alkaline Phosphatase 64 U/L (40-110); Anion Gap 14 mmol/L (10-20); BUN (Urea Nitrogen) 24 mg/dL (9.8-20.1); Calc. Creatinine Clearance 43 mL/min (70-130); Calcium 8.3 mg/dL (7.8-10.44); Carbon Dioxide 17 mmol/L (22-29); Chloride 107 mmol/L (98-107); Estimated GFR 48; Glucose 99 mg/dL (70-105); Magnesium 1.9 mg/dL (1.6-2.6); Potassium 4.5 mmol/L (3.5-5.1); Protein, Total 5.1 g/dL (6.0-8.3); Sodium 133 mmol/L (136-145)
[2022-04-19] MEDS: HYDROcodone/Acetaminophen 5/325 mg Tablet PO PRN ×3 (08:12→20:59)
[2022-04-19] MEDS: Spironolactone 25 MG TAB PO SCH (08:12)
[2022-04-19] MEDS: Furosemide 40 MG TAB PO SCH ×2 (08:12→13:34)
[2022-04-19] MEDS: Rifaximin 550 MG TAB PO SCH ×2 (08:12→20:58)
[2022-04-19] MEDS: methylPREDNISolone Sod Succ 40 MG VIAL IVP SCH (08:12)
[2022-04-19] MEDS: Azithromycin 250 MG TAB PO SCH (08:12)
[2022-04-19] MEDS: cefTRIAXone\\ROCEPHIN 1 GM in Sodium Chloride 0.9% 100 ML IVPB SCH (12:25)
[2022-04-20] MEDS: HYDROcodone/Acetaminophen 5/325 mg Tablet PO PRN ×3 (03:29→20:10)
[2022-04-20 07:28] LABS: #Basophils 0.1 thou/uL (0.0-0.2); #Lymphocytes 1.1 thou/uL (1.20-3.40); #Monocytes 1.5 thou/uL (0.11-0.59); #Neutrophils 11.5 thou/uL (1.40-6.50); %Basophils 0.7 % (0.0-1.0); %Eosinophils 0.1 % (0.0-10.0); %Lymphocytes 7.7 % (21.0-51.0); %Monocytes 10.5 % (0.0-10.0); Hemoglobin 10.3 g/dL (12.0-16.0); Mean Corpuscular HGB CONC 32.5 g/dL (32.0-36.0); Mean Corpuscular Hemoglobin 32.7 pg (27.0-31.0); Mean Platelet Volume 10.8 fL (7.4-10.4); Platelet Count 96 10x3/uL (130-400); RBC Distribution Width 15.4 % (11.5-14.5); Red Blood Cell (RBC) Count 3.16 mill/uL (4.20-5.40); White Blood Cell (WBC) Count 14.2 10x3/uL (4.8-10.8)
[2022-04-20 07:57] LABS: ALT (SGPT) 27 U/L (8-55); AST (SGOT) 45 U/L (5-34); Albumin 2.1 g/dL (3.5-5.0); Alkaline Phosphatase 70 U/L (40-110); Anion Gap 13 mmol/L (10-20); BUN (Urea Nitrogen) 23 mg/dL (9.8-20.1); Calc. Creatinine Clearance 47 mL/min (70-130); Calcium 8.4 mg/dL (7.8-10.44); Carbon Dioxide 19 mmol/L (22-29); Chloride 107 mmol/L (98-107); Estimated GFR 52; Glucose 101 mg/dL (70-105); Magnesium 1.7 mg/dL (1.6-2.6); Protein, Total 5.1 g/dL (6.0-8.3); Sodium 135 mmol/L (136-145)
[2022-04-20] MEDS: Spironolactone 25 MG TAB PO SCH (08:44)
[2022-04-20] MEDS: Furosemide 40 MG TAB PO SCH ×2 (08:45→14:31)
[2022-04-20] MEDS: Azithromycin 250 MG TAB PO SCH (08:45)
[2022-04-20] MEDS: methylPREDNISolone Sod Succ 40 MG VIAL IVP SCH (08:46)
[2022-04-20] MEDS: Rifaximin 550 MG TAB PO SCH ×2 (08:46→20:08)
[2022-04-20] MEDS ORDERED: diphenhydrAMINE 50 MG/ML VIAL IVP SCH (10:15)
[2022-04-20] MEDS: Ipratropium/Albuterol 3 ML NEB NEB SCH ×3 (11:26→18:35)
[2022-04-20] MEDS: cefTRIAXone\\ROCEPHIN 1 GM in Sodium Chloride 0.9% 100 ML IVPB SCH (11:30)
[2022-04-20] MEDS ORDERED: Benzonatate 100 MG CAP PO SCH (13:00)
[2022-04-20] MEDS: Benzonatate 100 MG CAP PO SCH ×2 (14:31→20:08)
[2022-04-21] MEDS: Ipratropium/Albuterol 3 ML NEB NEB SCH ×3 (01:19→13:32)
[2022-04-21] MEDS: HYDROcodone/Acetaminophen 5/325 mg Tablet PO PRN ×2 (02:23→09:01)
[2022-04-21 07:09] LABS: Hemoglobin 10.6 g/dL (12.0-16.0); Mean Corpuscular HGB CONC 32.1 g/dL (32.0-36.0); Mean Corpuscular Hemoglobin 32.1 pg (27.0-31.0); Mean Corpuscular Volume 99.9 fl (78.0-98.0); Mean Platelet Volume 9.7 fL (7.4-10.4); Platelet Count 89 10x3/uL (130-400); Red Blood Cell (RBC) Count 3.31 mill/uL (4.20-5.40); White Blood Cell (WBC) Count 7.8 10x3/uL (4.8-10.8)
[2022-04-21 07:54] LABS: #Lymphocytes 1.5 thou/uL (1.20-3.40); #Neutrophils 5.2 thou/uL (1.40-6.50); %Basophils 0.4 % (0.0-1.0); %Lymphocytes 19.7 % (21.0-51.0); %Monocytes 13.1 % (0.0-10.0); %Neutrophils 66.8 % (42.0-75.0); MDiff Complete? YES; Platelet Morphology Comment Appears Decreased; Polychromasia SLIGHT = 2-3 cells (100X) (0-2/hpf)
[2022-04-21] MEDS: Spironolactone 25 MG TAB PO SCH (09:00)
[2022-04-21] MEDS: Azithromycin 250 MG TAB PO SCH (09:01)
[2022-04-21] MEDS: Benzonatate 100 MG CAP PO SCH (09:01)
[2022-04-21] MEDS: Rifaximin 550 MG TAB PO SCH (09:01)
[2022-04-21] MEDS: Furosemide 40 MG TAB PO SCH (09:01)
[2022-04-21] MEDS: methylPREDNISolone Sod Succ 40 MG VIAL IVP SCH (09:02)
[2022-04-21 10:46] LABS: Anion Gap 14 mmol/L (10-20); BUN (Urea Nitrogen) 24 mg/dL (9.8-20.1); Calc. Creatinine Clearance 46 mL/min (70-130); Calcium 8.4 mg/dL (7.8-10.44); Carbon Dioxide 21 mmol/L (22-29); Chloride 102 mmol/L (98-107); Estimated GFR 51; Glucose 128 mg/dL (70-105); Potassium 4.1 mmol/L (3.5-5.1); Sodium 133 mmol/L (136-145)
[2022-04-21] MEDS: cefTRIAXone\\ROCEPHIN 1 GM in Sodium Chloride 0.9% 100 ML IVPB SCH (13:09)
[2022-04-21 13:45] VITALS: BP 140/88; TEMP 98
== END 2022-04-21 14:15 | disposition home or self-care (01) | DRG 193 ==
LOC: ERS 20:34 → ERHOLD 23:05 → T4-B 04-17 16:48
PROVIDERS: ADMIT Internal Medicine; ATTEND Internal Medicine
DX: J18.9 Pneumonia, unspecified organism (principal); J96.21 Acute and chronic respiratory failure with hypoxia; J44.1 Chronic obstructive pulmonary disease with (acute) exacerbation; N17.9 Acute kidney failure, unspecified; E87.1 Hypo-osmolality and hyponatremia; N39.0 Urinary tract infection, site not specified; Z16.11 Resistance to penicillins; Z16.23 Resistance to quinolones and fluoroquinolones; Z16.29 Resistance to other single specified antibiotic; K76.82 Hepatic encephalopathy; Z20.822 Contact with and (suspected) exposure to COVID-19; N18.2 Chronic kidney disease, stage 2 (mild); E88.09 Other disorders of plasma-protein metabolism, not elsewhere classified; B96.20 Unspecified Escherichia coli [E. coli] as the cause of diseases classified elsewhere; K70.30 Alcoholic cirrhosis of liver without ascites; I10 Essential (primary) hypertension; M19.90 Unspecified osteoarthritis, unspecified site; Z28.21 Immunization not carried out because of patient refusal; Z99.81 Dependence on supplemental oxygen; Z88.5 Allergy status to narcotic agent; Z79.899 Other long term (current) drug therapy; Z98.51 Tubal ligation status; Z90.49 Acquired absence of other specified parts of digestive tract
CPT/HCPCS: 36415; 36416; 36600; 71045; 80048; 80053; 81003; 81015; 82140; 82550; 82805; 83605; 83690; 83735; 83880; 84484; 85025; 87040; 87077; 87086; 87186; 93005; 94640; 94760; J0696; J1100; J1200; J1650; J1815; J1956; J2405; J2920; J3475; J3490; J7611; J7620

== ENCOUNTER 2022-05-10 10:14 | Inpatient (IN) | payer OTHER, MEDICAID ==
[2022-05-10] MEDS ORDERED: methylPREDNISolone Sod Succ/PF 125 MG/2 ML VIAL ONE (10:47)
[2022-05-10 11:01] LABS: #Basophils 0.1 thou/uL (0.0-0.2); #Lymphocytes 2.8 thou/uL (1.20-3.40); #Monocytes 1.1 thou/uL (0.11-0.59); #Neutrophils 5.8 thou/uL (1.40-6.50); %Basophils 0.8 % (0.0-1.0); %Eosinophils 0.3 % (0.0-10.0); %Lymphocytes 28.6 % (21.0-51.0); %Monocytes 10.9 % (0.0-10.0); %Neutrophils 59.4 % (42.0-75.0); Mean Corpuscular HGB CONC 32.3 g/dL (32.0-36.0); Mean Corpuscular Hemoglobin 30.5 pg (27.0-31.0); Mean Corpuscular Volume 94.7 fl (78.0-98.0); Mean Platelet Volume 10.6 fL (7.4-10.4); Platelet Count 95 10x3/uL (130-400); RBC Distribution Width 15.6 % (11.5-14.5); Red Blood Cell (RBC) Count 3.92 mill/uL (4.20-5.40); White Blood Cell (WBC) Count 9.7 10x3/uL (4.8-10.8)
[2022-05-10] MEDS ORDERED: Cefepime 2 GM VIAL ONE (11:07)
[2022-05-10] MEDS ORDERED: Ipratropium Bromide 2.5 ml Neb ONE (11:13)
[2022-05-10] MEDS ORDERED: Albuterol 2.5 MG/0.5 ML NEB ONE (11:14)
[2022-05-10 11:28] LABS: ALT (SGPT) 30 U/L (8-55); AST (SGOT) 49 U/L (5-34); Albumin 2.7 g/dL (3.4-4.8); Alkaline Phosphatase 121 U/L (40-110); Anion Gap 11 mmol/L (10-20); BUN (Urea Nitrogen) 18 mg/dL (9.8-20.1); Bilirubin, Total 2.3 mg/dL (0.2-1.2); Calc. Creatinine Clearance 0 mL/min (70-130); Calcium 7.9 mg/dL (7.8-10.44); Carbon Dioxide 23 mmol/L (23-31); Chloride 107 mmol/L (98-107); Estimated GFR 50; Globulin 3.5 g/dL (2.4-3.5); Glucose 133 mg/dL (80-115); Protein, Total 6.2 g/dL (5.8-8.1); Sodium 138 mmol/L (136-145)
[2022-05-10 11:38] LABS: SARS-CoV-2 NAA Rapid Test Not Detected (NotDetected)
[2022-05-10] MEDS ORDERED: Mag-Al 1200 mg/1200 mg/30 ML UDCUP ONE (12:17)
[2022-05-10] MEDS ORDERED: Dicyclomine 20 MG TAB ONE (12:17)
[2022-05-10] MEDS ORDERED: Lidocaine Viscous Sol 2% 15 ml UD Cup ONE (12:19)
[2022-05-10] MEDS ORDERED: Bisacodyl 5 MG TAB PO PRN (12:48)
[2022-05-10] MEDS ORDERED: Ondansetron PF 4 MG/2 ML Vial IVP PRN (12:48)
[2022-05-10] MEDS ORDERED: Potassium Chloride 20 MEQ TAB ONE (12:52)
[2022-05-10] MEDS ORDERED: Azithromycin 500 MG in Sodium Chloride 0.9% 250 ML 250 ML IVPB SCH (13:00)
[2022-05-10] MEDS ORDERED: Sodium Chloride 0.9% 1,000 ML IV SCH (13:00)
[2022-05-10] MEDS ORDERED: Potassium Chloride 20 MEQ TAB PO SCH (13:15)
[2022-05-10 13:35] VITALS: BMI 18.9
[2022-05-10] MEDS: Cefepime 1 GM in Sodium Chloride 0.9% 100 ML IVPB SCH (14:49)
[2022-05-10] MEDS: Heparin 5,000 UNITS/ML VIAL SC SCH ×2 (15:03→20:37)
[2022-05-10] MEDS: Azithromycin 500 MG in Sodium Chloride 0.9% 250 ML 250 ML IVPB SCH ×2 (15:03→15:05)
[2022-05-10] MEDS ORDERED: VANCOMYCIN 1.25 GM/250 ML BAG 1.25 GM in Premix Bag 1 BAG IVPB SCH (16:00)
[2022-05-10] MEDS: methylPREDNISolone Sod Succ 40 MG VIAL IVP SCH ×2 (17:42→23:21)
[2022-05-10] MEDS: HYDROcodone/Acetaminophen 5/325 mg Tablet PO PRN ×2 (18:28→22:31)
[2022-05-10] MEDS: Budesonide 0.5 MG/2 ML NEB NEB SCH (18:52)
[2022-05-10] MEDS: Rifaximin 550 MG TAB PO SCH (20:33)
[2022-05-10] MEDS: Famotidine 20 MG TAB PO SCH (20:33)
[2022-05-11] MEDS: Cefepime 1 GM in Sodium Chloride 0.9% 100 ML IVPB SCH ×2 (01:18→13:15)
[2022-05-11] MEDS: HYDROcodone/Acetaminophen 5/325 mg Tablet PO PRN ×4 (03:04→20:40)
[2022-05-11] MEDS: methylPREDNISolone Sod Succ 40 MG VIAL IVP SCH ×4 (05:09→23:59)
[2022-05-11] MEDS: Budesonide 0.5 MG/2 ML NEB NEB SCH ×2 (06:36→20:20)
[2022-05-11 07:13] LABS: ALT (SGPT) 24 U/L (8-55); AST (SGOT) 37 U/L (5-34); Albumin 2.1 g/dL (3.4-4.8); Alkaline Phosphatase 87 U/L (40-110); Anion Gap 11 mmol/L (10-20); BUN (Urea Nitrogen) 22 mg/dL (9.8-20.1); Bilirubin, Total 1.4 mg/dL (0.2-1.2); Calc. Creatinine Clearance 47 mL/min (70-130); Calcium 7.8 mg/dL (7.8-10.44); Carbon Dioxide 17 mmol/L (23-31); Chloride 112 mmol/L (98-107); Estimated GFR 51; Globulin 2.9 g/dL (2.4-3.5); Glucose 135 mg/dL (80-115); Potassium 3.9 mmol/L (3.5-5.1); Sodium 136 mmol/L (136-145)
[2022-05-11] MEDS: Famotidine 20 MG TAB PO SCH (08:02)
[2022-05-11] MEDS: Rifaximin 550 MG TAB PO SCH ×2 (08:02→20:40)
[2022-05-11] MEDS: buPROPion HCl 100 MG TAB PO SCH (08:02)
[2022-05-11] MEDS: Atorvastatin Calcium 40 MG TAB PO SCH (08:02)
[2022-05-11] MEDS: Spironolactone 25 MG TAB PO SCH (08:02)
[2022-05-11] MEDS: Heparin 5,000 UNITS/ML VIAL SC SCH ×3 (08:03→20:41)
[2022-05-11] MEDS: Folic Acid 1 MG TAB PO SCH (08:03)
[2022-05-11] MEDS ORDERED: Ipratropium/Albuterol 3 ML NEB NEB PRN (08:18)
[2022-05-11 12:00] LABS: INR-International Normal Ratio 1.4; Prothrombin Time 17.8 sec (12.0-14.7)
[2022-05-11] MEDS: Azithromycin 500 MG in Sodium Chloride 0.9% 250 ML 250 ML IVPB SCH (14:59)
[2022-05-11] MEDS ORDERED: Vancomycin 1 GM in Premix Bag 1 BAG IVPB SCH ×2 (16:00)
[2022-05-11 16:14] LABS: Vancomycin, Random 45.4 ug/mL (See Comment)
[2022-05-11] MEDS ORDERED: Vancomycin HCl 1 MG in Premix Bag 1 BAG IVPB SCH (16:45)
[2022-05-11] MEDS: Benzonatate 100 MG CAP PO PRN (20:39)
[2022-05-12] MEDS: Cefepime 1 GM in Sodium Chloride 0.9% 100 ML IVPB SCH ×2 (01:38→13:20)
[2022-05-12] MEDS: HYDROcodone/Acetaminophen 5/325 mg Tablet PO PRN ×3 (02:59→20:15)
[2022-05-12] MEDS: methylPREDNISolone Sod Succ 40 MG VIAL IVP SCH ×3 (05:18→18:35)
[2022-05-12] MEDS: Budesonide 0.5 MG/2 ML NEB NEB SCH ×2 (06:48→18:43)
[2022-05-12] MEDS: Heparin 5,000 UNITS/ML VIAL SC SCH ×3 (08:39→20:13)
[2022-05-12] MEDS: buPROPion HCl 100 MG TAB PO SCH (08:39)
[2022-05-12] MEDS: Atorvastatin Calcium 40 MG TAB PO SCH (08:39)
[2022-05-12] MEDS: Spironolactone 25 MG TAB PO SCH (08:39)
[2022-05-12] MEDS: Rifaximin 550 MG TAB PO SCH ×2 (08:39→20:12)
[2022-05-12] MEDS: Folic Acid 1 MG TAB PO SCH (08:39)
[2022-05-12] MEDS: Ipratropium/Albuterol 3 ML NEB NEB PRN ×3 (12:18→22:18)
[2022-05-12] MEDS: Benzonatate 100 MG CAP PO PRN (13:20)
[2022-05-12 17:53] LABS: Vancomycin, Random 15.3 ug/mL (See Comment)
[2022-05-12] MEDS: Azithromycin 500 MG in Sodium Chloride 0.9% 250 ML 250 ML IVPB SCH (18:28)
[2022-05-12] MEDS ORDERED: Vancomycin 1 GM in Premix Bag 1 BAG IVPB SCH (20:00)
[2022-05-13] MEDS: Cefepime 1 GM in Sodium Chloride 0.9% 100 ML IVPB SCH ×2 (00:44→15:06)
[2022-05-13] MEDS: methylPREDNISolone Sod Succ 40 MG VIAL IVP SCH ×4 (00:44→20:37)
[2022-05-13] MEDS: HYDROcodone/Acetaminophen 5/325 mg Tablet PO PRN ×3 (05:02→20:37)
[2022-05-13] MEDS: Budesonide 0.5 MG/2 ML NEB NEB SCH ×2 (08:49→19:09)
[2022-05-13] MEDS: Ipratropium/Albuterol 3 ML NEB NEB PRN ×2 (08:51→15:06)
[2022-05-13] MEDS: Spironolactone 25 MG TAB PO SCH (09:05)
[2022-05-13] MEDS: Rifaximin 550 MG TAB PO SCH ×2 (09:06→20:37)
[2022-05-13] MEDS: Folic Acid 1 MG TAB PO SCH (09:06)
[2022-05-13] MEDS: buPROPion HCl 100 MG TAB PO SCH (09:06)
[2022-05-13] MEDS: Atorvastatin Calcium 40 MG TAB PO SCH (09:06)
[2022-05-13] MEDS: Heparin 5,000 UNITS/ML VIAL SC SCH ×3 (09:07→20:29)
[2022-05-13] MEDS: Azithromycin 500 MG in Sodium Chloride 0.9% 250 ML 250 ML IVPB SCH (18:43)
[2022-05-13] MEDS ORDERED: Morphine 2 MG/ML VIAL SLOW IVP SCH (22:00)
[2022-05-14] MEDS: Cefepime 1 GM in Sodium Chloride 0.9% 100 ML IVPB SCH ×2 (02:37→13:28)
[2022-05-14] MEDS: diphenhydrAMINE 25 MG CAP PO PRN ×3 (02:45→20:49)
[2022-05-14] MEDS: Benzonatate 100 MG CAP PO PRN ×2 (03:51→11:52)
[2022-05-14] MEDS: Budesonide 0.5 MG/2 ML NEB NEB SCH ×2 (07:56→20:07)
[2022-05-14] MEDS: buPROPion HCl 100 MG TAB PO SCH (08:18)
[2022-05-14] MEDS: Spironolactone 25 MG TAB PO SCH (08:19)
[2022-05-14] MEDS: Folic Acid 1 MG TAB PO SCH (08:19)
[2022-05-14] MEDS: Rifaximin 550 MG TAB PO SCH ×2 (08:19→20:43)
[2022-05-14] MEDS: methylPREDNISolone Sod Succ 40 MG VIAL IVP SCH ×2 (08:19→20:43)
[2022-05-14] MEDS: Atorvastatin Calcium 40 MG TAB PO SCH (08:19)
[2022-05-14] MEDS: HYDROcodone/Acetaminophen 5/325 mg Tablet PO PRN ×3 (08:26→20:49)
[2022-05-14 11:02] LABS: #Lymphocytes 0.8 thou/uL (1.20-3.40); #Monocytes 0.6 thou/uL (0.11-0.59); %Basophils 0.1 % (0.0-1.0); %Lymphocytes 6.1 % (21.0-51.0); %Monocytes 4.5 % (0.0-10.0); %Neutrophils 89.4 % (42.0-75.0); Hemoglobin 9.8 g/dL (12.0-16.0); Mean Corpuscular Volume 96.8 fl (78.0-98.0); Mean Platelet Volume 11.4 fL (7.4-10.4); Platelet Count 82 10x3/uL (130-400); RBC Distribution Width 15.8 % (11.5-14.5); Red Blood Cell (RBC) Count 3.17 mill/uL (4.20-5.40); White Blood Cell (WBC) Count 12.3 10x3/uL (4.8-10.8)
[2022-05-14] MEDS: Heparin 5,000 UNITS/ML VIAL SC SCH (11:05)
[2022-05-14 11:17] LABS: Anion Gap 11 mmol/L (10-20); BUN (Urea Nitrogen) 29 mg/dL (9.8-20.1); Calc. Creatinine Clearance 43 mL/min (70-130); Calcium 8.4 mg/dL (7.8-10.44); Carbon Dioxide 15 mmol/L (23-31); Chloride 112 mmol/L (98-107); Estimated GFR 40; Glucose 156 mg/dL (80-115); Potassium 4.3 mmol/L (3.5-5.1); Sodium 134 mmol/L (136-145)
[2022-05-14] MEDS: Ipratropium/Albuterol 3 ML NEB NEB PRN ×2 (12:03→14:39)
[2022-05-14] MEDS: Azithromycin 500 MG in Sodium Chloride 0.9% 250 ML 250 ML IVPB SCH (14:27)
[2022-05-14] MEDS: Guaifenesin DM 100-10/5 ML UDCUP PO PRN ×2 (15:39→20:45)
[2022-05-15] MEDS: Ipratropium/Albuterol 3 ML NEB NEB PRN (01:10)
[2022-05-15] MEDS: Cefepime 1 GM in Sodium Chloride 0.9% 100 ML IVPB SCH ×2 (02:40→14:55)
[2022-05-15] MEDS: diphenhydrAMINE 25 MG CAP PO PRN ×2 (04:38→21:00)
[2022-05-15] MEDS: HYDROcodone/Acetaminophen 5/325 mg Tablet PO PRN ×2 (04:38→21:00)
[2022-05-15] MEDS: Budesonide 0.5 MG/2 ML NEB NEB SCH ×2 (08:26→19:38)
[2022-05-15] MEDS: Benzonatate 100 MG CAP PO PRN (11:35)
[2022-05-15] MEDS: Folic Acid 1 MG TAB PO SCH (11:35)
[2022-05-15] MEDS: buPROPion HCl 100 MG TAB PO SCH (11:35)
[2022-05-15] MEDS: methylPREDNISolone Sod Succ 40 MG VIAL IVP SCH ×2 (11:35→20:48)
[2022-05-15] MEDS: Spironolactone 25 MG TAB PO SCH (11:35)
[2022-05-15] MEDS: Atorvastatin Calcium 40 MG TAB PO SCH (11:35)
[2022-05-15] MEDS: Rifaximin 550 MG TAB PO SCH ×2 (11:36→20:48)
[2022-05-15] MEDS: Guaifenesin DM 100-10/5 ML UDCUP PO PRN (11:36)
[2022-05-15] MEDS: Azithromycin 500 MG in Sodium Chloride 0.9% 250 ML 250 ML IVPB SCH (14:56)
[2022-05-15] MEDS: Melatonin 3 MG TAB PO PRN (21:01)
[2022-05-16] MEDS: Cefepime 1 GM in Sodium Chloride 0.9% 100 ML IVPB SCH ×2 (01:03→14:49)
[2022-05-16] MEDS ORDERED: cloNIDine 0.1 MG TAB PO SCH (04:15)
[2022-05-16] MEDS: Budesonide 0.5 MG/2 ML NEB NEB SCH ×2 (06:52→19:20)
[2022-05-16] MEDS: Ipratropium/Albuterol 3 ML NEB NEB PRN (06:54)
[2022-05-16] MEDS: Spironolactone 25 MG TAB PO SCH (10:35)
[2022-05-16] MEDS: buPROPion HCl 100 MG TAB PO SCH (10:36)
[2022-05-16] MEDS: methylPREDNISolone Sod Succ 40 MG VIAL IVP SCH (10:36)
[2022-05-16] MEDS: Atorvastatin Calcium 40 MG TAB PO SCH (10:36)
[2022-05-16] MEDS: Rifaximin 550 MG TAB PO SCH ×2 (10:36→20:35)
[2022-05-16] MEDS: Folic Acid 1 MG TAB PO SCH (10:36)
[2022-05-16] MEDS: Azithromycin 500 MG in Sodium Chloride 0.9% 250 ML 250 ML IVPB SCH (16:04)
[2022-05-16] MEDS: Doxycycline 100 MG CAP PO SCH (20:35)
[2022-05-16] MEDS: Cefdinir 300 MG CAP PO SCH (20:35)
[2022-05-16] MEDS: diphenhydrAMINE 25 MG CAP PO PRN (20:36)
[2022-05-16] MEDS: HYDROcodone/Acetaminophen 5/325 mg Tablet PO PRN (20:36)
[2022-05-16] MEDS: Melatonin 3 MG TAB PO PRN (20:36)
[2022-05-17] MEDS: Budesonide 0.5 MG/2 ML NEB NEB SCH ×2 (07:24→18:50)
[2022-05-17] MEDS: predniSONE 20 MG TAB PO SCH (09:22)
[2022-05-17] MEDS: buPROPion HCl 100 MG TAB PO SCH (09:22)
[2022-05-17] MEDS: Cefdinir 300 MG CAP PO SCH ×2 (09:22→21:07)
[2022-05-17] MEDS: Rifaximin 550 MG TAB PO SCH ×2 (09:22→21:08)
[2022-05-17] MEDS: Folic Acid 1 MG TAB PO SCH (09:23)
[2022-05-17] MEDS: Doxycycline 100 MG CAP PO SCH ×2 (09:23→21:08)
[2022-05-17] MEDS: Atorvastatin Calcium 40 MG TAB PO SCH (09:23)
[2022-05-17] MEDS: Spironolactone 25 MG TAB PO SCH (09:23)
[2022-05-17] MEDS ORDERED: Sodium Bicarbonate 2.5 MEQ/5 ML VIAL ONE (15:04)
[2022-05-17] MEDS ORDERED: Lidocaine 1% PF 5 ML VIAL ONE (15:04)
[2022-05-17] MEDS: diphenhydrAMINE 25 MG CAP PO PRN (18:03)
[2022-05-17] MEDS: HYDROcodone/Acetaminophen 5/325 mg Tablet PO PRN (18:03)
[2022-05-18] MEDS: Budesonide 0.5 MG/2 ML NEB NEB SCH (07:12)
[2022-05-18] MEDS: Folic Acid 1 MG TAB PO SCH (07:55)
[2022-05-18] MEDS: Cefdinir 300 MG CAP PO SCH (07:56)
[2022-05-18] MEDS: predniSONE 20 MG TAB PO SCH (07:56)
[2022-05-18] MEDS: Rifaximin 550 MG TAB PO SCH (07:56)
[2022-05-18] MEDS: Doxycycline 100 MG CAP PO SCH (07:57)
[2022-05-18] MEDS: Atorvastatin Calcium 40 MG TAB PO SCH (07:57)
[2022-05-18] MEDS: Spironolactone 25 MG TAB PO SCH (07:57)
[2022-05-18] MEDS: buPROPion HCl 100 MG TAB PO SCH (08:01)
[2022-05-18 08:29] VITALS: BP 160/85; TEMP 97.5
[2022-05-18 09:25] LABS: #Lymphocytes 1.2 thou/uL (1.20-3.40); #Monocytes 1.2 thou/uL (0.11-0.59); #Neutrophils 7.9 thou/uL (1.40-6.50); %Basophils 0.1 % (0.0-1.0); %Lymphocytes 11.4 % (21.0-51.0); %Monocytes 11.7 % (0.0-10.0); %Neutrophils 76.8 % (42.0-75.0); Hemoglobin 9.2 g/dL (12.0-16.0); Mean Corpuscular HGB CONC 31.9 g/dL (32.0-36.0); Mean Corpuscular Hemoglobin 30.2 pg (27.0-31.0); Mean Corpuscular Volume 94.7 fl (78.0-98.0); Platelet Count 58 10x3/uL (130-400); RBC Distribution Width 15.8 % (11.5-14.5); Red Blood Cell (RBC) Count 3.03 mill/uL (4.20-5.40); White Blood Cell (WBC) Count 10.3 10x3/uL (4.8-10.8)
[2022-05-18 09:33] LABS: ALT (SGPT) 42 U/L (8-55); AST (SGOT) 66 U/L (5-34); Albumin 2.2 g/dL (3.4-4.8); Alkaline Phosphatase 85 U/L (40-110); Anion Gap 9 mmol/L (10-20); BUN (Urea Nitrogen) 40 mg/dL (9.8-20.1); Bilirubin, Total 1.1 mg/dL (0.2-1.2); Calc. Creatinine Clearance 58 mL/min (70-130); Calcium 8.5 mg/dL (7.8-10.44); Carbon Dioxide 17 mmol/L (23-31); Chloride 114 mmol/L (98-107); Estimated GFR 58; Globulin 2.6 g/dL (2.4-3.5); Glucose 113 mg/dL (80-115); Potassium 4.6 mmol/L (3.5-5.1); Protein, Total 4.8 g/dL (5.8-8.1); Sodium 135 mmol/L (136-145)
== END 2022-05-18 11:54 | DRG 193 ==
LOC: ERS 10:14 → IMCU/EMU 13:13 → T4-B 05-13 14:37
PROVIDERS: ADMIT Internal Medicine Nephrology; ATTEND Internal Medicine
PROC: 5A09357 Assistance with Respiratory Ventilation, Less than 24 Consecutive Hours, Continuous Positive Airway Pressure (ICD-10-PCS; 2022-05-10)
PROC: 0W9G3ZZ Drainage of Peritoneal Cavity, Percutaneous Approach (ICD-10-PCS; principal; 2022-05-17)
DX: J18.9 Pneumonia, unspecified organism (principal); J96.21 Acute and chronic respiratory failure with hypoxia; R04.2 Hemoptysis; N17.9 Acute kidney failure, unspecified; J90 Pleural effusion, not elsewhere classified; E87.1 Hypo-osmolality and hyponatremia; Z20.822 Contact with and (suspected) exposure to COVID-19; J43.9 Emphysema, unspecified; F41.9 Anxiety disorder, unspecified; F32.A Depression, unspecified; E87.6 Hypokalemia; N18.30 Chronic kidney disease, stage 3 unspecified; K70.31 Alcoholic cirrhosis of liver with ascites; K76.82 Hepatic encephalopathy; E88.09 Other disorders of plasma-protein metabolism, not elsewhere classified; I12.9 Hypertensive chronic kidney disease with stage 1 through stage 4 chronic kidney disease, or unspecified chronic kidney disease; Z88.5 Allergy status to narcotic agent; Z79.51 Long term (current) use of inhaled steroids; Z79.899 Other long term (current) drug therapy; Z98.51 Tubal ligation status; Z90.49 Acquired absence of other specified parts of digestive tract; Z98.890 Other specified postprocedural states; Z87.891 Personal history of nicotine dependence
CPT/HCPCS: 36415; 49083; 71045; 71250; 80048; 80053; 80202; 83605; 83880; 84484; 85025; 85610; 87040; 87070; 87205; 93005; 94640; 94660; 94760; 96365; 96368; 96375; J0456; J0692; J1644; J1956; J2405; J2920; J2930; J3370; J3370-JW; J3490; J7050; J7512; J7611; J7620; J7626

== ENCOUNTER 2022-05-23 10:17 | Inpatient (IN) | payer OTHER, MEDICAID ==
[2022-05-23] MEDS ORDERED: hydrALAZINE 20 MG/ML VIAL SLOW IVP PRN (14:24)
[2022-05-23] MEDS ORDERED: Piperacillin/Tazobactam 3.375 GM in Sodium Chloride 0.9% 100 ML IVPB SCH (15:00)
[2022-05-23] MEDS: Morphine 2 MG/ML VIAL SLOW IVP PRN (15:27)
[2022-05-23] MEDS: Arformoterol 15 MCG/2 ML NEB NEB SCH (19:30)
[2022-05-23] MEDS: Mometasone/Formoterol 200/5 60 PUFF INH SCH (19:33)
[2022-05-23] MEDS: Piperacillin/Tazobactam 3.375 GM in Sodium Chloride 0.9% 100 ML IVPB SCH (20:05)
[2022-05-24] MEDS: Morphine 2 MG/ML VIAL SLOW IVP PRN ×3 (04:26→11:10)
[2022-05-24] MEDS: Piperacillin/Tazobactam 3.375 GM in Sodium Chloride 0.9% 100 ML IVPB SCH ×4 (04:28→20:14)
[2022-05-24] MEDS ORDERED: Lidocaine 1% PF 5 ML VIAL ONE (10:06)
[2022-05-24] MEDS ORDERED: Sodium Bicarbonate 2.5 MEQ/5 ML VIAL ONE (10:06)
[2022-05-24] MEDS: Mometasone/Formoterol 200/5 60 PUFF INH SCH ×2 (18:25→19:25)
[2022-05-24] MEDS: Arformoterol 15 MCG/2 ML NEB NEB SCH ×2 (18:26→19:24)
[2022-05-24 19:59] LABS: Mean Corpuscular Hemoglobin 30.2 pg (27.0-31.0); Mean Corpuscular Volume 94.3 fl (78.0-98.0); Mean Platelet Volume 10.9 fL (7.4-10.4); Platelet Count 67 10x3/uL (130-400); RBC Distribution Width 16.5 % (11.5-14.5); Red Blood Cell (RBC) Count 3.63 mill/uL (4.20-5.40); White Blood Cell (WBC) Count 26.7 10x3/uL (4.8-10.8)
[2022-05-24 20:16] LABS: Lymphocytes 4 % (21-51); MDiff Complete? YES; Monocytes 5 % (0-10); Neutrophil 90 % (42-75); Ovalocytes SLIGHT = 2-5 cells (100X) (0-1/hpf); Platelet Morphology Comment Appears Decreased; Polychromasia SLIGHT = 2-3 cells (100X) (0-2/hpf); Reactive Lymphocytes 1 % (0-10)
[2022-05-24 21:14] LABS: Albumin 2.6 g/dL (3.4-4.8)
[2022-05-24 21:16] LABS: Chloride 110 mmol/L (98-107); Potassium 4.2 mmol/L (3.5-5.1); Sodium 136 mmol/L (136-145)
[2022-05-24 21:17] LABS: Calcium 8.6 mg/dL (7.8-10.44); Glucose 58 mg/dL (80-115)
[2022-05-24 21:18] LABS: Protein, Total 6.6 g/dL (5.8-8.1)
[2022-05-24 21:19] LABS: Anion Gap 15 mmol/L (10-20); Bilirubin, Total 1.7 mg/dL (0.2-1.2); Carbon Dioxide 15 mmol/L (23-31)
[2022-05-24 21:20] LABS: Alkaline Phosphatase 219 U/L (40-110)
[2022-05-24 21:21] LABS: BUN (Urea Nitrogen) 48 mg/dL (9.8-20.1); Calc. Creatinine Clearance 37 mL/min (70-130); Estimated GFR 38
[2022-05-24 21:22] LABS: AST (SGOT) 392 U/L (5-34)
[2022-05-24 21:23] LABS: ALT (SGPT) 130 U/L (8-55)
[2022-05-25] MEDS: Piperacillin/Tazobactam 3.375 GM in Sodium Chloride 0.9% 100 ML IVPB SCH ×3 (04:28→22:31)
[2022-05-25] MEDS: Arformoterol 15 MCG/2 ML NEB NEB SCH ×2 (08:32→19:05)
[2022-05-25] MEDS: Mometasone/Formoterol 200/5 60 PUFF INH SCH ×2 (08:34→19:05)
[2022-05-25 09:48] LABS: #Monocytes 2.1 thou/uL (0.11-0.59); #Neutrophils 19.5 thou/uL (1.40-6.50); %Basophils 0.1 % (0.0-1.0); %Eosinophils 0.2 % (0.0-10.0); %Lymphocytes 4.6 % (21.0-51.0); %Monocytes 9.2 % (0.0-10.0); Hemoglobin 9.3 g/dL (12.0-16.0); Mean Corpuscular HGB CONC 31.6 g/dL (32.0-36.0); Mean Corpuscular Hemoglobin 29.9 pg (27.0-31.0); Mean Corpuscular Volume 94.5 fl (78.0-98.0); Mean Platelet Volume 11.3 fL (7.4-10.4); Platelet Count 61 10x3/uL (130-400); RBC Distribution Width 16.5 % (11.5-14.5); Red Blood Cell (RBC) Count 3.12 mill/uL (4.20-5.40); White Blood Cell (WBC) Count 22.7 10x3/uL (4.8-10.8)
[2022-05-25 09:57] LABS: ALT (SGPT) 118 U/L (8-55); AST (SGOT) 321 U/L (5-34); Albumin 2.1 g/dL (3.4-4.8); Alkaline Phosphatase 118 U/L (40-110); Anion Gap 13 mmol/L (10-20); BUN (Urea Nitrogen) 51 mg/dL (9.8-20.1); Bilirubin, Total 1.5 mg/dL (0.2-1.2); Calc. Creatinine Clearance 39 mL/min (70-130); Calcium 8.4 mg/dL (7.8-10.44); Carbon Dioxide 17 mmol/L (23-31); Chloride 111 mmol/L (98-107); Estimated GFR 41; Globulin 2.5 g/dL (2.4-3.5); Glucose 96 mg/dL (80-115); Potassium 3.8 mmol/L (3.5-5.1); Protein, Total 4.6 g/dL (5.8-8.1); Sodium 137 mmol/L (136-145)
[2022-05-25] MEDS: Morphine 2 MG/ML VIAL SLOW IVP PRN ×2 (12:56→22:43)
[2022-05-25] MEDS: Nystatin 500,000 UNITS/5 ML UDCUP SSW SCH ×2 (18:03→22:31)
[2022-05-25 22:55] LABS: Bilirubin Negative (Negative); Blood, Urine 3+ (Negative); CAUTI Indications for Culture Alt mental st,lethar; Clarity Turbid (Clear); Glucose, Urine (Dipstick) Normal (Negative); Ketone, Urine Negative (Negative); Leukocyte Negative Leu/uL (Negative); Nitrite Negative (Negative); Protein, Urine (Dipstick) 70 mg/dL (Neg-Trace); RBC/HPF 0-3 HPF (0-3); Renal Epithelial 0-3 HPF (None Seen); Specific Gravity, Urine 1.032 (1.002-1.036); Squamous Epithelial 0-3 HPF (0-3); Urobilinogen Normal mg/dL (Less than 2); pH, Urine 5.5 (5.0-9.0)
[2022-05-25 23:10] LABS: Bacteria/HPF 2+ HPF (None Seen)
[2022-05-25 23:12] LABS: Urine Culture Reflex No No
[2022-05-26] MEDS: Piperacillin/Tazobactam 3.375 GM in Sodium Chloride 0.9% 100 ML IVPB SCH ×3 (04:56→21:58)
[2022-05-26] MEDS: Arformoterol 15 MCG/2 ML NEB NEB SCH ×2 (07:41→18:51)
[2022-05-26] MEDS: Mometasone/Formoterol 200/5 60 PUFF INH SCH ×2 (07:44→18:51)
[2022-05-26 09:29] LABS: #Eosinphils 0.1 thou/uL (0.0-0.7); #Lymphocytes 1.2 thou/uL (1.20-3.40); #Monocytes 1.7 thou/uL (0.11-0.59); #Neutrophils 19.1 thou/uL (1.40-6.50); %Eosinophils 0.3 % (0.0-10.0); %Lymphocytes 5.4 % (21.0-51.0); %Monocytes 7.7 % (0.0-10.0); %Neutrophils 86.6 % (42.0-75.0); Hemoglobin 9.3 g/dL (12.0-16.0); Mean Corpuscular HGB CONC 30.8 g/dL (32.0-36.0); Mean Corpuscular Hemoglobin 30.7 pg (27.0-31.0); Mean Corpuscular Volume 99.7 fl (78.0-98.0); Mean Platelet Volume 12.1 fL (7.4-10.4); Platelet Count 51 10x3/uL (130-400); RBC Distribution Width 16.7 % (11.5-14.5); Red Blood Cell (RBC) Count 3.04 mill/uL (4.20-5.40); White Blood Cell (WBC) Count 22.1 10x3/uL (4.8-10.8)
[2022-05-26 09:37] LABS: Anion Gap 14 mmol/L (10-20); BUN (Urea Nitrogen) 48 mg/dL (9.8-20.1); Calc. Creatinine Clearance 48 mL/min (70-130); Calcium 8.3 mg/dL (7.8-10.44); Carbon Dioxide 14 mmol/L (23-31); Chloride 111 mmol/L (98-107); Estimated GFR 52; Glucose 98 mg/dL (80-115); Potassium 4.4 mmol/L (3.5-5.1); Sodium 135 mmol/L (136-145)
[2022-05-26 09:48] LABS: INR-International Normal Ratio 1.5; Prothrombin Time 18.9 sec (12.0-14.7)
[2022-05-26 10:03] LABS: PTT 32.2 sec (22.9-36.1)
[2022-05-26] MEDS: Nystatin 500,000 UNITS/5 ML UDCUP SSW SCH ×4 (10:05→21:59)
[2022-05-27] MEDS: Piperacillin/Tazobactam 3.375 GM in Sodium Chloride 0.9% 100 ML IVPB SCH ×3 (03:17→22:19)
[2022-05-27] MEDS: Morphine 2 MG/ML VIAL SLOW IVP PRN ×3 (06:15→22:18)
[2022-05-27 06:29] LABS: #Lymphocytes 0.8 thou/uL (1.20-3.40); #Monocytes 1.3 thou/uL (0.11-0.59); #Neutrophils 13.6 thou/uL (1.40-6.50); %Basophils 0.1 % (0.0-1.0); %Eosinophils 0.1 % (0.0-10.0); %Lymphocytes 5.1 % (21.0-51.0); %Monocytes 8.2 % (0.0-10.0); %Neutrophils 86.4 % (42.0-75.0); Hemoglobin 8.2 g/dL (12.0-16.0); Mean Corpuscular Hemoglobin 29.9 pg (27.0-31.0); Mean Corpuscular Volume 93.6 fl (78.0-98.0); Platelet Count 48 10x3/uL (130-400); RBC Distribution Width 16.5 % (11.5-14.5); Red Blood Cell (RBC) Count 2.75 mill/uL (4.20-5.40); White Blood Cell (WBC) Count 15.7 10x3/uL (4.8-10.8)
[2022-05-27 06:59] LABS: Anion Gap 12 mmol/L (10-20); BUN (Urea Nitrogen) 43 mg/dL (9.8-20.1); Calc. Creatinine Clearance 59 mL/min (70-130); Calcium 8.3 mg/dL (7.8-10.44); Carbon Dioxide 20 mmol/L (23-31); Chloride 111 mmol/L (98-107); Estimated GFR 67; Glucose 81 mg/dL (80-115); Potassium 3.5 mmol/L (3.5-5.1); Sodium 139 mmol/L (136-145)
[2022-05-27] MEDS: Arformoterol 15 MCG/2 ML NEB NEB SCH ×2 (08:15→19:57)
[2022-05-27] MEDS: Mometasone/Formoterol 200/5 60 PUFF INH SCH ×2 (08:16→19:57)
[2022-05-27] MEDS: Nystatin 500,000 UNITS/5 ML UDCUP SSW SCH ×6 (09:42→22:19)
[2022-05-28] MEDS: Piperacillin/Tazobactam 3.375 GM in Sodium Chloride 0.9% 100 ML IVPB SCH ×3 (04:58→21:54)
[2022-05-28] MEDS: Arformoterol 15 MCG/2 ML NEB NEB SCH ×2 (07:25→19:19)
[2022-05-28] MEDS: Mometasone/Formoterol 200/5 60 PUFF INH SCH ×2 (07:27→19:20)
[2022-05-28] MEDS: Morphine 2 MG/ML VIAL SLOW IVP PRN (10:24)
[2022-05-28] MEDS: Nystatin 500,000 UNITS/5 ML UDCUP SSW SCH ×4 (10:26→21:54)
[2022-05-28 11:26] LABS: #Lymphocytes 1.1 thou/uL (1.20-3.40); #Monocytes 1.6 thou/uL (0.11-0.59); #Neutrophils 12.4 thou/uL (1.40-6.50); %Eosinophils 0.3 % (0.0-10.0); %Lymphocytes 7.2 % (21.0-51.0); %Monocytes 10.8 % (0.0-10.0); %Neutrophils 81.7 % (42.0-75.0); Hemoglobin 8.8 g/dL (12.0-16.0); Mean Corpuscular Volume 93.8 fl (78.0-98.0); Mean Platelet Volume 11.3 fL (7.4-10.4); Platelet Count 54 10x3/uL (130-400); RBC Distribution Width 16.9 % (11.5-14.5); Red Blood Cell (RBC) Count 2.94 mill/uL (4.20-5.40); White Blood Cell (WBC) Count 15.1 10x3/uL (4.8-10.8)
[2022-05-28 11:48] LABS: Anion Gap 13 mmol/L (10-20); BUN (Urea Nitrogen) 35 mg/dL (9.8-20.1); Calc. Creatinine Clearance 70 mL/min (70-130); Calcium 8.3 mg/dL (7.8-10.44); Carbon Dioxide 18 mmol/L (23-31); Chloride 111 mmol/L (98-107); Estimated GFR 81; Glucose 98 mg/dL (80-115); Potassium 3.4 mmol/L (3.5-5.1); Sodium 139 mmol/L (136-145)
[2022-05-29] MEDS: Morphine 2 MG/ML VIAL SLOW IVP PRN ×3 (01:03→20:07)
[2022-05-29] MEDS: Piperacillin/Tazobactam 3.375 GM in Sodium Chloride 0.9% 100 ML IVPB SCH ×3 (02:54→20:09)
[2022-05-29 05:41] LABS: #Monocytes 1.5 thou/uL (0.11-0.59); %Basophils 0.2 % (0.0-1.0); %Eosinophils 0.2 % (0.0-10.0); %Lymphocytes 8.1 % (21.0-51.0); %Monocytes 12.1 % (0.0-10.0); %Neutrophils 79.4 % (42.0-75.0); Hemoglobin 8.7 g/dL (12.0-16.0); Mean Corpuscular HGB CONC 31.7 g/dL (32.0-36.0); Mean Corpuscular Hemoglobin 29.7 pg (27.0-31.0); Mean Corpuscular Volume 93.7 fl (78.0-98.0); Mean Platelet Volume 11.1 fL (7.4-10.4); Platelet Count 58 10x3/uL (130-400); RBC Distribution Width 16.5 % (11.5-14.5); Red Blood Cell (RBC) Count 2.93 mill/uL (4.20-5.40); White Blood Cell (WBC) Count 12.6 10x3/uL (4.8-10.8)
[2022-05-29 06:03] LABS: ALT (SGPT) 143 U/L (8-55); AST (SGOT) 284 U/L (5-34); Alkaline Phosphatase 121 U/L (40-110); Anion Gap 10 mmol/L (10-20); BUN (Urea Nitrogen) 31 mg/dL (9.8-20.1); Bilirubin, Total 2.2 mg/dL (0.2-1.2); Calc. Creatinine Clearance 68 mL/min (70-130); Calcium 8.2 mg/dL (7.8-10.44); Carbon Dioxide 21 mmol/L (23-31); Chloride 111 mmol/L (98-107); Estimated GFR 79; Globulin 2.3 g/dL (2.4-3.5); Glucose 88 mg/dL (80-115); Potassium 3.3 mmol/L (3.5-5.1); Protein, Total 4.3 g/dL (5.8-8.1); Sodium 139 mmol/L (136-145)
[2022-05-29] MEDS: Mometasone/Formoterol 200/5 60 PUFF INH SCH ×2 (09:05→18:20)
[2022-05-29] MEDS: Arformoterol 15 MCG/2 ML NEB NEB SCH ×2 (09:11→18:19)
[2022-05-29] MEDS: Folic Acid 1 MG TAB PO SCH (09:31)
[2022-05-29] MEDS: Thiamine 100 MG TAB PO SCH (09:32)
[2022-05-29] MEDS: Nystatin 500,000 UNITS/5 ML UDCUP SSW SCH ×4 (09:32→20:09)
[2022-05-29] MEDS ORDERED: Potassium Chloride 20 MEQ TAB PO SCH (13:15)
[2022-05-29] MEDS ORDERED: Morphine 2 MG/ML VIAL SLOW IVP SCH (16:45)
[2022-05-30] MEDS: Piperacillin/Tazobactam 3.375 GM in Sodium Chloride 0.9% 100 ML IVPB SCH ×3 (04:27→20:21)
[2022-05-30] MEDS: Morphine 2 MG/ML VIAL SLOW IVP PRN ×2 (06:12→14:54)
[2022-05-30 06:20] LABS: Band 3 % (5-11); Hemoglobin 9.3 g/dL (12.0-16.0); Hypochromia SLIGHT = 6-15 cells (100X) (0-5/hpf); Lymphocytes 5 % (21-51); MDiff Complete? YES; Mean Corpuscular HGB CONC 32.6 g/dL (32.0-36.0); Mean Corpuscular Hemoglobin 30.8 pg (27.0-31.0); Mean Corpuscular Volume 94.4 fl (78.0-98.0); Mean Platelet Volume 11.5 fL (7.4-10.4); Monocytes 18 % (0-10); Neutrophil 74 % (42-75); Platelet Count 61 10x3/uL (130-400); Platelet Morphology Comment Appears Decreased; RBC Distribution Width 16.9 % (11.5-14.5); Red Blood Cell (RBC) Count 3.01 mill/uL (4.20-5.40); White Blood Cell (WBC) Count 11.8 10x3/uL (4.8-10.8)
[2022-05-30 06:23] LABS: ALT (SGPT) 148 U/L (8-55); AST (SGOT) 252 U/L (5-34); Albumin 2.1 g/dL (3.4-4.8); Alkaline Phosphatase 148 U/L (40-110); Anion Gap 10 mmol/L (10-20); BUN (Urea Nitrogen) 31 mg/dL (9.8-20.1); Bilirubin, Total 2.5 mg/dL (0.2-1.2); Calc. Creatinine Clearance 70 mL/min (70-130); Calcium 8.2 mg/dL (7.8-10.44); Carbon Dioxide 21 mmol/L (23-31); Chloride 108 mmol/L (98-107); Estimated GFR 81; Globulin 2.3 g/dL (2.4-3.5); Glucose 102 mg/dL (80-115); Potassium 3.1 mmol/L (3.5-5.1); Protein, Total 4.4 g/dL (5.8-8.1); Sodium 136 mmol/L (136-145)
[2022-05-30] MEDS: Thiamine 100 MG TAB PO SCH (08:20)
[2022-05-30] MEDS: Nystatin 500,000 UNITS/5 ML UDCUP SSW SCH ×4 (08:20→20:21)
[2022-05-30] MEDS: Folic Acid 1 MG TAB PO SCH (08:20)
[2022-05-30] MEDS: Mometasone/Formoterol 200/5 60 PUFF INH SCH ×2 (08:54→19:34)
[2022-05-30] MEDS: Arformoterol 15 MCG/2 ML NEB NEB SCH ×2 (08:54→19:33)
[2022-05-30] MEDS: HYDROcodone/Acetaminophen 5/325 mg Tablet PO PRN ×2 (09:21→17:38)
[2022-05-30] MEDS ORDERED: Potassium Chloride 20 MEQ TAB PO SCH (09:45)
[2022-05-31] MEDS: Morphine 2 MG/ML VIAL SLOW IVP PRN ×3 (00:50→17:13)
[2022-05-31] MEDS: Piperacillin/Tazobactam 3.375 GM in Sodium Chloride 0.9% 100 ML IVPB SCH ×3 (04:41→21:10)
[2022-05-31] MEDS: HYDROcodone/Acetaminophen 5/325 mg Tablet PO PRN (04:48)
[2022-05-31] MEDS: Arformoterol 15 MCG/2 ML NEB NEB SCH ×2 (07:42→19:44)
[2022-05-31] MEDS: Mometasone/Formoterol 200/5 60 PUFF INH SCH ×2 (07:44→19:45)
[2022-05-31] MEDS: Thiamine 100 MG TAB PO SCH (08:54)
[2022-05-31] MEDS: Folic Acid 1 MG TAB PO SCH (08:54)
[2022-05-31] MEDS: Nystatin 500,000 UNITS/5 ML UDCUP SSW SCH ×4 (08:54→21:08)
[2022-05-31] MEDS ORDERED: Potassium Chloride 20 MEQ TAB PO SCH (11:15)
[2022-05-31 11:45] LABS: #Lymphocytes 1.2 thou/uL (1.20-3.40); #Monocytes 1.5 thou/uL (0.11-0.59); #Neutrophils 8.6 thou/uL (1.40-6.50); %Basophils 0.1 % (0.0-1.0); %Eosinophils 0.4 % (0.0-10.0); %Lymphocytes 10.2 % (21.0-51.0); %Monocytes 13.6 % (0.0-10.0); %Neutrophils 75.8 % (42.0-75.0); Hemoglobin 10.2 g/dL (12.0-16.0); Mean Corpuscular HGB CONC 30.8 g/dL (32.0-36.0); Mean Corpuscular Hemoglobin 29.5 pg (27.0-31.0); Mean Corpuscular Volume 95.9 fl (78.0-98.0); Mean Platelet Volume 10.5 fL (7.4-10.4); Platelet Count 78 10x3/uL (130-400); RBC Distribution Width 16.6 % (11.5-14.5); Red Blood Cell (RBC) Count 3.47 mill/uL (4.20-5.40); White Blood Cell (WBC) Count 11.3 10x3/uL (4.8-10.8)
[2022-05-31 12:06] LABS: ALT (SGPT) 153 U/L (8-55); AST (SGOT) 215 U/L (5-34); Albumin 2.4 g/dL (3.4-4.8); Alkaline Phosphatase 176 U/L (40-110); Anion Gap 13 mmol/L (10-20); BUN (Urea Nitrogen) 34 mg/dL (9.8-20.1); Bilirubin, Total 2.8 mg/dL (0.2-1.2); Calc. Creatinine Clearance 46 mL/min (70-130); Calcium 8.3 mg/dL (7.8-10.44); Carbon Dioxide 20 mmol/L (23-31); Chloride 106 mmol/L (98-107); Estimated GFR 49; Globulin 2.5 g/dL (2.4-3.5); Glucose 114 mg/dL (80-115); Potassium 3.4 mmol/L (3.5-5.1); Protein, Total 4.9 g/dL (5.8-8.1); Sodium 136 mmol/L (136-145)
[2022-05-31 19:49] LABS: Potassium 4.2 mmol/L (3.5-5.1)
[2022-06-01] MEDS: Piperacillin/Tazobactam 3.375 GM in Sodium Chloride 0.9% 100 ML IVPB SCH ×3 (04:23→21:37)
[2022-06-01 05:55] LABS: #Lymphocytes 0.9 thou/uL (1.20-3.40); #Monocytes 0.8 thou/uL (0.11-0.59); #Neutrophils 5.3 thou/uL (1.40-6.50); %Basophils 0.1 % (0.0-1.0); %Eosinophils 0.5 % (0.0-10.0); %Lymphocytes 12.9 % (21.0-51.0); %Monocytes 11.1 % (0.0-10.0); %Neutrophils 75.4 % (42.0-75.0); Hemoglobin 9.9 g/dL (12.0-16.0); Mean Corpuscular HGB CONC 31.2 g/dL (32.0-36.0); Mean Corpuscular Hemoglobin 29.6 pg (27.0-31.0); Mean Corpuscular Volume 94.6 fl (78.0-98.0); Mean Platelet Volume 13.3 fL (7.4-10.4); Platelet Count 42 10x3/uL (130-400); Red Blood Cell (RBC) Count 3.35 mill/uL (4.20-5.40)
[2022-06-01] MEDS: Mometasone/Formoterol 200/5 60 PUFF INH SCH ×2 (08:13→19:38)
[2022-06-01] MEDS: Arformoterol 15 MCG/2 ML NEB NEB SCH ×2 (08:16→19:38)
[2022-06-01] MEDS: Thiamine 100 MG TAB PO SCH (09:31)
[2022-06-01] MEDS: Morphine 2 MG/ML VIAL SLOW IVP PRN ×2 (09:31→18:31)
[2022-06-01] MEDS: Nystatin 500,000 UNITS/5 ML UDCUP SSW SCH ×3 (09:31→18:30)
[2022-06-01] MEDS: Folic Acid 1 MG TAB PO SCH (09:31)
[2022-06-01 10:16] LABS: ALT (SGPT) 135 U/L (8-55); AST (SGOT) 174 U/L (5-34); Alkaline Phosphatase 158 U/L (40-110); Anion Gap 14 mmol/L (10-20); BUN (Urea Nitrogen) 35 mg/dL (9.8-20.1); Bilirubin, Total 2.4 mg/dL (0.2-1.2); Calc. Creatinine Clearance 58 mL/min (70-130); Calcium 7.6 mg/dL (7.8-10.44); Carbon Dioxide 16 mmol/L (23-31); Chloride 107 mmol/L (98-107); Estimated GFR 66; Globulin 2.4 g/dL (2.4-3.5); Glucose 94 mg/dL (80-115); Potassium 3.3 mmol/L (3.5-5.1); Protein, Total 4.4 g/dL (5.8-8.1); Sodium 134 mmol/L (136-145)
[2022-06-01 13:27] LABS: INR-International Normal Ratio 1.5; Prothrombin Time 18.9 sec (12.0-14.7)
[2022-06-01] MEDS: HYDROcodone/Acetaminophen 5/325 mg Tablet PO PRN (20:16)
[2022-06-02] MEDS: Rifaximin 550 MG TAB PO SCH ×3 (00:55→23:04)
[2022-06-02] MEDS: Metoprolol Tartrate 25 MG TAB PO SCH ×3 (00:55→23:04)
[2022-06-02] MEDS: Nystatin 500,000 UNITS/5 ML UDCUP SSW SCH ×5 (00:55→23:04)
[2022-06-02] MEDS: Morphine 2 MG/ML VIAL SLOW IVP PRN ×2 (05:27→13:30)
[2022-06-02 06:26] LABS: Hemoglobin 9.9 g/dL (12.0-16.0); Mean Corpuscular HGB CONC 33.3 g/dL (32.0-36.0); Mean Corpuscular Hemoglobin 30.9 pg (27.0-31.0); Mean Corpuscular Volume 92.7 fl (78.0-98.0); Red Blood Cell (RBC) Count 3.21 mill/uL (4.20-5.40); White Blood Cell (WBC) Count 5.4 10x3/uL (4.8-10.8)
[2022-06-02] MEDS: Mometasone/Formoterol 200/5 60 PUFF INH SCH ×2 (06:47→19:18)
[2022-06-02] MEDS: Arformoterol 15 MCG/2 ML NEB NEB SCH ×2 (06:51→19:20)
[2022-06-02] MEDS ORDERED: Potassium Chloride 20 MEQ TAB PO SCH (08:30)
[2022-06-02] MEDS ORDERED: buPROPion 75 MG TAB PO SCH (09:00)
[2022-06-02] MEDS: buPROPion HCl 100 MG TAB PO SCH (10:08)
[2022-06-02] MEDS: Folic Acid 1 MG TAB PO SCH (10:08)
[2022-06-02] MEDS: Thiamine 100 MG TAB PO SCH (10:09)
[2022-06-02 10:26] LABS: Anion Gap 15 mmol/L (10-20); BUN (Urea Nitrogen) 34 mg/dL (9.8-20.1); Calc. Creatinine Clearance 61 mL/min (70-130); Calcium 7.5 mg/dL (7.8-10.44); Carbon Dioxide 14 mmol/L (23-31); Chloride 105 mmol/L (98-107); Estimated GFR 69; Glucose 66 mg/dL (80-115); Potassium 3.7 mmol/L (3.5-5.1); Sodium 130 mmol/L (136-145)
[2022-06-02] MEDS: Nicotine 21 MG PATCH TD SCH (17:44)
[2022-06-02] MEDS: HYDROcodone/Acetaminophen 5/325 mg Tablet PO PRN (17:44)
[2022-06-03] MEDS: Morphine 2 MG/ML VIAL SLOW IVP PRN ×3 (00:35→19:41)
[2022-06-03] MEDS: Nystatin 500,000 UNITS/5 ML UDCUP SSW SCH ×4 (10:08→19:52)
[2022-06-03] MEDS: Thiamine 100 MG TAB PO SCH (10:09)
[2022-06-03] MEDS: buPROPion HCl 100 MG TAB PO SCH (10:09)
[2022-06-03] MEDS: Metoprolol Tartrate 25 MG TAB PO SCH ×2 (10:09→19:52)
[2022-06-03] MEDS: Folic Acid 1 MG TAB PO SCH (10:09)
[2022-06-03] MEDS: Rifaximin 550 MG TAB PO SCH ×2 (10:09→19:52)
[2022-06-03] MEDS: Arformoterol 15 MCG/2 ML NEB NEB SCH ×2 (10:23→18:34)
[2022-06-03] MEDS: Mometasone/Formoterol 200/5 60 PUFF INH SCH ×2 (10:23→18:34)
[2022-06-03] MEDS: Nicotine 21 MG PATCH TD SCH (17:30)
[2022-06-03] MEDS: HYDROcodone/Acetaminophen 5/325 mg Tablet PO PRN (23:22)
[2022-06-04] MEDS: Morphine 2 MG/ML VIAL SLOW IVP PRN (04:49)
[2022-06-04] MEDS ORDERED: Ziprasidone 20 MG VIAL IM SCH (05:45)
[2022-06-04] MEDS ORDERED: Sterile Water 10 ML VIAL FS PRN (05:45)
[2022-06-04] MEDS: Arformoterol 15 MCG/2 ML NEB NEB SCH ×2 (07:09→19:26)
[2022-06-04] MEDS: Mometasone/Formoterol 200/5 60 PUFF INH SCH ×2 (07:10→19:26)
[2022-06-04] MEDS: buPROPion HCl 100 MG TAB PO SCH (09:48)
[2022-06-04] MEDS: Folic Acid 1 MG TAB PO SCH (09:48)
[2022-06-04] MEDS: Rifaximin 550 MG TAB PO SCH ×2 (09:49→20:38)
[2022-06-04] MEDS: Metoprolol Tartrate 25 MG TAB PO SCH ×2 (09:49→20:39)
[2022-06-04] MEDS: Nystatin 500,000 UNITS/5 ML UDCUP SSW SCH ×4 (09:49→20:39)
[2022-06-04] MEDS: Thiamine 100 MG TAB PO SCH (09:49)
[2022-06-04 11:03] LABS: Mean Corpuscular HGB CONC 33.4 g/dL (32.0-36.0); Mean Corpuscular Volume 92.7 fl (78.0-98.0); Platelet Count 60 10x3/uL (130-400); RBC Distribution Width 16.4 % (11.5-14.5); Red Blood Cell (RBC) Count 3.55 mill/uL (4.20-5.40); White Blood Cell (WBC) Count 14.5 10x3/uL (4.8-10.8)
[2022-06-04 11:38] LABS: ALT (SGPT) 130 U/L (8-55); AST (SGOT) 122 U/L (5-34); Alkaline Phosphatase 170 U/L (40-110); Anion Gap 16 mmol/L (10-20); BUN (Urea Nitrogen) 44 mg/dL (9.8-20.1); Bilirubin, Total 2.2 mg/dL (0.2-1.2); Calc. Creatinine Clearance 38 mL/min (70-130); Calcium 8.2 mg/dL (7.8-10.44); Carbon Dioxide 14 mmol/L (23-31); Chloride 107 mmol/L (98-107); Estimated GFR 37; Globulin 2.6 g/dL (2.4-3.5); Glucose 92 mg/dL (80-115); Magnesium 2.2 mg/dL (1.6-2.6); Protein, Total 4.6 g/dL (5.8-8.1); Sodium 133 mmol/L (136-145)
[2022-06-04] MEDS ORDERED: Piperacillin/Tazobactam 3.375 GM in Sodium Chloride 0.9% 100 ML IVPB SCH ×2 (12:00→14:00)
[2022-06-04 12:08] LABS: Lymphocytes 8 % (21-51); MDiff Complete? YES; Monocytes 6 % (0-10); Neutrophil 86 % (42-75); Platelet Morphology Comment Appears Decreased; RBC Morphology Normal
[2022-06-04] MEDS: Sodium Chloride 0.9% 1,000 ML IV SCH (13:01)
[2022-06-04] MEDS: Nicotine 21 MG PATCH TD SCH (17:39)
[2022-06-04] MEDS: Piperacillin/Tazobactam 3.375 GM in Sodium Chloride 0.9% 100 ML IVPB SCH (20:38)
[2022-06-05] MEDS: Sodium Chloride 0.9% 1,000 ML IV SCH ×2 (04:01→21:40)
[2022-06-05] MEDS: Piperacillin/Tazobactam 3.375 GM in Sodium Chloride 0.9% 100 ML IVPB SCH ×2 (05:43→20:05)
[2022-06-05] MEDS: Mometasone/Formoterol 200/5 60 PUFF INH SCH ×2 (07:50→19:00)
[2022-06-05] MEDS: Arformoterol 15 MCG/2 ML NEB NEB SCH ×2 (07:50→19:00)
[2022-06-05] MEDS: Rifaximin 550 MG TAB PO SCH ×3 (08:33→20:26)
[2022-06-05] MEDS: Nystatin 500,000 UNITS/5 ML UDCUP SSW SCH ×3 (08:33→20:20)
[2022-06-05] MEDS: Metoprolol Tartrate 25 MG TAB PO SCH ×2 (08:33→20:20)
[2022-06-05] MEDS: buPROPion HCl 100 MG TAB PO SCH (08:33)
[2022-06-05] MEDS: Thiamine 100 MG TAB PO SCH (08:33)
[2022-06-05] MEDS: Folic Acid 1 MG TAB PO SCH (08:34)
[2022-06-05 10:47] LABS: BUN (Urea Nitrogen) 46 mg/dL (9.8-20.1); CRP (Inflammatory) 4.79 mg/dL (= or < 0.5); Calc. Creatinine Clearance 37 mL/min (70-130); Carbon Dioxide 11 mmol/L (23-31); Estimated GFR 33; Glucose 109 mg/dL (80-115)
[2022-06-05 11:14] LABS: #Lymphocytes 0.9 thou/uL (1.20-3.40); #Monocytes 0.9 thou/uL (0.11-0.59); #Neutrophils 7.6 thou/uL (1.40-6.50); %Basophils 0.3 % (0.0-1.0); %Eosinophils 0.1 % (0.0-10.0); %Lymphocytes 9.2 % (21.0-51.0); %Monocytes 9.1 % (0.0-10.0); %Neutrophils 81.2 % (42.0-75.0); Anisocytosis SLIGHT = 6-15 cells (100X) (0-5/hpf); Elliptocytes SLIGHT = 2-5 cells (100X) (0-1/hpf); Hemoglobin 10.1 g/dL (12.0-16.0); Hypochromia SLIGHT = 6-15 cells (100X) (0-5/hpf); MDiff Complete? YES; Mean Corpuscular HGB CONC 30.3 g/dL (32.0-36.0); Mean Corpuscular Hemoglobin 28.4 pg (27.0-31.0); Mean Corpuscular Volume 93.8 fl (78.0-98.0); Mean Platelet Volume 11.7 fL (7.4-10.4); Platelet Count 64 10x3/uL (130-400); Platelet Morphology Comment Appears Decreased; Polychromasia SLIGHT = 2-3 cells (100X) (0-2/hpf); RBC Distribution Width 16.4 % (11.5-14.5); Red Blood Cell (RBC) Count 3.58 mill/uL (4.20-5.40); White Blood Cell (WBC) Count 9.4 10x3/uL (4.8-10.8)
[2022-06-05 11:57] LABS: Calcium 7.9 mg/dL (7.8-10.44); Chloride 110 mmol/L (98-107); Potassium 4.1 mmol/L (3.5-5.1); Sodium 133 mmol/L (136-145)
[2022-06-05 12:00] LABS: Anion Gap 18 mmol/L (10-20)
[2022-06-05] MEDS ORDERED: Sodium Chloride 0.9% 1,000 ML IV SCH (15:30)
[2022-06-05] MEDS: Nicotine 21 MG PATCH TD SCH (18:18)
[2022-06-05] MEDS: HYDROcodone/Acetaminophen 5/325 mg Tablet PO PRN (20:20)
[2022-06-05] MEDS: Amoxicillin/Potassium Clav 875 MG TAB PO SCH (20:20)
[2022-06-05] MEDS: Albumin 25% 25 GM/100 ML BOT IVPB SCH (21:40)
[2022-06-06] MEDS: Albumin 25% 25 GM/100 ML BOT IVPB SCH ×3 (01:03→11:21)
[2022-06-06] MEDS: Morphine 2 MG/ML VIAL SLOW IVP PRN ×3 (03:17→17:44)
[2022-06-06] MEDS: Sodium Chloride 0.9% 1,000 ML IV SCH ×3 (06:03→21:21)
[2022-06-06] MEDS: Mometasone/Formoterol 200/5 60 PUFF INH SCH ×2 (08:52→18:45)
[2022-06-06] MEDS: Arformoterol 15 MCG/2 ML NEB NEB SCH ×2 (08:55→18:50)
[2022-06-06] MEDS: buPROPion HCl 100 MG TAB PO SCH (10:11)
[2022-06-06] MEDS: Folic Acid 1 MG TAB PO SCH (10:11)
[2022-06-06] MEDS: Amoxicillin/Potassium Clav 875 MG TAB PO SCH ×2 (10:11→21:45)
[2022-06-06] MEDS: Nystatin 500,000 UNITS/5 ML UDCUP SSW SCH ×4 (10:12→21:45)
[2022-06-06] MEDS: Metoprolol Tartrate 25 MG TAB PO SCH ×2 (10:12→21:45)
[2022-06-06] MEDS: Rifaximin 550 MG TAB PO SCH ×2 (10:12→21:45)
[2022-06-06] MEDS: Thiamine 100 MG TAB PO SCH (10:15)
[2022-06-06 10:37] LABS: Chloride 109 mmol/L (98-107); Potassium 4.3 mmol/L (3.5-5.1); Sodium 132 mmol/L (136-145)
[2022-06-06 11:42] LABS: BUN (Urea Nitrogen) 49 mg/dL (9.8-20.1); Calc. Creatinine Clearance 39 mL/min (70-130); Calcium 8.1 mg/dL (7.8-10.44); Carbon Dioxide 10 mmol/L (23-31); Estimated GFR 35; Glucose 98 mg/dL (80-115)
[2022-06-06] MEDS ORDERED: Lorazepam 2 MG/ML VIAL SLOW IVP SCH (14:15)
[2022-06-06] MEDS: Nicotine 21 MG PATCH TD SCH (16:45)
[2022-06-07] MEDS: Arformoterol 15 MCG/2 ML NEB NEB SCH ×2 (07:38→18:03)
[2022-06-07] MEDS: Mometasone/Formoterol 200/5 60 PUFF INH SCH ×2 (07:39→18:54)
[2022-06-07] MEDS: Sodium Chloride 0.9% 1,000 ML IV SCH (07:50)
[2022-06-07 10:48] LABS: #Lymphocytes 1.1 thou/uL (1.20-3.40); #Monocytes 1.1 thou/uL (0.11-0.59); #Neutrophils 5.2 thou/uL (1.40-6.50); %Basophils 0.3 % (0.0-1.0); %Lymphocytes 14.6 % (21.0-51.0); %Monocytes 14.7 % (0.0-10.0); %Neutrophils 70.3 % (42.0-75.0); Hemoglobin 7.8 g/dL (12.0-16.0); Mean Corpuscular Hemoglobin 28.9 pg (27.0-31.0); Mean Corpuscular Volume 90.3 fl (78.0-98.0); Mean Platelet Volume 10.3 fL (7.4-10.4); Platelet Count 50 10x3/uL (130-400); RBC Distribution Width 16.2 % (11.5-14.5); White Blood Cell (WBC) Count 7.3 10x3/uL (4.8-10.8)
[2022-06-07 11:03] LABS: ALT (SGPT) 66 U/L (8-55); AST (SGOT) 65 U/L (5-34); Albumin 2.9 g/dL (3.4-4.8); Alkaline Phosphatase 101 U/L (40-110); Anion Gap 14 mmol/L (10-20); BUN (Urea Nitrogen) 39 mg/dL (9.8-20.1); Bilirubin, Total 2.7 mg/dL (0.2-1.2); Calc. Creatinine Clearance 67 mL/min (70-130); Calcium 8.4 mg/dL (7.8-10.44); Carbon Dioxide 15 mmol/L (23-31); Chloride 112 mmol/L (98-107); Estimated GFR 70; Globulin 1.6 g/dL (2.4-3.5); Glucose 66 mg/dL (80-115); Potassium 3.2 mmol/L (3.5-5.1); Protein, Total 4.5 g/dL (5.8-8.1); Sodium 138 mmol/L (136-145)
[2022-06-07] MEDS: Folic Acid 1 MG TAB PO SCH (12:42)
[2022-06-07] MEDS: Amoxicillin/Potassium Clav 875 MG TAB PO SCH ×2 (12:42→20:10)
[2022-06-07] MEDS: buPROPion HCl 100 MG TAB PO SCH (12:42)
[2022-06-07] MEDS: Rifaximin 550 MG TAB PO SCH ×2 (12:43→20:10)
[2022-06-07] MEDS: Nystatin 500,000 UNITS/5 ML UDCUP SSW SCH ×4 (12:43→20:10)
[2022-06-07] MEDS: Metoprolol Tartrate 25 MG TAB PO SCH ×2 (12:43→20:10)
[2022-06-07] MEDS: Thiamine 100 MG TAB PO SCH (12:43)
[2022-06-07] MEDS ORDERED: Potassium Chloride 20 MEQ TAB PO SCH (17:00)
[2022-06-07] MEDS: Nicotine 21 MG PATCH TD SCH (18:29)
[2022-06-08] MEDS: Arformoterol 15 MCG/2 ML NEB NEB SCH ×2 (07:43→19:09)
[2022-06-08] MEDS: Mometasone/Formoterol 200/5 60 PUFF INH SCH ×2 (07:46→19:09)
[2022-06-08] MEDS ORDERED: Potassium Chloride 20 MEQ TAB PO SCH ×2 (09:15→14:45)
[2022-06-08 09:55] LABS: #Monocytes 1.1 thou/uL (0.11-0.59); #Neutrophils 5.5 thou/uL (1.40-6.50); %Basophils 0.3 % (0.0-1.0); %Eosinophils 0.3 % (0.0-10.0); %Lymphocytes 13.4 % (21.0-51.0); %Monocytes 14.7 % (0.0-10.0); %Neutrophils 71.3 % (42.0-75.0); Hemoglobin 8.8 g/dL (12.0-16.0); Mean Corpuscular HGB CONC 31.4 g/dL (32.0-36.0); Mean Corpuscular Hemoglobin 28.4 pg (27.0-31.0); Mean Corpuscular Volume 90.3 fl (78.0-98.0); Mean Platelet Volume 10.2 fL (7.4-10.4); Platelet Count 70 10x3/uL (130-400); RBC Distribution Width 16.1 % (11.5-14.5); White Blood Cell (WBC) Count 7.7 10x3/uL (4.8-10.8)
[2022-06-08 10:07] LABS: Anion Gap 14 mmol/L (10-20); BUN (Urea Nitrogen) 32 mg/dL (9.8-20.1); Calc. Creatinine Clearance 67 mL/min (70-130); Calcium 8.7 mg/dL (7.8-10.44); Carbon Dioxide 16 mmol/L (23-31); Chloride 111 mmol/L (98-107); Estimated GFR 72; Glucose 143 mg/dL (80-115); Sodium 138 mmol/L (136-145)
[2022-06-08 10:16] LABS: Potassium 2.6 mmol/L (3.5-5.1)
[2022-06-08] MEDS: Amoxicillin/Potassium Clav 875 MG TAB PO SCH ×2 (11:35→20:34)
[2022-06-08] MEDS: Thiamine 100 MG TAB PO SCH (11:43)
[2022-06-08] MEDS: Metoprolol Tartrate 25 MG TAB PO SCH ×2 (11:43→20:35)
[2022-06-08] MEDS: Rifaximin 550 MG TAB PO SCH ×2 (11:43→20:35)
[2022-06-08] MEDS: Folic Acid 1 MG TAB PO SCH (11:44)
[2022-06-08] MEDS: buPROPion HCl 100 MG TAB PO SCH (11:46)
[2022-06-08] MEDS: Nystatin 500,000 UNITS/5 ML UDCUP SSW SCH ×4 (11:48→20:35)
[2022-06-08] MEDS ORDERED: Potassium Chloride 40 MEQ in Premix Bag 1 BAG IVPB SCH (12:15)
[2022-06-08] MEDS ORDERED: Potassium Chloride 20 MEQ in Premix Bag 1 BAG IVPB SCH (14:00)
[2022-06-08] MEDS: Nicotine 21 MG PATCH TD SCH (17:12)
[2022-06-08 18:23] LABS: Magnesium 2.1 mg/dL (1.6-2.6)
[2022-06-08] MEDS: Morphine 2 MG/ML VIAL SLOW IVP PRN (20:33)
[2022-06-09 05:15] LABS: Potassium 3.8 mmol/L (3.5-5.1)
[2022-06-09 06:11] LABS: Anion Gap 12 mmol/L (10-20); BUN (Urea Nitrogen) 24 mg/dL (9.8-20.1); Calc. Creatinine Clearance 81 mL/min (70-130); Calcium 8.3 mg/dL (7.8-10.44); Carbon Dioxide 16 mmol/L (23-31); Chloride 114 mmol/L (98-107); Estimated GFR 84; Glucose 109 mg/dL (80-115); Potassium 3.8 mmol/L (3.5-5.1); Sodium 138 mmol/L (136-145)
[2022-06-09 06:27] LABS: Band 14 % (5-11); Hemoglobin 8.8 g/dL (12.0-16.0); Hypochromia SLIGHT = 6-15 cells (100X) (0-5/hpf); Lymphocytes 2 % (21-51); MDiff Complete? YES; Mean Corpuscular HGB CONC 32.3 g/dL (32.0-36.0); Mean Corpuscular Hemoglobin 29.3 pg (27.0-31.0); Mean Corpuscular Volume 90.8 fl (78.0-98.0); Mean Platelet Volume 10.4 fL (7.4-10.4); Monocytes 13 % (0-10); Neutrophil 71 % (42-75); Platelet Count 61 10x3/uL (130-400); Platelet Morphology Comment Appears Decreased; RBC Distribution Width 16.2 % (11.5-14.5); White Blood Cell (WBC) Count 8.9 10x3/uL (4.8-10.8)
[2022-06-09] MEDS: Morphine 2 MG/ML VIAL SLOW IVP PRN ×2 (06:46→13:07)
[2022-06-09] MEDS: Mometasone/Formoterol 200/5 60 PUFF INH SCH ×2 (07:43→19:25)
[2022-06-09] MEDS: Arformoterol 15 MCG/2 ML NEB NEB SCH ×2 (07:43→19:24)
[2022-06-09] MEDS: Rifaximin 550 MG TAB PO SCH ×2 (08:50→20:12)
[2022-06-09] MEDS: Nystatin 500,000 UNITS/5 ML UDCUP SSW SCH ×4 (08:50→20:15)
[2022-06-09] MEDS: Thiamine 100 MG TAB PO SCH (08:50)
[2022-06-09] MEDS: Metoprolol Tartrate 25 MG TAB PO SCH ×2 (08:50→20:12)
[2022-06-09] MEDS: Amoxicillin/Potassium Clav 875 MG TAB PO SCH ×2 (08:50→20:11)
[2022-06-09] MEDS: Folic Acid 1 MG TAB PO SCH (08:50)
[2022-06-09] MEDS: buPROPion HCl 100 MG TAB PO SCH (08:57)
[2022-06-09] MEDS ORDERED: Spironolactone 100 MG TAB PO SCH (12:15)
[2022-06-09] MEDS ORDERED: Furosemide 20 MG TAB PO SCH (12:15)
[2022-06-09] MEDS: Nicotine 21 MG PATCH TD SCH (18:54)
[2022-06-10] MEDS: Mometasone/Formoterol 200/5 60 PUFF INH SCH ×2 (08:01→19:07)
[2022-06-10] MEDS: Arformoterol 15 MCG/2 ML NEB NEB SCH ×2 (08:01→19:07)
[2022-06-10] MEDS: Spironolactone 100 MG TAB PO SCH (09:44)
[2022-06-10] MEDS: Furosemide 20 MG TAB PO SCH (11:06)
[2022-06-10] MEDS: buPROPion HCl 100 MG TAB PO SCH (11:06)
[2022-06-10] MEDS: Amoxicillin/Potassium Clav 875 MG TAB PO SCH ×2 (11:06→20:22)
[2022-06-10] MEDS: Folic Acid 1 MG TAB PO SCH (11:06)
[2022-06-10] MEDS: Rifaximin 550 MG TAB PO SCH ×2 (11:07→20:27)
[2022-06-10] MEDS: Thiamine 100 MG TAB PO SCH (11:07)
[2022-06-10] MEDS: Nystatin 500,000 UNITS/5 ML UDCUP SSW SCH ×5 (11:07→23:13)
[2022-06-10] MEDS: Metoprolol Tartrate 25 MG TAB PO SCH ×2 (11:07→20:22)
[2022-06-10] MEDS: Morphine 2 MG/ML VIAL SLOW IVP PRN (14:01)
[2022-06-10 16:23] LABS: Hemoglobin 8.8 g/dL (12.0-16.0); Mean Corpuscular HGB CONC 31.9 g/dL (32.0-36.0); Mean Corpuscular Hemoglobin 29.1 pg (27.0-31.0); Mean Corpuscular Volume 91.2 fl (78.0-98.0); Mean Platelet Volume 10.1 fL (7.4-10.4); Platelet Count 76 10x3/uL (130-400); RBC Distribution Width 16.8 % (11.5-14.5); Red Blood Cell (RBC) Count 3.02 mill/uL (4.20-5.40)
[2022-06-10 16:40] LABS: Anion Gap 12 mmol/L (10-20); BUN (Urea Nitrogen) 21 mg/dL (9.8-20.1); Calc. Creatinine Clearance 71 mL/min (70-130); Calcium 7.9 mg/dL (7.8-10.44); Carbon Dioxide 16 mmol/L (23-31); Chloride 113 mmol/L (98-107); Estimated GFR 78; Glucose 129 mg/dL (80-115); Potassium 3.6 mmol/L (3.5-5.1); Sodium 137 mmol/L (136-145)
[2022-06-10 16:41] LABS: Anisocytosis SLIGHT = 6-15 cells (100X) (0-5/hpf); Band 5 % (5-11); Lymphocytes 12 % (21-51); MDiff Complete? YES; Monocytes 5 % (0-10); Neutrophil 78 % (42-75); Platelet Morphology Comment Appears Decreased; Polychromasia MODERATE = 3-4 cells (100X) (0-2/hpf); Spherocytes SLIGHT = 1-5 cells (100X) (None Seen)
[2022-06-10] MEDS: Nicotine 21 MG PATCH TD SCH (18:25)
[2022-06-11 06:30] LABS: Band 5 % (5-11); Hemoglobin 9.2 g/dL (12.0-16.0); Hypochromia SLIGHT = 6-15 cells (100X) (0-5/hpf); Lymphocytes 14 % (21-51); MDiff Complete? YES; Mean Corpuscular HGB CONC 31.8 g/dL (32.0-36.0); Mean Corpuscular Volume 91.1 fl (78.0-98.0); Mean Platelet Volume 10.5 fL (7.4-10.4); Monocytes 9 % (0-10); Neutrophil 72 % (42-75); Platelet Count 75 10x3/uL (130-400); Platelet Morphology Comment Appears Decreased; RBC Distribution Width 16.6 % (11.5-14.5); Red Blood Cell (RBC) Count 3.16 mill/uL (4.20-5.40); White Blood Cell (WBC) Count 9.3 10x3/uL (4.8-10.8)
[2022-06-11 06:45] LABS: ALT (SGPT) 62 U/L (8-55); AST (SGOT) 68 U/L (5-34); Albumin 2.5 g/dL (3.4-4.8); Alkaline Phosphatase 124 U/L (40-110); Anion Gap 11 mmol/L (10-20); BUN (Urea Nitrogen) 27 mg/dL (9.8-20.1); Bilirubin, Total 1.8 mg/dL (0.2-1.2); Calc. Creatinine Clearance 62 mL/min (70-130); Calcium 7.9 mg/dL (7.8-10.44); Carbon Dioxide 17 mmol/L (23-31); Chloride 115 mmol/L (98-107); Estimated GFR 69; Globulin 1.6 g/dL (2.4-3.5); Glucose 117 mg/dL (80-115); Potassium 3.9 mmol/L (3.5-5.1); Protein, Total 4.1 g/dL (5.8-8.1); Sodium 139 mmol/L (136-145)
[2022-06-11] MEDS: Mometasone/Formoterol 200/5 60 PUFF INH SCH ×2 (07:05→18:25)
[2022-06-11] MEDS: Arformoterol 15 MCG/2 ML NEB NEB SCH ×2 (07:05→18:25)
[2022-06-11] MEDS: Spironolactone 100 MG TAB PO SCH (08:08)
[2022-06-11] MEDS: Metoprolol Tartrate 25 MG TAB PO SCH ×2 (08:08→20:05)
[2022-06-11] MEDS: Thiamine 100 MG TAB PO SCH (08:08)
[2022-06-11] MEDS: Rifaximin 550 MG TAB PO SCH ×2 (08:08→20:05)
[2022-06-11] MEDS: Folic Acid 1 MG TAB PO SCH (08:08)
[2022-06-11] MEDS: Furosemide 20 MG TAB PO SCH (08:08)
[2022-06-11] MEDS: buPROPion HCl 100 MG TAB PO SCH (08:08)
[2022-06-11] MEDS: Nystatin 500,000 UNITS/5 ML UDCUP SSW SCH ×4 (08:08→20:05)
[2022-06-11] MEDS: Morphine 2 MG/ML VIAL SLOW IVP PRN ×3 (09:31→20:05)
[2022-06-11] MEDS: Nicotine 21 MG PATCH TD SCH (16:14)
[2022-06-12] MEDS: Morphine 2 MG/ML VIAL SLOW IVP PRN (06:04)
[2022-06-12 06:21] LABS: ALT (SGPT) 60 U/L (8-55); AST (SGOT) 56 U/L (5-34); Albumin 2.5 g/dL (3.4-4.8); Alkaline Phosphatase 122 U/L (40-110); Anion Gap 11 mmol/L (10-20); BUN (Urea Nitrogen) 32 mg/dL (9.8-20.1); Bilirubin, Total 1.9 mg/dL (0.2-1.2); Calc. Creatinine Clearance 66 mL/min (70-130); Calcium 8.1 mg/dL (7.8-10.44); Carbon Dioxide 16 mmol/L (23-31); Chloride 110 mmol/L (98-107); Estimated GFR 68; Globulin 1.8 g/dL (2.4-3.5); Glucose 85 mg/dL (80-115); Potassium 3.9 mmol/L (3.5-5.1); Protein, Total 4.3 g/dL (5.8-8.1); Sodium 133 mmol/L (136-145)
[2022-06-12 06:29] LABS: Mean Corpuscular HGB CONC 32.1 g/dL (32.0-36.0); Mean Corpuscular Hemoglobin 28.9 pg (27.0-31.0); Mean Corpuscular Volume 89.9 fl (78.0-98.0); Mean Platelet Volume 11.3 fL (7.4-10.4); Platelet Count 58 10x3/uL (130-400); RBC Distribution Width 17.1 % (11.5-14.5); Red Blood Cell (RBC) Count 3.12 mill/uL (4.20-5.40)
[2022-06-12] MEDS: Arformoterol 15 MCG/2 ML NEB NEB SCH ×2 (07:37→19:01)
[2022-06-12] MEDS: Mometasone/Formoterol 200/5 60 PUFF INH SCH ×2 (07:39→19:03)
[2022-06-12] MEDS: Metoprolol Tartrate 25 MG TAB PO SCH ×2 (07:50→20:38)
[2022-06-12] MEDS: Nystatin 500,000 UNITS/5 ML UDCUP SSW SCH ×4 (07:50→20:37)
[2022-06-12] MEDS: buPROPion HCl 100 MG TAB PO SCH (07:51)
[2022-06-12] MEDS: Spironolactone 100 MG TAB PO SCH (07:51)
[2022-06-12] MEDS: Furosemide 20 MG TAB PO SCH (07:51)
[2022-06-12] MEDS: Thiamine 100 MG TAB PO SCH (07:51)
[2022-06-12 08:03] LABS: Band 5 % (5-11); Lymphocytes 18 % (21-51); MDiff Complete? YES; Monocytes 14 % (0-10); Neutrophil 60 % (42-75); Platelet Morphology Comment Appears Decreased; Polychromasia SLIGHT = 2-3 cells (100X) (0-2/hpf); Reactive Lymphocytes 1 % (0-10)
[2022-06-12] MEDS: Folic Acid 1 MG TAB PO SCH (08:31)
[2022-06-12] MEDS: Rifaximin 550 MG TAB PO SCH ×2 (11:08→20:39)
[2022-06-12] MEDS: traMADol HCl 50 MG TAB PO PRN ×2 (15:36→20:38)
[2022-06-12] MEDS: Nicotine 21 MG PATCH TD SCH (15:36)
[2022-06-13 05:27] LABS: Anion Gap 13 mmol/L (10-20); BUN (Urea Nitrogen) 36 mg/dL (9.8-20.1); Calc. Creatinine Clearance 58 mL/min (70-130); Carbon Dioxide 15 mmol/L (23-31); Chloride 110 mmol/L (98-107); Estimated GFR 57; Glucose 73 mg/dL (80-115); Sodium 134 mmol/L (136-145)
[2022-06-13 05:55] LABS: Band 4 % (5-11); Hemoglobin 9.2 g/dL (12.0-16.0); Hypochromia SLIGHT = 6-15 cells (100X) (0-5/hpf); Lymphocytes 19 % (21-51); MDiff Complete? YES; Mean Corpuscular HGB CONC 29.3 g/dL (32.0-36.0); Mean Corpuscular Hemoglobin 26.3 pg (27.0-31.0); Mean Corpuscular Volume 89.7 fl (78.0-98.0); Mean Platelet Volume 10.7 fL (7.4-10.4); Monocytes 14 % (0-10); Neutrophil 60 % (42-75); Platelet Count 88 10x3/uL (130-400); Platelet Morphology Comment Appears Adequate; RBC Distribution Width 17.2 % (11.5-14.5); Reactive Lymphocytes 3 % (0-10); White Blood Cell (WBC) Count 11.2 10x3/uL (4.8-10.8)
[2022-06-13] MEDS: Folic Acid 1 MG TAB PO SCH (09:13)
[2022-06-13] MEDS: Rifaximin 550 MG TAB PO SCH ×2 (09:13→20:14)
[2022-06-13] MEDS: Furosemide 20 MG TAB PO SCH (09:13)
[2022-06-13] MEDS: Metoprolol Tartrate 25 MG TAB PO SCH ×2 (09:13→20:16)
[2022-06-13] MEDS: Thiamine 100 MG TAB PO SCH (09:13)
[2022-06-13] MEDS: Nystatin 500,000 UNITS/5 ML UDCUP SSW SCH ×4 (09:13→20:16)
[2022-06-13] MEDS: Spironolactone 100 MG TAB PO SCH (09:13)
[2022-06-13] MEDS: buPROPion HCl 100 MG TAB PO SCH (09:15)
[2022-06-13] MEDS: Arformoterol 15 MCG/2 ML NEB NEB SCH ×2 (09:31→18:58)
[2022-06-13] MEDS: Mometasone/Formoterol 200/5 60 PUFF INH SCH ×2 (09:32→19:00)
[2022-06-13] MEDS: Albumin 25% 25 GM/100 ML BOT IVPB SCH ×3 (14:12→23:02)
[2022-06-13] MEDS: Nicotine 21 MG PATCH TD SCH (16:27)
[2022-06-13] MEDS: traMADol HCl 50 MG TAB PO PRN (20:15)
[2022-06-13] MEDS: Morphine 2 MG/ML VIAL SLOW IVP PRN (22:41)
[2022-06-13] MEDS ORDERED: Ondansetron PF 4 MG/2 ML Vial IVP PRN (23:08)
[2022-06-13] MEDS ORDERED: Ondansetron ODT 4 MG TAB PO PRN (23:08)
[2022-06-14] MEDS: Albumin 25% 25 GM/100 ML BOT IVPB SCH (07:38)
[2022-06-14] MEDS: Mometasone/Formoterol 200/5 60 PUFF INH SCH ×2 (08:10→19:30)
[2022-06-14] MEDS: Arformoterol 15 MCG/2 ML NEB NEB SCH ×2 (08:13→19:25)
[2022-06-14 09:03] LABS: Hemoglobin 8.3 g/dL (12.0-16.0); Mean Corpuscular HGB CONC 31.4 g/dL (32.0-36.0); Mean Corpuscular Volume 89.2 fl (78.0-98.0); Mean Platelet Volume 10.2 fL (7.4-10.4); Platelet Count 95 10x3/uL (130-400); RBC Distribution Width 17.1 % (11.5-14.5); Red Blood Cell (RBC) Count 2.95 mill/uL (4.20-5.40); White Blood Cell (WBC) Count 8.9 10x3/uL (4.8-10.8)
[2022-06-14 09:17] LABS: ALT (SGPT) 44 U/L (8-55); AST (SGOT) 49 U/L (5-34); Albumin 2.6 g/dL (3.4-4.8); Alkaline Phosphatase 107 U/L (40-110); Anion Gap 13 mmol/L (10-20); BUN (Urea Nitrogen) 33 mg/dL (9.8-20.1); Bilirubin, Total 1.6 mg/dL (0.2-1.2); Calc. Creatinine Clearance 59 mL/min (70-130); Calcium 8.2 mg/dL (7.8-10.44); Carbon Dioxide 15 mmol/L (23-31); Chloride 111 mmol/L (98-107); Estimated GFR 59; Globulin 1.8 g/dL (2.4-3.5); Glucose 71 mg/dL (80-115); Potassium 3.7 mmol/L (3.5-5.1); Protein, Total 4.4 g/dL (5.8-8.1); Sodium 135 mmol/L (136-145)
[2022-06-14 09:57] LABS: Band 1 % (5-11); Hypochromia SLIGHT = 6-15 cells (100X) (0-5/hpf); Lymphocytes 13 % (21-51); MDiff Complete? YES; Metamyelocyte 2 % (0-0); Monocytes 9 % (0-10); Neutrophil 73 % (42-75); Nucleated RBC (Manual Ct) 1 % (0); Platelet Morphology Comment Appears Decreased; Polychromasia SLIGHT = 2-3 cells (100X) (0-2/hpf); Reactive Lymphocytes 1 % (0-10)
[2022-06-14] MEDS: Furosemide 20 MG TAB PO SCH (10:38)
[2022-06-14] MEDS: buPROPion HCl 100 MG TAB PO SCH (10:38)
[2022-06-14] MEDS: Spironolactone 100 MG TAB PO SCH (10:38)
[2022-06-14] MEDS: Nystatin 500,000 UNITS/5 ML UDCUP SSW SCH ×4 (10:38→21:53)
[2022-06-14] MEDS: Folic Acid 1 MG TAB PO SCH (10:38)
[2022-06-14] MEDS: Thiamine 100 MG TAB PO SCH (10:39)
[2022-06-14] MEDS: Metoprolol Tartrate 25 MG TAB PO SCH ×3 (10:39→21:52)
[2022-06-14] MEDS: Rifaximin 550 MG TAB PO SCH ×2 (10:39→21:52)
[2022-06-14] MEDS: Nicotine 21 MG PATCH TD SCH (17:39)
[2022-06-14] MEDS: Morphine 2 MG/ML VIAL SLOW IVP PRN (21:55)
[2022-06-15] MEDS: Arformoterol 15 MCG/2 ML NEB NEB SCH ×2 (06:33→19:03)
[2022-06-15] MEDS: Mometasone/Formoterol 200/5 60 PUFF INH SCH ×2 (06:35→19:04)
[2022-06-15] MEDS: Metoprolol Tartrate 25 MG TAB PO SCH ×2 (10:08→21:17)
[2022-06-15] MEDS: Rifaximin 550 MG TAB PO SCH ×2 (10:09→21:17)
[2022-06-15] MEDS: Nystatin 500,000 UNITS/5 ML UDCUP SSW SCH ×4 (10:09→21:17)
[2022-06-15] MEDS: Thiamine 100 MG TAB PO SCH (10:09)
[2022-06-15 10:10] LABS: Hemoglobin 8.3 g/dL (12.0-16.0); Mean Corpuscular HGB CONC 31.2 g/dL (32.0-36.0); Mean Corpuscular Hemoglobin 27.9 pg (27.0-31.0); Mean Corpuscular Volume 89.7 fl (78.0-98.0); Mean Platelet Volume 10.3 fL (7.4-10.4); Platelet Count 113 10x3/uL (130-400); RBC Distribution Width 17.2 % (11.5-14.5); Red Blood Cell (RBC) Count 2.97 mill/uL (4.20-5.40)
[2022-06-15] MEDS: buPROPion HCl 100 MG TAB PO SCH (10:10)
[2022-06-15] MEDS: Furosemide 20 MG TAB PO SCH (10:10)
[2022-06-15] MEDS: Folic Acid 1 MG TAB PO SCH (10:10)
[2022-06-15] MEDS: Spironolactone 100 MG TAB PO SCH (10:10)
[2022-06-15 10:28] LABS: Anion Gap 12 mmol/L (10-20); BUN (Urea Nitrogen) 29 mg/dL (9.8-20.1); Calc. Creatinine Clearance 55 mL/min (70-130); Carbon Dioxide 15 mmol/L (23-31); Chloride 111 mmol/L (98-107); Estimated GFR 58; Glucose 133 mg/dL (80-115); Potassium 3.2 mmol/L (3.5-5.1); Sodium 135 mmol/L (136-145)
[2022-06-15 11:16] LABS: Band 3 % (5-11); Lymphocytes 20 % (21-51); MDiff Complete? YES; Monocytes 11 % (0-10); Neutrophil 64 % (42-75); Platelet Morphology Comment Appears Decreased; Polychromasia SLIGHT = 2-3 cells (100X) (0-2/hpf); Reactive Lymphocytes 1 % (0-10)
[2022-06-15] MEDS: Nicotine 21 MG PATCH TD SCH (18:11)
[2022-06-16] MEDS: Arformoterol 15 MCG/2 ML NEB NEB SCH (08:24)
[2022-06-16] MEDS: Mometasone/Formoterol 200/5 60 PUFF INH SCH (08:25)
[2022-06-16] MEDS: Metoprolol Tartrate 25 MG TAB PO SCH (09:38)
[2022-06-16] MEDS: Nystatin 500,000 UNITS/5 ML UDCUP SSW SCH (09:38)
[2022-06-16] MEDS: Thiamine 100 MG TAB PO SCH (09:38)
[2022-06-16] MEDS: Rifaximin 550 MG TAB PO SCH (09:38)
[2022-06-16] MEDS: Spironolactone 100 MG TAB PO SCH (09:38)
[2022-06-16] MEDS: Furosemide 20 MG TAB PO SCH (09:38)
[2022-06-16] MEDS: buPROPion HCl 100 MG TAB PO SCH (09:38)
[2022-06-16] MEDS: Folic Acid 1 MG TAB PO SCH (09:38)
[2022-06-16 10:15] VITALS: BMI 20.7
[2022-06-16 11:59] VITALS: BP 116/63; TEMP 98.2
[2022-06-16] MEDS: traMADol HCl 50 MG TAB PO PRN (13:52)
== END 2022-06-16 14:10 | DRG 193 ==
LOC: MSONC 12:53
PROVIDERS: ADMIT Internal Medicine; ATTEND Hospitalist
PROC: 0W993ZZ Drainage of Right Pleural Cavity, Percutaneous Approach (ICD-10-PCS; principal; 2022-05-29)
PROC: 0W9930Z Drainage of Right Pleural Cavity with Drainage Device, Percutaneous Approach (ICD-10-PCS; 2022-05-29)
PROC: 0W9930Z Drainage of Right Pleural Cavity with Drainage Device, Percutaneous Approach (ICD-10-PCS; 2022-06-09)
DX: J18.9 Pneumonia, unspecified organism (principal); E43 Unspecified severe protein-calorie malnutrition; G93.41 Metabolic encephalopathy; J96.01 Acute respiratory failure with hypoxia; I81 Portal vein thrombosis; J96.20 Acute and chronic respiratory failure, unspecified whether with hypoxia or hypercapnia; S02.31XA Fracture of orbital floor, right side, initial encounter for closed fracture; S02.831A Fracture of medial orbital wall, right side, initial encounter for closed fracture; J90 Pleural effusion, not elsewhere classified; J95.811 Postprocedural pneumothorax; J98.11 Atelectasis; K76.6 Portal hypertension; I85.10 Secondary esophageal varices without bleeding; N17.9 Acute kidney failure, unspecified; R71.0 Precipitous drop in hematocrit; W18.30XA Fall on same level, unspecified, initial encounter; J43.9 Emphysema, unspecified; E87.6 Hypokalemia; Y95 Nosocomial condition; K76.82 Hepatic encephalopathy; B19.20 Unspecified viral hepatitis C without hepatic coma; I12.9 Hypertensive chronic kidney disease with stage 1 through stage 4 chronic kidney disease, or unspecified chronic kidney disease; N18.9 Chronic kidney disease, unspecified; F41.9 Anxiety disorder, unspecified; F32.A Depression, unspecified; D69.6 Thrombocytopenia, unspecified; K70.31 Alcoholic cirrhosis of liver with ascites; Y92.129 Unspecified place in nursing home as the place of occurrence of the external cause; Z88.6 Allergy status to analgesic agent; Z79.899 Other long term (current) drug therapy; Z79.52 Long term (current) use of systemic steroids; Z90.49 Acquired absence of other specified parts of digestive tract; Z98.51 Tubal ligation status; Z87.891 Personal history of nicotine dependence; Z68.20 Body mass index [BMI] 20.0-20.9, adult
CPT/HCPCS: 36415; 36416; 70450; 71045; 71250; 76705; 80048; 80053; 81001; 82140; 83735; 84145; 85025; 85610; 85730; 86140; 87070; 87205; 94640; 97139; G0306; J2272; J2543; J3480; J3486; J3490; J7050; P9047; Q0162